=== PATIENT | male | born 1945 | race Caucasian/White ===

== ENCOUNTER 2019-05-23 19:03 | Emergency (ER) | payer MEDICARE ==
[~2019-05-23] VITALS: Ht 165.1 cm; Wt 77.6 kg
[~2019-05-23 19:03] MED LIST: ALLO100T PO; AMLO10TA4 PO; ASPI-482 PO; BYSTOLIC10 MG PO; CARV25TA PO; CHOL10003 PO; CLOP75TA57 PO; DIGO125T PO; FURO20TA3 PO; FURO80TA72 PO; GUAN1TAB PO; HYDR1TAB10 PO; IRBE300T PO; ISRA5CAP PO; LIPITOR80 MG PO; LOSA100T14 PO; OMEG500C PO; PANT40TA77 PO; RANI300C PO
--- NOTE | 2019-05-23 20:09 | RAD ---
EXAM: Head and maxillofacial bone CT without contrast. HISTORY: Trauma. TECHNIQUE: Computed tomographic images of the head and maxillofacial bones were obtained without contrast.. *One or more of the following individualized dose reduction techniques were utilized for this examination: 1. Automated exposure control. 2. Adjustment of the mA and/or kV according to patient size. 3. Use of iterative reconstruction technique. COMPARISON: None. FINDINGS: There is no acute intracranial hemorrhage. There is no mass effect or midline shift. There is no hydrocephalus. There is cerebral volume loss and compensatory enlargement of the extra-axial space. There are chronic infarcts within the right basal ganglia and right frontal lobe. There are also suspected small chronic lacunar infarcts within the left basal ganglia and left thalamus. There is decreased attenuation within the cerebral white matter, likely due to chronic small vessel disease. There is heavily calcified atherosclerotic plaque within the distal vertebral and internal carotid arteries. The mastoid air cells are clear. No suspicious calvarial lesion is seen. There are multiple dental restorations and missing teeth. There is evidence of left lens surgery. The ostiomeatal units are patent. There is mild rightward nasal septal deviation. 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 IMPRESSION: 1. No acute intracranial finding or evidence of acute maxillofacial bone trauma. 2. Chronic infarct within the right basal ganglia and adjacent right frontal lobe. There are also suspected chronic lacunar infarcts within the left basal ganglia and left thalamus. 3. Decreased attenuation within the cerebral white matter, likely due to chronic small vessel disease. 4. Cerebral atrophy, greater than expected for patient age. 5. Decreased attenuation within the cerebral white matter, likely due to chronic small vessel disease. Electronically signed by: Jo Hamm MD (05/23/2019 8:06 PM) [facility]
--- NOTE | 2019-05-23 20:31 | RAD ---
EXAM: LEFT SHOULDER 2 VIEWS. HISTORY: Left shoulder pain after fall. COMPARISON: None. FINDINGS: No fractures are identified. The glenohumeral joint space is not profiled. Alignment is maintained. 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 There are changes of coronary artery bypass grafting. The heart is moderate cardiomegaly. The aorta is calcified and tortuous. IMPRESSION: 1. No fracture or malalignment. Electronically signed by: Mitra Urrutia MD (05/23/2019 8:28 PM) [facility]
[2019-05-23 21:09] VITALS: BP 128/59
--- NOTE | 2019-05-23 21:19 | PHYS DOC ---
Past Medical History Past Medical History: CAD, CHF, Diabetes-Type II, Hypertension, [place], Renal Failure, TIA (NUVIA PERSON APRN) Past Surgical History: Knee Replacement, Other Additional Past Surgical Histo: knee replacement, stent placementx6 (NUVIA PERSON APRN) Alcohol Use: None Drug Use: None (NUVIA PERSON APRN) Attending Signature I have participated in the care of this patient and I have reviewed and agree with all pertinent clinical information above including history, exam, and recommendations. (JOHN HAYWARD MD) Adult General Chief Complaint Chief Complaint: UPPER EXTREMITY INJURY [facility] HPI Patient is a 74 year old, accompanied by his , who presents to the emergency department with complaints of left shoulder pain and bruising lateral to his left eye after tripping and falling today. Patient denies any loss consciousness, nausea, vomiting, vision changes, neck pain, back pain, chest pain, palpitations, or syncope. Patient states that he is currently taking Plavi x. He currently rates his pain a 1 out of 10 on the pain scale, he states that the pain increases if he moves his left arm but as long as he is resting the pain is tolerable. The patient denies any numbness, tingling, or weakness prior to the fall or after. All other ROS is neg unless otherwise noted in HPI. (NUVIA PERSON APRN) Review of Systems Review of Systems See Above (NUVIA PERSON APRN) Allergies Allergies Allergies Coded Allergies Type Severity Reaction Last Updated Verified doxycycline Allergy Intermediate Itching 09/09/15 Yes (JOHN HAYWARD MD) Physical Exam Physical Exam See Above Constitutional: Well developed, well nourished, no acute distress, non-toxic appearance. [] HENT: Normocephalic, atraumatic, bilateral external ears normal, oropharynx moist, no oral exudates, nose normal. [] Eyes: PERRLA, EOMI, conjunctiva normal, no discharge. [] Neck: Normal range of motion, no tenderness, supple, no stridor. [] Cardiovascular:Heart rate regular rhythm Lungs & Thorax: Bilateral breath sounds clear to auscultation [] Skin: Warm, dry, no erythema, no rash; small bruise to left hoahaoism, no laceration. [] Back: No tenderness Extremities: L shoulder tender to palpation with limited ROM due to pain, no deformity, no cyanosis, no clubbing, ROM intact, no edema. [] Neurologic: Alert and oriented X 3, no focal deficits noted. [] Psychologic: Affect normal, judgement normal, mood normal. [] (NUVIA PERSON APRN) Current Patient Data Vital Signs Vital Signs Date Time Temp Pulse Resp B/P (MAP) Pulse Ox O2 Delivery O2 Flow Rate FiO2 05/23/19 21:09 60 18 128/59 (82) 97 Room Air 05/23/19 19:16 97.4 97.4 (JOHN HAYWARD MD) EKG EKG [] (NUVIA PERSON APRN) Radiology/Procedures Radiology/Procedures PROCEDURE: SHOULDER 2+V LEFT EXAM: LEFT SHOULDER 2 VIEWS. HISTORY: Left shoulder pain after fall. COMPARISON: None. FINDINGS: No fractures are identified. The glenohumeral joint space is not profiled. Alignment is maintained. 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 There are changes of coronary artery bypass grafting. The heart is moderate cardiomegaly. The aorta is calcified and tortuous. IMPRESSION: 1. No fracture or malalignment. [] PROCEDURE: CT HEAD AND MAXILLOFACIAL WO EXAM: Head and maxillofacial bone CT without contrast. HISTORY: Trauma. TECHNIQUE: Computed tomographic images of the head and maxillofacial bones were obtained without contrast.. *One or more of the following individualized dose reduction techniques were utilized for this examination: 1. Automated exposure control. 2. Adjustment of the mA and/or kV according to patient size. 3. Use of iterative reconstruction technique. COMPARISON: None. FINDINGS: There is no acute intracranial hemorrhage. There is no mass effect or midline shift. There is no hydrocephalus. There is cerebral volume loss and compensatory enlargement of the extra-axial space. There are chronic infarcts within the right basal ganglia and right frontal lobe. There are also suspected small chronic lacunar infarcts within the left basal ganglia and left thalamus. There is decreased attenuation within the cerebral white matter, likely due to chronic small vessel disease. There is heavily calcified atherosclerotic plaque within the distal vertebral and internal carotid arteries. The mastoid air cells are clear. No suspicious calvarial lesion is seen. There are multiple dental restorations and missing teeth. There is evidence of left lens surgery. The ostiomeatal units are patent. There is mild rightward nasal septal deviation. 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 IMPRESSION: 1. No acute intracranial finding or evidence of acute maxillofacial bone trauma. 2. Chronic infarct within the right basal ganglia and adjacent right frontal lobe. There are also suspected chronic lacunar infarcts within the left basal ganglia and left thalamus. 3. Decreased attenuation within the cerebral white matter, likely due to chronic small vessel disease. 4. Cerebral atrophy, greater than expected for patient age. 5. Decreased attenuation within the cerebral white matter, likely due to chronic small vessel disease. (NUVIA PERSON APRN) Course & Med Decision Making Course & Med Decision Making Pertinent Labs and Imaging studies reviewed. (See chart for details) [] (NUVIA PERSON APRN) Dragon Disclaimer Dragon Disclaimer This electronic medical record was generated, in whole or in part, using a voice recognition dictation system. (NUVIA PERSON APRN) Departure Departure Impression: Primary Impression: Left shoulder pain Additional Impressions: Facial contusion Fall from standing Disposition: 01 HOME, SELF-CARE Condition: STABLE Referrals: OMEGA SAUCEDA (PCP) Patient Instructions: Facial or Scalp Contusion, [id number], Fall Prevention and Home Safety, [id number], Shoulder Pain, [id number] Additional Instructions: You may take Tylenol or ibuprofen as needed for pain. Recommend you apply ice to sore areas for 10-15 minutes every hour while awake today and tomorrow, and then as needed for comfort. Follow-up with your primary care doctor in 1-2 days, return to the ER if symptoms worsen. Problem Qualifiers Primary Impression: Left shoulder pain Chronicity: acute Qualified Codes: M25.512 - Pain in left shoulder Additional Impressions: Facial contusion Encounter type: initial encounter Qualified Codes: S00.83XA - Contusion of other part of head, initial encounter Fall from standing Encounter type: initial encounter Qualified Codes: W19.XXXA - Unspecified fall, initial encounter NUVIA PERSON APRN May 23, 2019 21:19 JOHN HAYWARD MD May 27, 2019 02:08
== END 2019-05-23 21:52 | disposition home or self-care (01) ==
LOC: ER 19:03
DX: S00.83XA Contusion of other part of head, initial encounter (principal); M25.512 Pain in left shoulder; I25.10 Atherosclerotic heart disease of native coronary artery without angina pectoris; I25.2 Old myocardial infarction; Z95.5 Presence of coronary angioplasty implant and graft; E11.22 Type 2 diabetes mellitus with diabetic chronic kidney disease; I13.0 Hypertensive heart and chronic kidney disease with heart failure and stage 1 through stage 4 chronic kidney disease, or unspecified chronic kidney disease; N18.9 Chronic kidney disease, unspecified; I50.9 Heart failure, unspecified; Z88.1 Allergy status to other antibiotic agents; W01.0XXA Fall on same level from slipping, tripping and stumbling without subsequent striking against object, initial encounter; Y93.89 Activity, other specified; Y92.89 Other specified places as the place of occurrence of the external cause; Y99.8 Other external cause status
CPT/HCPCS: 70450; 70486; 73030; 99284-25

== ENCOUNTER 2020-03-05 03:07 | Inpatient (IN) | payer MEDICARE ==
[~2020-03-05] VITALS: Ht 165.1 cm; Wt 77.9 kg
[~2020-03-05 03:07] MED LIST changes: -DIGO125T PO; +DIGO125T3 PO
[2020-03-05] MEDS ORDERED: ONDANSETRON PF 4 MG/2 ML VIAL. ONE (03:24)
[2020-03-05] MEDS ORDERED: ONDANSETRON PF 4 MG/2 ML VIAL. IVP ONE (03:30)
--- NOTE | 2020-03-05 03:30 | PHYS DOC ---
Past Medical History Past Medical History: CAD, CHF, Diabetes-Type II, Hypertension, [place], Renal Failure, TIA Past Surgical History: Knee Replacement, Other Additional Past Surgical Histo: knee replacement, stent placementx6 Smoking Status: Former Smoker Alcohol Use: None Drug Use: None General Adult HPI: HPI: Patient is a 75 year old male with past medical history of CAD, hypertension, CHF, afib, ESRD (peritoneal dialysis) presents for evaluation of shortness of breath, nausea and vomiting. Patient states [employer] was on his way to the bathroom when his left knee gave out and he fell to the ground. Patient denies hitting his head. Patient has no complaints of pain. could not help patient get up off the ground. She called EMS for lift help. Patient states he has been short of breath x 1 weeks. He denies a cough or fever. Patient states he has nausea and has vomited x 2-3 days. States recently diagnosis with infection related to P. Dialysis. Patient states he was told infection is E.coli. Patient started an antibiotics today-- but does not know the name. Review of Systems: Review of Systems: Constitutional: Denies fever or chills. [] Eyes: Denies change in visual acuity. [] HENT: Denies nasal congestion or sore throat. [positive nasal drainage] Respiratory: Denies cough or shortness of breath. [] Cardiovascular: Denies chest pain or edema. [] GI: Denies abdominal pain, bloody stools or diarrhea. [positive nausea and vomiting] : Denies dysuria. [] Musculoskeletal: Denies back pain or joint pain. [] Integument: Denies rash. [] Neurologic: Denies headache, focal weakness or sensory changes. [] Endocrine: Denies polyuria or polydipsia. [] Lymphatic: Denies swollen glands. [] Psychiatric: Denies depression or anxiety. [] Heart Score: Risk Factors: Risk Factors: DM, Current or recent (<one month) smoker, HTN, HLP, family history of CAD, obesity. Risk Scores: Score 0 - 3: 2.5% MACE over next 6 weeks - Discharge Home Score 4 - 6: 20.3% MACE over next 6 weeks - Admit for Clinical Observation Score 7 - 10: 72.7% MACE over next 6 weeks - Early Invasive Strategies Current Medications: Current Medications Medications (Trade) Dose Ordered Sig/Randy Start Time Stop Time Status Last Admin Dose Admin Ondansetron HCl (Zofran) 4 mg STK-MED ONCE 03/05/20 03:24 03/05/20 03:24 DC Allergies: Allergies: Allergies Coded Allergies Type Severity Reaction Last Updated Verified doxycycline Allergy Intermediate Itching 09/09/15 Yes Physical Exam: PE: Constitutional: Well developed, well nourished, no acute distress, non-toxic appearance. [] HENT: Normocephalic, atraumatic, bilateral external ears normal, oropharynx moist, no oral exudates, nose normal. [] Eyes: PERRLA, EOMI, conjunctiva normal, no discharge. [] Neck: Normal range of motion, no tenderness, supple, no stridor. [] Cardiovascular:Heart rate regular rhythm, no murmur [] Lungs & Thorax: Bilateral breath sounds clear to auscultation [] Abdomen: Bowel sounds normal, soft, no tenderness, no masses, no pulsatile masses. [] Skin: Warm, dry, no erythema, no rash. [] Back: No tenderness, no CVA tenderness. [] Extremities: No tenderness, no cyanosis, no clubbing, ROM intact, no edema. [] Neurologic: Alert and oriented X 3, normal motor function, normal sensory f unction, no focal deficits noted. [] Psychologic: Affect normal, judgement normal, mood normal. [] EKG: EKG: time 0325 rate 92bpm sinus with aberant intraventricular conduction occasional pvc[] Radiology/Procedures: Radiology/Procedures: [] Course & Med Decision Making: Course & Med Decision Making Pertinent Labs and Imaging studies reviewed. (See chart for details) []Patient was treated with zofran for n/v. K+ was found to be <3-- treated with Potassium 40MeQ BNP >35,000 and Chest Xray concerning for fluid overload-- Treated with Lasix 40mg COvid swab obtained. Dosed with Rocephin and zithromax for possible underlying infiltrate. Re-evaluation @ 0430hrs. Patient state nausea has resolved. Continues to deny chest pain. State breathing has improved. Dragon Disclaimer: Dragon Disclaimer: This electronic medical record was generated, in whole or in part, using a voice recognition dictation system. Departure Departure Impression: Primary Impression: Nausea & vomiting Additional Impressions: Shortness of breath Person under investigation for COVID-19 Elevated troponin Hypokalemia CHF (congestive heart failure) Disposition: 09 ADMITTED INPATIENT Admitting Physician: KAYLA Condition: STABLE Referrals: OMEGA SAUCEDA (PCP) Justicifation of Admission Dx: Justifications for Admission: Justification of Admission Dx: Yes CHF: Sev. Electrolyte Abnormal Chronic Renal Failure: Electrolyte Abnormality HUMBERTO HOPKINS DO Mar 05, 2020 03:30
[2020-03-05 03:43] LABS: BASO % 0 % (0-3); EOS # 0.1 x10^3/uL (0.0-0.7); EOS % 1 % (0-3); HEMATOCRIT 38.3 % (39.0-53.0); HEMOGLOBIN 12.6 g/dL (13.0-17.5); LYMPH % 10 % (24-48); MEAN CORPUSCULAR HEMOGLOBIN 28 pg (25-35); MEAN CORPUSCULAR HGB CONC 33 g/dL (31-37); MEAN CORPUSCULAR VOLUME 87 fL (79-100); MONO # 0.7 x10^3/uL (0.0-1.1); MONO % 7 % (0-9); NEUT # 8.5 x10^3/uL (1.8-7.7); NEUT % 82 % (31-73); PLATELET COUNT 273 x10^3/uL (140-400); RED BLOOD COUNT 4.42 x10^6/uL (4.30-5.70); RED CELL DISTRIBUTION WIDTH 18.8 % (11.5-14.5); WHITE BLOOD COUNT 10.3 x10^3/uL (4.0-11.0)
[2020-03-05 03:53] LABS: PROTHROMBIN TIME PATIENT 14.1 SEC (11.7-14.0)
--- NOTE | 2020-03-05 03:54 | RAD ---
INDICATION: Reason: shortness of breath / Spl. Instructions: / History: COMPARISON: September 2013 FINDINGS: Single view of chest obtained. Enlarged cardiomediastinal silhouette with poststernotomy changes. Left lung base is not well evaluated secondary to overlying cardiac silhouette obscuring but there is a relative opacification within the area. Mild interstitial and groundglass opacities bilaterally. There are some air-filled prominent loops of bowel at the upper abdomen. There is also an air-fluid level seen projecting over the inferior aspect of the cardiomediastinal silhouette. IMPRESSION: * Relative opacity at the left lung base. A portion of this is likely secondary to overlap of structures but a focus of atelectasis or infiltrate can have this appearance. * There is also some mild interstitial and groundglass opacities bilaterally which can be seen with mild edema or mild interstitial infiltrate. * The cardiomediastinal silhouette is enlarged. There is also an air-fluid level seen projecting over the base of the heart. Possible cause would include hiatal hernia. Electronically signed by: Nj Young MD (03/05/2020 3:52 AM) [id number]
[2020-03-05 03:56] LABS: ALBUMIN 1.9 g/dL (3.4-5.0); ALBUMIN/GLOBULIN RATIO 0.5 (1.0-1.7); CALCIUM 7.7 mg/dL (8.5-10.1); CREATININE 4.7 mg/dL (0.7-1.3); GFR 12.2; TOTAL BILIRUBIN 0.4 mg/dL (0.2-1.0); TOTAL PROTEIN 5.9 g/dL (6.4-8.2)
[2020-03-05 03:57] LABS: POTASSIUM 2.6 mmol/L (3.5-5.1)
[2020-03-05] MEDS ORDERED: ASPIRIN CHEWABLE 81 MG TABLET. PO ONE (04:30)
[2020-03-05] MEDS ORDERED: cefTRIAXone IV Push 1 GM VIAL. IVP ONE (04:30)
[2020-03-05] MEDS ORDERED: POTASSIUM CHLORIDE 20 MEQ TABLET.ER. PO ONE (04:30)
[2020-03-05] MEDS ORDERED: AZITHRMYCN 500MG IVPB FOR OMNI 250 ML IV ONE (04:30)
[2020-03-05] MEDS ORDERED: FUROSEMIDE 40 MG/4 ML VIAL. IVP ONE (04:30)
[2020-03-05] MEDS ORDERED: ONDANSETRON PF 4 MG/2 ML VIAL. IV PRN (04:45)
[2020-03-05] MEDS ORDERED: MORPHINE SULFATE 2 MG/ML VIAL. IV PRN (04:45)
[2020-03-05 05:22] LABS: BILIRUBIN,URINE NEGATIVE (NEG); CLARITY,URINE CLEAR; COLOR,URINE YELLOW; NITRITE,URINE NEGATIVE (NEG); PH,URINE 6.5 (<5.0-8.0); PROTEIN,URINE 100 mg/dL (NEG-TRACE); UROBILINOGEN,URINE 0.2 mg/dL (0.2 mg/dL)
[2020-03-05 05:27] LABS: BACTERIA,URINE 0 /HPF (0-FEW); RBC,URINE OCC /HPF (0-2); SQUAMOUS EPITHELIAL CELL,UR FEW /LPF
[2020-03-05] MEDS: POTASSIUM CHLORIDE 10MEQ 100 ML IV SCH ×2 (08:02→09:36)
[2020-03-05 08:46] VITALS: BP 144/76
--- NOTE | 2020-03-05 09:20 | PDOC1 ---
History and Physical Date of Admission Date of Admission DATE: 03/05/20 TIME: 09:14 Identification/Chief Complaint Chief Complaint Shortness of breath Source Source: Patient History of Present Illness History of Present Illness Mr Encinas is a 75 year old male with past medical history of CAD s/p CABG and stenting x6, hypertension, CHF, afib, DM2, TIA, ESRD (peritoneal dialysis), TIKA on BIPAP 18/12 qhs presents for evaluation of shortness of breath, nausea and vomiting as well as a fall at home. At 02 100 on 03/05/2020 is found him laying on the floor unable to lift himself up and she was unable to lift him and called EMS per lift assistance. He denies any loss of consciousness or head or neck injury. He does complain of chronic left knee pain is aching throbbing and bilateral rated a 4 out of 10. He has had nausea vomiting and decreased appetite as well as a dry cough for 1 week. He does note that he is been progressively more short of breath for months he thinks since October. He also notes this is his ninth fall since May 2019. He was recently started on cefdinir on 02/28/2020 for lower extremity wound inf ection through [facility] wound [facility], and subsequently intraperitoneal meropenem 1 g daily on 03/04/2020 after a peritoneal catheter culture result on 03/03/2020 returned positive for E. coli ESBL. I reviewed this data from Hannah Yoder. He also had a ESBL E. coli PD catheter infection 11/26/2019. There is no particular sensitivity information available to me is simply reads ESBL. He notes he has been on PD for a year and until recently tolerated very well on nocturnal cycler notes he uses to yellow bags at night and 1 during the day at times when he has been treated for peritonitis with intraperitoneal antibiotics. EKG with HR 92. Intraventricular conduction aberrancy, multiple PVCs. CXR with interstitial opacities and possible left basilar infiltrate. Post- sternotomy changes Labs significant for WBC 10.3, Hb 12.6, platelets 273. NA 138, K2.6, mag 1.4, BUN 53, CR 4.3, glucose 135, calcium 7.7, albumin 1.9, BNP greater than 30 5K, troponin 0 0.143, repeat troponin 0.136. Lactic acid 1.7 Due to his complaints of shortness of breath and his dialysis status ED physician ordered COVID-19 swab and he has been seen and evaluated in the COVID- 19 isolation unit. Admitted for further care Past Medical History Cardiovascular: CAD, CHF, HTN, Hyperlipidemia Renal/: Chronic renal failure Endocrine: Diabetes Past Surgical History Past Surgical History: CABG, Total knee replacement Family History Family History: Coronary Artery Disease, High Cholestrol, Hypertension Social History Smoke: Quit ALCOHOL: none Drugs: None Current Problem List Problem List Problems Medical Problems: (1) CHF (congestive heart failure) Status: Acute (2) Elevated troponin Status: Acute (3) Hypokalemia Status: Acute (4) Nausea & vomiting Status: Acute (5) Person under investigation for COVID-19 Status: Acute (6) Shortness of breath Status: Acute Current Medications Current Medications Current Medications Ondansetron HCl (Zofran) 4 mg STK-MED ONCE .ROUTE ; Start 03/05/20 at 03:24; Stop 03/05/20 at 03:24; Status DC Ondansetron HCl (Zofran) 4 mg 1X ONCE IVP Last administered on 03/05/20at 03:34; Start 03/05/20 at 03:30; Stop 03/05/20 at 03:48; Status DC Potassium Chloride (Klor-Con) 40 meq 1X ONCE PO Last administered on 03/05/20at 04:48; Start 03/05/20 at 04:30; Stop 03/05/20 at 04:31; Status DC Furosemide (Lasix) 40 mg 1X ONCE IVP Last administered on 03/05/20at 04:51; Start 03/05/20 at 04:30; Stop 03/05/20 at 04:31; Status DC Ceftriaxone Sodium (Rocephin) 1 gm 1X ONCE IVP Last administered on 03/05/20at 04:50; Start 03/05/20 at 04:30; Stop 03/05/20 at 04:31; Status DC Azithromycin 250 ml @ 250 mls/hr 1X ONCE IV Last administered on 03/05/20at 04:51; Start 03/05/20 at 04:30; Stop 03/05/20 at 05:29; Status DC Aspirin (Aspirin Chewable) 324 mg 1X ONCE PO Last administered on 03/05/20at 04:45; Start 03/05/20 at 04:30; Stop 03/05/20 at 04:31; Status DC Ondansetron HCl (Zofran) 4 mg PRN Q8HRS PRN IV NAUSEA/VOMITING; Start 03/05/20 at 04:45; Stop 03/06/20 at 04:44 Morphine Sulfate (Morphine Sulfate) 2 mg PRN Q2HR PRN IV PAIN; Start 03/05/20 at 04:45; Stop 03/06/20 at 04:44 Potassium Chloride/Water 100 ml @ 100 mls/hr Q1H IV Last administered on 03/05/20at 08:02; Start 03/05/20 at 06:00; Stop 03/05/20 at 07:59; Status DC Active Scripts Active Vicoprofen 200-7.5 Mg Tab (Hydrocodone/Ibuprofen) 1 Each Tablet 1 Tab PO QID Reported Vitamin D3 (Cholecalciferol (Vitamin D3)) 1,000 Unit Tablet 1 Tab PO BID Fish Oil ([place]-3 Fatty Acids) 500 Mg Capsule.dr 1,000 Mg PO BID Ranitidine Hcl 300 Mg Capsule 300 Mg PO HS Allopurinol 100 Mg Tablet 1 Tab PO DAILY Guanfacine Hcl 1 Mg Tablet 1 Tab PO HS Norvasc (Amlodipine Besylate) 10 Mg Tablet 10 Mg PO DAILY Losartan Potassium 100 Mg Tablet 100 Mg PO DAILY Aspir 81 (Aspirin) 81 Mg Tablet.dr 1 Tab PO DAILY Plavix (Clopidogrel Bisulfate) 75 Mg Tablet 1 Tab PO DAILY Coreg (Carvedilol) 25 Mg Tablet 1 Tab PO BID Isradipine 5 Mg Capsule 10 Mg PO DAILY Furosemide 20 Mg Tablet 20 Mg PO BID Avapro (Irbesartan) 300 Mg Tablet 300 Mg PO DAILY Lipitor (Atorvastatin Calcium) 80 Mg Tablet 80 Mg PO DAILY Allergies Allergies: Coded Allergies: doxycycline (Verified Allergy, Intermediate, Itching, 09/09/15) ROS General: YES: Fatigue, Malaise; No: Chills, Night Sweats, Appetite, Other PSYCHOLOGICAL ROS: No: Anxiety, Behavioral Disorder, Concentration difficultie, Decreased libido, Depression, Disorientation, Hallucinations, Hostility, Irritablity, Memory difficulties, Mood Swings, Obsessive thoughts, Physical abuse, Sexual abuse, Sleep disturbances, Suicidal ideation, Other Eyes: No Blurry vision, No Decreased vision, No Double vision, No Dry eyes, No Excessive tearing, No Eye Pain, No Itchy Eyes, No Loss of vision, No Ph otophobia, No Scotomata, No Uses contacts, No Uses glasses, No Other HEENT: No: Heacaches, Visual Changes, Hearing change, Nasal congestion, Nasal discharge, Oral lesions, Sinus pain, Sore Throat, Epistaxis, Sneezing, Snoring, Tinnitus, Vertigo, Vocal changes, Other ALLERGY AND IMMUNOLOGY: No: Hives, Insect Bite Sensitivity, Itchy/Watery Eyes, Nasal Congestion, Post Nasal Drip, Seasonal Allergies, Other Hematological and Lymphatic: No: Bleeding Problems, Blood Clots, Blood Transfusions, Brusing, Night Sweats, Pallor, Swollen Lymph Nodes, Other ENDOCRINE: No: Breast Changes, Galactorrhea, Hair Pattern Changes, Hot Flashes, Malaise/lethargy, Mood Swings, Palpitations, Polydipsia/polyuria, Skin Changes, Temperature Intolerance, Unexpected Weight Changes, Other Breast: No New/Changing Breast Lumps, No Nipple changes, No Nipple discharge, No Other Respiratory: YES: Shortness of breath, SOB with excertion; No: Cough, Hemoptysis, Orthopnea, Pleuritic Pain, Sputum Changes, Stridor, Tachypnea, Wheezing, Other Cardiovascular: No Chest Pain, No Palpitations, No Orthopnea, No Paroxysmal Noc. Dyspnea, No Edema, No Lt Headedness, No Other Gastrointestinal: Yes Nausea, Yes Abdominal Pain; No Vomiting, No Diarrhea, No Constipation, No Melena, No Hematochezia, No Other Genitourinary: No Dysuria, No Frequency, No Incontinence, No Hematuria, No Retention, No Discharge, No Urgency, No Pain, No Flank Pain, No Other, No , No , No , No , No , No , No Musculoskeletal: Yes Joint Pain, Yes Joint Stiffness; No Gait Disturbance, No Joint Swelling, No Muscle Pain, No Muscular Weakness, No Pain In:, No Swelling In:, No Other Neurological: No Behavorial Changes, No Bowel/Bladder ControlChng, No Confusion, No Dizziness, No Gait Disturbance, No Headaches, No Impaired Coord/balance, No Memory Loss, No Numbness/Tingling, No Seizures, No Speech Problems, No Tremors, No Visual Changes, No Weakness, No Other Skin: Yes Dry Skin, Yes Hair Changes, Yes Rash, Yes Skin Lesion Changes; No Eczema, No Lumps, No Mole Changes, No Mottling, No Nail Changes, No Pruritus, No Other, No Acne Physical Exam General: Alert, Oriented X3, Cooperative, mild distress HEENT: Atraumatic, PERRLA, EOMI, Mucous membr. moist/pink Lungs: Clear to auscultation, Normal air movement Heart: S1S2, RRR, no thrills, no rubs, no gallops, no murmurs Abdomen: Normal bowel sounds, Soft, No hepatosplenomegaly, No masses, Other (diffuse tenderness. PD catheter site clean, dry intact) Extremities: No clubbing, No cyanosis, No edema, Normal pulses, No tenderness/swelling Skin: Other (Bilateral venous stasis dermatitis and scattered open venous ulcers, no heat or redness noted) Neuro: Normal gait, Normal speech, Strength at 5/5 X4 ext, Normal tone, Sensation intact, Cranial nerves 3-12 NL, Reflexes 2+ Psych/Mental Status: Mental status NL, Mood NL Vitals Vitals Vital Signs Date Time Temp Pulse Resp B/P (MAP) Pulse Ox O2 Delivery O2 Flow Rate FiO2 03/05/20 08:46 98.0 80 28 144/76 (98) 98 Room Air 98.0 Labs Labs Laboratory Tests Test 03/05/20 03:15 03/05/20 05:08 03/05/20 07:40 White Blood Count 10.3 x10^3/uL (4.0-11.0) Red Blood Count 4.42 x10^6/uL (4.30-5.70) Hemoglobin 12.6 g/dL (13.0-17.5) Hematocrit 38.3 % (39.0-53.0) Mean Corpuscular Volume 87 fL (79-100) Mean Corpuscular Hemoglobin 28 pg (25-35) Mean Corpuscular Hemoglobin Concent 33 g/dL (31-37) Red Cell Distribution Width 18.8 % (11.5-14.5) Platelet Count 273 x10^3/uL (140-400) Neutrophils (%) (Auto) 82 % (31-73) Lymphocytes (%) (Auto) 10 % (24-48) Monocytes (%) (Auto) 7 % (0-9) Eosinophils (%) (Auto) 1 % (0-3) Basophils (%) (Auto) 0 % (0-3) Neutrophils # (Auto) 8.5 x10^3/uL (1.8-7.7) Lymphocytes # (Auto) 1.0 x10^3/uL (1.0-4.8) Monocytes # (Auto) 0.7 x10^3/uL (0.0-1.1) Eosinophils # (Auto) 0.1 x10^3/uL (0.0-0.7) Basophils # (Auto) 0.0 x10^3/uL (0.0-0.2) Prothrombin Time 14.1 SEC (11.7-14.0) Prothromb Time International Ratio 1.1 (0.8-1.1) Activated Partial Thromboplast Time 34 SEC (24-38) Sodium Level 138 mmol/L (136-145) Potassium Level 2.6 mmol/L (3.5-5.1) Chloride Level 101 mmol/L (98-107) Carbon Dioxide Level 34 mmol/L (21-32) Anion Gap 3 (6-14) Blood Urea Nitrogen 53 mg/dL (8-26) Creatinine 4.7 mg/dL (0.7-1.3) Estimated GFR (Cockcroft-Gault) 12.2 BUN/Creatinine Ratio 11 (6-20) Glucose Level 135 mg/dL (70-99) Lactic Acid Level 1.7 mmol/L (0.4-2.0) Calcium Level 7.7 mg/dL (8.5-10.1) Magnesium Level 1.4 mg/dL (1.8-2.4) Total Bilirubin 0.4 mg/dL (0.2-1.0) Aspartate Amino Transf (AST/SGOT) 74 U/L (15-37) Alanine Aminotransferase (ALT/SGPT) 18 U/L (16-63) Alkaline Phosphatase 95 U/L (46-116) Troponin I Quantitative 0.143 ng/mL (0.000-0.055) 0.136 ng/mL (0.000-0.055) XB-Wah-D-Type Natriuretic Peptide > 33890 pg/mL (0-449) Total Protein 5.9 g/dL (6.4-8.2) Albumin 1.9 g/dL (3.4-5.0) Albumin/Globulin Ratio 0.5 (1.0-1.7) Urine Collection Type Unknown Urine Color Yellow Urine Clarity Clear Urine pH 6.5 (<5.0-8.0) Urine Specific Dagmar 1.010 (1.000-1.030) Urine Protein 100 mg/dL (NEG-TRACE) Urine Glucose (UA) Negative mg/dL (NEG) Urine Ketones (Stick) Negative mg/dL (NEG) Urine Blood Moderate (NEG) Urine Nitrite Negative (NEG) Urine Bilirubin Negative (NEG) Urine Urobilinogen Dipstick 0.2 mg/dL (0.2 mg/dL) Urine Leukocyte Esterase Negative (NEG) Urine RBC Occ /HPF (0-2) Urine WBC 1-4 /HPF (0-4) Urine Squamous Epithelial Cells Few /LPF Urine Bacteria 0 /HPF (0-FEW) Urine Mucus Slight /LPF Laboratory Tests Test 03/05/20 03:15 03/05/20 05:08 03/05/20 07:40 White Blood Count 10.3 x10^3/uL (4.0-11.0) Red Blood Count 4.42 x10^6/uL (4.30-5.70) Hemoglobin 12.6 g/dL (13.0-17.5) Hematocrit 38.3 % (39.0-53.0) Mean Corpuscular Volume 87 fL (79-100) Mean Corpuscular Hemoglobin 28 pg (25-35) Mean Corpuscular Hemoglobin Concent 33 g/dL (31-37) Red Cell Distribution Width 18.8 % (11.5-14.5) Platelet Count 273 x10^3/uL (140-400) Neutrophils (%) (Auto) 82 % (31-73) Lymphocytes (%) (Auto) 10 % (24-48) Monocytes (%) (Auto) 7 % (0-9) Eosinophils (%) (Auto) 1 % (0-3) Basophils (%) (Auto) 0 % (0-3) Neutrophils # (Auto) 8.5 x10^3/uL (1.8-7.7) Lymphocytes # (Auto) 1.0 x10^3/uL (1.0-4.8) Monocytes # (Auto) 0.7 x10^3/uL (0.0-1.1) Eosinophils # (Auto) 0.1 x10^3/uL (0.0-0.7) Basophils # (Auto) 0.0 x10^3/uL (0.0-0.2) Prothrombin Time 14.1 SEC (11.7-14.0) Prothromb Time International Ratio 1.1 (0.8-1.1) Activated Partial Thromboplast Time 34 SEC (24-38) Sodium Level 138 mmol/L (136-145) Potassium Level 2.6 mmol/L (3.5-5.1) Chloride Level 101 mmol/L (98-107) Carbon Dioxide Level 34 mmol/L (21-32) Anion Gap 3 (6-14) Blood Urea Nitrogen 53 mg/dL (8-26) Creatinine 4.7 mg/dL (0.7-1.3) Estimated GFR (Cockcroft-Gault) 12.2 BUN/Creatinine Ratio 11 (6-20) Glucose Level 135 mg/dL (70-99) Lactic Acid Level 1.7 mmol/L (0.4-2.0) Calcium Level 7.7 mg/dL (8.5-10.1) Magnesium Level 1.4 mg/dL (1.8-2.4) Total Bilirubin 0.4 mg/dL (0.2-1.0) Aspartate Amino Transf (AST/SGOT) 74 U/L (15-37) Alanine Aminotransferase (ALT/SGPT) 18 U/L (16-63) Alkaline Phosphatase 95 U/L (46-116) Troponin I Quantitative 0.143 ng/mL (0.000-0.055) 0.136 ng/mL (0.000-0.055) NO-Vai-C-Type Natriuretic Peptide > 21959 pg/mL (0-449) Total Protein 5.9 g/dL (6.4-8.2) Albumin 1.9 g/dL (3.4-5.0) Albumin/Globulin Ratio 0.5 (1.0-1.7) Urine Collection Type Unknown Urine Color Yellow Urine Clarity Clear Urine pH 6.5 (<5.0-8.0) Urine Specific Dagmar 1.010 (1.000-1.030) Urine Protein 100 mg/dL (NEG-TRACE) Urine Glucose (UA) Negative mg/dL (NEG) Urine Ketones (Stick) Negative mg/dL (NEG) Urine Blood Moderate (NEG) Urine Nitrite Negative (NEG) Urine Bilirubin Negative (NEG) Urine Urobilinogen Dipstick 0.2 mg/dL (0.2 mg/dL) Urine Leukocyte Esterase Negative (NEG) Urine RBC Occ /HPF (0-2) Urine WBC 1-4 /HPF (0-4) Urine Squamous Epithelial Cells Few /LPF Urine Bacteria 0 /HPF (0-FEW) Urine Mucus Slight /LPF Images Images CXR: Enlarged cardiomediastinal silhouette with poststernotomy changes. Left lung base is not well evaluated secondary to overlying cardiac silhouette obscuring but there is a relative opacification within the area. Mild interstitial and groundglass opacities bilaterally. There are some air-filled prominent loops of bowel at the upper abdomen. There is also an air-fluid level seen projecting over the inferior aspect of the cardiomediastinal silhouette. IMPRESSION: * Relative opacity at the left lung base. A portion of this is likely secondary to overlap of structures but a focus of atelectasis or infiltrate can have this appearance. * There is also some mild interstitial and groundglass opacities bilaterally which can be seen with mild edema or mild interstitial infiltrate. * The cardiomediastinal silhouette is enlarged. There is also an air-fluid level seen projecting over the base of the heart. Possible cause would include hiatal hernia. VTE Prophylaxis Ordered VTE Prophylaxis Devices: No VTE Pharmacological Prophylaxi: Yes Assessment/Plan Assessment/Plan A/P: Nausea and vomiting - likely secondary to peritonitis. No diarrhea, gastroenteritis is also a possibility. Will give IV antiemetics. Pain control. Shortness of breath - multifactorial due to respiratory splinting due to peritonitis, complicated by an acute CHF exacerbation, less likely to be COVID- 19, will follow up on the results of this test. Will diuresis with PD and Lasix. Peritonitis - secondary to PD catheter infection with ESBL E. coli. I have ordered IV meropenem daily. Will consult ID and nephrology for further recommendations. Hypokalemia - will replace IV and p.o. Will defer to nephrology for further recommendations on replacement protocol given his ESRD status. Severe protein calorie malnutrition - will have dietitian to see, continue renal diet Hypomagnesemia - will replace Transaminitis - likely secondary to peritonitis. Will trend LFTs. Secondary hyperparathyroidism - due to ESRD Anemia of chronic renal insufficiency - will defer to nephrology for e rythropoietin replacement, no current indication given his hemoglobin is 10.3. CAD s/p CABG and stenting x6 - stable, will continue cardiac meds Hypertension - continue meds Acute diastolic CHF - due to over load of fluid due to inadequate peritoneal dialysis likely due to peritonitis. Unknown recent EF. 2013 his EF was 55%. Will attempt diuresis. He may need to convert HD for UF, will defer to nephrology for this. DM2 - will place on basal bolus plus insulin while inpatient H/o TIA - no neurologic complaints ESRD - on peritoneal dialysis. Given this appears to be his second bout of peritonitis in his first year of PD I have advised him to ask his secretary office clerk if other options are available such as HD. TIKA on BIPAP 18/12 qhs - his will bring his home device. Left knee pain - chronic, will offer voltaren topical ointment Bilateral Lower extremity wounds - wound care nursing to see FEN - Renal diet PPX - heparin FULL CODE Dispo - inpatient for above Justifications for Admission Other Justification PRISCILLA GROVES MD Mar 05, 2020 09:20
[2020-03-05] MEDS ORDERED: LEVO100T5 PO (09:25)
[2020-03-05] MEDS ORDERED: CARVEDILOL 12.5 MG TABLET. PO SCH (10:00)
[2020-03-05] MEDS ORDERED: ASPIRIN ENTERIC COATED 81 MG TABLET.DR. PO SCH (10:00)
[2020-03-05] MEDS ORDERED: amLODIPine BESYLATE 10 MG TABLET PO SCH (10:00)
[2020-03-05] MEDS ORDERED: AMLO5TAB10 PO (10:16)
[2020-03-05] MEDS ORDERED: IRBE75TA16 PO (10:16)
[2020-03-05] MEDS ORDERED: POTA-163 PO (10:16)
[2020-03-05] MEDS ORDERED: CARV12.53 PO (10:16)
[2020-03-05] MEDS ORDERED: FAMO-63 PO (10:22)
[2020-03-05] MEDS ORDERED: MERO1VIA22 IV (10:29)
[2020-03-05 11:02] VITALS: BP 114/53
[2020-03-05] MEDS ORDERED: MEROPENEM 1 GM VIAL IV SCH (12:15)
[2020-03-05] MEDS ORDERED: MEROPENEM 1 GM in IV NORMAL SALINE 100ML 100 ML IV SCH (13:00)
[2020-03-05] MEDS: CHOLECALCIFEROL (VITAMIN D3) 1,000 UNIT TABLET PO SCH (13:36)
[2020-03-05] MEDS: amLODIPine BESYLATE 5 MG TABLET PO SCH (13:37)
[2020-03-05] MEDS: CLOPIDOGREL BISULFATE 75 MG TABLET PO SCH (13:37)
[2020-03-05] MEDS: LEVOTHYROXINE 100 MCG TABLET PO SCH (13:38)
[2020-03-05] MEDS: LOSARTAN POTASSIUM 25 MG TABLET. PO SCH (13:38)
[2020-03-05] MEDS: HEPARIN for SUB-Q USE 5,000 UNIT/ML VIAL. SQ SCH (13:40)
[2020-03-05 15:02] VITALS: BP 166/70
[2020-03-05] MEDS ORDERED: traMADol 50 MG TABLET PO PRN (16:00)
[2020-03-05] MEDS ORDERED: fentaNYL PF VIAL 100 MCG/2 ML VIAL IVP PRN (16:00)
[2020-03-05] MEDS: POTASSIUM CHLORIDE 20 MEQ TABLET.ER. PO SCH (16:14)
[2020-03-05] MEDS: CARVEDILOL 12.5 MG TABLET. PO SCH (16:14)
[2020-03-05] MEDS: PSYLLIUM HUSK (SUGAR FREE) 1 PKT PACKET PO SCH (18:38)
[2020-03-05 19:00] VITALS: BP 132/75
[2020-03-05] MEDS ORDERED: GUANFACINE HCL PO SCH (21:00)
--- NOTE | 2020-03-05 21:20 | CONS ---
DATE OF CONSULTATION: 03/05/2020 REQUESTING PHYSICIAN: Hospitalist. REASON FOR CONSULTATION: Renal failure, peritoneal dialysis dependent. HISTORY OF PRESENT ILLNESS: A 75-year-old gentleman with history of end-stage renal disease in setting of diabetic nephropathy and hypertensive nephrosclerosis. The patient has end-stage renal disease, for which he undergoes peritoneal dialysis. He was recently diagnosed with E. coli peritonitis. Organism is sensitive to meropenem. He now presents with shortness of breath and is currently PUI for COVID-19. PAST MEDICAL HISTORY: Diabetes mellitus, hypertension, end-stage renal disease, peritoneal dialysis dependent, atrial fibrillation, congestive cardiomyopathy, coronary artery disease, status post coronary stenting x 6, congestive cardiomyopathy, anemia of chronic kidney disease, secondary hyperparathyroidism, renal disease, current E. coli peritonitis, hyperlipidemia, coronary artery bypass grafting, total knee replacement. ALLERGIES: DOXYCYCLINE. MEDICATIONS: Reviewed per medication list. FAMILY HISTORY: Noncontributory. SOCIAL HISTORY: The patient resides with assistance. REVIEW OF SYSTEMS: As per above in HPI. PHYSICAL EXAMINATION: Due to PUI for COVID-19, bedside examination was not pursued. LABORATORY DATA: Hemoglobin 12.6, hematocrit 38, white count 10.3, platelets 273. Sodium 138, potassium 2.6, chloride 101, CO2 of 34, BUN 52, creatinine 4.7, GFR is 12, calcium 7.7. IMPRESSION: 1. End-stage renal disease secondary to diabetes mellitus and hypertension - peritoneal dialysis dependent. 3. Escherichia coli peritonitis, sensitive to meropenem. 4. PUI for COVID-19. RECOMMENDATIONS: 1. Ongoing peritoneal dialysis with dialysis scheduled for tonight. 2. Meropenem 500 mg IV every day. 3. We will follow. OMEGA MORALES MD DR: YELENA/juancho JOB#: [id number] / [id number]
[2020-03-05 23:30] VITALS: BP 144/67
[2020-03-06] VITALS (7 sets, daily range): BP systolic 114–153; BP diastolic 53–82
[2020-03-06] MEDS: ATORVASTATIN CALCIUM 40 MG TABLET. PO SCH ×2 (01:01→20:49)
[2020-03-06] MEDS: CHOLECALCIFEROL (VITAMIN D3) 1,000 UNIT TABLET PO SCH ×3 (01:01→20:49)
[2020-03-06] MEDS: HEPARIN for SUB-Q USE 5,000 UNIT/ML VIAL. SQ SCH ×4 (01:05→20:55)
[2020-03-06 05:01] LABS: BASO % 1 % (0-3); EOS # 0.2 x10^3/uL (0.0-0.7); EOS % 3 % (0-3); HEMATOCRIT 36.4 % (39.0-53.0); HEMOGLOBIN 12.1 g/dL (13.0-17.5); LYMPH # 1.1 x10^3/uL (1.0-4.8); LYMPH % 15 % (24-48); MEAN CORPUSCULAR HEMOGLOBIN 29 pg (25-35); MEAN CORPUSCULAR HGB CONC 33 g/dL (31-37); MEAN CORPUSCULAR VOLUME 87 fL (79-100); MONO # 0.6 x10^3/uL (0.0-1.1); MONO % 8 % (0-9); NEUT # 5.4 x10^3/uL (1.8-7.7); NEUT % 73 % (31-73); PLATELET COUNT 238 x10^3/uL (140-400); RED BLOOD COUNT 4.19 x10^6/uL (4.30-5.70); RED CELL DISTRIBUTION WIDTH 18.7 % (11.5-14.5); WHITE BLOOD COUNT 7.4 x10^3/uL (4.0-11.0)
[2020-03-06 05:19] LABS: CALCIUM 7.8 mg/dL (8.5-10.1); CREATININE 4.5 mg/dL (0.7-1.3); GFR 12.8
[2020-03-06 05:39] LABS: POTASSIUM 2.9 mmol/L (3.5-5.1)
[2020-03-06] MEDS: LEVOTHYROXINE 100 MCG TABLET PO SCH (07:14)
[2020-03-06] MEDS ORDERED: POTASSIUM CHLORIDE 20 MEQ TABLET.ER. PO ONE (08:00)
--- NOTE | 2020-03-06 09:54 | PDOC ---
[employer] PROGRESS NOTE Date of Service DOS: DATE: 03/06/20 TIME: 09:52 Chief Complaint Chief Complaint A/P: Nausea and vomiting - likely secondary to peritonitis. No diarrhea, gastroenteritis is also a possibility. Will give IV antiemetics. Pain control. Shortness of breath - multifactorial due to respiratory splinting due to peritonitis, complicated by an acute CHF exacerbation, less likely to be COVID- 19, will follow up on the results of this test. Will diuresis with PD and Lasix. Peritonitis - secondary to PD catheter infection with ESBL E. coli. I have ordered IV meropenem daily. Will consult ID and nephrology for further recommendations. Hypokalemia - will replace IV and p.o. Will defer to nephrology for further recommendations on replacement protocol given his ESRD status. Severe protein calorie malnutrition - will have dietitian to see, continue renal diet Hypomagnesemia - will replace Transaminitis - likely secondary to peritonitis. Will trend LFTs. 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 CAD s/p CABG and stenting x6 - stable, will continue cardiac meds Atrial fibrillation - needs rate control and consideration of NOAC PAD - s/p peripheral stenting with LE wounds as well Hypertension - continue meds Acute diastolic CHF - due to over load of fluid due to inadequate peritoneal dialysis likely due to peritonitis. Unknown recent EF. 2013 his EF was 55%. Will attempt diuresis. He may need to convert HD for UF, will defer to nephrology for this. DM2 - will place on basal bolus plus insulin while inpatient H/o TIA - no neurologic complaints ESRD - on PD. Given this appears to be his second bout of peritonitis in his first year of PD I have advised him to ask his wet primer powder blender if other options are available such as HD. TIKA on CPAP - his brought his home device. Left knee pain - chronic, will offer voltaren topical ointment Bilateral Lower extremity wounds - wound care nursing to see FEN - Renal diet PPX - heparin FULL CODE Dispo - inpatient for above History of Present Illness History of Present Illness Mr Encinas is a 75 year old male with past medical history of CAD s/p CABG and stenting x6, hypertension, CHF, afib, DM2, TIA, ESRD (peritoneal dialysis), TIKA on BIPAP 18/12 qhs presents for evaluation of shortness of breath, nausea and vomiting as well as a fall at home. At 02 100 on 03/05/2020 is found him laying on the floor unable to lift himself up and she was unable to lift him and called EMS per lift assistance. He denies any loss of consciousness or head or neck injury. He does complain of chronic left knee pain is aching throbbing and bilateral rated a 4 out of 10. He has had nausea vomiting and decreased appetite as well as a dry cough for 1 week. He does note that he is been progressively more short of breath for months he thinks since October. He also notes this is his ninth fall since May 2019. He was recently started on cefdinir on 02/28/2020 for lower extremity wound infection through [facility] wound clinic, and subsequently intraperitoneal meropenem 1 g daily on 03/04/2020 after a peritoneal catheter culture result on 03/03/2020 returned positive for E. coli ESBL. I reviewed this data from Hannah Yoder. He also had a ESBL E. coli PD catheter infection 11/26/2019. There is no particular sensitivity information available to me is simply reads ESBL. He notes he has been on PD for a year and until recently tolerated very well on nocturnal cycler notes he uses to yellow bags at night and 1 during the day at times when he has been treated for peritonitis with intraperitoneal antibiotics. EKG with HR 92. Intraventricular conduction aberrancy, multiple PVCs. CXR with interstitial opacities and possible left basilar infiltrate. Post- sternotomy changes Labs significant for WBC 10.3, Hb 12.6, platelets 273. NA 138, K2.6, mag 1.4, BUN 53, CR 4.3, glucose 135, calcium 7.7, albumin 1.9, BNP greater than 30 5K, troponin 0 0.143, repeat troponin 0.136. Lactic acid 1.7 Due to his complaints of shortness of breath and his dialysis status ED physician ordered COVID-19 swab and he has been seen and evaluated in the COVID- 19 isolation unit. Admitted for further care Slept well on his home CPAP overnight, afebrile. Had a few complications with PD overnight but was able to complete his cycle and feels significantly better this morning. K down to 2.9. Vitals/I&O Vitals/I&O: Vital Signs Date Time Temp Pulse Resp B/P (MAP) Pulse Ox O2 Delivery O2 Flow Rate FiO2 03/06/20 08:00 Room Air 03/06/20 07:00 98.0 84 17 116/76 (89) 97 98.0 I & O 03/05/20 03/05/20 03/06/20 15:00 23:00 07:00 Intake Total 380 ml 150 ml Output Total 300 ml 100 ml 350 ml Balance 80 ml 50 ml -350 ml Physical Exam General: Alert, Oriented X3, Cooperative, mild distress Abdomen: Normal bowel sounds, Soft, No hepatosplenomegaly, No masses, Other (diffuse tenderness. PD catheter site clean, dry intact) Extremities: No clubbing, No cyanosis, No edema, Normal pulses, No tenderness/swelling Skin: Other (Bilateral venous stasis dermatitis and scattered open venous ulcers, no heat or redness noted) Labs Labs: Laboratory Tests Test 03/06/20 04:30 White Blood Count 7.4 x10^3/uL (4.0-11.0) Red Blood Count 4.19 x10^6/uL (4.30-5.70) Hemoglobin 12.1 g/dL (13.0-17.5) Hematocrit 36.4 % (39.0-53.0) Mean Corpuscular Volume 87 fL (79-100) Mean Corpuscular Hemoglobin 29 pg (25-35) Mean Corpuscular Hemoglobin Concent 33 g/dL (31-37) Red Cell Distribution Width 18.7 % (11.5-14.5) Platelet Count 238 x10^3/uL (140-400) Neutrophils (%) (Auto) 73 % (31-73) Lymphocytes (%) (Auto) 15 % (24-48) Monocytes (%) (Auto) 8 % (0-9) Eosinophils (%) (Auto) 3 % (0-3) Basophils (%) (Auto) 1 % (0-3) Neutrophils # (Auto) 5.4 x10^3/uL (1.8-7.7) Lymphocytes # (Auto) 1.1 x10^3/uL (1.0-4.8) Monocytes # (Auto) 0.6 x10^3/uL (0.0-1.1) Eosinophils # (Auto) 0.2 x10^3/uL (0.0-0.7) Basophils # (Auto) 0.0 x10^3/uL (0.0-0.2) Sodium Level 138 mmol/L (136-145) Potassium Level 2.9 mmol/L (3.5-5.1) Chloride Level 101 mmol/L (98-107) Carbon Dioxide Level 28 mmol/L (21-32) Anion Gap 9 (6-14) Blood Urea Nitrogen 47 mg/dL (8-26) Creatinine 4.5 mg/dL (0.7-1.3) Estimated GFR (Cockcroft-Gault) 12.8 Glucose Level 168 mg/dL (70-99) Calcium Level 7.8 mg/dL (8.5-10.1) Assessment and Plan Assessmemt and Plan Problems Medical Problems: (1) CHF (congestive heart failure) Status: Acute (2) Elevated troponin Status: Acute (3) Hypokalemia Status: Acute (4) Nausea & vomiting Status: Acute (5) Person under investigation for COVID-19 Status: Acute (6) Shortness of breath Status: Acute Comment Review of Relevant I have reviewed the following items shahbaz (where applicable) has been applied. Medications: Current Medications Medications (Trade) Dose Ordered Sig/Randy Route PRN Reason Start Time Stop Time Status Last Admin Dose Admin Vitamin D (Vitamin D3) 1,000 unit BID PO 03/05/20 10:00 03/06/20 01:01 Clopidogrel Bisulfate (Plavix) 75 mg DAILY PO 03/05/20 10:00 03/05/20 13:37 Atorvastatin Calcium (Lipitor) 80 mg QHS PO 03/05/20 21:00 03/06/20 01:01 Levothyroxine Sodium (Synthroid) 100 mcg DAILY07 PO 03/05/20 10:00 03/06/20 07:14 Amlodipine Besylate (Norvasc) 5 mg DAILY PO 03/05/20 13:00 03/05/20 13:37 Carvedilol (Coreg) 12.5 mg BIDWMEALS PO 03/05/20 17:00 03/05/20 16:14 Losartan Potassium (Cozaar) 25 mg DAILY PO 03/05/20 13:00 03/05/20 13:38 Potassium Chloride (Klor-Con) 20 meq DAILYWBKFT PO 03/05/20 13:00 03/05/20 16:14 Psyllium Hydrophilic Mucilloid (Metamucil Fiber Packet) 1 pkt QPM PO 03/05/20 18:00 03/05/20 18:38 Meropenem 1 gm/ Sodium Chloride 100 ml @ 200 mls/hr DAILY IV 03/05/20 13:00 03/05/20 17:51 DC 03/05/20 13:59 Heparin Sodium (Porcine) (Heparin Sodium) 5,000 unit Q8HRS SQ 03/05/20 14:00 03/06/20 07:19 Justifications for Admission Other Justification PRISCILLA GROVES MD Mar 06, 2020 09:53
--- NOTE | 2020-03-06 09:57 | PDOC ---
Infectious Disease Note Vital Signs: Vital Signs Vital Signs Date Time Temp Pulse Resp B/P (MAP) Pulse Ox O2 Delivery O2 Flow Rate FiO2 03/06/20 08:00 Room Air 03/06/20 07:00 98.0 84 17 116/76 (89) 97 98.0 Medications: Inpatient Meds: Current Medications Medications (Trade) Dose Ordered Sig/Randy Start Time Stop Time Status Last Admin Dose Admin Amlodipine Besylate (Norvasc) 5 mg DAILY 03/05/20 13:00 03/05/20 13:37 5 MG Aspirin (Aspirin Chewable) 324 mg 1X ONCE 03/05/20 04:30 03/05/20 04:31 DC 03/05/20 04:45 324 MG Aspirin (Ecotrin) 81 mg DAILY 03/05/20 10:00 03/05/20 10:47 DC Atorvastatin Calcium (Lipitor) 80 mg QHS 03/05/20 21:00 03/06/20 01:01 80 MG Azithromycin 250 ml @ 250 mls/hr 1X ONCE 03/05/20 04:30 03/05/20 05:29 DC 03/05/20 04:51 250 MLS/HR Carvedilol (Coreg) 12.5 mg BIDWMEALS 03/05/20 17:00 03/05/20 16:14 12.5 MG Ceftriaxone Sodium (Rocephin) 1 gm 1X ONCE 03/05/20 04:30 03/05/20 04:31 DC 03/05/20 04:50 1 GM Clopidogrel Bisulfate (Plavix) 75 mg DAILY 03/05/20 10:00 03/05/20 13:37 75 MG Dextrose (Dextrose 50%-Water Syringe) 12.5 gm PRN Q15MIN PRN 03/06/20 10:00 UNV Fentanyl Citrate (Fentanyl 2ml Vial) 25 mcg PRN Q4HRS PRN 03/05/20 16:00 Furosemide (Lasix) 40 mg 1X ONCE 03/05/20 04:30 03/05/20 04:31 DC 03/05/20 04:51 40 MG Heparin Sodium (Porcine) (Heparin Sodium) 5,000 unit Q8HRS 03/05/20 14:00 03/06/20 07:19 5,000 UNIT Insulin Human Lispro (HumaLOG) 0-7 UNITS TIDWMEALHC 03/06/20 12:00 UNV Levothyroxine Sodium (Synthroid) 100 mcg DAILY07 03/05/20 10:00 03/06/20 07:14 100 MCG Losartan Potassium (Cozaar) 25 mg DAILY 03/05/20 13:00 03/05/20 13:38 25 MG Magnesium Sulfate 50 ml @ 25 mls/hr 1X ONCE 03/06/20 10:00 03/06/20 11:59 UNV Meropenem (Merrem) 1 gm DAILY 03/05/20 12:15 03/05/20 12:20 DC Meropenem 1 gm/ Sodium Chloride 100 ml @ 200 mls/hr DAILY 03/05/20 13:00 03/05/20 17:51 DC 03/05/20 13:59 200 MLS/HR Meropenem 500 mg/ Sodium Chloride 50 ml @ 100 mls/hr DAILY 03/06/20 09:00 Morphine Sulfate (Morphine Sulfate) 2 mg PRN Q2HR PRN 03/05/20 04:45 03/05/20 09:25 DC Non-Formulary Medication (Guanfacine Hcl ) 1 tab HS 03/05/20 21:00 03/05/20 10:47 DC Ondansetron HCl (Zofran) 4 mg PRN Q8HRS PRN 03/05/20 04:45 03/06/20 04:44 DC Potassium Chloride/Water 100 ml @ 100 mls/hr Q1H 03/05/20 06:00 03/05/20 07:59 DC 03/05/20 09:36 100 MLS/HR Potassium Chloride (Klor-Con) 40 meq 1X ONCE 03/06/20 08:00 03/06/20 08:01 DC Psyllium Hydrophilic Mucilloid (Metamucil Fiber Packet) 1 pkt QPM 03/05/20 18:00 03/05/20 18:38 1 PKT Tramadol HCl (Ultram) 50 mg PRN Q6HRS PRN 03/05/20 16:00 Vitamin D (Vitamin D3) 1,000 unit BID 03/05/20 10:00 03/06/20 01:01 1,000 UNIT Labs: Lab Laboratory Tests Test 03/06/20 04:30 White Blood Count 7.4 x10^3/uL (4.0-11.0) Red Blood Count 4.19 x10^6/uL (4.30-5.70) Hemoglobin 12.1 g/dL (13.0-17.5) Hematocrit 36.4 % (39.0-53.0) Mean Corpuscular Volume 87 fL (79-100) Mean Corpuscular Hemoglobin 29 pg (25-35) Mean Corpuscular Hemoglobin Concent 33 g/dL (31-37) Red Cell Distribution Width 18.7 % (11.5-14.5) Platelet Count 238 x10^3/uL (140-400) Neutrophils (%) (Auto) 73 % (31-73) Lymphocytes (%) (Auto) 15 % (24-48) Monocytes (%) (Auto) 8 % (0-9) Eosinophils (%) (Auto) 3 % (0-3) Basophils (%) (Auto) 1 % (0-3) Neutrophils # (Auto) 5.4 x10^3/uL (1.8-7.7) Lymphocytes # (Auto) 1.1 x10^3/uL (1.0-4.8) Monocytes # (Auto) 0.6 x10^3/uL (0.0-1.1) Eosinophils # (Auto) 0.2 x10^3/uL (0.0-0.7) Basophils # (Auto) 0.0 x10^3/uL (0.0-0.2) Sodium Level 138 mmol/L (136-145) Potassium Level 2.9 mmol/L (3.5-5.1) Chloride Level 101 mmol/L (98-107) Carbon Dioxide Level 28 mmol/L (21-32) Anion Gap 9 (6-14) Blood Urea Nitrogen 47 mg/dL (8-26) Creatinine 4.5 mg/dL (0.7-1.3) Estimated GFR (Cockcroft-Gault) 12.8 Glucose Level 168 mg/dL (70-99) Calcium Level 7.8 mg/dL (8.5-10.1) Objective: Assessment: Patient seen and examined ID consult dictated Plan: Plan of Care Thank you #[phone] NARA PACE MD Mar 06, 2020 09:57
[2020-03-06] MEDS ORDERED: DEXTROSE 50% 25 GM / 50ML DISP.SYRIN. IV PRN (10:00)
[2020-03-06] MEDS ORDERED: MAGNESIUM SULFATE 2GM 50 ML IV ONE (10:00)
[2020-03-06] MEDS: POTASSIUM CHLORIDE 20 MEQ TABLET.ER. PO SCH (10:00)
[2020-03-06] MEDS: CLOPIDOGREL BISULFATE 75 MG TABLET PO SCH (10:01)
[2020-03-06] MEDS: amLODIPine BESYLATE 5 MG TABLET PO SCH (10:01)
[2020-03-06] MEDS: CARVEDILOL 12.5 MG TABLET. PO SCH ×2 (10:01→17:27)
[2020-03-06] MEDS: LOSARTAN POTASSIUM 25 MG TABLET. PO SCH (10:01)
--- NOTE | 2020-03-06 10:30 | CONS ---
DATE OF CONSULTATION: 03/06/2020 REFERRING PHYSICIAN: Jaison Bunch MD REASON FOR CONSULTATION: PD peritonitis infection. HISTORY OF PRESENT ILLNESS: A 75-year-old male with history of end-stage renal disease, on peritoneal dialysis for about 1 year, recent diagnosis of PD catheter infection, on antibiotics, he could not give me details, coronary artery disease, hypertension, CHF, atrial fibrillation, presented to the ER on 03/05/2020 with generalized weakness, shortness of breath, nausea and vomiting. The patient felt that his knee gave out. He denies hitting his head. Denies any loss of consciousness. Denied any diarrhea, fevers or chills. Denies any recent sickness except for diagnosed with PD dialysis catheter related infection at [facility]. Microbiology report shows on 02/29/2020 with E. coli ESBL hand tube winder. The patient was started on meropenem. ID consult has been requested for antibiotic management. The patient denies any fevers or chills. Currently, no nausea, vomiting. Shortness of breath has improved. Currently on room air. White count was normal at 10.3, today is 7.4, hemoglobin of 12, platelets of 238. Potassium of 2.6. BNP of greater than 35,000. Troponin of 0.0143, albumin of 1.9. Blood cultures done, negative so far. Chest x-ray showed relative opacity at the lung base, portion of this is likely secondary to overlap of structures, but a focus of atelectasis or infiltrate can give a similar appearance, interstitial and ground-glass opacities bilaterally. There is also air-fluid level seen projecting over the base of the heart, possible causes hiatal hernia. The patient is currently being ruled out for COVID, result of which is pending at this time. PAST MEDICAL HISTORY: Coronary artery disease, CHF, diabetes 2, hypertension, [place], renal failure, end-stage renal disease, on PD for a year. PAST SURGICAL HISTORY: Knee replacement, stent placement. SOCIAL HISTORY: Former smoker. No alcohol, no drugs. Lives with . Has a dog. REVIEW OF SYSTEMS: Negative except for above in HPI. CURRENT MEDICATIONS: Meropenem, atorvastatin, psyllium, carvedilol, fentanyl, tramadol, potassium chloride, losartan, amlodipine, levothyroxine, clopidogrel, vitamin D. PHYSICAL EXAMINATION: VITAL SIGNS: Temperature 98, pulse 84, respiratory rate 17, blood pressure 116/76, oxygen saturation 97% on room air. GENERAL: Alert, oriented x 3, male, appears tired, sitting in bed, eating breakfast. HEENT: Anicteric. No thrush. NECK: Supple. LUNGS: Decreased breath sound at the bases, otherwise clear. HEART: S1, S2. No murmurs. ABDOMEN: Soft, nontender. PD catheter in place, site looks clean and intact. Bowel sounds present. No rebound, no guarding. EXTREMITIES: Bilateral venous stasis ulcers with dermatitis. No redness or purulent drainage noted. NEUROLOGIC: Alert, awake, grossly nonfocal. PSYCHIATRIC: Cooperative. DERMATOLOGIC: Warm, dry. No generalized rash except for above. LABORATORY DATA: WBC 7.3, hemoglobin 12.1, hematocrit 36.4, platelets 238. Sodium 138, potassium 2.9, chloride 101, bicarbonate 28, BUN 47, creatinine 4.5. Lactate 1.7, calcium 7.8. Procalcitonin 2.23. Troponin 0.0136. BNP greater than 35,000. Troponin 0.0143. COVID-19 pending. IMAGING: Chest x-ray as above. IMPRESSION: 1. ESBL E. coli. PD catheter peritonitis diagnosed at outside facility on 02/29/2020, started on antibiotics yesterday as outpatient. 2. End-stage renal disease, on peritoneal dialysis for 1 year. 3. History of previous PD fluid cultures in records from 10/2019 with E. coli ESBL and leuconostoc species. 4. PUI for COVID-19. 5. Congestive heart failure. 6. Diabetes mellitus. 7. Anemia, chronic. 8. Protein-calorie malnutrition. 9. Congestive heart failure. RECOMMENDATIONS: 1. Continue meropenem renal dosing for PD pharmacy to assist. 2. The patient may need PD catheter removal due to recurrent ESBL E. coli, PD catheter infection. 3. Follow up COVID-19. 4. Continue supportive care. 5. We will continue to follow. NARA PACE MD DR: EARLE/juancho JOB#: [id number] / [id number]
[2020-03-06] MEDS: MEROPENEM 500 MG in IV NORMAL SALINE 50ML 50 ML IV SCH (10:38)
--- NOTE | 2020-03-06 11:58 | PDOC2 ---
CARDIOLOGY CONSULT NOTE DATE OF SERVICE: DATE: 03/06/20 TIME: 11:54 CHIEF COMPLAINT: Elevated troponin HPI: Patient is a 75-year-old man who has been admitted to the hospital in the setting of peritonitis. He is being currently treated for peritonitis. Cardiology was asked to evaluate him due to his prior history of coronary artery disease status post bypass. He had a elevated troponin in the setting of his peritonitis and some dyspnea. He has a known dialysis patient and has a peritoneal dialysis catheter. PMHX: 1. Coronary artery disease status post bypass 2. Hypertension 3. End-stage renal disease on peritoneal dialysis 4. Atrial fibrillation, unknown type 5. Diabetes 6. Dyslipidemia SOCHX: Negative for alcohol, tobacco or illicit drug use. FAMHX: Noncontributory CURRENT MEDS: Current Medications Medications (Trade) Dose Ordered Sig/Randy Route PRN Reason Start Time Stop Time Status Last Admin Dose Admin Atorvastatin Calcium (Lipitor) 80 mg QHS PO 03/05/20 21:00 03/06/20 01:01 Amlodipine Besylate (Norvasc) 5 mg DAILY PO 03/05/20 13:00 03/06/20 10:01 Carvedilol (Coreg) 12.5 mg BIDWMEALS PO 03/05/20 17:00 03/06/20 10:01 Losartan Potassium (Cozaar) 25 mg DAILY PO 03/05/20 13:00 03/06/20 10:01 Potassium Chloride (Klor-Con) 20 meq DAILYWBKFT PO 03/05/20 13:00 03/06/20 10:00 Psyllium Hydrophilic Mucilloid (Metamucil Fiber Packet) 1 pkt QPM PO 03/05/20 18:00 03/05/20 18:38 Meropenem 1 gm/ Sodium Chloride 100 ml @ 200 mls/hr DAILY IV 03/05/20 13:00 03/05/20 17:51 DC 03/05/20 13:59 Heparin Sodium (Porcine) (Heparin Sodium) 5,000 unit Q8HRS SQ 03/05/20 14:00 03/06/20 07:19 Meropenem 500 mg/ Sodium Chloride 50 ml @ 100 mls/hr DAILY IV 03/06/20 09:00 03/06/20 10:38 Potassium Chloride (Klor-Con) 40 meq 1X ONCE PO 03/06/20 08:00 03/06/20 08:01 DC 03/06/20 10:00 Magnesium Sulfate 50 ml @ 25 mls/hr 1X ONCE IV 03/06/20 10:00 03/06/20 11:59 03/06/20 10:37 ALLERGIES: Allergies Coded Allergies Type Severity Reaction Last Updated Verified doxycycline Allergy Intermediate Itching 09/09/15 Yes ROS: Negative unless otherwise mentioned above in HPI PHYSICAL EXAM: Vital Signs/I&O: Vital Signs Date Time Temp Pulse Resp B/P (MAP) Pulse Ox O2 Delivery O2 Flow Rate FiO2 03/06/20 10:01 84 116/76 03/06/20 08:00 Room Air 03/06/20 07:00 98.0 17 97 98.0 I & O 03/05/20 03/05/20 03/06/20 15:00 23:00 07:00 Intake Total 380 ml 150 ml Output Total 300 ml 100 ml 350 ml Balance 80 ml 50 ml -350 ml Physical Exam: Deferred due to COVID-19 precautions, awaiting testing DIAGNOSTIC TESTING: Labs reviewed. EKG reviewed. Discussed with nursing staff Lab Laboratory Tests Test 03/06/20 04:30 03/06/20 11:18 White Blood Count 7.4 x10^3/uL (4.0-11.0) Red Blood Count 4.19 x10^6/uL (4.30-5.70) L Hemoglobin 12.1 g/dL (13.0-17.5) L Hematocrit 36.4 % (39.0-53.0) L Mean Corpuscular Volume 87 fL (79-100) Mean Corpuscular Hemoglobin 29 pg (25-35) Mean Corpuscular Hemoglobin Concent 33 g/dL (31-37) Red Cell Distribution Width 18.7 % (11.5-14.5) H Platelet Count 238 x10^3/uL (140-400) Neutrophils (%) (Auto) 73 % (31-73) Lymphocytes (%) (Auto) 15 % (24-48) L Monocytes (%) (Auto) 8 % (0-9) Eosinophils (%) (Auto) 3 % (0-3) Basophils (%) (Auto) 1 % (0-3) Neutrophils # (Auto) 5.4 x10^3/uL (1.8-7.7) Lymphocytes # (Auto) 1.1 x10^3/uL (1.0-4.8) Monocytes # (Auto) 0.6 x10^3/uL (0.0-1.1) Eosinophils # (Auto) 0.2 x10^3/uL (0.0-0.7) Basophils # (Auto) 0.0 x10^3/uL (0.0-0.2) Sodium Level 138 mmol/L (136-145) Potassium Level 2.9 mmol/L (3.5-5.1) *L Chloride Level 101 mmol/L (98-107) Carbon Dioxide Level 28 mmol/L (21-32) Anion Gap 9 (6-14) Blood Urea Nitrogen 47 mg/dL (8-26) H Creatinine 4.5 mg/dL (0.7-1.3) H Estimated GFR (Cockcroft-Gault) 12.8 Glucose Level 168 mg/dL (70-99) H Calcium Level 7.8 mg/dL (8.5-10.1) L Glucose (Fingerstick) 105 mg/dL (70-99) H Laboratory Tests 03/06/20 04:30 ASSESSMENT: 1. Peritonitis 2. Coronary disease status post bypass with an elevated troponin in the setting of active infection, likely type II non-STEMI PLAN: 1. Await coronavirus testing 2. Continue fluid removal through dialysis as tolerated 3. NSTEMI likely related to respiratory failure and peritonitis. Lower suspicion that this is a primary cardiac process. 4. Routine echocardiogram after coronavirus rule out. Supportive care. No further cardiac testing necessary at this time. Continue Plavix and statin therapy. MYRIAM STINSON MD Mar 06, 2020 11:58
[2020-03-06] MEDS: INSULIN LISPRO 300 UNITS/3 ML VIAL. SQ SCH ×3 (12:00→20:55)
[2020-03-06] MEDS: PSYLLIUM HUSK (SUGAR FREE) 1 PKT PACKET PO SCH (17:26)
[2020-03-06] MEDS: LACTOBACILLUS RHAMNOSUS GG 1 CAPSULE. PO SCH (20:49)
[2020-03-07 03:43] VITALS: BP 122/83
[2020-03-07 05:21] LABS: CALCIUM 8.2 mg/dL (8.5-10.1); CREATININE 4.2 mg/dL (0.7-1.3); GFR 13.9; POTASSIUM 3.2 mmol/L (3.5-5.1)
[2020-03-07] MEDS: LEVOTHYROXINE 100 MCG TABLET PO SCH (06:26)
[2020-03-07] MEDS: HEPARIN for SUB-Q USE 5,000 UNIT/ML VIAL. SQ SCH ×3 (06:31→21:29)
[2020-03-07 07:00] VITALS: BP 139/68
[2020-03-07] MEDS: INSULIN LISPRO 300 UNITS/3 ML VIAL. SQ SCH ×4 (08:00→21:23)
--- NOTE | 2020-03-07 08:33 | PDOC ---
Infectious Disease Note Subjective Subjective No F but occ chill. some nausea and abd discomfort No SOA ROS ROS o/w neg Vital Sign Vital Signs Vital Signs Date Time Temp Pulse Resp B/P (MAP) Pulse Ox O2 Delivery O2 Flow Rate FiO2 03/07/20 07:00 98.2 47 16 139/68 (91) 95 BiPAP/CPAP 98.2 Physical Exam PHYSICAL EXAM GENERAL: Alert, oriented x 3, male, sitting in bed, eating breakfast. HEENT: Anicteric. No thrush. NECK: Supple. LUNGS: Decreased breath sound at the bases, otherwise clear. HEART: S1, S2. No murmurs. ABDOMEN: Soft, min tender. PD catheter in place, site looks clean and intact. Bowel sounds present. No rebound, no guarding. EXTREMITIES: Bilateral venous stasis ulcers with dermatitis. No redness or purulent drainage noted. NEUROLOGIC: Alert, awake, grossly nonfocal. PSYCHIATRIC: Cooperative. DERMATOLOGIC: Warm, dry. No generalized rash except for above. Labs Lab Laboratory Tests Test 03/06/20 11:18 03/06/20 16:35 03/06/20 20:48 03/07/20 04:18 Glucose (Fingerstick) 105 mg/dL (70-99) 95 mg/dL (70-99) 97 mg/dL (70-99) Sodium Level 142 mmol/L (136-145) Potassium Level 3.2 mmol/L (3.5-5.1) Chloride Level 102 mmol/L (98-107) Carbon Dioxide Level 32 mmol/L (21-32) Anion Gap 8 (6-14) Blood Urea Nitrogen 39 mg/dL (8-26) Creatinine 4.2 mg/dL (0.7-1.3) Estimated GFR (Cockcroft-Gault) 13.9 Glucose Level 192 mg/dL (70-99) Calcium Level 8.2 mg/dL (8.5-10.1) Magnesium Level 2.0 mg/dL (1.8-2.4) Test 03/07/20 07:22 Glucose (Fingerstick) 133 mg/dL (70-99) Micro Microbiology 03/05/20 Blood Culture - Preliminary, Resulted NO GROWTH AFTER 2 DAYS Objective Assessment 1. ESBL E. coli. PD catheter peritonitis diagnosed at outside facility on 02/29/2020, started on antibiotics yesterday as outpatient. 2. End-stage renal disease, on peritoneal dialysis for 1 year. 3. History of previous PD fluid cultures in records from 10/2019 with E. coli ESBL and leuconostoc species. 4. COVID-19.- neg 03/05 5. Congestive heart failure. 6. Diabetes mellitus. 7. Anemia, chronic. 8. Protein-calorie malnutrition. 9. Congestive heart failure. Plan Plan of Care 1. Continue meropenem renal dosing for PD pharmacy to assist. 2. Needs PD catheter removal due to recurrent ESBL E. coli, PD catheter infection. 3. Follow up COVID-19. 4. Continue supportive care. 5. We will continue to follow. D/w nursing ROBIN GARDUNO MD Mar 07, 2020 08:33
[2020-03-07] MEDS: MEROPENEM 500 MG in IV NORMAL SALINE 50ML 50 ML IV SCH (09:31)
[2020-03-07] MEDS: POTASSIUM CHLORIDE 20 MEQ TABLET.ER. PO SCH (09:32)
[2020-03-07] MEDS: CHOLECALCIFEROL (VITAMIN D3) 1,000 UNIT TABLET PO SCH ×2 (09:32→21:21)
[2020-03-07] MEDS: LACTOBACILLUS RHAMNOSUS GG 1 CAPSULE. PO SCH ×2 (09:32→21:21)
[2020-03-07] MEDS: CLOPIDOGREL BISULFATE 75 MG TABLET PO SCH (09:32)
[2020-03-07] MEDS: LOSARTAN POTASSIUM 25 MG TABLET. PO SCH (09:33)
[2020-03-07] MEDS: CARVEDILOL 12.5 MG TABLET. PO SCH ×2 (09:33→16:35)
[2020-03-07] MEDS: amLODIPine BESYLATE 5 MG TABLET PO SCH (09:33)
--- NOTE | 2020-03-07 10:41 | PDOC ---
CARDIOLOGY PROGRESS NOTE SUBJECTIVE: Feels better today after more PD. Denies any angina. His is in the room with him today. OBJECTIVE: Vital Signs/I&O: Vital Signs Date Time Temp Pulse Resp B/P (MAP) Pulse Ox O2 Delivery O2 Flow Rate FiO2 03/07/20 09:33 47 139/68 03/07/20 07:00 98.2 16 95 BiPAP/CPAP 98.2 I & O 03/06/20 03/06/20 03/07/20 15:00 23:00 07:00 Intake Total 520 ml Output Total 100 ml 100 ml 75 ml Balance -100 ml -100 ml 445 ml Objective: Mild diffuse abd tenderness Bilateral legs in wound wraps irregular heart tones neck veins flat CURRENT MEDICATIONS: Current Medications Medications (Trade) Dose Ordered Sig/Randy Route PRN Reason Start Time Stop Time Status Last Admin Dose Admin Lactobacillus Rhamnosus (Culturelle) 1 cap BID PO 03/06/20 21:00 03/07/20 09:32 DIAGNOSTIC TESTING: Labs: Laboratory Tests 03/07/20 04:18 Laboratory Tests Test 03/06/20 11:18 03/06/20 16:35 03/06/20 20:48 03/07/20 04:18 Glucose (Fingerstick) 105 mg/dL (70-99) H 95 mg/dL (70-99) 97 mg/dL (70-99) Sodium Level 142 mmol/L (136-145) Potassium Level 3.2 mmol/L (3.5-5.1) L Chloride Level 102 mmol/L (98-107) Carbon Dioxide Level 32 mmol/L (21-32) Anion Gap 8 (6-14) Blood Urea Nitrogen 39 mg/dL (8-26) H Creatinine 4.2 mg/dL (0.7-1.3) H Estimated GFR (Cockcroft-Gault) 13.9 Glucose Level 192 mg/dL (70-99) H Calcium Level 8.2 mg/dL (8.5-10.1) L Test 03/07/20 07:22 Glucose (Fingerstick) 133 mg/dL (70-99) H ASSESSMENT: 1. Coronary artery disease status post bypass 2. Hypertension 3. End-stage renal disease on peritoneal dialysis 4. Atrial fibrillation, unknown type 5. Diabetes 6. Dyslipidemia PLAN: 1. Continue coreg, amlodipine, plavix and statin therapy 2. He is not on anticoagulation per family due to anemia. Supportive care. Thanks Justicifation of Admission Dx: Justifications for Admission: Justification of Admission Dx: Yes CHF: Sev. Electrolyte Abnormal Chronic Renal Failure: Electrolyte Abnormality MYRIAM STINSON MD Mar 07, 2020 10:41
--- NOTE | 2020-03-07 11:08 | PDOC ---
PROGRESS NOTES Date of Service: DATE: 03/07/20 TIME: 11:06 Chief Complaint Chief Complaint A/P: Nausea and vomiting - likely secondary to peritonitis. No diarrhea, gastroenteritis is also a possibility. Will give IV antiemetics. Pain control. Shortness of breath - multifactorial due to respiratory splinting due to peritonitis, complicated by an acute CHF exacerbation, less likely to be COVID- 19, will follow up on the results of this test. Will diuresis with PD and Lasix. Peritonitis - secondary to PD catheter infection with ESBL E. coli. I have ordered IV meropenem daily. Will consult ID and nephrology for further recommendations. Hypokalemia - will replace IV and p.o. Will defer to nephrology for further recommendations on replacement protocol given his ESRD status. Severe protein calorie malnutrition - will have dietitian to see, continue renal diet Hypomagnesemia - will replace Transaminitis - likely secondary to peritonitis. Will trend LFTs. Secondary hyperparathyroidism - due to ESRD Anemia of chronic renal insufficiency - will defer to nephrology for eryt hropoietin replacement, no current indication given his hemoglobin is 10.3. CAD s/p CABG and stenting x6 - stable, will continue cardiac meds Atrial fibrillation - needs rate control and consideration of NOAC PAD - s/p peripheral stenting with LE wounds as well Hypertension - continue meds Acute diastolic CHF - due to over load of fluid due to inadequate peritoneal dialysis likely due to peritonitis. Unknown recent EF. 2013 his EF was 55%. Will attempt diuresis. He may need to convert HD for UF, will defer to nephrology for this. ID requesting discontinuation of infected PD catheter. Patient will need a temp HD catheter placed if this is the case. Will follow recs from Nephrology DM2 - will place on basal bolus plus insulin while inpatient H/o TIA - no neurologic complaints ESRD - on PD. Given this appears to be his second bout of peritonitis in his first year of PD I have advised him to ask his [employer] if other options are available such as HD. TIKA on CPAP - his brought his home device. Left knee pain - chronic, PRN voltaren topical ointment Bilateral Lower extremity wounds - wound care nursing to see FEN - Renal diet PPX - heparin FULL CODE Dispo - inpatient for above History of Present Illness History of Present Illness Mr Encinas is a 75 year old male with past medical history of CAD s/p CABG and stenting x6, hypertension, CHF, afib, DM2, TIA, ESRD (peritoneal dialysis), TIKA on BIPAP 18 qhs presents for evaluation of shortness of breath, nausea and vomiting as well as a fall at home. At 02 100 on 03/05/2020 is found him laying on the floor unable to lift himself up and she was unable to lift him and called EMS per lift assistance. He denies any loss of consciousness or head or neck injury. He does complain of chronic left knee pain is aching throbbing and bilateral rated a 4 out of 10. He has had nausea vomiting and decreased appetite as well as a dry cough for 1 week. He does note that he is been progressively more short of breath for months he thinks since October. He also notes this is his ninth fall since May 2019. He was recently started on cefdinir on 02/28/2020 for lower extremity wound infection through [facility] wound clinic, and subsequently intraperitoneal meropenem 1 g daily on 03/04/2020 after a peritoneal catheter culture result on 03/03/2020 returned positive for E. coli ESBL. I reviewed this data from Hannah Yoder. He also had a ESBL E. coli PD catheter infection 11/26/2019. There is no particular sensitivity information available to me is simply reads ESBL. He notes he has been on PD for a year and until recently tolerated very well on nocturnal cycler notes he uses to yellow bags at night and 1 during the day at times when he has been treated for peritonitis with intraperitoneal antibiotics. EKG with HR 92. Intraventricular conduction aberrancy, multiple PVCs. CXR with interstitial opacities and possible left basilar infiltrate. Post- sternotomy changes Labs significant for WBC 10.3, Hb 12.6, platelets 273. NA 138, K2.6, mag 1.4, BUN 53, CR 4.3, glucose 135, calcium 7.7, albumin 1.9, BNP greater than 30 5K, troponin 0 0.143, repeat troponin 0.136. Lactic acid 1.7 Due to his complaints of shortness of breath and his dialysis status ED physician ordered COVID-19 swab and he has been seen and evaluated in the COVID- 19 isolation unit. Admitted for further care 03/06 Slept well on his home CPAP overnight, afebrile. Had a few complications with PD overnight but was able to complete his cycle and feels significantly better this morning. K down to 2.9. 03/07 No acute events reported overnight, case discussed with nursing staff patient in no acute distress no complaints during my visit plan of care explained in detail, reassurance provided Vitals Vitals Vital Signs Date Time Temp Pulse Resp B/P (MAP) Pulse Ox O2 Delivery O2 Flow Rate FiO2 03/07/20 09:33 47 139/68 03/07/20 07:00 98.2 16 95 BiPAP/CPAP 98.2 Physical Exam Physical Exam GENERAL: Alert, oriented x 3, male, sitting in bed, eating breakfast. HEENT: Anicteric. No thrush. NECK: Supple. LUNGS: Decreased breath sound at the bases, otherwise clear. HEART: S1, S2. No murmurs. ABDOMEN: Soft, min tender. PD catheter in place, site looks clean and intact. Bowel sounds present. No rebound, no guarding. EXTREMITIES: Bilateral venous stasis ulcers with dermatitis. No redness or purulent drainage noted. NEUROLOGIC: Alert, awake, grossly nonfocal. PSYCHIATRIC: Cooperative. DERMATOLOGIC: Warm, dry. No generalized rash except for above. General: Alert, Oriented X3, Cooperative, mild distress Abdomen: Normal bowel sounds, Soft, No hepatosplenomegaly, No masses, Other (d iffuse tenderness. PD catheter site clean, dry intact) Extremities: No clubbing, No cyanosis, No edema, Normal pulses, No tenderness/swelling Skin: Other (Bilateral venous stasis dermatitis and scattered open venous ulcers, no heat or redness noted) Labs LABS Laboratory Tests Test 03/06/20 11:18 03/06/20 16:35 03/06/20 20:48 03/07/20 04:18 Glucose (Fingerstick) 105 mg/dL (70-99) 95 mg/dL (70-99) 97 mg/dL (70-99) Sodium Level 142 mmol/L (136-145) Potassium Level 3.2 mmol/L (3.5-5.1) Chloride Level 102 mmol/L (98-107) Carbon Dioxide Level 32 mmol/L (21-32) Anion Gap 8 (6-14) Blood Urea Nitrogen 39 mg/dL (8-26) Creatinine 4.2 mg/dL (0.7-1.3) Estimated GFR (Cockcroft-Gault) 13.9 Glucose Level 192 mg/dL (70-99) Calcium Level 8.2 mg/dL (8.5-10.1) Magnesium Level 2.0 mg/dL (1.8-2.4) Test 03/07/20 07:22 03/07/20 10:52 Glucose (Fingerstick) 133 mg/dL (70-99) 119 mg/dL (70-99) Assessment and Plan Assessmemt and Plan Problems Medical Problems: (1) CHF (congestive heart failure) Status: Acute (2) Elevated troponin Status: Acute (3) Hypokalemia Status: Acute (4) Nausea & vomiting Status: Acute (5) Person under investigation for COVID-19 Status: Acute (6) Shortness of breath Status: Acute Comment Review of Relevant I have reviewed the following items shahbaz (where applicable) has been applied. Labs Laboratory Tests Test 03/06/20 04:30 03/06/20 11:18 03/06/20 16:35 03/06/20 20:48 White Blood Count 7.4 x10^3/uL (4.0-11.0) Red Blood Count 4.19 x10^6/uL (4.30-5.70) Hemoglobin 12.1 g/dL (13.0-17.5) Hematocrit 36.4 % (39.0-53.0) Mean Corpuscular Volume 87 fL (79-100) Mean Corpuscular Hemoglobin 29 pg (25-35) Mean Corpuscular Hemoglobin Concent 33 g/dL (31-37) Red Cell Distribution Width 18.7 % (11.5-14.5) Platelet Count 238 x10^3/uL (140-400) Neutrophils (%) (Auto) 73 % (31-73) Lymphocytes (%) (Auto) 15 % (24-48) Monocytes (%) (Auto) 8 % (0-9) Eosinophils (%) (Auto) 3 % (0-3) Basophils (%) (Auto) 1 % (0-3) Neutrophils # (Auto) 5.4 x10^3/uL (1.8-7.7) Lymphocytes # (Auto) 1.1 x10^3/uL (1.0-4.8) Monocytes # (Auto) 0.6 x10^3/uL (0.0-1.1) Eosinophils # (Auto) 0.2 x10^3/uL (0.0-0.7) Basophils # (Auto) 0.0 x10^3/uL (0.0-0.2) Sodium Level 138 mmol/L (136-145) Potassium Level 2.9 mmol/L (3.5-5.1) Chloride Level 101 mmol/L (98-107) Carbon Dioxide Level 28 mmol/L (21-32) Anion Gap 9 (6-14) Blood Urea Nitrogen 47 mg/dL (8-26) Creatinine 4.5 mg/dL (0.7-1.3) Estimated GFR (Cockcroft-Gault) 12.8 Glucose Level 168 mg/dL (70-99) Calcium Level 7.8 mg/dL (8.5-10.1) Glucose (Fingerstick) 105 mg/dL (70-99) 95 mg/dL (70-99) 97 mg/dL (70-99) Test 03/07/20 04:18 03/07/20 07:22 03/07/20 10:52 Sodium Level 142 mmol/L (136-145) Potassium Level 3.2 mmol/L (3.5-5.1) Chloride Level 102 mmol/L (98-107) Carbon Dioxide Level 32 mmol/L (21-32) Anion Gap 8 (6-14) Blood Urea Nitrogen 39 mg/dL (8-26) Creatinine 4.2 mg/dL (0.7-1.3) Estimated GFR (Cockcroft-Gault) 13.9 Glucose Level 192 mg/dL (70-99) Calcium Level 8.2 mg/dL (8.5-10.1) Magnesium Level 2.0 mg/dL (1.8-2.4) Glucose (Fingerstick) 133 mg/dL (70-99) 119 mg/dL (70-99) Laboratory Tests Test 03/06/20 11:18 03/06/20 16:35 03/06/20 20:48 03/07/20 04:18 Glucose (Fingerstick) 105 mg/dL (70-99) 95 mg/dL (70-99) 97 mg/dL (70-99) Sodium Level 142 mmol/L (136-145) Potassium Level 3.2 mmol/L (3.5-5.1) Chloride Level 102 mmol/L (98-107) Carbon Dioxide Level 32 mmol/L (21-32) Anion Gap 8 (6-14) Blood Urea Nitrogen 39 mg/dL (8-26) Creatinine 4.2 mg/dL (0.7-1.3) Estimated GFR (Cockcroft-Gault) 13.9 Glucose Level 192 mg/dL (70-99) Calcium Level 8.2 mg/dL (8.5-10.1) Magnesium Level 2.0 mg/dL (1.8-2.4) Test 03/07/20 07:22 03/07/20 10:52 Glucose (Fingerstick) 133 mg/dL (70-99) 119 mg/dL (70-99) Microbiology 03/05/20 Blood Culture - Preliminary, Resulted NO GROWTH AFTER 2 DAYS Medications Current Medications Ondansetron HCl (Zofran) 4 mg STK-MED ONCE .ROUTE ; Start 03/05/20 at 03:24; Stop 03/05/20 at 03:24; Status DC Ondansetron HCl (Zofran) 4 mg 1X ONCE IVP Last administered on 03/05/20at 03:34; Start 03/05/20 at 03:30; Stop 03/05/20 at 03:48; Status DC Potassium Chloride (Klor-Con) 40 meq 1X ONCE PO Last administered on 03/05/20at 04:48; Start 03/05/20 at 04:30; Stop 03/05/20 at 04:31; Status DC Furosemide (Lasix) 40 mg 1X ONCE IVP Last administered on 03/05/20at 04:51; Start 03/05/20 at 04:30; Stop 03/05/20 at 04:31; Status DC Ceftriaxone Sodium (Rocephin) 1 gm 1X ONCE IVP Last administered on 03/05/20at 04:50; Start 03/05/20 at 04:30; Stop 03/05/20 at 04:31; Status DC Azithromycin 250 ml @ 250 mls/hr 1X ONCE IV Last administered on 03/05/20at 04:51; Start 03/05/20 at 04:30; Stop 03/05/20 at 05:29; Status DC Aspirin (Aspirin Chewable) 324 mg 1X ONCE PO Last administered on 03/05/20at 04:45; Start 03/05/20 at 04:30; Stop 03/05/20 at 04:31; Status DC Ondansetron HCl (Zofran) 4 mg PRN Q8HRS PRN IV NAUSEA/VOMITING; Start 03/05/20 at 04:45; Stop 03/06/20 at 04:44; Status DC Morphine Sulfate (Morphine Sulfate) 2 mg PRN Q2HR PRN IV PAIN; Start 03/05/20 at 04:45; Stop 03/05/20 at 09:25; Status DC Potassium Chloride/Water 100 ml @ 100 mls/hr Q1H IV Last administered on 03/05/20at 09:36; Start 03/05/20 at 06:00; Stop 03/05/20 at 07:59; Status DC Amlodipine Besylate (Norvasc) 10 mg DAILY PO ; Start 03/05/20 at 10:00; Stop 03/05/20 at 10:26; Status DC Aspirin (Ecotrin) 81 mg DAILY PO ; Start 03/05/20 at 10:00; Stop 03/05/20 at 10:47; Status DC Vitamin D (Vitamin D3) 1,000 unit BID PO Last administered on 03/07/20at 09:32; Start 03/05/20 at 10:00 Clopidogrel Bisulfate (Plavix) 75 mg DAILY PO Last administered on 03/07/20at 09:32; Start 03/05/20 at 10:00 Atorvastatin Calcium (Lipitor) 80 mg QHS PO Last administered on 03/06/20at 20:49; Start 03/05/20 at 21:00 Carvedilol (Coreg) 25 mg BIDWMEALS PO ; Start 03/05/20 at 10:00; Stop 03/05/20 at 10:26; Status DC Non-Formulary Medication (Guanfacine Hcl ) 1 tab HS PO ; Start 03/05/20 at 21:00; Stop 03/05/20 at 10:47; Status DC Levothyroxine Sodium (Synthroid) 100 mcg DAILY07 PO Last administered on 03/07/20at 06:26; Start 03/05/20 at 10:00 Amlodipine Besylate (Norvasc) 5 mg DAILY PO Last administered on 03/07/20at 09:33; Start 03/05/20 at 13:00 Carvedilol (Coreg) 12.5 mg BIDWMEALS PO Last administered on 03/07/20at 09:33; Start 03/05/20 at 17:00 Meropenem (Merrem) 1 gm DAILY IV ; Start 03/05/20 at 12:15; Stop 03/05/20 at 12:20; Status DC Losartan Potassium (Cozaar) 25 mg DAILY PO Last administered on 03/07/20at 09:33; Start 03/05/20 at 13:00 Potassium Chloride (Klor-Con) 20 meq DAILYWBKFT PO Last administered on 03/07/20at 09:32; Start 03/05/20 at 13:00 Psyllium Hydrophilic Mucilloid (Metamucil Fiber Packet) 1 pkt QPM PO Last administered on 03/06/20at 17:26; Start 03/05/20 at 18:00 Meropenem 1 gm/ Sodium Chloride 100 ml @ 200 mls/hr DAILY IV Last administered on 03/05/20at 13:59; Start 03/05/20 at 13:00; Stop 03/05/20 at 17:51; Status DC Heparin Sodium (Porcine) (Heparin Sodium) 5,000 unit Q8HRS SQ Last administered on 03/07/20at 06:31; Start 03/05/20 at 14:00 Tramadol HCl (Ultram) 50 mg PRN Q6HRS PRN PO PAIN; Start 03/05/20 at 16:00 Fentanyl Citrate (Fentanyl 2ml Vial) 25 mcg PRN Q4HRS PRN IVP PAIN; Start 03/05/20 at 16:00 Meropenem 500 mg/ Sodium Chloride 50 ml @ 100 mls/hr DAILY IV Last administered on 03/07/20at 09:31; Start 03/06/20 at 09:00 Potassium Chloride (Klor-Con) 40 meq 1X ONCE PO Last administered on 03/06/20at 10:00; Start 03/06/20 at 08:00; Stop 03/06/20 at 08:01; Status DC Insulin Human Lispro (HumaLOG) 0-7 UNITS TIDWMEALHC SQ ; Start 03/06/20 at 12:00 Dextrose (Dextrose 50%-Water Syringe) 12.5 gm PRN Q15MIN PRN IV SEE COMMENTS; Start 03/06/20 at 10:00 Magnesium Sulfate 50 ml @ 25 mls/hr 1X ONCE IV Last administered on 03/06/20at 10:37; Start 03/06/20 at 10:00; Stop 03/06/20 at 11:59; Status DC Lactobacillus Rhamnosus (Culturelle) 1 cap BID PO Last administered on 03/07/20at 09:32; Start 03/06/20 at 21:00 Active Scripts Active Reported Merrem (Meropenem) 1 Gm Vial 1 Gm IV DAILY 13 Days Pepcid (Famotidine) 20 Mg Tablet 20 Mg PO HS Irbesartan 75 Mg Tablet 1 Tab PO DAILY Amlodipine Besylate 5 Mg Tablet 1 Tab PO DAILY Carvedilol 12.5 Mg Tablet 1 Tab PO BID Potassium Chloride 20 Meq Tablet.er 1 Tab PO DAILY Levothyroxine Sodium 100 Mcg Tablet 1 Tab PO DAILY07 90 Days Vitamin D3 (Cholecalciferol (Vitamin D3)) 1,000 Unit Tablet 1 Tab PO BID Plavix (Clopidogrel Bisulfate) 75 Mg Tablet 1 Tab PO DAILY Lipitor (Atorvastatin Calcium) 80 Mg Tablet 80 Mg PO DAILY Vitals/I & O Vital Sign - Last 24 Hours 03/06/20 03/06/20 03/06/20 03/06/20 15:14 17:27 19:30 20:00 Temp 97.9 98.3 97.9 98.3 Pulse 88 88 105 Resp 15 18 B/P (MAP) 134/53 (80) 134/53 114/69 (84) Pulse Ox 97 98 O2 Delivery Room Air BiPAP/CPAP Room Air 03/06/20 03/06/20 03/07/20 03/07/20 21:48 23:08 03:43 07:00 Temp 98.4 97.7 97.4 98.2 98.4 97.7 97.4 98.2 Pulse 84 86 57 47 Resp 18 16 16 B/P (MAP) 123/76 (92) 149/81 (103) 122/83 (96) 139/68 (91) Pulse Ox 95 94 95 O2 Delivery Room Air BiPAP/CPAP BiPAP/CPAP 03/07/20 03/07/20 03/07/20 09:33 09:33 09:33 Pulse 47 47 47 B/P (MAP) 139/68 139/68 139/68 Intake and Output 03/06/20 03/06/20 03/07/20 15:00 23:00 07:00 Intake Total 520 ml Output Total 100 ml 100 ml 75 ml Balance -100 ml -100 ml 445 ml Justicifation of Admission Dx: Justifications for Admission: Justification of Admission Dx: Yes CHF: Sev. Electrolyte Abnormal Chronic Renal Failure: Electrolyte Abnormality NATHAN SIMON MD Mar 07, 2020 11:08
[2020-03-07 11:34] VITALS: BP 131/67
--- NOTE | 2020-03-07 13:59 | PDOC ---
PROGRESS NOTES Date of Service DATE: 03/07/20 TIME: 13:56 Subjective Subjective SEEN IN FOLLOW UP OF ESRD Objective Objective Vital Signs Date Time Temp Pulse Resp B/P (MAP) Pulse Ox O2 Delivery O2 Flow Rate FiO2 03/07/20 11:34 98.0 79 16 131/67 (88) 97 Room Air 98.0 Intake and Output 03/07/20 07:00 Intake Total 520 ml Output Total 275 ml Balance 245 ml Intake Oral 520 ml Output Urine Total 275 ml Physical Exam Abdomen: Normal bowel sounds, Soft, No tenderness, No hepatosplenomegaly, No masses Heart: Regular rate, Normal S1, Normal S2, No murmurs, Gallops Extremities: No clubbing, No cyanosis, No edema, Normal pulses, No te nderness/swelling General: Alert, Oriented X3, Cooperative, No acute distress Lungs: Clear to auscultation, Normal air movement Psych/Mental Status: Mental status NL, Mood NL Diagnosis RENAL FAILURE: ESRD (PERITONITIS IN CAPD PATIENT) Assessment Assessment Problems Medical Problems: (1) CHF (congestive heart failure) Status: Acute (2) Elevated troponin Status: Acute (3) Hypokalemia Status: Acute (4) Nausea & vomiting Status: Acute (5) Person under investigation for COVID-19 Status: Acute (6) Shortness of breath Status: Acute Plan Plan of Care CONT CCPD. CONT ANTIBIOTICS. APPRECIATE ID ASSISTANCE. MAY NEED PD CATH REMOVAL. Comment Review of Relevant I have reviewed the following items shahbaz (where applicable) has been applied. Labs Laboratory Tests Test 03/06/20 04:30 03/06/20 11:18 03/06/20 16:35 03/06/20 20:48 White Blood Count 7.4 x10^3/uL (4.0-11.0) Red Blood Count 4.19 x10^6/uL (4.30-5.70) Hemoglobin 12.1 g/dL (13.0-17.5) Hematocrit 36.4 % (39.0-53.0) Mean Corpuscular Volume 87 fL (79-100) Mean Corpuscular Hemoglobin 29 pg (25-35) Mean Corpuscular Hemoglobin Concent 33 g/dL (31-37) Red Cell Distribution Width 18.7 % (11.5-14.5) Platelet Count 238 x10^3/uL (140-400) Neutrophils (%) (Auto) 73 % (31-73) Lymphocytes (%) (Auto) 15 % (24-48) Monocytes (%) (Auto) 8 % (0-9) Eosinophils (%) (Auto) 3 % (0-3) Basophils (%) (Auto) 1 % (0-3) Neutrophils # (Auto) 5.4 x10^3/uL (1.8-7.7) Lymphocytes # (Auto) 1.1 x10^3/uL (1.0-4.8) Monocytes # (Auto) 0.6 x10^3/uL (0.0-1.1) Eosinophils # (Auto) 0.2 x10^3/uL (0.0-0.7) Basophils # (Auto) 0.0 x10^3/uL (0.0-0.2) Sodium Level 138 mmol/L (136-145) Potassium Level 2.9 mmol/L (3.5-5.1) Chloride Level 101 mmol/L (98-107) Carbon Dioxide Level 28 mmol/L (21-32) Anion Gap 9 (6-14) Blood Urea Nitrogen 47 mg/dL (8-26) Creatinine 4.5 mg/dL (0.7-1.3) Estimated GFR (Cockcroft-Gault) 12.8 Glucose Level 168 mg/dL (70-99) Calcium Level 7.8 mg/dL (8.5-10.1) Glucose (Fingerstick) 105 mg/dL (70-99) 95 mg/dL (70-99) 97 mg/dL (70-99) Test 03/07/20 04:18 03/07/20 07:22 03/07/20 10:52 Sodium Level 142 mmol/L (136-145) Potassium Level 3.2 mmol/L (3.5-5.1) Chloride Level 102 mmol/L (98-107) Carbon Dioxide Level 32 mmol/L (21-32) Anion Gap 8 (6-14) Blood Urea Nitrogen 39 mg/dL (8-26) Creatinine 4.2 mg/dL (0.7-1.3) Estimated GFR (Cockcroft-Gault) 13.9 Glucose Level 192 mg/dL (70-99) Calcium Level 8.2 mg/dL (8.5-10.1) Magnesium Level 2.0 mg/dL (1.8-2.4) Glucose (Fingerstick) 133 mg/dL (70-99) 119 mg/dL (70-99) Laboratory Tests Test 03/06/20 16:35 03/06/20 20:48 03/07/20 04:18 03/07/20 07:22 Glucose (Fingerstick) 95 mg/dL (70-99) 97 mg/dL (70-99) 133 mg/dL (70-99) Sodium Level 142 mmol/L (136-145) Potassium Level 3.2 mmol/L (3.5-5.1) Chloride Level 102 mmol/L (98-107) Carbon Dioxide Level 32 mmol/L (21-32) Anion Gap 8 (6-14) Blood Urea Nitrogen 39 mg/dL (8-26) Creatinine 4.2 mg/dL (0.7-1.3) Estimated GFR (Cockcroft-Gault) 13.9 Glucose Level 192 mg/dL (70-99) Calcium Level 8.2 mg/dL (8.5-10.1) Magnesium Level 2.0 mg/dL (1.8-2.4) Test 03/07/20 10:52 Glucose (Fingerstick) 119 mg/dL (70-99) Microbiology 03/05/20 Blood Culture - Preliminary, Resulted NO GROWTH AFTER 2 DAYS Medications Current Medications Ondansetron HCl (Zofran) 4 mg STK-MED ONCE .ROUTE ; Start 03/05/20 at 03:24; Stop 03/05/20 at 03:24; Status DC Ondansetron HCl (Zofran) 4 mg 1X ONCE IVP Last administered on 03/05/20at 03:34; Start 03/05/20 at 03:30; Stop 03/05/20 at 03:48; Status DC Potassium Chloride (Klor-Con) 40 meq 1X ONCE PO Last administered on 03/05/20at 04:48; Start 03/05/20 at 04:30; Stop 03/05/20 at 04:31; Status DC Furosemide (Lasix) 40 mg 1X ONCE IVP Last administered on 03/05/20at 04:51; Start 03/05/20 at 04:30; Stop 03/05/20 at 04:31; Status DC Ceftriaxone Sodium (Rocephin) 1 gm 1X ONCE IVP Last administered on 03/05/20at 04:50; Start 03/05/20 at 04:30; Stop 03/05/20 at 04:31; Status DC Azithromycin 250 ml @ 250 mls/hr 1X ONCE IV Last administered on 03/05/20at 04:51; Start 03/05/20 at 04:30; Stop 03/05/20 at 05:29; Status DC Aspirin (Aspirin Chewable) 324 mg 1X ONCE PO Last administered on 03/05/20at 04:45; Start 03/05/20 at 04:30; Stop 03/05/20 at 04:31; Status DC Ondansetron HCl (Zofran) 4 mg PRN Q8HRS PRN IV NAUSEA/VOMITING; Start 03/05/20 at 04:45; Stop 03/06/20 at 04:44; Status DC Morphine Sulfate (Morphine Sulfate) 2 mg PRN Q2HR PRN IV PAIN; Start 03/05/20 at 04:45; Stop 03/05/20 at 09:25; Status DC Potassium Chloride/Water 100 ml @ 100 mls/hr Q1H IV Last administered on 03/05/20at 09:36; Start 03/05/20 at 06:00; Stop 03/05/20 at 07:59; Status DC Amlodipine Besylate (Norvasc) 10 mg DAILY PO ; Start 03/05/20 at 10:00; Stop 03/05/20 at 10:26; Status DC Aspirin (Ecotrin) 81 mg DAILY PO ; Start 03/05/20 at 10:00; Stop 03/05/20 at 10:47; Status DC Vitamin D (Vitamin D3) 1,000 unit BID PO Last administered on 03/07/20at 09:32; Start 03/05/20 at 10:00 Clopidogrel Bisulfate (Plavix) 75 mg DAILY PO Last administered on 03/07/20at 09:32; Start 03/05/20 at 10:00 Atorvastatin Calcium (Lipitor) 80 mg QHS PO Last administered on 03/06/20at 20 :49; Start 03/05/20 at 21:00 Carvedilol (Coreg) 25 mg BIDWMEALS PO ; Start 03/05/20 at 10:00; Stop 03/05/20 at 10:26; Status DC Non-Formulary Medication (Guanfacine Hcl ) 1 tab HS PO ; Start 03/05/20 at 21:00; Stop 03/05/20 at 10:47; Status DC Levothyroxine Sodium (Synthroid) 100 mcg DAILY07 PO Last administered on 03/07/20 06:26; Start 03/05/20 at 10:00 Amlodipine Besylate (Norvasc) 5 mg DAILY PO Last administered on 03/07/20 09:33; Start 03/05/20 at 13:00 Carvedilol (Coreg) 12.5 mg BIDWMEALS PO Last administered on 03/07/20 09:33; Start 03/05/20 at 17:00 Meropenem (Merrem) 1 gm DAILY IV ; Start 03/05/20 at 12:15; Stop 03/05/20 at 12:20 ; Status DC Losartan Potassium (Cozaar) 25 mg DAILY PO Last administered on 03/07/20 09:33; Start 03/05/20 at 13:00 Potassium Chloride (Klor-Con) 20 meq DAILYWBKFT PO Last administered on 03/07/20at 09:32; Start 03/05/20 at 13:00 Psyllium Hydrophilic Mucilloid (Metamucil Fiber Packet) 1 pkt QPM PO Last administered on 03/06/20at 17:26; Start 03/05/20 at 18:00 Meropenem 1 gm/ Sodium Chloride 100 ml @ 200 mls/hr DAILY IV Last administered on 03/05/20at 13:59; Start 03/05/20 at 13:00; Stop 03/05/20 at 17:51; Status DC Heparin Sodium (Porcine) (Heparin Sodium) 5,000 unit Q8HRS SQ Last administered on 03/07/20 06:31; Start 03/05/20 at 14:00 Tramadol HCl (Ultram) 50 mg PRN Q6HRS PRN PO PAIN; Start 03/05/20 at 16:00 Fentanyl Citrate (Fentanyl 2ml Vial) 25 mcg PRN Q4HRS PRN IVP PAIN; Start 03/05/20 at 16:00 Meropenem 500 mg/ Sodium Chloride 50 ml @ 100 mls/hr DAILY IV Last administered on 03/07/20at 09:31; Start 03/06/20 at 09:00 Potassium Chloride (Klor-Con) 40 meq 1X ONCE PO Last administered on 03/06/20at 10:00; Start 03/06/20 at 08:00; Stop 03/06/20 at 08:01; Status DC Insulin Human Lispro (HumaLOG) 0-7 UNITS TIDWMEALHC SQ ; Start 03/06/20 at 12:00 Dextrose (Dextrose 50%-Water Syringe) 12.5 gm PRN Q15MIN PRN IV SEE COMMENTS; Start 03/06/20 at 10:00 Magnesium Sulfate 50 ml @ 25 mls/hr 1X ONCE IV Last administered on 03/06/20at 10:37; Start 03/06/20 at 10:00; Stop 03/06/20 at 11:59; Status DC Lactobacillus Rhamnosus (Culturelle) 1 cap BID PO Last administered on 03/07/20at 09:32; Start 03/06/20 at 21:00 Active Scripts Active Reported Merrem (Meropenem) 1 Gm Vial 1 Gm IV DAILY 13 Days Pepcid (Famotidine) 20 Mg Tablet 20 Mg PO HS Irbesartan 75 Mg Tablet 1 Tab PO DAILY Amlodipine Besylate 5 Mg Tablet 1 Tab PO DAILY Carvedilol 12.5 Mg Tablet 1 Tab PO BID Potassium Chloride 20 Meq Tablet.er 1 Tab PO DAILY Levothyroxine Sodium 100 Mcg Tablet 1 Tab PO DAILY07 90 Days Vitamin D3 (Cholecalciferol (Vitamin D3)) 1,000 Unit Tablet 1 Tab PO BID Plavix (Clopidogrel Bisulfate) 75 Mg Tablet 1 Tab PO DAILY Lipitor (Atorvastatin Calcium) 80 Mg Tablet 80 Mg PO DAILY Vitals/I & O Vital Sign - Last 24 Hours 03/06/20 03/06/20 03/06/20 03/06/20 15:14 17:27 19:30 20:00 Temp 97.9 98.3 97.9 98.3 Pulse 88 88 105 Resp 15 18 B/P (MAP) 134/53 (80) 134/53 114/69 (84) Pulse Ox 97 98 O2 Delivery Room Air BiPAP/CPAP Room Air 03/06/20 03/06/20 03/07/20 03/07/20 21:48 23:08 03:43 07:00 Temp 98.4 97.7 97.4 98.2 98.4 97.7 97.4 98.2 Pulse 84 86 57 47 Resp 18 16 16 B/P (MAP) 123/76 (92) 149/81 (103) 122/83 (96) 139/68 (91) Pulse Ox 95 94 95 O2 Delivery Room Air BiPAP/CPAP BiPAP/CPAP 03/07/20 03/07/20 03/07/20 03/07/20 07:35 09:33 09:33 09:33 Pulse 47 47 47 B/P (MAP) 139/68 139/68 139/68 O2 Delivery Room Air 03/07/20 11:34 Temp 98.0 98.0 Pulse 79 Resp 16 B/P (MAP) 131/67 (88) Pulse Ox 97 O2 Delivery Room Air Intake and Output 03/06/20 03/06/20 03/07/20 15:00 23:00 07:00 Intake Total 520 ml Output Total 100 ml 100 ml 75 ml Balance -100 ml -100 ml 445 ml Justifications for Admission Other Justification OMEGA MORALES MD Mar 07, 2020 13:59
[2020-03-07 15:30] VITALS: BP 120/76
[2020-03-07] MEDS: PSYLLIUM HUSK (SUGAR FREE) 1 PKT PACKET PO SCH (16:43)
[2020-03-07 19:27] VITALS: BP 105/61
--- NOTE | 2020-03-07 21:00 | NUR ---
associate art director in room with Patient to do peritoneal dialysis.
[2020-03-07] MEDS: ATORVASTATIN CALCIUM 40 MG TABLET. PO SCH (21:21)
[2020-03-07 22:04] VITALS: BP 120/72
[2020-03-08] VITALS (13 sets, daily range): BP systolic 128–165; BP diastolic 62–90
[2020-03-08] MEDS: HEPARIN for SUB-Q USE 5,000 UNIT/ML VIAL. SQ SCH ×3 (05:49→21:42)
[2020-03-08] MEDS: LEVOTHYROXINE 100 MCG TABLET PO SCH (06:46)
[2020-03-08] MEDS: INSULIN LISPRO 300 UNITS/3 ML VIAL. SQ SCH ×4 (08:00→21:00)
--- NOTE | 2020-03-08 08:28 | PDOC ---
PROGRESS NOTES Date of Service: DATE: 03/08/20 TIME: 08:26 Chief Complaint Chief Complaint A/P: Nausea and vomiting - likely secondary to peritonitis. Will give IV antiemetics. Pain control. Will need PD catheter removed as per ID makeup sales consultant Shortness of breath - multifactorial due to respiratory splinting due to peritonitis, complicated by an acute CHF exacerbation, less likely to be COVID- 19, will follow up on the results of this test. Will diuresis with PD and Lasix. Peritonitis - secondary to PD catheter infection with ESBL E. coli. I have ordered IV meropenem daily. Appreciate ID makeup sales consultant recommendations, will consult surgical lead to removal of peritoneal dialysis catheter in interventional radiology for tunneled HD catheter placement Hypokalemia - will replace IV and p.o. Will defer to nephrology for further recommendations on replacement protocol given his ESRD status. Severe protein calorie malnutrition - will have dietitian to see, continue renal diet Hypomagnesemia - will replace Transaminitis - likely secondary to peritonitis. Will trend LFTs. 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 CAD s/p CABG and stenting x6 - stable, will continue cardiac meds Atrial fibrillation - needs rate control and consideration of NOAC PAD - s/p peripheral stenting with LE wounds as well Hypertension - continue meds Acute diastolic CHF - due to over load of fluid due to inadequate peritoneal dialysis likely due to peritonitis. Unknown recent EF. 2013 his EF was 55%. Will attempt diuresis. He may need to convert HD for UF, will defer to nep hrology for this. ID requesting discontinuation of infected PD catheter. Patient will need a temp HD catheter placed if this is the case. Will follow recs from Nephrology DM2 - will place on basal bolus plus insulin while inpatient H/o TIA - no neurologic complaints ESRD - on PD. 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 TIKA on CPAP - his brought his home device. Left knee pain - chronic, PRN voltaren topical ointment Bilateral Lower extremity wounds - wound care nursing to see FEN - Renal diet PPX - heparin FULL CODE Dispo - inpatient for above History of Present Illness History of Present Illness Mr Encinas is a 75 year old male with past medical history of CAD s/p CABG and stenting x6, hypertension, CHF, afib, DM2, TIA, ESRD (peritoneal dialysis), TIKA on BIPAP 17/06 qhs presents for evaluation of shortness of breath, nausea and vomiting as well as a fall at home. At 02 100 on 03/05/2020 is found him laying on the floor unable to lift himself up and she was unable to lift him and called EMS per lift assistance. He denies any loss of consciousness or head or neck injury. He does complain of chronic left knee pain is aching throbbing and bilateral rated a 4 out of 10. He has had nausea vomiting and decreased appetite as well as a dry cough for 1 week. He does note that he is been progressively more short of breath for months he thinks since October. He also notes this is his ninth fall since May 2019. He was recently started on cefdinir on 02/28/2020 for lower extremity wound infection through [facility] wound clinic, and subsequently intraperitoneal meropenem 1 g daily on 03/04/2020 after a peritoneal catheter culture result on 03/03/2020 returned positive for E. coli ESBL. I reviewed this data from Hannah Yoder. He also had a ESBL E. coli PD catheter infection 11/26/2019. There is no particular sensitivity information available to me is simply reads ESBL. He notes he has been on PD for a year and until recently tolerated very well on nocturnal cycler notes he uses to yellow bags at night and 1 during the day at times when he has been treated for peritonitis with intraperitoneal antibiotics. EKG with HR 92. Intraventricular conduction aberrancy, multiple PVCs. CXR with interstitial opacities and possible left basilar infiltrate. Post- sternotomy changes Labs significant for WBC 10.3, Hb 12.6, platelets 273. NA 138, K2.6, mag 1.4, BUN 53, CR 4.3, glucose 135, calcium 7.7, albumin 1.9, BNP greater than 30 5K, troponin 0 0.143, repeat troponin 0.136. Lactic acid 1.7 Due to his complaints of shortness of breath and his dialysis status ED physician ordered COVID-19 swab and he has been seen and evaluated in the COVID- 19 isolation unit. Admitted for further care 03/06 Slept well on his home CPAP overnight, afebrile. Had a few complications with PD overnight but was able to complete his cycle and feels significantly better this morning. K down to 2.9. 03/07 No acute events reported overnight, case discussed with nursing staff patient in no acute distress no complaints during my visit plan of care explained in detail, reassurance provided 03/08 No acute events reported overnight, case discussed with nursing staff patient in no acute distress no complaints during my visit, at bedside, all concerns addressed to the best of my abilities Vitals Vitals Vital Signs Date Time Temp Pulse Resp B/P (MAP) Pulse Ox O2 Delivery O2 Flow Rate FiO2 03/08/20 07:13 97.7 74 16 161/79 (106) 97 BiPAP/CPAP 97.7 Physical Exam Physical Exam GENERAL: Alert, oriented x 3, male, sitting in bed, eating breakfast. HEENT: Anicteric. No thrush. NECK: Supple. LUNGS: Decreased breath sound at the bases, otherwise clear. HEART: S1, S2. No murmurs. ABDOMEN: Soft, min tender. PD catheter in place, site looks clean and intact. Bowel sounds present. No rebound, no guarding. EXTREMITIES: Bilateral venous stasis ulcers with dermatitis. No redness or purulent drainage noted. NEUROLOGIC: Alert, awake, grossly nonfocal. PSYCHIATRIC: Cooperative. DERMATOLOGIC: Warm, dry. No generalized rash except for above. General: Alert, Oriented X3, Cooperative, No acute distress Heart: Regular rate, Normal S1, Normal S2, No murmurs, Gallops Abdomen: Normal bowel sounds, Soft, No tenderness, No hepatosplenomegaly, No masses Extremities: No clubbing, No cyanosis, No edema, Normal pulses, No tenderness/swelling Skin: Other (Bilateral venous stasis dermatitis and scattered open venous ulcers, no heat or redness noted) Labs LABS Laboratory Tests Test 03/07/20 10:52 03/07/20 15:57 03/07/20 21:22 03/08/20 06:49 Glucose (Fingerstick) 119 mg/dL (70-99) 102 mg/dL (70-99) 118 mg/dL (70-99) 148 mg/dL (70-99) Assessment and Plan Assessmemt and Plan Problems Medical Problems: (1) CHF (congestive heart failure) Status: Acute (2) Elevated troponin Status: Acute (3) Hypokalemia Status: Acute (4) Nausea & vomiting Status: Acute (5) Person under investigation for COVID-19 Status: Acute (6) Shortness of breath Status: Acute Comment Review of Relevant I have reviewed the following items shahbaz (where applicable) has been applied. Labs Laboratory Tests Test 03/06/20 11:18 03/06/20 16:35 03/06/20 20:48 03/07/20 04:18 Glucose (Fingerstick) 105 mg/dL (70-99) 95 mg/dL (70-99) 97 mg/dL (70-99) Sodium Level 142 mmol/L (136-145) Potassium Level 3.2 mmol/L (3.5-5.1) Chloride Level 102 mmol/L (98-107) Carbon Dioxide Level 32 mmol/L (21-32) Anion Gap 8 (6-14) Blood Urea Nitrogen 39 mg/dL (8-26) Creatinine 4.2 mg/dL (0.7-1.3) Estimated GFR (Cockcroft-Gault) 13.9 Glucose Level 192 mg/dL (70-99) Calcium Level 8.2 mg/dL (8.5-10.1) Magnesium Level 2.0 mg/dL (1.8-2.4) Test 03/07/20 07:22 03/07/20 10:52 03/07/20 15:57 03/07/20 21:22 Glucose (Fingerstick) 133 mg/dL (70-99) 119 mg/dL (70-99) 102 mg/dL (70-99) 118 mg/dL (70-99) Test 03/08/20 06:49 Glucose (Fingerstick) 148 mg/dL (70-99) Laboratory Tests Test 03/07/20 10:52 03/07/20 15:57 03/07/20 21:22 03/08/20 06:49 Glucose (Fingerstick) 119 mg/dL (70-99) 102 mg/dL (70-99) 118 mg/dL (70-99) 148 mg/dL (70-99) Microbiology 03/05/20 Blood Culture - Preliminary, Resulted NO GROWTH AFTER 3 DAYS Medications Current Medications Ondansetron HCl (Zofran) 4 mg STK-MED ONCE .ROUTE ; Start 03/05/20 at 03:24; S top 03/05/20 at 03:24; Status DC Ondansetron HCl (Zofran) 4 mg 1X ONCE IVP Last administered on 03/05/20at 03:34; Start 03/05/20 at 03:30; Stop 03/05/20 at 03:48; Status DC Potassium Chloride (Klor-Con) 40 meq 1X ONCE PO Last administered on 03/05/20at 04:48; Start 03/05/20 at 04:30; Stop 03/05/20 at 04:31; Status DC Furosemide (Lasix) 40 mg 1X ONCE IVP Last administered on 03/05/20at 04:51; Start 03/05/20 at 04:30; Stop 03/05/20 at 04:31; Status DC Ceftriaxone Sodium (Rocephin) 1 gm 1X ONCE IVP Last administered on 03/05/20at 04:50; Start 03/05/20 at 04:30; Stop 03/05/20 at 04:31; Status DC Azithromycin 250 ml @ 250 mls/hr 1X ONCE IV Last administered on 03/05/20at 04:51; Start 03/05/20 at 04:30; Stop 03/05/20 at 05:29; Status DC Aspirin (Aspirin Chewable) 324 mg 1X ONCE PO Last administered on 03/05/20at 04:45; Start 03/05/20 at 04:30; Stop 03/05/20 at 04:31; Status DC Ondansetron HCl (Zofran) 4 mg PRN Q8HRS PRN IV NAUSEA/VOMITING; Start 03/05/20 at 04:45; Stop 03/06/20 at 04:44; Status DC Morphine Sulfate (Morphine Sulfate) 2 mg PRN Q2HR PRN IV PAIN; Start 03/05/20 at 04:45; Stop 03/05/20 at 09:25; Status DC Potassium Chloride/Water 100 ml @ 100 mls/hr Q1H IV Last administered on 03/05/20at 09:36; Start 03/05/20 at 06:00; Stop 03/05/20 at 07:59; Status DC Amlodipine Besylate (Norvasc) 10 mg DAILY PO ; Start 03/05/20 at 10:00; Stop 03/05/20 at 10:26; Status DC Aspirin (Ecotrin) 81 mg DAILY PO ; Start 03/05/20 at 10:00; Stop 03/05/20 at 10:47; Status DC Vitamin D (Vitamin D3) 1,000 unit BID PO Last administered on 03/07/20 21:21; Start 03/05/20 at 10:00 Clopidogrel Bisulfate (Plavix) 75 mg DAILY PO Last administered on 03/07/20 09:32; Start 03/05/20 at 10:00 Atorvastatin Calcium (Lipitor) 80 mg QHS PO Last administered on 03/07/20 21:21; Start 03/05/20 at 21:00 Carvedilol (Coreg) 25 mg BIDWMEALS PO ; Start 03/05/20 at 10:00; Stop 03/05/20 at 10:26; Status DC Non-Formulary Medication (Guanfacine Hcl ) 1 tab HS PO ; Start 03/05/20 at 21:00; Stop 03/05/20 at 10:47; Status DC Levothyroxine Sodium (Synthroid) 100 mcg DAILY07 PO Last administered on 03/08/20 06:46; Start 03/05/20 at 10:00 Amlodipine Besylate (Norvasc) 5 mg DAILY PO Last administered on 03/07/20 09:33; Start 03/05/20 at 13:00 Carvedilol (Coreg) 12.5 mg BIDWMEALS PO Last administered on 03/07/20at 16:35; Start 03/05/20 at 17:00 Meropenem (Merrem) 1 gm DAILY IV ; Start 03/05/20 at 12:15; Stop 03/05/20 at 12:20; Status DC Losartan Potassium (Cozaar) 25 mg DAILY PO Last administered on 03/07/20 09:33; Start 03/05/20 at 13:00 Potassium Chloride (Klor-Con) 20 meq DAILYWBKFT PO Last administered on 03/07/20 09:32; Start 03/05/20 at 13:00 Psyllium Hydrophilic Mucilloid (Metamucil Fiber Packet) 1 pkt QPM PO Last administered on 03/06/20 17:26; Start 03/05/20 at 18:00 Meropenem 1 gm/ Sodium Chloride 100 ml @ 200 mls/hr DAILY IV Last administered on 9/5/20at 13:59; Start 03/05/20 at 13:00; Stop 03/05/20 at 17:51; Status DC Heparin Sodium (Porcine) (Heparin Sodium) 5,000 unit Q8HRS SQ Last administered on 03/08/20at 05:49; Start 03/05/20 at 14:00 Tramadol HCl (Ultram) 50 mg PRN Q6HRS PRN PO PAIN; Start 03/05/20 at 16:00 Fentanyl Citrate (Fentanyl 2ml Vial) 25 mcg PRN Q4HRS PRN IVP PAIN; Start 03/05/20 at 16:00 Meropenem 500 mg/ Sodium Chloride 50 ml @ 100 mls/hr DAILY IV Last administered on 03/07/20at 09:31; Start 03/06/20 at 09:00 Potassium Chloride (Klor-Con) 40 meq 1X ONCE PO Last administered on 03/06/20at 10:00; Start 03/06/20 at 08:00; Stop 03/06/20 at 08:01; Status DC Insulin Human Lispro (HumaLOG) 0-7 UNITS TIDWMEALHC SQ ; Start 03/06/20 at 12:00 Dextrose (Dextrose 50%-Water Syringe) 12.5 gm PRN Q15MIN PRN IV SEE COMMENTS; Start 03/06/20 at 10:00 Magnesium Sulfate 50 ml @ 25 mls/hr 1X ONCE IV Last administered on 03/06/20at 10:37; Start 03/06/20 at 10:00; Stop 03/06/20 at 11:59; Status DC Lactobacillus Rhamnosus (Culturelle) 1 cap BID PO Last administered on 03/07/20at 21:21; Start 03/06/20 at 21:00 Active Scripts Active Reported Merrem (Meropenem) 1 Gm Vial 1 Gm IV DAILY 13 Days Pepcid (Famotidine) 20 Mg Tablet 20 Mg PO HS Irbesartan 75 Mg Tablet 1 Tab PO DAILY Amlodipine Besylate 5 Mg Tablet 1 Tab PO DAILY Carvedilol 12.5 Mg Tablet 1 Tab PO BID Potassium Chloride 20 Meq Tablet.er 1 Tab PO DAILY Levothyroxine Sodium 100 Mcg Tablet 1 Tab PO DAILY07 90 Days Vitamin D3 (Cholecalciferol (Vitamin D3)) 1,000 Unit Tablet 1 Tab PO BID Plavix (Clopidogrel Bisulfate) 75 Mg Tablet 1 Tab PO DAILY Lipitor (Atorvastatin Calcium) 80 Mg Tablet 80 Mg PO DAILY Vitals/I & O Vital Sign - Last 24 Hours 03/07/20 03/07/20 03/07/20 03/07/20 09:33 09:33 09:33 11:34 Temp 98.0 98.0 Pulse 47 47 47 79 Resp 16 B/P (MAP) 139/68 139/68 139/68 131/67 (88) Pulse Ox 97 O2 Delivery Room Air 03/07/20 03/07/20 03/07/20 03/07/20 15:30 16:35 19:27 19:52 Temp 97.9 98.6 97.9 98.6 Pulse 85 85 90 Resp 16 16 B/P (MAP) 120/76 (91) 120/76 105/61 (76) Pulse Ox 97 98 O2 Delivery Room Air Room Air Room Air 03/07/20 03/08/20 03/08/20 22:04 02:25 07:13 Temp 98.4 98.3 97.7 98.4 98.3 97.7 Pulse 87 82 74 Resp 16 16 16 B/P (MAP) 120/72 (88) 139/73 (95) 161/79 (106) Pulse Ox 97 98 97 O2 Delivery Room Air BiPAP/CPAP BiPAP/CPAP Intake and Output 03/07/20 03/07/20 03/08/20 15:00 23:00 07:00 Intake Total 250 ml 120 ml 240 ml Output Total 200 ml 100 ml Balance 50 ml 20 ml 240 ml Justicifation of Admission Dx: Justifications for Admission: Justification of Admission Dx: Yes CHF: Sev. Electrolyte Abnormal Chronic Renal Failure: Electrolyte Abnormality NATHAN SIMON MD Mar 08, 2020 08:27
--- NOTE | 2020-03-08 09:03 | PDOC ---
Infectious Disease Note Subjective Subjective No F but occ chill. No abd discomfort today No SOA ROS ROS o/w neg Vital Sign Vital Signs Vital Signs Date Time Temp Pulse Resp B/P (MAP) Pulse Ox O2 Delivery O2 Flow Rate FiO2 03/08/20 07:13 97.7 74 16 161/79 (106) 97 BiPAP/CPAP 97.7 Physical Exam PHYSICAL EXAM GENERAL: Alert, oriented x 3, male, sitting in bed, looking well HEENT: Anicteric. No thrush. NECK: Supple. LUNGS: Decreased breath sound at the bases, otherwise clear. HEART: S1, S2. No murmurs. ABDOMEN: Soft, Nontender. PD catheter in place, site looks clean and intact. Bowel sounds present. No rebound, no guarding. EXTREMITIES: Bilateral venous stasis ulcers with dermatitis. No redness or purulent drainage noted. NEUROLOGIC: Alert, awake, grossly nonfocal. PSYCHIATRIC: Cooperative. DERMATOLOGIC: Warm, dry. No generalized rash except for above. Labs Lab Laboratory Tests Test 03/07/20 10:52 03/07/20 15:57 03/07/20 21:22 03/08/20 06:49 Glucose (Fingerstick) 119 mg/dL (70-99) 102 mg/dL (70-99) 118 mg/dL (70-99) 148 mg/dL (70-99) Micro Microbiology 03/05/20 Blood Culture - Preliminary, Resulted NO GROWTH AFTER 2 DAYS Objective Assessment 1. ESBL E. coli. PD catheter peritonitis diagnosed at outside facility on Sesn to Imipenem/zosyn I Tobra res gent 02/29/2020, started on antibiotics yesterday as outpatient. 2. End-stage renal disease, on peritoneal dialysis for 1 year. 3. History of previous PD fluid cultures in records from 10/2019 with E. coli ESBL and leuconostoc species. 4. COVID-19.- neg 03/05 5. Congestive heart failure. 6. Diabetes mellitus. 7. Anemia, chronic. 8. Protein-calorie malnutrition. 9. Congestive heart failure. Plan Plan of Care 1. Continue meropenem renal dosing for PD pharmacy to assist. 2. Needs PD catheter removal due to recurrent infection and now with ESBL E. coli, PD concern for increasing res if not removed - d/w and Dr. Corado catheter infection. 3. COVID-19 - neg 95 4. Continue supportive care. 5. We will continue to follow. D/w nursing ROBIN GARDUNO MD Mar 08, 2020 09:03
--- NOTE | 2020-03-08 09:38 | NUR ---
SS following for discharge planning. SS reviewed pt chart and discussed with pt RN. Pt is from home with spouse and is currently on room air. Pt has CPAP at [facility]. Pt has CPAP from home. COVID19 negative. Pt on IV Meropenem. Pt was on Peritoneal Dialysis and switching to outpatient hemodialysis. Serology labs ordered. Pt having tunneled catheter placed today and will have first dialysis. SS will send completed referral to [facility] once serology labs and first flow sheet have been completed. Pt's RN notified.
[2020-03-08] MEDS: MEROPENEM 500 MG in IV NORMAL SALINE 50ML 50 ML IV SCH (09:51)
[2020-03-08] MEDS: POTASSIUM CHLORIDE 20 MEQ TABLET.ER. PO SCH (09:52)
[2020-03-08] MEDS: CARVEDILOL 12.5 MG TABLET. PO SCH ×2 (09:52→17:23)
[2020-03-08] MEDS: CHOLECALCIFEROL (VITAMIN D3) 1,000 UNIT TABLET PO SCH ×2 (09:52→21:38)
[2020-03-08] MEDS: CLOPIDOGREL BISULFATE 75 MG TABLET PO SCH (09:52)
[2020-03-08] MEDS: amLODIPine BESYLATE 5 MG TABLET PO SCH (09:53)
[2020-03-08] MEDS: LACTOBACILLUS RHAMNOSUS GG 1 CAPSULE. PO SCH ×2 (09:53→21:37)
[2020-03-08] MEDS: LOSARTAN POTASSIUM 25 MG TABLET. PO SCH (09:54)
--- NOTE | 2020-03-08 10:10 | PDOC2 ---
DUSTIN HUBER SSN/SSBN [employer]PER[employer] 03/08/20 1010: CONSULT Date of Consult Date of Consult DATE: 03/08/20 TIME: 10:04 Reason for Consult Reason for Consult: pd cath removal Referring Physician Referring Physician: dr bentley Identification/Chief Complaint Chief Complaint fall, soa Source Source: Chart review, Patient History of Present Illness Reason for Visit: admitted after found on floor, unable to get up. Significant cardiac hx, ESRD on PD for ayear, cath placed at [place] with Dr Amador hx ESBL E. coli PD catheter infection 11/26/2019--ID consulted for pda cath removal with recurrent peritonitis with + cultures again 02/27 Patient is unsure he wants a HD cath placed and PD removed, wanting to discuss with Past Medical History Cardiovascular: CAD, CHF, HTN, Hyperlipidemia Renal/: Chronic renal failure Endocrine: Diabetes Past Surgical History Past Surgical History: CABG, Total knee replacement, Other (PD cath) Family History Family History: Coronary Artery Disease, High Cholestrol, Hypertension Social History Quit ALCOHOL: none Drugs: None Current Problem List Problem List Problems Medical Problems: (1) CHF (congestive heart failure) Status: Acute (2) Elevated troponin Status: Acute (3) Hypokalemia Status: Acute (4) Nausea & vomiting Status: Acute (5) Person under investigation for COVID-19 Status: Acute (6) Shortness of breath Status: Acute Current Medications Current Medications Current Medications Ondansetron HCl (Zofran) 4 mg STK-MED ONCE .ROUTE ; Start 03/05/20 at 03:24; Stop 03/05/20 at 03:24; Status DC Ondansetron HCl (Zofran) 4 mg 1X ONCE IVP Last administered on 03/05/20at 03:34; Start 03/05/20 at 03:30; Stop 03/05/20 at 03:48; Status DC Potassium Chloride (Klor-Con) 40 meq 1X ONCE PO Last administered on 03/05/20at 04:48; Start 03/05/20 at 04:30; Stop 03/05/20 at 04:31; Status DC Furosemide (Lasix) 40 mg 1X ONCE IVP Last administered on 03/05/20at 04:51; Start 03/05/20 at 04:30; Stop 03/05/20 at 04:31; Status DC Ceftriaxone Sodium (Rocephin) 1 gm 1X ONCE IVP Last administered on 03/05/20at 04:50; Start 03/05/20 at 04:30; Stop 03/05/20 at 04:31; Status DC Azithromycin 250 ml @ 250 mls/hr 1X ONCE IV Last administered on 03/05/20at 04:51; Start 03/05/20 at 04:30; Stop 03/05/20 at 05:29; Status DC Aspirin (Aspirin Chewable) 324 mg 1X ONCE PO Last administered on 03/05/20at 04:45; Start 03/05/20 at 04:30; Stop 03/05/20 at 04:31; Status DC Ondansetron HCl (Zofran) 4 mg PRN Q8HRS PRN IV NAUSEA/VOMITING; Start 03/05/20 at 04:45; Stop 03/06/20 at 04:44; Status DC Morphine Sulfate (Morphine Sulfate) 2 mg PRN Q2HR PRN IV PAIN; Start 03/05/20 at 04:45; Stop 03/05/20 at 09:25; Status DC Potassium Chloride/Water 100 ml @ 100 mls/hr Q1H IV Last administered on 03/05/20at 09:36; Start 03/05/20 at 06:00; Stop 03/05/20 at 07:59; Status DC Amlodipine Besylate (Norvasc) 10 mg DAILY PO ; Start 03/05/20 at 10:00; Stop 03/05/20 at 10:26; Status DC Aspirin (Ecotrin) 81 mg DAILY PO ; Start 03/05/20 at 10:00; Stop 03/05/20 at 10:47; Status DC Vitamin D (Vitamin D3) 1,000 unit BID PO Last administered on 03/08/20at 09:52; Start 03/05/20 at 10:00 Clopidogrel Bisulfate (Plavix) 75 mg DAILY PO Last administered on 03/08/20at 09: 52; Start 03/05/20 at 10:00 Atorvastatin Calcium (Lipitor) 80 mg QHS PO Last administered on 03/07/20at 21:21; Start 03/05/20 at 21:00 Carvedilol (Coreg) 25 mg BIDWMEALS PO ; Start 03/05/20 at 10:00; Stop 03/05/20 at 10:26; Status DC Non-Formulary Medication (Guanfacine Hcl ) 1 tab HS PO ; Start 03/05/20 at 21:00; Stop 03/05/20 at 10:47; Status DC Levothyroxine Sodium (Synthroid) 100 mcg DAILY07 PO Last administered on 03/08/20at 06:46; Start 03/05/20 at 10:00 Amlodipine Besylate (Norvasc) 5 mg DAILY PO Last administered on 03/08/20 09:53; Start 03/05/20 at 13:00 Carvedilol (Coreg) 12.5 mg BIDWMEALS PO Last administered on 03/08/20 09:52; Start 03/05/20 at 17:00 Meropenem (Merrem) 1 gm DAILY IV ; Start 03/05/20 at 12:15; Stop 03/05/20 at 12:20; Status DC Losartan Potassium (Cozaar) 25 mg DAILY PO Last administered on 03/08/20at 09:54; Start 03/05/20 at 13:00 Potassium Chloride (Klor-Con) 20 meq DAILYWBKFT PO Last administered on 03/08/20at 09:52; Start 03/05/20 at 13:00 Psyllium Hydrophilic Mucilloid (Metamucil Fiber Packet) 1 pkt QPM PO Last administered on 03/06/20at 17:26; Start 03/05/20 at 18:00 Meropenem 1 gm/ Sodium Chloride 100 ml @ 200 mls/hr DAILY IV Last administered on 03/05/20at 13:59; Start 03/05/20 at 13:00; Stop 03/05/20 at 17:51; Status DC Heparin Sodium (Porcine) (Heparin Sodium) 5,000 unit Q8HRS SQ Last administered on 03/08/20at 05:49; Start 03/05/20 at 14:00 Tramadol HCl (Ultram) 50 mg PRN Q6HRS PRN PO PAIN; Start 03/05/20 at 16:00 Fentanyl Citrate (Fentanyl 2ml Vial) 25 mcg PRN Q4HRS PRN IVP PAIN; Start at 16:00 Meropenem 500 mg/ Sodium Chloride 50 ml @ 100 mls/hr DAILY IV Last administered on 03/08/20at 09:51; Start 9/6/20 at 09:00 Potassium Chloride (Klor-Con) 40 meq 1X ONCE PO Last administered on 03/06/20at 10:00; Start 03/06/20 at 08:00; Stop 03/06/20 at 08:01; Status DC Insulin Human Lispro (HumaLOG) 0-7 UNITS TIDWMEALHC SQ ; Start 03/06/20 at 12:00 Dextrose (Dextrose 50%-Water Syringe) 12.5 gm PRN Q15MIN PRN IV SEE COMMENTS; Start 03/06/20 at 10:00 Magnesium Sulfate 50 ml @ 25 mls/hr 1X ONCE IV Last administered on 03/06/20at 10:37; Start 03/06/20 at 10:00; Stop 03/06/20 at 11:59; Status DC Lactobacillus Rhamnosus (Culturelle) 1 cap BID PO Last administered on 03/08/20at 09:53; Start 03/06/20 at 21:00 Active Scripts Active Reported Merrem (Meropenem) 1 Gm Vial 1 Gm IV DAILY 13 Days Pepcid (Famotidine) 20 Mg Tablet 20 Mg PO HS Irbesartan 75 Mg Tablet 1 Tab PO DAILY Amlodipine Besylate 5 Mg Tablet 1 Tab PO DAILY Carvedilol 12.5 Mg Tablet 1 Tab PO BID Potassium Chloride 20 Meq Tablet.er 1 Tab PO DAILY Levothyroxine Sodium 100 Mcg Tablet 1 Tab PO DAILY07 90 Days Vitamin D3 (Cholecalciferol (Vitamin D3)) 1,000 Unit Tablet 1 Tab PO BID Plavix (Clopidogrel Bisulfate) 75 Mg Tablet 1 Tab PO DAILY Lipitor (Atorvastatin Calcium) 80 Mg Tablet 80 Mg PO DAILY Allergies Allergies: Coded Allergies: doxycycline (Verified Allergy, Intermediate, Itching, 09/09/15) ROS General: No: Chills, Other (fevers ) PSYCHOLOGICAL ROS: No: Anxiety, Depression Eyes: No Blurry vision, No Double vision HEENT: No: Heacaches, Sore Throat Hematological and Lymphatic: YES: Bleeding Problems; No: Blood Clots Respiratory: YES: Shortness of breath; No: Cough Cardiovascular: No Chest Pain, No Palpitations Gastrointestinal: No Nausea, No Vomiting, No Abdominal Pain Genitourinary: No Dysuria, No Hematuria Musculoskeletal: Yes Muscular Weakness Neurological: Yes Impaired Coord/balance Skin: No Pruritus, No Rash Physical Exam General: Alert, Oriented X3, Cooperative HEENT: Atraumatic, PERRLA Lungs: Clear to auscultation, Normal air movement Heart: Regular rate, Normal S1, Normal S2 Abdomen: Soft, No tenderness, Other (pd cath in place) Extremities: No clubbing, No cyanosis Skin: No rashes, No breakdown Neuro: Normal gait, Normal speech Psych/Mental Status: Mental status NL, Mood NL MUSCULOSKELETAL: No deformity, No swelling Vitals VITALS Vital Signs Date Time Temp Pulse Resp B/P (MAP) Pulse Ox O2 Delivery O2 Flow Rate FiO2 03/08/20 09:54 74 161/79 03/08/20 07:13 97.7 16 97 BiPAP/CPAP 97.7 Labs Labs Laboratory Tests Test 03/06/20 11:18 03/06/20 16:35 03/06/20 20:48 03/07/20 04:18 Glucose (Fingerstick) 105 mg/dL (70-99) 95 mg/dL (70-99) 97 mg/dL (70-99) Sodium Level 142 mmol/L (136-145) Potassium Level 3.2 mmol/L (3.5-5.1) Chloride Level 102 mmol/L (98-107) Carbon Dioxide Level 32 mmol/L (21-32) Anion Gap 8 (6-14) Blood Urea Nitrogen 39 mg/dL (8-26) Creatinine 4.2 mg/dL (0.7-1.3) Estimated GFR (Cockcroft-Gault) 13.9 Glucose Level 192 mg/dL (70-99) Calcium Level 8.2 mg/dL (8.5-10.1) Magnesium Level 2.0 mg/dL (1.8-2.4) Test 03/07/20 07:22 03/07/20 10:52 03/07/20 15:57 03/07/20 21:22 Glucose (Fingerstick) 133 mg/dL (70-99) 119 mg/dL (70-99) 102 mg/dL (70-99) 118 mg/dL (70-99) Test 03/08/20 06:49 Glucose (Fingerstick) 148 mg/dL (70-99) Laboratory Tests Test 03/07/20 10:52 03/07/20 15:57 03/07/20 21:22 03/08/20 06:49 Glucose (Fingerstick) 119 mg/dL (70-99) 102 mg/dL (70-99) 118 mg/dL (70-99) 148 mg/dL (70-99) Assessment/Plan Assessment/Plan ESBL E. coli PD catheter infection please call us if patient wishes to proceed with PD cath removal d/w Dr Bentley after visit and pt is now agreeable-will get scheduled TONY SANCHEZ MD 03/10/20 0816: CONSULT Assessment/Plan Assessment/Plan Agree with Faisal assessment plan. Patient agrees to having PD catheter removed will schedule DUSTIN HUBER APRN Mar 08, 2020 10:10 TONY SANCHEZ MD Mar 10, 2020 08:16
--- NOTE | 2020-03-08 11:10 | CARD ---
MR#: [id number] Date of Study: 03/08/2020 Ordering Physician: MYRIAM MELO, Referring Physician: MYRIAM MELO, Tech: Cristiane Jennings APPROVED REPORT EXAM: Two-dimensional and M-mode echocardiogram with Doppler and color Doppler. Other Information Quality : AverageHR: 90bpm INDICATION Congestive Heart Failure Surgery/Intervention CABG: Date: 2014 RISK FACTORS Hypertension Diabetes 2D DIMENSIONS RVDd2.5 (2.9-3.5cm)Left Atrium(2D)4.3 (1.6-4.0cm) IVSd1.4 (0.7-1.1cm)Aortic Root(2D)3.9 (2.0-3.7cm) LVDd5.9 (3.9-5.9cm)LVOT Diameter2.3 (1.8-2.4cm) PWd1.2 (0.7-1.1cm)LVDs4.3 (2.5-4.0cm) FS (%) 27.9 %SV93.6 ml LVEF(%)53.2 (>50%) Aortic Valve AoV Peak Efrain.150.8cm/sAoV VTI22.4cm AO Peak GR.9.1mmHgLVOT Peak Efrain.98.5cm/s LVOT VTI 13.80cmAO Mean GR.5mmHg ALFREDO (VMAX)2.28vr2HPL (VTI)2.51cm2 Mitral Valve MV E Cxbmzegn106.9cm/sMV E Peak Gr.97mmHg MV DECEL [id number] A Cxuuvhes51.3cm/s MV E Mean Gr.2mmHgMV [id number] E/A Ratio3.9MVA (PHT)4.33cm2 TDI E/Lateral E'11.8E/Medial E'20.7 Pulmonary Valve PV Peak Eajwyyad86.8cm/sPV Peak Grad.4mmHg Tricuspid Valve TR P. Pxlfyevr853ga/sRAP [id number] TR Peak Gr.95bxLhCGWY91qpUx LEFT VENTRICLE The Left Ventricle is borderline dilated. There is mild to moderate concentric left ventricular hyper trophy. The left ventricular systolic function is mildly reduced. The Ejection Fraction is 40-45%. Wa ll motion consistent with conduction abnormality and the basal to distal inferior wall is severely hy pokinetic. Tissue Doppler imaging reveals moderate left ventricular diastolic dysfunction. RIGHT VENTRICLE The right ventricle is normal size. There is normal right ventricular wall thickness. The right ventr icular systolic function is normal. ATRIA The left atrium is moderately dilated. The right atrium is mildly dilated. The interatrial septum is intact with no evidence for an atrial septal defect or patent foramen ovale as noted on 2-D or Dopple r imaging. AORTIC VALVE The aortic valve is calcified with restricted leaflet motion. Doppler and Color Flow revealed no sign ificant aortic regurgitation. There is no significant aortic valvular stenosis. Calculated aortic jared ve area is 1.97 cm2 with maximum pressure gradient of 12 mmHg and mean pressure gradient of 6 mmHg. MITRAL VALVE Mitral annular calcification is mild. Posterior leaflet is restricted. There is no evidence of mitral valve prolapse. There is no mitral valve stenosis. Doppler and Color-flow revealed moderate mitral r egurgitation. TRICUSPID VALVE The tricuspid valve is normal in structure and function. Doppler and Color Flow revealed trace tricus pid regurgitation with an estimated PAP of 36 mmHg. There is no tricuspid valve stenosis. PULMONIC VALVE Doppler and Color Flow revealed trace pulmonic valvular regurgitation. There is no pulmonic valvular stenosis. GREAT VESSELS The aortic root is mildly enlarged. The IVC is normal in size and collapses >50% with inspiration. PERICARDIAL EFFUSION There is no evidence of significant pericardial effusion. Critical Notification Critical Value: No <Conclusion> The left ventricular systolic function is mildly reduced. The Ejection Fraction is 40-45%. Wall motion consistent with conduction abnormality and the basal to distal inferior wall is severely hypokinetic. Doppler and Color-flow revealed moderate mitral regurgitation. Signed by : Myriam Melo, Electronically Approved : 03/08/2020 11:09:53
--- NOTE | 2020-03-08 12:19 | PDOC ---
CARDIOLOGY PROGRESS NOTE SUBJECTIVE: No new events overnight. Denies any chest pain. Resting comfortably in bed. OBJECTIVE: Vital Signs/I&O: Vital Signs Date Time Temp Pulse Resp B/P (MAP) Pulse Ox O2 Delivery O2 Flow Rate FiO2 03/08/20 10:31 98.0 51 16 140/76 (97) 96 BiPAP/CPAP 98.0 l I & O 03/07/20 03/07/20 03/08/20 15:00 23:00 07:00 Intake Total 250 ml 120 ml 240 ml Output Total 200 ml 100 ml Balance 50 ml 20 ml 240 ml Objective: a/o x 3. NAD bilateral wound dressings on legs. Soft abd irregular heart tones 2+ pulses radially, diminished pedal pulses. lungs clr anteriorly CURRENT MEDICATIONS: Coreg Amlodipine Losartan Plavix DIAGNOSTIC TESTING: labs reviewed. ASSESSMENT: 1. CAD s/p CABG (2015, 4V), grafts unknown 2. Ischemic CMP, EF 40-45% 3. PAD 4. HTN 5. ESRD 6. Acute SBP being tx with abx. 7. Permanent atrial fibrillation PLAN: 1. Will continue current medical therapy. 2. Hold his anticoagulation. 3. Given his new CMP on echo, obtain old records from [facility] and [facility] offices to compare recent Lexiscan EF and results. Supportive care. Plans for HD catheter today and PD catheter removal subsequently. Justicifation of Admission Dx: Justifications for Admission: Justification of Admission Dx: Yes CHF: Sev. Electrolyte Abnormal Chronic Renal Failure: Electrolyte Abnormality MYRIAM STINSON MD Mar 08, 2020 12:19
[2020-03-08] MEDS ORDERED: LIDOCAINE 1%/EPI 1:100,000 20 ML VIAL. ONE (13:19)
[2020-03-08] MEDS ORDERED: MIDAZOLAM HCL/PF 2 MG/2 ML VIAL. ONE (13:28)
[2020-03-08] MEDS ORDERED: fentaNYL PF VIAL 100 MCG/2 ML VIAL ONE (13:28)
[2020-03-08] MEDS ORDERED: MIDAZOLAM HCL/PF 2 MG/2 ML VIAL. IV ONE (13:30)
[2020-03-08] MEDS ORDERED: LIDOCAINE 1%/EPI 1:100,000 20 ML VIAL. SQ ONE (13:30)
[2020-03-08] MEDS ORDERED: fentaNYL PF VIAL 100 MCG/2 ML VIAL IV ONE (13:30)
--- NOTE | 2020-03-08 14:01 | PDOC ---
BRIEF OPERATIVE NOTE Pre-Op Diagnosis CRF Post-Op Diagnosis same Procedure Performed Tunnelled HD Catheter Surgeon Darius Anesthesia Type: Conscious Sedation Findings 19cm Palindrome with excellent manual flows Complications No immediate AURY HERNANDEZ MD Mar 08, 2020 14:01
--- NOTE | 2020-03-08 14:01 | PDOC ---
MODERATE SEDATION ASSESSMENT RISKS/ALTERNATIVES Risks/Alternatives Risks and alternatives of this type of sedation and procedure discussed with: RISK/ALTERNATIVES: Patient H & P ON CHART H & P H & P on chart and reviewed for co-morbid conditions and appropriate labs. H&P ON CHART: Yes STATUS PREG STATUS ASSESSED: Yes MEDS/ALLERGIES REVIEWED Meds/Allergies Reviewed Medications and Allergies including time and route of recently administered narcotics and sedatives. MEDS/ALLERGIES REVIEWED: Yes ASA RATING ASA RATING: II AIRWAY ASSESSMENT Airway Assessment Airway patency, oral function limitations, presence of caps, crowns, dentures, partials, and ability to extend neck assessed. AIRWAY ASSESSMENT: Yes MALLAMPATI SCORE MALLAMPATI SCORE: II PRE-SEDATION ASSESSMENT PRE-SEDATION ASSESSMENT: Yes AURY HERNANDEZ MD Mar 08, 2020 14:01
--- NOTE | 2020-03-08 15:13 | PDOC ---
Renal-Progress Notes Subjective Notes Notes NO NEW COMPLAINTS History of Present Illness Hx of present illness STABLE Vitals Vitals Vital Signs Date Time Temp Pulse Resp B/P (MAP) Pulse Ox O2 Delivery O2 Flow Rate FiO2 03/08/20 14:33 98.1 65 16 133/78 (96) 96 Room Air 98.1 03/08/20 14:06 3.0 Weight Weight [ ] I.O. Intake and Output Intake and Output 03/08/20 06:59 Intake Total 610 ml Output Total 300 ml Balance 310 ml Intake Oral 610 ml Output Urine Total 300 ml # Bowel Movements 1 Labs Labs Laboratory Tests Test 03/07/20 15:57 03/07/20 21:22 03/08/20 06:49 03/08/20 09:50 Glucose (Fingerstick) 102 mg/dL (70-99) 118 mg/dL (70-99) 148 mg/dL (70-99) Hepatitis B Surface Antigen Nonreactive (Nonreactive) Hepatitis B Surface Antibody Nonreactive Hepatitis B Core Total Antibody Nonreactive (Nonreactive) Test 03/08/20 11:19 Glucose (Fingerstick) 100 mg/dL (70-99) Micro Micro Microbiology 03/05/20 Blood Culture - Preliminary, Resulted NO GROWTH AFTER 3 DAYS Review of Systems Constitutional: yes: alert, oriented Ears/Nose/Throat: Yes: no symptom reported Eyes: Yes: no symptom reported Pulmonary: Yes no symptom reported Cardiovascular: Yes no symptom reported Gastrointestional: Yes: no symptom reported Genitourinary: Yes: no symptom reported Musculoskeletal: Yes: no symptom reported Psychiatric/Neurological: Yes: no symptom reported Endocrine: Yes: no symptom reported Physical Exam General Appearance: no apparent distress, afebrile Skin: warm Respiratory: bilateral CTA, tachypnea Heart: S1S2 Abdomen: soft Genitourinary: bladder flat Extremities: pulses present Neurology: alert, oriented Assessment Assessment IMP ESRD ANEMIA PERITONITIS-RECURRENT DM II CM WITH EF OF 40-45% PLAN HD TOMORROW TUNNELED HD CATHETER REMOVE PD CATHETER ANTIBIOTICS PT WILL HAVE OP HD SET UP AT [facility] D/W SW WILL FOLLOW UPDATED JOANNE MARRERO MD Mar 08, 2020 15:13
--- NOTE | 2020-03-08 15:56 | NUR ---
SS following up with discharge planning. Pt had tunneled catheter placed today. Dr. Rosa requesting [facility] placement for pt. SS phoned and faxed referral to [facility], ; fax [phone]. SS will await chair time and will proceed accordingly.
--- NOTE | 2020-03-08 15:58 | NUR ---
Wound/Ostomy Care Wound Type/Assessment: Patient seen per wound care consult. See wound assessment. Patient has skin tear to left lower arm. wound cleansed, assessed, and measured. The bilateral lower legs are not open at this time, just skin is very thin and friable. Lotion applied to BLE's and patient refused medi-scroll assembler at this time. Treatment Recommendations/Plan: Recommendations for xeroform gauze and foam dressing to left arm. Change on Saturday and Saturday. wound care will follow up on 03/16/20. Education provided: Patient educated on dressing changes and BLE's elevation. Offloading surface/device: N/A Recommended Referrals/Tests: N/A Discharge Recommendations for dressings: Continue current treatment. Patient attends [facility]. Dressing change instructions left in room. No other wounds noted. Wound care will follow up on 03/16/20. Bed lowered and call light in reach. at bedside.
--- NOTE | 2020-03-08 16:09 | RAD ---
Procedure: Tunneled hemodialysis catheter placement Clinical Indication: Adult male requiring hemodialysis Sedation: Conscious sedation was administered for 25 minutes. The patient was monitored by a qualified independent observer throughout the time of sedation. Please refer to the medical record for exact doses of medications utilized to achieve moderate sedation. Antibiotics: Antibiotic was administered intravenously within 1 hour of the procedure start time. Fluoro Time: 0.5 minutes, images: 1 Contrast: None Sterility: All elements of maximal sterile barrier technique including the use of a cap, mask, sterile gown, sterile gloves, large sterile sheet, appropriate hand hygiene, and 2% chlorhexidine for cutaneous antisepsis (or acceptable alternative antiseptic per current guidelines) were followed for this procedure. Consent: The procedure was explained in its entirety to the patient or the patients designated medical field representative by a member of the treatment team, including a discussion of the risks, benefits and commonly accepted alternatives to the procedure, as well as the expected consequences of no therapy whatsoever. Discussion of the risks included, but was not limited to, those that are most frequent and those that are rare but possibly severe or life-threatening, as well as the possibility of unforeseen complications. Technique and Findings: Following informed consent, the patient was prepped and draped in the usual sterile fashion. Ultrasound interrogation of the right neck revealed patency and compressibility of the right internal jugular vein. A 21-gauge micropuncture was then used to gain access to this vein under ultrasound guidance. A hard copy ultrasound image was recorded. The needle was exchanged over a wire for a 4 Kinyarwanda sheath which was used to guide an Amplatz wire into the IVC. The skin over the right anterior chest wall was copiously anesthetized with 1% Lidocaine plus Epinephrine and a small dermatotomy was made. A 23 cm palindrome tunneled hemodialysis catheter was then tunneled subcutaneously towards the neck dermatotomy and deployed through a large caliber peel-away sheath. Fluoroscopy revealed the tip of catheter be too deep within the right atrium. Consequently, this catheter was exchanged over wire for a 19 cm palindrome hemodialysis catheter which was positioned under fluoroscopy with the distal tip in the mid right atrium. Manual flow rates were assessed and found to be excellent. The catheter was then flushed, packed with Heparin, capped, and sutured to the skin. The neck dermatotomy was closed with Dermabond. Complications: No immediate Impression: 1. Tunneled hemodialysis catheter placement as described. This catheter demonstrates excellent manual flow rates and is suitable for use immediately.
[2020-03-08] MEDS: PSYLLIUM HUSK (SUGAR FREE) 1 PKT PACKET PO SCH (17:24)
--- NOTE | 2020-03-08 19:25 | NUR ---
Pt in bed assessment completed vss poc explained pt denied pain at this time will resume care and continue to monitor pt. Call light in each will place call to re: pt is in agreement with removal of PD cath.
[2020-03-08] MEDS: ATORVASTATIN CALCIUM 40 MG TABLET. PO SCH (21:38)
[2020-03-09 02:11] VITALS: BP 156/77
[2020-03-09] MEDS: LEVOTHYROXINE 100 MCG TABLET PO SCH (06:26)
[2020-03-09] MEDS: HEPARIN for SUB-Q USE 5,000 UNIT/ML VIAL. SQ SCH (06:30)
[2020-03-09 07:00] VITALS: BP 143/105
[2020-03-09 07:45] LABS: CALCIUM 8.1 mg/dL (8.5-10.1); CREATININE 4.5 mg/dL (0.7-1.3); GFR 12.8; POTASSIUM 3.8 mmol/L (3.5-5.1)
[2020-03-09] MEDS ORDERED: IV NORMAL SALINE 1000ML BAG 1,000 ML IV PRN (07:53)
[2020-03-09] MEDS ORDERED: DIALYSIS PATIENT. MC PRN ×2 (08:00)
[2020-03-09] MEDS ORDERED: ALBUMIN HUMAN 25% 200 ML IV PRN (08:00)
[2020-03-09] MEDS: INSULIN LISPRO 300 UNITS/3 ML VIAL. SQ SCH ×4 (08:00→21:00)
--- NOTE | 2020-03-09 08:38 | PDOC ---
Infectious Disease Note Subjective Subjective No Fchill. No abd discomfort today No SOA Tolerating HD ROS ROS o/w neg Vital Sign Vital Signs Vital Signs Date Time Temp Pulse Resp B/P (MAP) Pulse Ox O2 Delivery O2 Flow Rate FiO2 03/09/20 07:00 97.8 68 22 143/105 (118) 93 BiPAP/CPAP 97.8 03/08/20 14:06 3.0 Physical Exam PHYSICAL EXAM GENERAL: Alert, oriented x 3, male, sitting in bed, looking well. In HD HEENT: Anicteric. No thrush. NECK: Supple. LUNGS: Decreased breath sound at the bases, otherwise clear. HEART: S1, S2. No murmurs. ABDOMEN: Soft, Nontender. PD catheter in place, site looks clean and intact. Bowel sounds present. No rebound, no guarding. EXTREMITIES: Bilateral venous stasis ulcers with dermatitis. No redness or purulent drainage noted. NEUROLOGIC: Alert, awake, grossly nonfocal. PSYCHIATRIC: Cooperative. DERMATOLOGIC: Warm, dry. No generalized rash except for above. RIGHT Chest HD cath clean Labs Lab Laboratory Tests Test 03/08/20 09:50 03/08/20 11:19 03/08/20 16:09 03/08/20 20:52 Hepatitis B Surface Antigen Nonreactive (Nonreactive) Hepatitis B Surface Antibody Nonreactive Hepatitis B Core Total Antibody Nonreactive (Nonreactive) Glucose (Fingerstick) 100 mg/dL (70-99) 92 mg/dL (70-99) 89 mg/dL (70-99) Test 03/09/20 06:51 03/09/20 07:37 Sodium Level 142 mmol/L (136-145) Potassium Level 3.8 mmol/L (3.5-5.1) Chloride Level 104 mmol/L (98-107) Carbon Dioxide Level 33 mmol/L (21-32) Anion Gap 5 (6-14) Blood Urea Nitrogen 38 mg/dL (8-26) Creatinine 4.5 mg/dL (0.7-1.3) Estimated GFR (Cockcroft-Gault) 12.8 Glucose Level 95 mg/dL (70-99) Calcium Level 8.1 mg/dL (8.5-10.1) Glucose (Fingerstick) 99 mg/dL (70-99) Micro Microbiology 03/05/20 Blood Culture - Preliminary, Resulted NO GROWTH AFTER 2 DAYS Objective Assessment 1. ESBL E. coli. PD catheter peritonitis diagnosed at outside facility on Sesn to Imipenem/zosyn I Tobra res gent 02/29/2020, started on antibiotics yesterday as outpatient. 2. End-stage renal disease, on peritoneal dialysis for 1 year.s/p HD cath placed 03/08 3. History of previous PD fluid cultures in records from 10/2019 with E. coli ESBL and leuconostoc species. 4. COVID-19.- neg 03/05 5. Congestive heart failure. 6. Diabetes mellitus. 7. Anemia, chronic. 8. Protein-calorie malnutrition. 9. Congestive heart failure. Plan Plan of Care 1. Continue meropenem renal dosing for PD pharmacy to assist. 2. Await PD catheter removal due to recurrent infection and now with ESBL E. col i, PD concern for increasing res if not removed - d/w and Dr. Corado 03/08 catheter infection. 3. COVID-19 - neg 03/05 4. Continue supportive care. 5. We will continue to follow. D/w nursing ROBIN GARDUNO MD Mar 09, 2020 08:38
--- NOTE | 2020-03-09 09:34 | PDOC ---
VENKATA GUTHRIE TOOL AND GAUGE INSPECTOR 03/09/20 0934: CARDIO Progress Notes Date and Time Date of Service 03/09/2020 Time of Evaluation 1130 Subjective Subjective: No Chest Pain, No shortness of breath, No Palpitations Vitals Vitals Vital Signs Date Time Temp Pulse Resp B/P (MAP) Pulse Ox O2 Delivery O2 Flow Rate FiO2 03/09/20 08:00 Room Air 3.0 03/09/20 07:00 97.8 68 22 143/105 (118) 93 97.8 Weight Weight [ ] Input and Output Intake and Output Intake and Output 03/09/20 07:00 Intake Total 940 ml Output Total 400 ml Balance 540 ml Intake Oral 940 ml Output Urine Total 400 ml Laboratory Labs Laboratory Tests Test 03/08/20 09:50 03/08/20 11:19 03/08/20 16:09 03/08/20 20:52 Hepatitis B Surface Antigen Nonreactive (Nonreactive) Hepatitis B Surface Antibody Nonreactive Hepatitis B Core Total Antibody Nonreactive (Nonreactive) Glucose (Fingerstick) 100 mg/dL (70-99) 92 mg/dL (70-99) 89 mg/dL (70-99) Test 03/09/20 06:51 03/09/20 07:37 Sodium Level 142 mmol/L (136-145) Potassium Level 3.8 mmol/L (3.5-5.1) Chloride Level 104 mmol/L (98-107) Carbon Dioxide Level 33 mmol/L (21-32) Anion Gap 5 (6-14) Blood Urea Nitrogen 38 mg/dL (8-26) Creatinine 4.5 mg/dL (0.7-1.3) Estimated GFR (Cockcroft-Gault) 12.8 Glucose Level 95 mg/dL (70-99) Calcium Level 8.1 mg/dL (8.5-10.1) Glucose (Fingerstick) 99 mg/dL (70-99) Microbiology Micro Microbiology 03/05/20 Blood Culture - Preliminary, Resulted NO GROWTH AFTER 4 DAYS Review of Systems Constitutional: yes: alert, oriented Ears/Nose/Throat: Yes: no symptom reported Eyes: Yes: no symptom reported Pulmonary: Yes no symptom reported Cardiovascular: Yes no symptom reported Gastrointestional: Yes: no symptom reported Genitourinary: Yes: no symptom reported Musculoskeletal: Yes: no symptom reported Psychiatric/Neurological: Yes: no symptom reported Endocrine: Yes: no symptom reported Physical Exam HEENT: Neck Supple W Full Motion Chest: Symmetric LUNGS: Other (diminished) Heart: irregularly irregular (AFIB rate controlled) Abdomen: Soft N/T, Other (obese) Extremities: No Calf Tenderness Neurology: alert, oriented, follow commands Assessment Assessment 1. CAD s/p CABG (2015, 4V), grafts unknown 2. Ischemic CMP, EF 40-45%, appears compensated 3. PAD 4. HTN: controlled 5. ESRD: seen during HD doing well 6. Acute SBP being tx with abx. recurrent 7. Permanent atrial fibrillation: rate controlled 8. Moderate MR Recommendations Obtain cardiac records from [facility], will review when available Resume anticoagulation after HD catheter placed yesterday and PD catheter removal tomorrow Bipap PRN Justicifation of Admission Dx: Justifications for Admission: Justification of Admission Dx: Yes CHF: Sev. Electrolyte Abnormal Chronic Renal Failure: Electrolyte Abnormality MYRIAM STINSON MD 03/09/20 1909: CARDIO Progress Notes Plan Plan The patient was seen and interviewed as well as examined at the bedside. The chart was reviewed. The case was discussed. Agree with the plan of care. VENKATA GUTHRIE APRN Mar 09, 2020 09:34 MYRIAM STINSON MD Mar 09, 2020 19:09
--- NOTE | 2020-03-09 10:28 | NUR ---
SS following up with discharge planning. SS reviewed pt chart and discussed with pt RN. Pt is currently on room air. SS phoned and faxed tunneled cath report to [facility]missions, ; fax [phone]. SS was notified that pt has a confirmed chair time at [address] [address], ; fax [phone], Saturday, Saturday, and Saturday at 1115. Pt start date is 03/11/2020 and pt must arrive at facility at 1045. Per RN, pt needing to have PD catheter removed. Pt currently in dialysis. Pt on IV Meropenem. SS will continue to follow for discharge planning.
--- NOTE | 2020-03-09 10:46 | PDOC ---
SURGICAL PROGRESS NOTE DATE: 03/09/20 TIME: 10:45 Subjective seen during dialysis agreeable to pd removal Vital Signs Vital Signs Date Time Temp Pulse Resp B/P (MAP) Pulse Ox O2 Delivery O2 Flow Rate FiO2 03/09/20 08:00 Room Air 3.0 03/09/20 07:00 97.8 68 22 143/105 (118) 93 97.8 I&O Intake and Output 03/09/20 07:00 Intake Total 940 ml Output Total 400 ml Balance 540 ml Intake Oral 940 ml Output Urine Total 400 ml General: Alert, Oriented X3, Cooperative Abdomen: Soft, Other (pd cath in place) Labs Laboratory Tests Test 03/07/20 10:52 03/07/20 15:57 03/07/20 21:22 03/08/20 06:49 Glucose (Fingerstick) 119 mg/dL (70-99) 102 mg/dL (70-99) 118 mg/dL (70-99) 148 mg/dL (70-99) Test 03/08/20 09:50 03/08/20 11:19 03/08/20 16:09 03/08/20 20:52 Hepatitis B Surface Antigen Nonreactive (Nonreactive) Hepatitis B Surface Antibody Nonreactive Hepatitis B Core Total Antibody Nonreactive (Nonreactive) Glucose (Fingerstick) 100 mg/dL (70-99) 92 mg/dL (70-99) 89 mg/dL (70-99) Test 03/09/20 06:51 03/09/20 07:37 Sodium Level 142 mmol/L (136-145) Potassium Level 3.8 mmol/L (3.5-5.1) Chloride Level 104 mmol/L (98-107) Carbon Dioxide Level 33 mmol/L (21-32) Anion Gap 5 (6-14) Blood Urea Nitrogen 38 mg/dL (8-26) Creatinine 4.5 mg/dL (0.7-1.3) Estimated GFR (Cockcroft-Gault) 12.8 Glucose Level 95 mg/dL (70-99) Calcium Level 8.1 mg/dL (8.5-10.1) Glucose (Fingerstick) 99 mg/dL (70-99) Laboratory Tests Test 03/08/20 11:19 03/08/20 16:09 03/08/20 20:52 03/09/20 06:51 Glucose (Fingerstick) 100 mg/dL (70-99) 92 mg/dL (70-99) 89 mg/dL (70-99) Sodium Level 142 mmol/L (136-145) Potassium Level 3.8 mmol/L (3.5-5.1) Chloride Level 104 mmol/L (98-107) Carbon Dioxide Level 33 mmol/L (21-32) Anion Gap 5 (6-14) Blood Urea Nitrogen 38 mg/dL (8-26) Creatinine 4.5 mg/dL (0.7-1.3) Estimated GFR (Cockcroft-Gault) 12.8 Glucose Level 95 mg/dL (70-99) Calcium Level 8.1 mg/dL (8.5-10.1) Test 03/09/20 07:37 Glucose (Fingerstick) 99 mg/dL (70-99) Problem List Problems Medical Problems: (1) CHF (congestive heart failure) Status: Acute (2) Elevated troponin Status: Acute (3) Hypokalemia Status: Acute (4) Nausea & vomiting Status: Acute (5) Person under investigation for COVID-19 Status: Acute (6) Shortness of breath Status: Acute Assessment/Plan plan cath removal tomorrow hole plavix and heparin today npo after mn Justicifation of Admission Dx: Justifications for Admission: Justification of Admission Dx: Yes CHF: Sev. Electrolyte Abnormal Chronic Renal Failure: Electrolyte Abnormality DUSTIN HUBER APRN Mar 09, 2020 10:46
[2020-03-09] MEDS: CHOLECALCIFEROL (VITAMIN D3) 1,000 UNIT TABLET PO SCH ×2 (12:21→21:00)
[2020-03-09] MEDS: LACTOBACILLUS RHAMNOSUS GG 1 CAPSULE. PO SCH ×2 (12:22→21:00)
[2020-03-09] MEDS: CARVEDILOL 12.5 MG TABLET. PO SCH ×2 (12:23→18:17)
[2020-03-09] MEDS: POTASSIUM CHLORIDE 20 MEQ TABLET.ER. PO SCH (12:23)
[2020-03-09] MEDS: amLODIPine BESYLATE 5 MG TABLET PO SCH (12:23)
[2020-03-09] MEDS: MEROPENEM 500 MG in IV NORMAL SALINE 50ML 50 ML IV SCH (12:24)
[2020-03-09] MEDS: LOSARTAN POTASSIUM 25 MG TABLET. PO SCH (12:24)
--- NOTE | 2020-03-09 13:39 | PDOC ---
PROGRESS NOTES Date of Service: DATE: 03/09/20 TIME: 13:37 Chief Complaint Chief Complaint A/P: Nausea and vomiting - likely secondary to peritonitis. Will give IV antiemetics. Pain control. Will need PD catheter removed as per ID workers compensation consultant Shortness of breath - multifactorial due to respiratory splinting due to peritonitis, complicated by an acute CHF exacerbation, less likely to be COVID- 19, will follow up on the results of this test. Will diuresis with PD and Lasix. Peritonitis - secondary to PD catheter infection with ESBL E. coli. I have ordered IV meropenem daily. Appreciate ID workers compensation consultant recommendations, will consult surgical services asst to removal of peritoneal dialysis catheter in interventional radiology for tunneled HD catheter placement Hypokalemia - will replace IV and p.o. Will defer to nephrology for further recommendations on replacement protocol given his ESRD status. Severe protein calorie malnutrition - will have dietitian to see, continue renal diet Hypomagnesemia - will replace Transaminitis - likely secondary to peritonitis. Will trend LFTs. 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 CAD s/p CABG and stenting x6 - stable, will continue cardiac meds Atrial fibrillation - needs rate control and consideration of NOAC PAD - s/p peripheral stenting with LE wounds as well Hypertension - continue meds Acute diastolic CHF - due to over load of fluid due to inadequate peritoneal dialysis likely due to peritonitis. Unknown recent EF. 2013 his EF was 55%. Will attempt diuresis. Transitioned to HD, will have peritoneal dialysis ca theter removed in the am DM2 - will place on basal bolus plus insulin while inpatient H/o TIA - no neurologic complaints ESRD - on PD. Given this appears to be his second bout of peritonitis in his first year of PD I have advised him to ask his analyst competitive intelligence if other options are available such as HD. TIKA on CPAP - his brought his home device. Left knee pain - chronic, PRN voltaren topical ointment Bilateral Lower extremity wounds - wound care nursing to see FEN - Renal diet PPX - hold for procedure in the am FULL CODE Dispo - inpatient for above History of Present Illness History of Present Illness Mr Encinas is a 75 year old male with past medical history of CAD s/p CABG and stenting x6, hypertension, CHF, afib, DM2, TIA, ESRD (peritoneal dialysis), TIKA on BIPAP 17/06 qhs presents for evaluation of shortness of breath, nausea and vomiting as well as a fall at home. At 02 100 on 03/05/2020 is found him laying on the floor unable to lift himself up and she was unable to lift him and called EMS per lift assistance. He denies any loss of consciousness or head or neck injury. He does complain of chronic left knee pain is aching throbbing and bilateral rated a 4 out of 10. He has had nausea vomiting and decreased appetite as well as a dry cough for 1 week. He does note that he is been progressively more short of breath for months he thinks since October. He also notes this is his ninth fall since May 2019. He was recently started on cefdinir on 02/28/2020 for lower extremity [facility], and subsequently intraperitoneal meropenem 1 g daily on 03/04/2020 after a peritoneal catheter culture result on 03/03/2020 returned positive for E. coli ESBL. I reviewed this data from Hannah Yoder. He also had a ESBL E. coli PD catheter infection 11/26/2019. There is no particular sensitivity information available to me is simply reads ESBL. He notes he has been on PD for a year and until recently tolerated very well on nocturnal cycler notes he uses to yellow bags at night and 1 during the day at times when he has been treated for peritonitis with intraperitoneal antibiotics. EKG with HR 92. Intraventricular conduction aberrancy, multiple PVCs. CXR with interstitial opacities and possible left basilar infiltrate. Post- sternotomy changes Labs significant for WBC 10.3, Hb 12.6, platelets 273. NA 138, K2.6, mag 1.4, BUN 53, CR 4.3, glucose 135, calcium 7.7, albumin 1.9, BNP greater than 30 5K, troponin 0 0.143, repeat troponin 0.136. Lactic acid 1.7 Due to his complaints of shortness of breath and his dialysis status ED physician ordered COVID-19 swab and he has been seen and evaluated in the COVID- 19 isolation unit. Admitted for further care 03/06 Slept well on his home CPAP overnight, afebrile. Had a few complications with PD overnight but was able to complete his cycle and feels significantly better this morning. K down to 2.9. 9/7 No acute events reported overnight, case discussed with nursing staff patient in no acute distress no complaints during my visit plan of care explained in detail, reassurance provided 03/08 No acute events reported overnight, case discussed with nursing staff patient in no acute distress no complaints during my visit, at bedside, all concerns addressed to the best of my abilities 03/09 Patient on dialysis today, he will be taken to the OR in the am. No new concerns. Vitals Vitals Vital Signs Date Time Temp Pulse Resp B/P (MAP) Pulse Ox O2 Delivery O2 Flow Rate FiO2 03/09/20 12:24 68 143/105 03/09/20 08:00 Room Air 3.0 03/09/20 07:00 97.8 22 93 97.8 Physical Exam Physical Exam GENERAL: Alert, oriented x 3, male, sitting in bed, looking well. In HD HEENT: Anicteric. No thrush. NECK: Supple. LUNGS: Decreased breath sound at the bases, otherwise clear. HEART: S1, S2. No murmurs. ABDOMEN: Soft, Nontender. PD catheter in place, site looks clean and intact. Bowel sounds present. No rebound, no guarding. EXTREMITIES: Bilateral venous stasis ulcers with dermatitis. No redness or purulent drainage noted. NEUROLOGIC: Alert, awake, grossly nonfocal. PSYCHIATRIC: Cooperative. DERMATOLOGIC: Warm, dry. No generalized rash except for above. RIGHT Chest HD cath clean General: Alert, Oriented X3, Cooperative Heart: Regular rate, Normal S1, Normal S2 Abdomen: Soft, Other (pd cath in place) Extremities: No clubbing, No cyanosis Skin: No rashes, No breakdown Labs LABS Laboratory Tests Test 03/08/20 16:09 03/08/20 20:52 03/09/20 06:51 03/09/20 07:37 Glucose (Fingerstick) 92 mg/dL (70-99) 89 mg/dL (70-99) 99 mg/dL (70-99) Sodium Level 142 mmol/L (136-145) Potassium Level 3.8 mmol/L (3.5-5.1) Chloride Level 104 mmol/L (98-107) Carbon Dioxide Level 33 mmol/L (21-32) Anion Gap 5 (6-14) Blood Urea Nitrogen 38 mg/dL (8-26) Creatinine 4.5 mg/dL (0.7-1.3) Estimated GFR (Cockcroft-Gault) 12.8 Glucose Level 95 mg/dL (70-99) Calcium Level 8.1 mg/dL (8.5-10.1) Assessment and Plan Assessmemt and Plan Problems Medical Problems: (1) CHF (congestive heart failure) Status: Acute (2) Elevated troponin Status: Acute (3) Hypokalemia Status: Acute (4) Nausea & vomiting Status: Acute (5) Person under investigation for COVID-19 Status: Acute (6) Shortness of breath Status: Acute Comment Review of Relevant I have reviewed the following items shahbaz (where applicable) has been applied. Labs Laboratory Tests Test 03/07/20 15:57 03/07/20 21:22 03/08/20 06:49 03/08/20 09:50 Glucose (Fingerstick) 102 mg/dL (70-99) 118 mg/dL (70-99) 148 mg/dL (70-99) Hepatitis B Surface Antigen Nonreactive (Nonreactive) Hepatitis B Surface Antibody Nonreactive Hepatitis B Core Total Antibody Nonreactive (Nonreactive) Test 03/08/20 11:19 03/08/20 16:09 03/08/20 20:52 03/09/20 06:51 Glucose (Fingerstick) 100 mg/dL (70-99) 92 mg/dL (70-99) 89 mg/dL (70-99) Sodium Level 142 mmol/L (136-145) Potassium Level 3.8 mmol/L (3.5-5.1) Chloride Level 104 mmol/L (98-107) Carbon Dioxide Level 33 mmol/L (21-32) Anion Gap 5 (6-14) Blood Urea Nitrogen 38 mg/dL (8-26) Creatinine 4.5 mg/dL (0.7-1.3) Estimated GFR (Cockcroft-Gault) 12.8 Glucose Level 95 mg/dL (70-99) Calcium Level 8.1 mg/dL (8.5-10.1) Test 03/09/20 07:37 Glucose (Fingerstick) 99 mg/dL (70-99) Laboratory Tests Test 03/08/20 16:09 03/08/20 20:52 03/09/20 06:51 03/09/20 07:37 Glucose (Fingerstick) 92 mg/dL (70-99) 89 mg/dL (70-99) 99 mg/dL (70-99) Sodium Level 142 mmol/L (136-145) Potassium Level 3.8 mmol/L (3.5-5.1) Chloride Level 104 mmol/L (98-107) Carbon Dioxide Level 33 mmol/L (21-32) Anion Gap 5 (6-14) Blood Urea Nitrogen 38 mg/dL (8-26) Creatinine 4.5 mg/dL (0.7-1.3) Estimated GFR (Cockcroft-Gault) 12.8 Glucose Level 95 mg/dL (70-99) Calcium Level 8.1 mg/dL (8.5-10.1) Microbiology 03/05/20 Blood Culture - Preliminary, Resulted NO GROWTH AFTER 4 DAYS Medications Current Medications Ondansetron HCl (Zofran) 4 mg STK-MED ONCE .ROUTE ; Start 03/05/20 at 03:24; Stop 03/05/20 at 03:24; Status DC Ondansetron HCl (Zofran) 4 mg 1X ONCE IVP Last administered on 03/05/20at 03:34; Start 03/05/20 at 03:30; Stop 03/05/20 at 03:48; Status DC Potassium Chloride (Klor-Con) 40 meq 1X ONCE PO Last administered on 03/05/20at 04:48; Start 03/05/20 at 04:30; Stop 03/05/20 at 04:31; Status DC Furosemide (Lasix) 40 mg 1X ONCE IVP Last administered on 03/05/20at 04:51; Start 03/05/20 at 04:30; Stop 03/05/20 at 04:31; Status DC Ceftriaxone Sodium (Rocephin) 1 gm 1X ONCE IVP Last administered on 03/05/20at 04:50; Start 03/05/20 at 04:30; Stop 03/05/20 at 04:31; Status DC Azithromycin 250 ml @ 250 mls/hr 1X ONCE IV Last administered on 03/05/20at 04:51; Start 03/05/20 at 04:30; Stop 03/05/20 at 05:29; Status DC Aspirin (Aspirin Chewable) 324 mg 1X ONCE PO Last administered on 03/05/20at 04:45; Start 03/05/20 at 04:30; Stop 03/05/20 at 04:31; Status DC Ondansetron HCl (Zofran) 4 mg PRN Q8HRS PRN IV NAUSEA/VOMITING; Start 03/05/20 at 04:45; Stop 03/06/20 at 04:44; Status DC Morphine Sulfate (Morphine Sulfate) 2 mg PRN Q2HR PRN IV PAIN; Start 03/05/20 at 04:45; Stop 03/05/20 at 09:25; Status DC Potassium Chloride/Water 100 ml @ 100 mls/hr Q1H IV Last administered on 03/05/20at 09:36; Start 03/05/20 at 06:00; Stop 03/05/20 at 07:59; Status DC Amlodipine Besylate (Norvasc) 10 mg DAILY PO ; Start 03/05/20 at 10:00; Stop 03/05/20 at 10:26; Status DC Aspirin (Ecotrin) 81 mg DAILY PO ; Start 03/05/20 at 10:00; Stop 03/05/20 at 10:47; Status DC Vitamin D (Vitamin D3) 1,000 unit BID PO Last administered on 03/09/20at 12:21; Start 03/05/20 at 10:00 Clopidogrel Bisulfate (Plavix) 75 mg DAILY PO Last administered on 03/08/20at 09:52; Start 03/05/20 at 10:00; Stop 03/09/20 at 12:23; Status DC Atorvastatin Calcium (Lipitor) 80 mg QHS PO Last administered on 03/08/20at 21:38; Start 03/05/20 at 21:00 Carvedilol (Coreg) 25 mg BIDWMEALS PO ; Start 03/05/20 at 10:00; Stop 03/05/20 at 10:26; Status DC Non-Formulary Medication (Guanfacine Hcl ) 1 tab HS PO ; Start 03/05/20 at 21:00; Stop 03/05/20 at 10:47; Status DC Levothyroxine Sodium (Synthroid) 100 mcg DAILY07 PO Last administered on 03/09/20at 06:26; Start 03/05/20 at 10:00 Amlodipine Besylate (Norvasc) 5 mg DAILY PO Last administered on 03/09/20at 12:23; Start 03/05/20 at 13:00 Carvedilol (Coreg) 12.5 mg BIDWMEALS PO Last administered on 03/09/20at 12:23; Start 03/05/20 at 17:00 Meropenem (Merrem) 1 gm DAILY IV ; Start 03/05/20 at 12:15; Stop 03/05/20 at 12:20; Status DC Losartan Potassium (Cozaar) 25 mg DAILY PO Last administered on 03/09/20at 12:24; Start 03/05/20 at 13:00 Potassium Chloride (Klor-Con) 20 meq DAILYWBKFT PO Last administered on 03/09/20at 12:23; Start 03/05/20 at 13:00 Psyllium Hydrophilic Mucilloid (Metamucil Fiber Packet) 1 pkt QPM PO Last administered on 03/06/20at 17:26; Start 03/05/20 at 18:00 Meropenem 1 gm/ Sodium Chloride 100 ml @ 200 mls/hr DAILY IV Last administered on 03/05/20at 13:59; Start 03/05/20 at 13:00; Stop 03/05/20 at 17:51; Status DC Heparin Sodium (Porcine) (Heparin Sodium) 5,000 unit Q8HRS SQ Last administered on 03/09/20at 06:30; Start 03/05/20 at 14:00; Stop 03/09/20 at 12:23; Status DC Tramadol HCl (Ultram) 50 mg PRN Q6HRS PRN PO PAIN; Start 03/05/20 at 16:00 Fentanyl Citrate (Fentanyl 2ml Vial) 25 mcg PRN Q4HRS PRN IVP PAIN; Start 03/05/20 at 16:00 Meropenem 500 mg/ Sodium Chloride 50 ml @ 100 mls/hr DAILY IV Last administered on 03/09/20at 12:24; Start 03/06/20 at 09:00 Potassium Chloride (Klor-Con) 40 meq 1X ONCE PO Last administered on 03/06/20at 10:00; Start 03/06/20 at 08:00; Stop 03/06/20 at 08:01; Status DC Insulin Human Lispro (HumaLOG) 0-7 UNITS TIDWMEALHC SQ ; Start 03/06/20 at 12:00 Dextrose (Dextrose 50%-Water Syringe) 12.5 gm PRN Q15MIN PRN IV SEE COMMENTS; Start 03/06/20 at 10:00 Magnesium Sulfate 50 ml @ 25 mls/hr 1X ONCE IV Last administered on 03/06/20at 10:37; Start 03/06/20 at 10:00; Stop 03/06/20 at 11:59; Status DC Lactobacillus Rhamnosus (Culturelle) 1 cap BID PO Last administered on 03/09/20at 12:22; Start 03/06/20 at 21:00 Lidocaine/ Epinephrine (LIDOCAINE 1%-EPI 1:100,000 Multi-Dose) 20 ml STK-MED ONCE .ROUTE ; Start 03/08/20 at 13:19; Stop 03/08/20 at 13:19; Status DC Midazolam HCl (Versed) 2 mg 1X ONCE IV Last administered on 03/08/20at 13:45; Start 03/08/20 at 13:30; Stop 03/08/20 at 13:31; Status DC Fentanyl Citrate (Fentanyl 2ml Vial) 100 mcg 1X ONCE IV Last administered on 03/08/20at 13:45; Start 03/08/20 at 13:30; Stop 03/08/20 at 13:31; Status DC Lidocaine/ Epinephrine (LIDOCAINE 1%-EPI 1:100,000 Multi-Dose) 20 ml 1X ONCE SQ Last administered on 03/08/20at 13:45; Start 03/08/20 at 13:30; Stop 03/08/20 at 13:31; Status DC Cefazolin Sodium/ Dextrose 50 ml @ 100 mls/hr 1X ONCE IV Last administered on 03/08/20at 13:30; Start 03/08/20 at 13:30; Stop 03/08/20 at 13:59; Status DC Midazolam HCl (Versed) 2 mg STK-MED ONCE .ROUTE ; Start 03/08/20 at 13:28; Stop 03/08/20 at 13:29; Status DC Fentanyl Citrate (Fentanyl 2ml Vial) 100 mcg STK-MED ONCE .ROUTE ; Start 03/08/20 at 13:28; Stop 03/08/20 at 13:29; Status DC Sodium Chloride 1,000 ml @ 1,000 mls/hr Q1H PRN IV hypotension; Start 03/09/20 at 07:53; Stop 03/09/20 at 13:52 Albumin Human 200 ml @ 200 mls/hr 1X PRN PRN IV Hypotension; Start 03/09/20 at 08:00; Stop 03/09/20 at 13:59 Info (PHARMACY MONITORING -- do not chart) 1 each PRN DAILY PRN MC SEE CO MMENTS; Start 03/09/20 at 08:00; Status UNV Info (PHARMACY MONITORING -- do not chart) 1 each PRN DAILY PRN MC SEE COMMENTS; Start 03/09/20 at 08:00 Clopidogrel Bisulfate (Plavix) 75 mg DAILY PO ; Start 03/10/20 at 09:00 Heparin Sodium (Porcine) (Heparin Sodium) 5,000 unit Q8HRS SQ ; Start 03/10/20 at 06:00 Active Scripts Active Reported Merrem (Meropenem) 1 Gm Vial 1 Gm IV DAILY 13 Days Pepcid (Famotidine) 20 Mg Tablet 20 Mg PO HS Irbesartan 75 Mg Tablet 1 Tab PO DAILY Amlodipine Besylate 5 Mg Tablet 1 Tab PO DAILY Carvedilol 12.5 Mg Tablet 1 Tab PO BID Potassium Chloride 20 Meq Tablet.er 1 Tab PO DAILY Levothyroxine Sodium 100 Mcg Tablet 1 Tab PO DAILY07 90 Days Vitamin D3 (Cholecalciferol (Vitamin D3)) 1,000 Unit Tablet 1 Tab PO BID Plavix (Clopidogrel Bisulfate) 75 Mg Tablet 1 Tab PO DAILY Lipitor (Atorvastatin Calcium) 80 Mg Tablet 80 Mg PO DAILY Vitals/I & O Vital Sign - Last 24 Hours 03/08/20 03/08/20 03/08/20 03/08/20 13:45 14:06 14:29 14:33 Temp 98.1 98.1 Pulse 85 77 65 Resp 19 19 16 B/P (MAP) 132/75 (94) 133/78 (96) Pulse Ox 97 96 O2 Delivery Nasal Cannula Room Air O2 Flow Rate 3.0 03/08/20 03/08/20 03/08/20 03/08/20 14:44 14:54 15:14 15:44 Pulse 68 68 78 70 B/P (MAP) 142/75 (97) 148/83 (104) 154/76 (102) 165/79 (107) 03/08/20 03/08/20 03/08/20 03/08/20 16:14 17:23 19:00 19:25 Temp 99.1 99.1 Pulse 76 79 74 Resp 18 B/P (MAP) 157/75 (102) 149/89 128/62 (84) Pulse Ox 96 O2 Delivery Room Air Room Air 03/08/20 03/09/20 03/09/20 03/09/20 23:00 02:11 07:00 08:00 Temp 98.4 98.2 97.8 98.4 98.2 97.8 Pulse 89 79 68 Resp 18 18 22 B/P (MAP) 136/90 (105) 156/77 (103) 143/105 (118) Pulse Ox 97 96 93 O2 Delivery BiPAP/CPAP BiPAP/CPAP BiPAP/CPAP Room Air O2 Flow Rate 3.0 03/09/20 03/09/20 03/09/20 12:23 12:23 12:24 Pulse 68 68 68 B/P (MAP) 143/105 143/105 143/105 Intake and Output 03/08/20 03/08/20 03/09/20 15:00 23:00 07:00 Intake Total 600 ml 340 ml Output Total 200 ml 100 ml 100 ml Balance -200 ml 500 ml 240 ml Justicifation of Admission Dx: Justifications for Admission: Justification of Admission Dx: Yes CHF: Sev. Electrolyte Abnormal Chronic Renal Failure: Electrolyte Abnormality NATHAN SIMON MD Mar 09, 2020 13:39
--- NOTE | 2020-03-09 14:17 | PDOC ---
Renal-Progress Notes Subjective Notes Notes NO NEW COMPLAINTS History of Present Illness Hx of present illness STABLE Vitals Vitals Vital Signs Date Time Temp Pulse Resp B/P (MAP) Pulse Ox O2 Delivery O2 Flow Rate FiO2 03/09/20 12:24 68 143/105 03/09/20 08:00 Room Air 3.0 03/09/20 07:00 97.8 22 93 97.8 Weight Weight [ ] I.O. Intake and Output Intake and Output 03/09/20 07:00 Intake Total 940 ml Output Total 400 ml Balance 540 ml Intake Oral 940 ml Output Urine Total 400 ml Labs Labs Laboratory Tests Test 03/08/20 16:09 03/08/20 20:52 03/09/20 06:51 03/09/20 07:37 Glucose (Fingerstick) 92 mg/dL (70-99) 89 mg/dL (70-99) 99 mg/dL (70-99) Sodium Level 142 mmol/L (136-145) Potassium Level 3.8 mmol/L (3.5-5.1) Chloride Level 104 mmol/L (98-107) Carbon Dioxide Level 33 mmol/L (21-32) Anion Gap 5 (6-14) Blood Urea Nitrogen 38 mg/dL (8-26) Creatinine 4.5 mg/dL (0.7-1.3) Estimated GFR (Cockcroft-Gault) 12.8 Glucose Level 95 mg/dL (70-99) Calcium Level 8.1 mg/dL (8.5-10.1) Micro Micro Microbiology 03/05/20 Blood Culture - Preliminary, Resulted NO GROWTH AFTER 4 DAYS Review of Systems Constitutional: yes: alert, oriented Ears/Nose/Throat: Yes: no symptom reported Eyes: Yes: no symptom reported Pulmonary: Yes no symptom reported Cardiovascular: Yes no symptom reported Gastrointestional: Yes: no symptom reported Genitourinary: Yes: no symptom reported Musculoskeletal: Yes: no symptom reported Psychiatric/Neurological: Yes: no symptom reported Endocrine: Yes: no symptom reported Physical Exam General Appearance: no apparent distress, afebrile Skin: warm Respiratory: bilateral CTA, tachypnea Heart: S1S2 Abdomen: soft Genitourinary: bladder flat Extremities: pulses present Neurology: alert, oriented, follow commands Assessment Assessment IMP ESRD ANEMIA PERITONITIS-RECURRENT DM II CM WITH EF OF 40-45% PLAN HD TODAY UF MINIMAL TUNNELED HD CATHETER DONE REMOVE PD CATHETER PENDING ANTIBIOTICS PT WILL HAVE OP HD SET UP AT [facility] D/W SW WILL FOLLOW UPDATED JOANNE MARRERO MD Mar 09, 2020 14:17
[2020-03-09 15:00] VITALS: BP 127/64
[2020-03-09] MEDS: PSYLLIUM HUSK (SUGAR FREE) 1 PKT PACKET PO SCH (18:00)
[2020-03-09 19:25] VITALS: BP 150/72
--- NOTE | 2020-03-09 19:52 | NUR ---
Pt in bed on the phone, assessment completed vss poc explained pt denied pain will resume care and continue to monitor pt. call light in reach.
[2020-03-09] MEDS: ATORVASTATIN CALCIUM 40 MG TABLET. PO SCH (21:00)
[2020-03-09 23:00] VITALS: BP 144/72
[2020-03-10 02:50] VITALS: BP 159/79
[2020-03-10] MEDS: HEPARIN for SUB-Q USE 5,000 UNIT/ML VIAL. SQ SCH ×3 (05:49→21:44)
--- NOTE | 2020-03-10 05:50 | NUR ---
Pt 6 a.m. dose of heparin held pt scheduled for Surgery at 11:45 A.M> to day.
[2020-03-10 07:00] VITALS: BP 145/67
[2020-03-10] MEDS ORDERED: HYDROmorphone 2 MG/ML VIAL IV PRN (07:00)
[2020-03-10] MEDS: LEVOTHYROXINE 100 MCG TABLET PO SCH (07:00)
[2020-03-10] MEDS ORDERED: PROCHLORPERAZINE 10 MG/2 ML VIAL. IV PRN (07:00)
[2020-03-10] MEDS ORDERED: ONDANSETRON PF 4 MG/2 ML VIAL. IV PRN (07:00)
[2020-03-10] MEDS ORDERED: MORPHINE SULFATE 2 MG/ML VIAL. IV PRN (07:00)
[2020-03-10] MEDS ORDERED: fentaNYL PF VIAL 100 MCG/2 ML VIAL IV PRN ×2 (07:00)
[2020-03-10] MEDS: INSULIN LISPRO 300 UNITS/3 ML VIAL. SQ SCH ×4 (08:00→21:00)
[2020-03-10] MEDS: CHOLECALCIFEROL (VITAMIN D3) 1,000 UNIT TABLET PO SCH ×2 (08:02→21:43)
[2020-03-10] MEDS: LACTOBACILLUS RHAMNOSUS GG 1 CAPSULE. PO SCH ×2 (08:02→21:43)
--- NOTE | 2020-03-10 09:37 | PDOC ---
Infectious Disease Note Subjective Subjective No F chill. No abd discomfort today No SOA Tolerating HD Waiting for surgery Vital Sign Vital Signs Vital Signs Date Time Temp Pulse Resp B/P (MAP) Pulse Ox O2 Delivery O2 Flow Rate FiO2 03/10/20 08:00 Room Air 03/10/20 07:00 98.4 78 18 145/67 (93) 91 98.4 03/09/20 08:00 3.0 Physical Exam PHYSICAL EXAM GENERAL: Alert, oriented x 3, male, sitting in a chair. looking well. HEENT: Anicteric. No thrush. NECK: Supple. LUNGS: Decreased breath sound at the bases, otherwise clear. HEART: S1, S2. No murmurs. ABDOMEN: Soft, Nontender. PD catheter in place, site looks clean and intact. Bowel sounds present. No rebound, no guarding. EXTREMITIES: Bilateral venous stasis ulcers with dermatitis. No redness or purulent drainage noted. NEUROLOGIC: Alert, awake, grossly nonfocal. PSYCHIATRIC: Cooperative. DERMATOLOGIC: Warm, dry. No generalized rash except for above. RIGHT Chest HD cath clean Labs Lab Laboratory Tests Test 03/09/20 16:45 03/09/20 21:00 03/10/20 07:22 Glucose (Fingerstick) 94 mg/dL (70-99) 101 mg/dL (70-99) 99 mg/dL (70-99) Micro Microbiology 03/05/20 Blood Culture - Preliminary, Resulted NO GROWTH AFTER 2 DAYS Objective Assessment 1. ESBL E. coli. PD catheter peritonitis diagnosed at outside facility on Sesn to Imipenem/zosyn I Tobra res gent 02/29/2020, started on antibiotics yesterday as outpatient. 2. End-stage renal disease, on peritoneal dialysis for 1 year.s/p HD cath placed 03/08 3. History of previous PD fluid cultures in records from 10/2019 with E. coli ESBL and leuconostoc species. 4. COVID-19.- neg 03/05 5. Congestive heart failure. 6. Diabetes mellitus. 7. Anemia, chronic. 8. Protein-calorie malnutrition. 9. Congestive heart failure. Plan Plan of Care 1. Continue meropenem renal dosing for PD pharmacy to assist. 2. Await PD catheter removal today due to recurrent infection and now with ESBL E. coli, PD concern for increasing res if not removed - d/w and Dr. Corado 03/08 catheter infection.. Cult PD cath 3. COVID-19 - neg 03/05 4. Continue supportive care. 5. We will continue to follow. D/w nursing ROBIN GARDUNO MD Mar 10, 2020 09:37
[2020-03-10] MEDS ORDERED: PROPOFOL 10 MG/ML (20ML) VIAL. IV ONE (10:53)
[2020-03-10] MEDS ORDERED: LIDOCAINE 2% PF 5 ML VIAL. ONE (10:53)
[2020-03-10] MEDS ORDERED: fentaNYL PF VIAL 100 MCG/2 ML VIAL ONE (10:53)
[2020-03-10] MEDS ORDERED: IV NORMAL SALINE 1000ML BAG 1,000 ML IV SCH (11:00)
[2020-03-10] MEDS ORDERED: BUPIVACAINE-EPI 0.5%-1:200000 MPF 30 ML VIAL. ONE ×2 (11:16→11:36)
[2020-03-10] MEDS: MEROPENEM 500 MG in IV NORMAL SALINE 50ML 50 ML IV SCH (11:18)
--- NOTE | 2020-03-10 11:28 | PDOC ---
Renal-Progress Notes Subjective Notes Notes NONE History of Present Illness Hx of present illness NO CHANGE Vitals Vitals Vital Signs Date Time Temp Pulse Resp B/P (MAP) Pulse Ox O2 Delivery O2 Flow Rate FiO2 03/10/20 11:04 97.4 87 15 159/77 96 Room Air 97.4 03/09/20 08:00 3.0 Weight Weight [ ] I.O. Intake and Output Intake and Output 03/10/20 07:00 Intake Total 740 ml Output Total 300 ml Balance 440 ml Intake Oral 740 ml Output Urine Total 300 ml Labs Labs Laboratory Tests Test 03/09/20 16:45 03/09/20 21:00 03/10/20 07:22 03/10/20 11:01 Glucose (Fingerstick) 94 mg/dL (70-99) 101 mg/dL (70-99) 99 mg/dL (70-99) 95 mg/dL (70-99) Micro Micro Microbiology 03/05/20 Blood Culture - Final, Complete NO GROWTH AFTER 5 DAYS Review of Systems Constitutional: yes: alert, oriented Ears/Nose/Throat: Yes: no symptom reported Eyes: Yes: no symptom reported Pulmonary: Yes no symptom reported Cardiovascular: Yes no symptom reported Gastrointestional: Yes: no symptom reported Genitourinary: Yes: no symptom reported Musculoskeletal: Yes: no symptom reported Psychiatric/Neurological: Yes: no symptom reported Endocrine: Yes: no symptom reported Physical Exam General Appearance: no apparent distress, afebrile Skin: warm Respiratory: bilateral CTA, tachypnea Heart: S1S2 Abdomen: soft Genitourinary: bladder flat Extremities: pulses present Neurology: alert, oriented, follow commands Assessment Assessment IMP ESRD ANEMIA PERITONITIS-RECURRENT DM II CM WITH EF OF 40-45% PLAN HD TOMORROW TUNNELED HD CATHETER DONE REMOVE PD CATHETER TODAY ANTIBIOTICS OP HD SET UP AT [facility] D/W SW WILL FOLLOW D/W ATTENDING JOANNE MARRERO MD Mar 10, 2020 11:28
[2020-03-10] MEDS ORDERED: SEVOFLURANE 16 TO 30 MINUTES. IH ONE (11:58)
[2020-03-10] MEDS ORDERED: ONDANSETRON PF 4 MG/2 ML VIAL. ONE (11:58)
[2020-03-10] MEDS ORDERED: DEXAMETHASONE SOD PHOS 20 MG/5 ML VIAL. ONE (11:58)
--- NOTE | 2020-03-10 11:58 | PDOC ---
VENKATA GUTHRIE UX LEAD 03/10/20 1158: CARDIO Progress Notes Date and Time Date of Service 03/10/2020 Time of Evaluation 1200 Subjective Subjective: No Chest Pain, No shortness of breath, No Palpitations Vitals Vitals Vital Signs Date Time Temp Pulse Resp B/P (MAP) Pulse Ox O2 Delivery O2 Flow Rate FiO2 03/10/20 11:04 97.4 87 15 159/77 96 Room Air 97.4 03/09/20 08:00 3.0 Weight Weight [ ] Input and Output Intake and Output Intake and Output 03/10/20 07:00 Intake Total 740 ml Output Total 300 ml Balance 440 ml Intake Oral 740 ml Output Urine Total 300 ml Laboratory Labs Laboratory Tests Test 03/09/20 16:45 03/09/20 21:00 03/10/20 07:22 03/10/20 11:01 Glucose (Fingerstick) 94 mg/dL (70-99) 101 mg/dL (70-99) 99 mg/dL (70-99) 95 mg/dL (70-99) Microbiology Micro Microbiology 03/05/20 Blood Culture - Final, Complete NO GROWTH AFTER 5 DAYS Review of Systems Constitutional: yes: alert, oriented Ears/Nose/Throat: Yes: no symptom reported Eyes: Yes: no symptom reported Pulmonary: Yes no symptom reported Cardiovascular: Yes no symptom reported Gastrointestional: Yes: no symptom reported Genitourinary: Yes: no symptom reported Musculoskeletal: Yes: no symptom reported Psychiatric/Neurological: Yes: no symptom reported Endocrine: Yes: no symptom reported Physical Exam HEENT: Neck Supple W Full Motion Chest: Symmetric LUNGS: Other (diminished) Heart: irregularly irregular (AFIB rate controlled) Abdomen: Soft N/T, Other (obese) Extremities: No Calf Tenderness Neurology: alert, oriented, follow commands Assessment Assessment 1. CAD s/p CABG (2015, 4V), grafts unknown 2. Ischemic CMP, EF 40-45%, appears compensated 3. PAD 4. HTN: controlled 5. ESRD: seen during HD doing well 6. Acute SBP being tx with abx. recurrent 7. Permanent atrial fibrillation: rate controlled 8. Moderate MR Recommendations 1. Cardiac records from [facility] still not received. will review when available 2. Resume plavix after PD cath removal. Noted with no OAC at home due to prior anemia..I tried to contact family for clarification but no answer. Unclear if any GI bleed in the past but [id number] is 7. He would benefit from eliquis in addition to plavix. ASA and plavix for now post PD cath removal and will defer to his primary herbicide sprayer in regards to DOAC. 3. If BP remains labile then could increase norvasc. 4. Secondary prevention measures 5. Fluid off loading per HD 6. Follow up with his primary herbicide sprayer, Dr Kim at [facility] Justicifation of Admission Dx: Justifications for Admission: Justification of Admission Dx: Yes CHF: Sev. Electrolyte Abnormal Chronic Renal Failure: Electrolyte Abnormality MYRIAM STINSON MD 03/10/20 1708: CARDIO Progress Notes Plan Plan The patient was seen and interviewed as well as examined at the bedside. The chart was reviewed. The case was discussed. Agree with the plan of care. VENKATA GUTHRIE APRN Mar 10, 2020 11:58 MYRIAM STINSON MD Mar 10, 2020 17:08
--- NOTE | 2020-03-10 12:33 | PDOC4 ---
Operative Note Operative Note Date: 03/10/2020 at 1231 Preoperative diagnosis: Infected peritoneal dialysis catheter Postoperative diagnosis: Same Procedure: Removal peritoneal dialysis catheter with cultures Surgeon: Paul Specimen: Cultures and peritoneal dialysis catheter Dictation: Patient is a 75-year-old gentleman has had a peritoneal dialysis catheter been having difficulties with that and infection concerning for peritonitis. Procedure of removal peritoneal dialysis catheter was explained to the patient detail risk-benefit were also discussed including bleeding infection alternatives to this procedure also discussed with patient who seemed to understand and gave both verbal and written consent to have procedure performed. Patient was taken to the operating room placed in supine position general anesthesia was initiated once patient was sleeping intubated his abdomen was prepped and draped you sterile fashion using ChloraPrep. An area where the catheter exited the abdominal wall was injected quarter percent Marcaine with epinephrine the felt collar was freed up from its adherent tissues. Incision was made at the umbilicus after injecting with quarter percent Marcaine with epinephrine the catheter was grasped retracted the felt collar was freed up from its adherent tissues allow for free removal of the peritoneal dialysis catheter cultures were taken of the fluid around the catheter. The fascia at the umbilicus closed with [id number] Vicryl suture and skin was r eapproximated at the incisions with a 4-0 subcuticular Monocryl Mastisol Steri- Strips and island dressings were applied. Patient was awakened extubated in the operating room taken to recovery in stable condition all sponge instrument needle counts listed as correct estimated blood loss 5 mL TONY SANCHEZ MD Mar 10, 2020 12:33
--- NOTE | 2020-03-10 13:21 | NUR ---
SS following up with discharge planning. SS reviewed pt chart and discussed with pt RN. Pt is currently on room air. Pt having PD cath removed today and will have dialysis today. Pt has outpatient dialysis chair time scheduled at [facility], ; fax [phone], on 03/11/2020 at 1045. Pt has Saturday, Saturday, and Saturday chair time at 1115. Possible discharge to home today after dialysis. SS will continue to follow for discharge planning.
[2020-03-10 15:00] VITALS: BP 170/78
[2020-03-10] MEDS: POTASSIUM CHLORIDE 20 MEQ TABLET.ER. PO SCH (15:16)
[2020-03-10] MEDS: CLOPIDOGREL BISULFATE 75 MG TABLET PO SCH (15:16)
[2020-03-10] MEDS: CARVEDILOL 12.5 MG TABLET. PO SCH ×2 (15:16→17:00)
[2020-03-10] MEDS: amLODIPine BESYLATE 5 MG TABLET PO SCH (15:17)
[2020-03-10] MEDS: LOSARTAN POTASSIUM 25 MG TABLET. PO SCH (15:17)
--- NOTE | 2020-03-10 15:39 | NUR ---
SS following up with discharge planning. SS was informed that pt is not discharging today. SS contacted [facility] and notified. Pt new start date at [facility] is on 03/14/2020, at 1045. Pt's RN notified.
--- NOTE | 2020-03-10 17:25 | PDOC ---
PROGRESS NOTES Date of Service: DATE: 03/10/20 TIME: 17:21 Chief Complaint Chief Complaint A/P: Nausea and vomiting - likely secondary to peritonitis. Will give IV antiemetics. Pain control. Will need PD catheter removed as per ID information technology consultant, will request final recommendations regarding antibiotic therapy in the am Shortness of breath - multifactorial due to respiratory splinting due to peritonitis, complicated by an acute CHF exacerbation, less likely to be COVID- 19, will follow up on the results of this test. Will diuresis with PD and Lasix. Peritonitis - secondary to PD catheter infection with ESBL E. coli. I have ordered IV meropenem daily. Appreciate ID information technology consultant recommendations, will consult surgical nurse to removal of peritoneal dialysis catheter in interventional radiology for tunneled HD catheter placement Hypokalemia - will replace IV and p.o. Will defer to nephrology for further recommendations on replacement protocol given his ESRD status. Severe protein calorie malnutrition - will have dietitian to see, continue renal diet Hypomagnesemia - will replace Transaminitis - likely secondary to peritonitis. Will trend LFTs. 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 CAD s/p CABG and stenting x6 - stable, will continue cardiac meds Atrial fibrillation - needs rate control and consideration of NOAC PAD - s/p peripheral stenting with LE wounds as well Hypertension - continue meds Acute diastolic CHF - due to over load of fluid due to inadequate peritoneal dialysis likely due to peritonitis. Unknown recent EF. 2013 his EF was 55%. Will attempt diuresis. Transitioned to HD, will have peritoneal dialysis catheter removed in the am DM2 - will place on basal bolus plus insulin while inpatient H/o TIA - no neurologic complaints ESRD - on PD. Given this appears to be his second bout of peritonitis in his first year of PD I have advised him to ask his credit risk management director if other options are available such as HD. TIKA on CPAP - his brought his home device. Left knee pain - chronic, PRN voltaren topical ointment Bilateral Lower extremity wounds - wound care nursing to see FEN - Renal diet PPX - hold for procedure in the am FULL CODE Dispo - inpatient for above History of Present Illness History of Present Illness Mr Encinas is a 75 year old male with past medical history of CAD s/p CABG and stenting x6, hypertension, CHF, afib, DM2, TIA, ESRD (peritoneal dialysis), TIKA on BIPAP 17/06 qhs presents for evaluation of shortness of breath, nausea and vomiting as well as a fall at home. At 02 100 on 03/05/2020 is found him laying on the floor unable to lift himself up and she was unable to lift him and called EMS per lift assistance. Damon pedraza denies any loss of consciousness or head or neck injury. He does complain of chronic left knee pain is aching throbbing and bilateral rated a 4 out of 10. He has had nausea vomiting and decreased appetite as well as a dry cough for 1 week. He does note that he is been progressively more short of breath for months he thinks since October. He also notes this is his ninth fall since May 2019. He was recently started on cefdinir on 02/28/2020 for lower extremity wound infection through [facility] wound clinic, and subsequently intraperitoneal meropenem 1 g daily on 03/04/2020 after a peritoneal catheter culture result on 03/03/2020 returned positive for E. coli ESBL. I reviewed this data from Hannah Yoder. He also had a ESBL E. coli PD catheter infection 11/26/2019. There is no particular sensitivity information available to me is simply reads ESBL. He notes he has been on PD for a year and until recently tolerated very well on nocturnal cycler notes he uses to yellow bags at night and 1 during the day at times when he has been treated for peritonitis with intraperitoneal antibiotics. EKG with HR 92. Intraventricular conduction aberrancy, multiple PVCs. CXR with interstitial opacities and possible left basilar infiltrate. Post- sternotomy changes Labs significant for WBC 10.3, Hb 12.6, platelets 273. NA 138, K2.6, mag 1.4, BUN 53, CR 4.3, glucose 135, calcium 7.7, albumin 1.9, BNP greater than 30 5K, troponin 0 0.143, repeat troponin 0.136. Lactic acid 1.7 Due to his complaints of shortness of breath and his dialysis status ED physician ordered COVID-19 swab and he has been seen and evaluated in the COVID- 19 isolation unit. Admitted for further care 03/06 Slept well on his home CPAP overnight, afebrile. Had a few complications with PD overnight but was able to complete his cycle and feels significantly better this morning. K down to 2.9. 03/07 No acute events reported overnight, case discussed with nursing staff patient in no acute distress no complaints during my visit plan of care explained in detail, reassurance provided 03/08 No acute events reported overnight, case discussed with nursing staff patient in no acute distress no complaints during my visit, at bedside, all concerns addressed to the best of my abilities 03/09 Patient on dialysis today, he will be taken to the OR in the am. No new concerns. 03/10 Patient seen in the pre op area, reassurance provided, discussed with nephrology information technology consultant, will plan for discharge in the am after dialysis. has arranged for outpatient dialysis chair time. We will need ID recommendations in the am Vitals Vitals Vital Signs Date Time Temp Pulse Resp B/P (MAP) Pulse Ox O2 Delivery O2 Flow Rate FiO2 03/10/20 15:17 84 137/83 03/10/20 15:00 98.3 20 95 Room Air 98.3 03/10/20 12:40 10 Physical Exam Physical Exam GENERAL: Alert, oriented x 3, male, sitting in a chair. looking well. HEENT: Anicteric. No thrush. NECK: Supple. LUNGS: Decreased breath sound at the bases, otherwise clear. HEART: S1, S2. No murmurs. ABDOMEN: Soft, Nontender. PD catheter in place, site looks clean and intact. Bowel sounds present. No rebound, no guarding. EXTREMITIES: Bilateral venous stasis ulcers with dermatitis. No redness or purulent drainage noted. NEUROLOGIC: Alert, awake, grossly nonfocal. PSYCHIATRIC: Cooperative. DERMATOLOGIC: Warm, dry. No generalized rash except for above. RIGHT Chest HD cath clean General: Alert, Oriented X3, Cooperative Heart: Regular rate, Normal S1, Normal S2 Abdomen: Soft, Other (pd cath in place) Extremities: No clubbing, No cyanosis Skin: No rashes, No breakdown Labs LABS Laboratory Tests Test 03/09/20 21:00 03/10/20 07:22 03/10/20 11:01 03/10/20 12:45 Glucose (Fingerstick) 101 mg/dL (70-99) 99 mg/dL (70-99) 95 mg/dL (70-99) 94 mg/dL (70-99) Test 03/10/20 14:07 03/10/20 16:48 Glucose (Fingerstick) 105 mg/dL (70-99) 163 mg/dL (70-99) Assessment and Plan Assessmemt and Plan Problems Medical Problems: (1) CHF (congestive heart failure) Status: Acute (2) Elevated troponin Status: Acute (3) Hypokalemia Status: Acute (4) Nausea & vomiting Status: Acute (5) Person under investigation for COVID-19 Status: Acute (6) Shortness of breath Status: Acute Comment Review of Relevant I have reviewed the following items shahbaz (where applicable) has been applied. Labs Laboratory Tests Test 03/08/20 20:52 03/09/20 06:51 03/09/20 07:37 03/09/20 16:45 Glucose (Fingerstick) 89 mg/dL (70-99) 99 mg/dL (70-99) 94 mg/dL (70-99) Sodium Level 142 mmol/L (136-145) Potassium Level 3.8 mmol/L (3.5-5.1) Chloride Level 104 mmol/L (98-107) Carbon Dioxide Level 33 mmol/L (21-32) Anion Gap 5 (6-14) Blood Urea Nitrogen 38 mg/dL (8-26) Creatinine 4.5 mg/dL (0.7-1.3) Estimated GFR (Cockcroft-Gault) 12.8 Glucose Level 95 mg/dL (70-99) Calcium Level 8.1 mg/dL (8.5-10.1) Test 03/09/20 21:00 03/10/20 07:22 03/10/20 11:01 03/10/20 12:45 Glucose (Fingerstick) 101 mg/dL (70-99) 99 mg/dL (70-99) 95 mg/dL (70-99) 94 mg/dL (70-99) Test 03/10/20 14:07 03/10/20 16:48 Glucose (Fingerstick) 105 mg/dL (70-99) 163 mg/dL (70-99) Laboratory Tests Test 03/09/20 21:00 03/10/20 07:22 03/10/20 11:01 03/10/20 12:45 Glucose (Fingerstick) 101 mg/dL (70-99) 99 mg/dL (70-99) 95 mg/dL (70-99) 94 mg/dL (70-99) Test 03/10/20 14:07 03/10/20 16:48 Glucose (Fingerstick) 105 mg/dL (70-99) 163 mg/dL (70-99) Microbiology 03/05/20 Blood Culture - Final, Complete NO GROWTH AFTER 5 DAYS Medications Current Medications Ondansetron HCl (Zofran) 4 mg STK-MED ONCE .ROUTE ; Start 03/05/20 at 03:24; Stop 03/05/20 at 03:24; Status DC Ondansetron HCl (Zofran) 4 mg 1X ONCE IVP Last administered on 03/05/20at 03:34; Start 03/05/20 at 03:30; Stop 03/05/20 at 03:48; Status DC Potassium Chloride (Klor-Con) 40 meq 1X ONCE PO Last administered on 03/05/20at 04:48; Start 03/05/20 at 04:30; Stop 03/05/20 at 04:31; Status DC Furosemide (Lasix) 40 mg 1X ONCE IVP Last administered on 03/05/20at 04:51; Start 03/05/20 at 04:30; Stop 03/05/20 at 04:31; Status DC Ceftriaxone Sodium (Rocephin) 1 gm 1X ONCE IVP Last administered on 03/05/20at 04:50; Start 03/05/20 at 04:30; Stop 03/05/20 at 04:31; Status DC Azithromycin 250 ml @ 250 mls/hr 1X ONCE IV Last administered on 03/05/20at 04:51; Start 03/05/20 at 04:30; Stop 03/05/20 at 05:29; Status DC Aspirin (Aspirin Chewable) 324 mg 1X ONCE PO Last administered on 03/05/20at 04:45; Start 03/05/20 at 04:30; Stop 03/05/20 at 04:31; Status DC Ondansetron HCl (Zofran) 4 mg PRN Q8HRS PRN IV NAUSEA/VOMITING; Start 03/05/20 at 04:45; Stop 03/06/20 at 04:44; Status DC Morphine Sulfate (Morphine Sulfate) 2 mg PRN Q2HR PRN IV PAIN; Start 03/05/20 at 04:45; Stop 03/05/20 at 09:25; Status DC Potassium Chloride/Water 100 ml @ 100 mls/hr Q1H IV Last administered on 03/05/20at 09:36; Start 03/05/20 at 06:00; Stop 03/05/20 at 07:59; Status DC Amlodipine Besylate (Norvasc) 10 mg DAILY PO ; Start 03/05/20 at 10:00; Stop 03/05/20 at 10:26; Status DC Aspirin (Ecotrin) 81 mg DAILY PO ; Start 03/05/20 at 10:00; Stop 03/05/20 at 10:47; Status DC Vitamin D (Vitamin D3) 1,000 unit BID PO Last administered on 03/09/20at 21:00; Start 03/05/20 at 10:00 Clopidogrel Bisulfate (Plavix) 75 mg DAILY PO Last administered on 03/08/20at 09:52; Start 03/05/20 at 10:00; Stop 03/09/20 at 12:23; Status DC Atorvastatin Calcium (Lipitor) 80 mg QHS PO Last administered on 03/09/20at 21:00; Start 03/05/20 at 21:00 Carvedilol (Coreg) 25 mg BIDWMEALS PO ; Start 03/05/20 at 10:00; Stop 03/05/20 at 10:26; Status DC Non-Formulary Medication (Guanfacine Hcl ) 1 tab HS PO ; Start 03/05/20 at 21:00; Stop 03/05/20 at 10:47; Status DC Levothyroxine Sodium (Synthroid) 100 mcg DAILY07 PO Last administered on 03/09/20at 06:26; Start 03/05/20 at 10:00 Amlodipine Besylate (Norvasc) 5 mg DAILY PO Last administered on 03/10/20at 15:17; Start 03/05/20 at 13:00 Carvedilol (Coreg) 12.5 mg BIDWMEALS PO Last administered on 03/10/20at 15:16; Start 03/05/20 at 17:00 Meropenem (Merrem) 1 gm DAILY IV ; Start 03/05/20 at 12:15; Stop 03/05/20 at 12:20; Status DC Losartan Potassium (Cozaar) 25 mg DAILY PO Last administered on 03/10/20at 15:17; Start 03/05/20 at 13:00 Potassium Chloride (Klor-Con) 20 meq DAILYWBKFT PO Last administered on 03/10/20at 15:16; Start 03/05/20 at 13:00 Psyllium Hydrophilic Mucilloid (Metamucil Fiber Packet) 1 pkt QPM PO Last administered on 03/06/20at 17:26; Start 03/05/20 at 18:00 Meropenem 1 gm/ Sodium Chloride 100 ml @ 200 mls/hr DAILY IV Last administered on 03/05/20at 13:59; Start 03/05/20 at 13:00; Stop 03/05/20 at 17:51; Status DC Heparin Sodium (Porcine) (Heparin Sodium) 5,000 unit Q8HRS SQ Last administered on 03/09/20at 06:30; Start 03/05/20 at 14:00; Stop 03/09/20 at 12:23; Status DC Tramadol HCl (Ultram) 50 mg PRN Q6HRS PRN PO PAIN; Start 03/05/20 at 16:00 Fentanyl Citrate (Fentanyl 2ml Vial) 25 mcg PRN Q4HRS PRN IVP PAIN; Start 03/05/20 at 16:00 Meropenem 500 mg/ Sodium Chloride 50 ml @ 100 mls/hr DAILY IV Last administered on 03/10/20at 11:18; Start 03/06/20 at 09:00 Potassium Chloride (Klor-Con) 40 meq 1X ONCE PO Last administered on 03/06/20at 10:00; Start 03/06/20 at 08:00; Stop 03/06/20 at 08:01; Status DC Insulin Human Lispro (HumaLOG) 0-7 UNITS TIDWMEALHC SQ ; Start 03/06/20 at 12:00 Dextrose (Dextrose 50%-Water Syringe) 12.5 gm PRN Q15MIN PRN IV SEE COMMENTS; Start 03/06/20 at 10:00 Magnesium Sulfate 50 ml @ 25 mls/hr 1X ONCE IV Last administered on 03/06/20at 10:37; Start 03/06/20 at 10:00; Stop 03/06/20 at 11:59; Status DC Lactobacillus Rhamnosus (Culturelle) 1 cap BID PO Last administered on 03/09/20at 21:00; Start 03/06/20 at 21:00 Lidocaine/ Epinephrine (LIDOCAINE 1%-EPI 1:100,000 Multi-Dose) 20 ml STK-MED ONCE .ROUTE ; Start 03/08/20 at 13:19; Stop 03/08/20 at 13:19; Status DC Midazolam HCl (Versed) 2 mg 1X ONCE IV Last administered on 03/08/20at 13:45; Start 03/08/20 at 13:30; Stop 03/08/20 at 13:31; Status DC Fentanyl Citrate (Fentanyl 2ml Vial) 100 mcg 1X ONCE IV Last administered on 03/08/20at 13:45; Start 03/08/20 at 13:30; Stop 03/08/20 at 13:31; Status DC Lidocaine/ Epinephrine (LIDOCAINE 1%-EPI 1:100,000 Multi-Dose) 20 ml 1X ONCE SQ Last administered on 03/08/20at 13:45; Start 03/08/20 at 13:30; Stop 03/08/20 at 13:31; Status DC Cefazolin Sodium/ Dextrose 50 ml @ 100 mls/hr 1X ONCE IV Last administered on 03/08/20at 13:30; Start 03/08/20 at 13:30; Stop 03/08/20 at 13:59; Status DC Midazolam HCl (Versed) 2 mg STK-MED ONCE .ROUTE ; Start 03/08/20 at 13:28; Stop 03/08/20 at 13:29; Status DC Fentanyl Citrate (Fentanyl 2ml Vial) 100 mcg STK-MED ONCE .ROUTE ; Start 03/08/20 at 13:28; Stop 03/08/20 at 13:29; Status DC Sodium Chloride 1,000 ml @ 1,000 mls/hr Q1H PRN IV hypotension; Start 03/09/20 at 07:53; Stop 03/09/20 at 13:52; Status DC Albumin Human 200 ml @ 200 mls/hr 1X PRN PRN IV Hypotension; Start 03/09/20 at 08:00; Stop 03/09/20 at 13:59; Status DC Info (PHARMACY MONITORING -- do not chart) 1 each PRN DAILY PRN MC SEE COM MENTS; Start 03/09/20 at 08:00; Status UNV Info (PHARMACY MONITORING -- do not chart) 1 each PRN DAILY PRN MC SEE COMMENTS; Start 03/09/20 at 08:00 Clopidogrel Bisulfate (Plavix) 75 mg DAILY PO Last administered on 03/10/20at 15:16; Start 03/10/20 at 09:00 Heparin Sodium (Porcine) (Heparin Sodium) 5,000 unit Q8HRS SQ ; Start 03/10/20 at 06:00 Ondansetron HCl (Zofran) 4 mg PRN Q6HRS PRN IV NAUSEA/VOMITING; Start 03/10/20 at 07:00; Stop 03/10/20 at 20:00 Fentanyl Citrate (Fentanyl 2ml Vial) 25 mcg PRN Q5MIN PRN IV MILD PAIN 1-3; Start 03/10/20 at 07:00; Stop 03/10/20 at 20:00 Fentanyl Citrate (Fentanyl 2ml Vial) 50 mcg PRN Q5MIN PRN IV MODERATE TO SEVERE PAIN; Start 03/10/20 at 07:00; Stop 03/10/20 at 20:00 Morphine Sulfate (Morphine Sulfate) 1 mg PRN Q10MIN PRN IV SEVERE PAIN 7-10; Start 03/10/20 at 07:00; Stop 03/10/20 at 20:00 Hydromorphone HCl (Dilaudid) 0.5 mg PRN Q10MIN PRN IV SEV PAIN, Second choice; Start 03/10/20 at 07:00; Stop 03/10/20 at 20:00 Prochlorperazine Edisylate (Compazine) 5 mg PACU PRN PRN IV NAUSEA, MRX1; Start 03/10/20 at 07:00; Stop 03/10/20 at 20:00 Sodium Chloride 1,000 ml @ 0 mls/hr Q0M IV Last administered on 03/10/20at 11:16; Start 03/10/20 at 11:00 Lidocaine HCl (Lidocaine Pf 2% Vial) 5 ml STK-MED ONCE .ROUTE ; Start 03/10/20 at 10:53; Stop 03/10/20 at 10:53; Status DC Propofol (Diprivan) 200 mg STK-MED ONCE IV ; Start 03/10/20 at 10:53; Stop 03/10/20 at 10:53; Status DC Fentanyl Citrate (Fentanyl 2ml Vial) 100 mcg STK-MED ONCE .ROUTE ; Start 03/10/20 at 10:53; Stop 03/10/20 at 10:53; Status DC Bupivacaine HCl/ Epinephrine Bitart (Sensorcain-Epi 0.5%-1:085426 Mpf) 30 ml STK-MED ONCE .ROUTE Last administered on 03/10/20at 12:05; Start 03/10/20 at 11:16; Stop 03/10/20 at 11:16; Status DC Bupivacaine HCl/ Epinephrine Bitart (Sensorcain-Epi 0.5%-1:768479 Mpf) 30 ml STK-MED ONCE .ROUTE ; Start 03/10/20 at 11:36; Stop 03/10/20 at 11:36; Status DC Dexamethasone Sodium Phosphate (Decadron) 20 mg STK-MED ONCE .ROUTE ; Start 03/10/20 at 11:58; Stop 03/10/20 at 11:58; Status DC Ondansetron HCl (Zofran) 4 mg STK-MED ONCE .ROUTE ; Start 03/10/20 at 11:58; Stop 03/10/20 at 11:58; Status DC Sevoflurane (Ultane) 15 ml STK-MED ONCE IH ; Start 03/10/20 at 11:58; Stop 03/10/20 at 11:58; Status DC Active Scripts Active Reported Merrem (Meropenem) 1 Gm Vial 1 Gm IV DAILY 13 Days Pepcid (Famotidine) 20 Mg Tablet 20 Mg PO HS Irbesartan 75 Mg Tablet 1 Tab PO DAILY Amlodipine Besylate 5 Mg Tablet 1 Tab PO DAILY Carvedilol 12.5 Mg Tablet 1 Tab PO BID Potassium Chloride 20 Meq Tablet.er 1 Tab PO DAILY Levothyroxine Sodium 100 Mcg Tablet 1 Tab PO DAILY07 90 Days Vitamin D3 (Cholecalciferol (Vitamin D3)) 1,000 Unit Tablet 1 Tab PO BID Plavix (Clopidogrel Bisulfate) 75 Mg Tablet 1 Tab PO DAILY Lipitor (Atorvastatin Calcium) 80 Mg Tablet 80 Mg PO DAILY Vitals/I & O Vital Sign - Last 24 Hours 03/09/20 03/09/20 03/09/20 03/09/20 18:17 19:25 19:50 23:00 Temp 98.2 98.2 98.2 98.2 Pulse 72 67 61 Resp 18 18 B/P (MAP) 127/64 150/72 (98) 144/72 (96) Pulse Ox 98 93 O2 Delivery BiPAP/CPAP Room Air Room Air 9/10/20 9/10/20 9/10/20 9/10/20 02:50 07:00 08:00 11:04 Temp 98.1 98.4 97.4 98.1 98.4 97.4 Pulse 84 78 87 Resp 18 18 15 B/P (MAP) 159/79 (105) 145/67 (93) 159/77 Pulse Ox 97 91 96 O2 Delivery BiPAP/CPAP Room Air Room Air Room Air 03/10/20 03/10/20 03/10/20 03/10/20 12:40 12:40 12:55 13:10 Temp 97.2 97.2 97.2 97.2 Pulse 84 84 84 Resp 20 20 20 B/P (MAP) 143/81 123/75 137/83 Pulse Ox 100 100 100 O2 Delivery Mask Room Air Room Air O2 Flow Rate 10 03/10/20 03/10/20 03/10/20 03/10/20 15:00 15:16 15:17 15:17 Temp 98.3 98.3 Pulse 79 84 84 84 Resp 20 B/P (MAP) 170/78 (108) 137/83 137/83 137/83 Pulse Ox 95 O2 Delivery Room Air Intake and Output 03/09/20 03/09/20 03/10/20 15:00 23:00 07:00 Intake Total 200 ml 200 ml 340 ml Output Total 100 ml 200 ml Balance 200 ml 100 ml 140 ml Justicifation of Admission Dx: Justifications for Admission: Justification of Admission Dx: Yes CHF: Sev. Electrolyte Abnormal Chronic Renal Failure: Electrolyte Abnormality NATHAN SIMON MD Mar 10, 2020 17:25
[2020-03-10] MEDS: PSYLLIUM HUSK (SUGAR FREE) 1 PKT PACKET PO SCH (17:33)
[2020-03-10 19:30] VITALS: BP 105/54
[2020-03-10] MEDS: ATORVASTATIN CALCIUM 40 MG TABLET. PO SCH (21:43)
[2020-03-10 22:09] VITALS: BP 131/66
[2020-03-11 02:21] VITALS: BP 135/79
[2020-03-11 05:42] LABS: HEMATOCRIT 33.4 % (39.0-53.0); RED BLOOD COUNT 3.83 x10^6/uL (4.30-5.70); RED CELL DISTRIBUTION WIDTH 18.7 % (11.5-14.5); WHITE BLOOD COUNT 15.4 x10^3/uL (4.0-11.0)
[2020-03-11 05:46] LABS: CALCIUM 8.2 mg/dL (8.5-10.1); CREATININE 5.5 mg/dL (0.7-1.3); GFR 10.2; POTASSIUM 5.4 mmol/L (3.5-5.1)
[2020-03-11] MEDS: HEPARIN for SUB-Q USE 5,000 UNIT/ML VIAL. SQ SCH ×3 (06:12→22:31)
[2020-03-11] MEDS: LEVOTHYROXINE 100 MCG TABLET PO SCH (06:13)
[2020-03-11] MEDS: POTASSIUM CHLORIDE 20 MEQ TABLET.ER. PO SCH (07:15)
[2020-03-11 07:18] VITALS: BP 135/80
[2020-03-11] MEDS: CARVEDILOL 12.5 MG TABLET. PO SCH ×2 (08:00→17:05)
[2020-03-11] MEDS: INSULIN LISPRO 300 UNITS/3 ML VIAL. SQ SCH ×4 (08:00→21:00)
--- NOTE | 2020-03-11 08:31 | PDOC ---
Infectious Disease Note Subjective Subjective No F chill. No abd discomfort today Ate well. + Flatus No SOA Tolerating HD Vital Sign Vital Signs Vital Signs Date Time Temp Pulse Resp B/P (MAP) Pulse Ox O2 Delivery O2 Flow Rate FiO2 03/11/20 07:45 Room Air 03/11/20 07:18 98.4 94 18 135/80 (98) 96 98.4 03/10/20 12:40 10 Physical Exam PHYSICAL EXAM GENERAL: Alert, oriented x 3, male, in bed. looking well. HEENT: Anicteric. No thrush. NECK: Supple. LUNGS: Decreased breath sound at the bases, otherwise clear. HEART: S1, S2. No murmurs. ABDOMEN: Soft, Nontender. PD catheter in place, site looks clean and intact. Bowel sounds present. No rebound, no guarding. EXTREMITIES: Bilateral venous stasis ulcers with dermatitis. No redness or purulent drainage noted. NEUROLOGIC: Alert, awake, grossly nonfocal. PSYCHIATRIC: Cooperative. DERMATOLOGIC: Warm, dry. No generalized rash except for above. RIGHT Chest HD cath clean Labs Lab Laboratory Tests Test 03/10/20 11:01 03/10/20 12:45 03/10/20 14:07 03/10/20 16:48 Glucose (Fingerstick) 95 mg/dL (70-99) 94 mg/dL (70-99) 105 mg/dL (70-99) 163 mg/dL (70-99) Test 03/10/20 21:13 03/11/20 05:00 03/11/20 06:47 Glucose (Fingerstick) 175 mg/dL (70-99) 145 mg/dL (70-99) White Blood Count 15.4 x10^3/uL (4.0-11.0) Red Blood Count 3.83 x10^6/uL (4.30-5.70) Hemoglobin 11.0 g/dL (13.0-17.5) Hematocrit 33.4 % (39.0-53.0) Mean Corpuscular Volume 87 fL (79-100) Mean Corpuscular Hemoglobin 29 pg (25-35) Mean Corpuscular Hemoglobin Concent 33 g/dL (31-37) Red Cell Distribution Width 18.7 % (11.5-14.5) Platelet Count 244 x10^3/uL (140-400) Sodium Level 141 mmol/L (136-145) Potassium Level 5.4 mmol/L (3.5-5.1) Chloride Level 105 mmol/L (98-107) Carbon Dioxide Level 29 mmol/L (21-32) Anion Gap 7 (6-14) Blood Urea Nitrogen 58 mg/dL (8-26) Creatinine 5.5 mg/dL (0.7-1.3) Estimated GFR (Cockcroft-Gault) 10.2 Glucose Level 151 mg/dL (70-99) Calcium Level 8.2 mg/dL (8.5-10.1) Micro Microbiology 03/05/20 Blood Culture - Preliminary, Resulted NO GROWTH AFTER 2 DAYS Objective Assessment 1. ESBL E. coli. PD catheter peritonitis diagnosed at outside facility on Sesn to Imipenem/zosyn I Tobra res gent 02/29/2020, started on antibiotics yesterday as outpatient. PD cath removed 03/10 gram stain neg so far 2. End-stage renal disease, on peritoneal dialysis for 1 year.s/p HD cath placed 03/08 3. History of previous PD fluid cultures in records from 10/2019 with E. coli ESBL and leuconostoc species. 4. COVID-19.- neg 03/05 5. Congestive heart failure. 6. Diabetes mellitus. 7. Anemia, chronic. 8. Protein-calorie malnutrition. 9. Congestive heart failure Leukocytosis - s/p Dexamethasone 03/10 and post op Plan Plan of Care 1. Continue meropenem anticipate last dose 03/16 2. F/u PD. Cult 3. add LFTs today 4. Continue supportive care. 5. Place midline D/w nursing and ROBIN Hein MD Mar 11, 2020 08:31
[2020-03-11] MEDS: CHOLECALCIFEROL (VITAMIN D3) 1,000 UNIT TABLET PO SCH ×2 (09:00→22:26)
[2020-03-11] MEDS: LACTOBACILLUS RHAMNOSUS GG 1 CAPSULE. PO SCH ×2 (09:00→22:26)
--- NOTE | 2020-03-11 09:44 | PDOC ---
SURGICAL PROGRESS NOTE DATE: 03/11/20 TIME: 09:42 Subjective doing ok no significant abdominal pain Vital Signs Vital Signs Date Time Temp Pulse Resp B/P (MAP) Pulse Ox O2 Delivery O2 Flow Rate FiO2 03/11/20 07:45 Room Air 03/11/20 07:18 98.4 94 18 135/80 (98) 96 98.4 03/10/20 12:40 10 I&O Intake and Output 03/11/20 07:00 Intake Total 1435 ml Output Total 185 ml Balance 1250 ml Intake Oral 1085 ml IV Total 350 ml Output Urine Total 180 ml Estimated Blood Loss 5 ml # Voids 2 General: Alert, Oriented X3, Cooperative Abdomen: Soft, Other (ND, incision dressings scant shadowing ) Labs Laboratory Tests Test 03/09/20 16:45 03/09/20 21:00 03/10/20 07:22 03/10/20 11:01 Glucose (Fingerstick) 94 mg/dL (70-99) 101 mg/dL (70-99) 99 mg/dL (70-99) 95 mg/dL (70-99) Test 03/10/20 12:45 03/10/20 14:07 03/10/20 16:48 03/10/20 21:13 Glucose (Fingerstick) 94 mg/dL (70-99) 105 mg/dL (70-99) 163 mg/dL (70-99) 175 mg/dL (70-99) Test 03/11/20 05:00 03/11/20 06:47 White Blood Count 15.4 x10^3/uL (4.0-11.0) Red Blood Count 3.83 x10^6/uL (4.30-5.70) Hemoglobin 11.0 g/dL (13.0-17.5) Hematocrit 33.4 % (39.0-53.0) Mean Corpuscular Volume 87 fL (79-100) Mean Corpuscular Hemoglobin 29 pg (25-35) Mean Corpuscular Hemoglobin Concent 33 g/dL (31-37) Red Cell Distribution Width 18.7 % (11.5-14.5) Platelet Count 244 x10^3/uL (140-400) Sodium Level 141 mmol/L (136-145) Potassium Level 5.4 mmol/L (3.5-5.1) Chloride Level 105 mmol/L (98-107) Carbon Dioxide Level 29 mmol/L (21-32) Anion Gap 7 (6-14) Blood Urea Nitrogen 58 mg/dL (8-26) Creatinine 5.5 mg/dL (0.7-1.3) Estimated GFR (Cockcroft-Gault) 10.2 Glucose Level 151 mg/dL (70-99) Calcium Level 8.2 mg/dL (8.5-10.1) Glucose (Fingerstick) 145 mg/dL (70-99) Laboratory Tests Test 03/10/20 11:01 03/10/20 12:45 03/10/20 14:07 03/10/20 16:48 Glucose (Fingerstick) 95 mg/dL (70-99) 94 mg/dL (70-99) 105 mg/dL (70-99) 163 mg/dL (70-99) Test 03/10/20 21:13 03/11/20 05:00 03/11/20 06:47 Glucose (Fingerstick) 175 mg/dL (70-99) 145 mg/dL (70-99) White Blood Count 15.4 x10^3/uL (4.0-11.0) Red Blood Count 3.83 x10^6/uL (4.30-5.70) Hemoglobin 11.0 g/dL (13.0-17.5) Hematocrit 33.4 % (39.0-53.0) Mean Corpuscular Volume 87 fL (79-100) Mean Corpuscular Hemoglobin 29 pg (25-35) Mean Corpuscular Hemoglobin Concent 33 g/dL (31-37) Red Cell Distribution Width 18.7 % (11.5-14.5) Platelet Count 244 x10^3/uL (140-400) Sodium Level 141 mmol/L (136-145) Potassium Level 5.4 mmol/L (3.5-5.1) Chloride Level 105 mmol/L (98-107) Carbon Dioxide Level 29 mmol/L (21-32) Anion Gap 7 (6-14) Blood Urea Nitrogen 58 mg/dL (8-26) Creatinine 5.5 mg/dL (0.7-1.3) Estimated GFR (Cockcroft-Gault) 10.2 Glucose Level 151 mg/dL (70-99) Calcium Level 8.2 mg/dL (8.5-10.1) Problem List Problems Medical Problems: (1) CHF (congestive heart failure) Status: Acute (2) Elevated troponin Status: Acute (3) Hypokalemia Status: Acute (4) Nausea & vomiting Status: Acute (5) Person under investigation for COVID-19 Status: Acute (6) Shortness of breath Status: Acute Assessment/Plan s/p pd cath removal stable surgically, available as needed Justicifation of Admission Dx: Justifications for Admission: Justification of Admission Dx: Yes CHF: Sev. Electrolyte Abnormal Chronic Renal Failure: Electrolyte Abnormality DUSTIN HUBER APRN Mar 11, 2020 09:44
[2020-03-11 09:57] LABS: ALBUMIN 1.7 g/dL (3.4-5.0); DIRECT BILIRUBIN 0.1 mg/dL (0.0-0.2); TOTAL BILIRUBIN 0.3 mg/dL (0.2-1.0); TOTAL PROTEIN 5.2 g/dL (6.4-8.2)
[2020-03-11 10:29] VITALS: BP 150/72
--- NOTE | 2020-03-11 11:56 | NUR ---
SS following up with discharge planning. SS reviewed pt chart and discussed with pt RN. Pt is currently on room air. Pt has outpatient dialysis chair time scheduled for Saturday, Saturday, and Saturday, at 1115 at [facility]. Pt needing IV antibiotics at discharge. Midline ordered. Script received for IV antibiotics. SS met with pt and pt's spouse and discussed. Pt and pt's spouse requesting outpatient at [facility], [phone]; fax [phone]. SS phoned and faxed script to [facility] outpatient. Pt has start date of 03/13/2020, and is to register in the ER at 1100 and then go to outpatient for first infusion. Pt to come to outpatient on Saturday between 0800 and 0900 for continued infusions. SS will continue to follow for discharge planning.
--- NOTE | 2020-03-11 12:10 | PDOC ---
PROGRESS NOTES Date of Service: DATE: 03/11/20 TIME: 12:09 Chief Complaint Chief Complaint A/P: Nausea and vomiting - likely secondary to peritonitis. Will give IV antiemetics. Pain control. Will need PD catheter removed as per ID review consultant, recommendations for antibiotics have been noted and will continue with Merrem 500 mg daily Shortness of breath - multifactorial due to respiratory splinting due to peritonitis, complicated by an acute CHF exacerbation, less likely to be COVID- 19, will follow up on the results of this test. Will diuresis with PD and Lasix. Peritonitis - secondary to PD catheter infection with ESBL E. coli. I have ordered IV meropenem daily. Appreciate ID review consultant recommendations, will consult surgical services asst to removal of peritoneal dialysis catheter in interventional radiology for tunneled HD catheter placement Hypokalemia - will replace IV and p.o. Will defer to nephrology for further recommendations on replacement protocol given his ESRD status. Severe protein calorie malnutrition - will have dietitian to see, continue renal diet Hypomagnesemia - will replace Transaminitis - likely secondary to peritonitis. Will trend LFTs. 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 CAD s/p CABG and stenting x6 - stable, will continue cardiac meds Atrial fibrillation - needs rate control and consideration of NOAC PAD - s/p peripheral stenting with LE wounds as well Hypertension - continue meds Acute diastolic CHF - due to over load of fluid due to inadequate peritoneal dialysis likely due to peritonitis. Unknown recent EF. 2013 his EF was 55%. Will attempt diuresis. Transitioned to HD, will have peritoneal dialysis catheter removed in the am DM2 - will place on basal bolus plus insulin while inpatient H/o TIA - no neurologic complaints ESRD - on PD. 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 TIKA on CPAP - his brought his home device. Left knee pain - chronic, PRN voltaren topical ointment Bilateral Lower extremity wounds - wound care nursing to see FEN - Renal diet PPX - hold for procedure in the am FULL CODE Dispo - inpatient for above History of Present Illness History of Present Illness Mr Encinas is a 75 year old male with past medical history of CAD s/p CABG and stenting x6, hypertension, CHF, afib, DM2, TIA, ESRD (peritoneal dialysis), TIKA on BIPAP 18/ qhs presents for evaluation of shortness of breath, nausea and vomiting as well as a fall at home. At 02 100 on 03/05/2020 is found him laying on the floor unable to lift himself up and she was unable to lift him and called EMS per lift assistance. He denies any loss of consciousness or head or neck injury. He does complain of chronic left knee pain is aching throbbing and bilateral rated a 4 out of 10. He has had nausea vomiting and decreased appetite as well as a dry cough for 1 w [place]. He does note that he is been progressively more short of breath for months he thinks since October. He also notes this is his ninth fall since May 2019. He was recently started on cefdinir on 02/28/2020 for lower extremity wound infection through [facility] wound clinic, and subsequently intraperitoneal meropenem 1 g daily on 03/04/2020 after a peritoneal catheter culture result on 03/03/2020 returned positive for E. coli ESBL. I reviewed this data from Hannah Yoder. He also had a ESBL E. coli PD catheter infection 11/26/2019. There is no particular sensitivity information available to me is simply reads ESBL. He notes he has been on PD for a year and until recently tolerated very well on nocturnal cycler notes he uses to yellow bags at night and 1 during the day at times when he has been treated for peritonitis with intraperitoneal antibiotics. EKG with HR 92. Intraventricular conduction aberrancy, multiple PVCs. CXR with interstitial opacities and possible left basilar infiltrate. Post-sternotomy changes Labs significant for WBC 10.3, Hb 12.6, platelets 273. NA 138, K2.6, mag 1.4, BUN 53, CR 4.3, glucose 135, calcium 7.7, albumin 1.9, BNP greater than 30 5K, troponin 0 0.143, repeat troponin 0.136. Lactic acid 1.7 Due to his complaints of shortness of breath and his dialysis status ED physician ordered COVID-19 swab and he has been seen and evaluated in the COVID- 19 isolation unit. Admitted for further care 03/06 Slept well on his home CPAP overnight, afebrile. Had a few complications with PD overnight but was able to complete his cycle and feels significantly better this morning. K down to 2.9. 03/07 No acute events reported overnight, case discussed with nursing staff patient in no acute distress no complaints during my visit plan of care explained in detail, reassurance provided 03/08 No acute events reported overnight, case discussed with nursing staff patient in no acute distress no complaints during my visit, at bedside, all concerns addressed to the best of my abilities 03/09 Patient on dialysis today, he will be taken to the OR in the am. No new concerns. 03/10 Patient seen in the pre op area, reassurance provided, discussed with nephrology review consultant, will plan for discharge in the am after dialysis. has arranged for outpatient dialysis chair time. We will need ID recommendations in the am 03/11 No acute events reported overnight, case discussed with nursing staff patient in no acute distress no complaints during my visit Hopefully discharge in the a.m. Vitals Vitals Vital Signs Date Time Temp Pulse Resp B/P (MAP) Pulse Ox O2 Delivery O2 Flow Rate FiO2 03/11/20 10:29 98.1 96 18 150/72 (98) 93 Room Air 98.1 03/10/20 12:40 10 Physical Exam Physical Exam GENERAL: Alert, oriented x 3, male, in bed. looking well. HEENT: Anicteric. No thrush. NECK: Supple. LUNGS: Decreased breath sound at the bases, otherwise clear. HEART: S1, S2. No murmurs. ABDOMEN: Soft, Nontender. PD catheter in place, site looks clean and intact. Bowel sounds present. No rebound, no guarding. EXTREMITIES: Bilateral venous stasis ulcers with dermatitis. No redness or purulent drainage noted. NEUROLOGIC: Alert, awake, grossly nonfocal. PSYCHIATRIC: Cooperative. DERMATOLOGIC: Warm, dry. No generalized rash except for above. RIGHT Chest HD cath clean General: Alert, Oriented X3, Cooperative Heart: Regular rate, Normal S1, Normal S2 Abdomen: Soft, Other (ND, incision dressings scant shadowing ) Extremities: No clubbing, No cyanosis Skin: No rashes, No breakdown Labs LABS Laboratory Tests Test 03/10/20 12:45 03/10/20 14:07 03/10/20 16:48 03/10/20 21:13 Glucose (Fingerstick) 94 mg/dL (70-99) 105 mg/dL (70-99) 163 mg/dL (70-99) 175 mg/dL (70-99) Test 03/11/20 05:00 03/11/20 06:47 03/11/20 11:28 White Blood Count 15.4 x10^3/uL (4.0-11.0) Red Blood Count 3.83 x10^6/uL (4.30-5.70) Hemoglobin 11.0 g/dL (13.0-17.5) Hematocrit 33.4 % (39.0-53.0) Mean Corpuscular Volume 87 fL (79-100) Mean Corpuscular Hemoglobin 29 pg (25-35) Mean Corpuscular Hemoglobin Concent 33 g/dL (31-37) Red Cell Distribution Width 18.7 % (11.5-14.5) Platelet Count 244 x10^3/uL (140-400) Sodium Level 141 mmol/L (136-145) Potassium Level 5.4 mmol/L (3.5-5.1) Chloride Level 105 mmol/L (98-107) Carbon Dioxide Level 29 mmol/L (21-32) Anion Gap 7 (6-14) Blood Urea Nitrogen 58 mg/dL (8-26) Creatinine 5.5 mg/dL (0.7-1.3) Estimated GFR (Cockcroft-Gault) 10.2 Glucose Level 151 mg/dL (70-99) Calcium Level 8.2 mg/dL (8.5-10.1) Total Bilirubin 0.3 mg/dL (0.2-1.0) Direct Bilirubin 0.1 mg/dL (0.0-0.2) Aspartate Amino Transf (AST/SGOT) 80 U/L (15-37) Alanine Aminotransferase (ALT/SGPT) 67 U/L (16-63) Alkaline Phosphatase 113 U/L (46-116) Total Protein 5.2 g/dL (6.4-8.2) Albumin 1.7 g/dL (3.4-5.0) Glucose (Fingerstick) 145 mg/dL (70-99) 148 mg/dL (70-99) Assessment and Plan Assessmemt and Plan Problems Medical Problems: (1) CHF (congestive heart failure) Status: Acute (2) Elevated troponin Status: Acute (3) Hypokalemia Status: Acute (4) Nausea & vomiting Status: Acute (5) Person under investigation for COVID-19 Status: Acute (6) Shortness of breath Status: Acute Comment Review of Relevant I have reviewed the following items shahbaz (where applicable) has been applied. Labs Laboratory Tests Test 03/09/20 16:45 03/09/20 21:00 03/10/20 07:22 03/10/20 11:01 Glucose (Fingerstick) 94 mg/dL (70-99) 101 mg/dL (70-99) 99 mg/dL (70-99) 95 mg/dL (70-99) Test 03/10/20 12:45 03/10/20 14:07 03/10/20 16:48 03/10/20 21:13 Glucose (Fingerstick) 94 mg/dL (70-99) 105 mg/dL (70-99) 163 mg/dL (70-99) 175 mg/dL (70-99) Test 03/11/20 05:00 03/11/20 06:47 03/11/20 11:28 White Blood Count 15.4 x10^3/uL (4.0-11.0) Red Blood Count 3.83 x10^6/uL (4.30-5.70) Hemoglobin 11.0 g/dL (13.0-17.5) Hematocrit 33.4 % (39.0-53.0) Mean Corpuscular Volume 87 fL (79-100) Mean Corpuscular Hemoglobin 29 pg (25-35) Mean Corpuscular Hemoglobin Concent 33 g/dL (31-37) Red Cell Distribution Width 18.7 % (11.5-14.5) Platelet Count 244 x10^3/uL (140-400) Sodium Level 141 mmol/L (136-145) Potassium Level 5.4 mmol/L (3.5-5.1) Chloride Level 105 mmol/L (98-107) Carbon Dioxide Level 29 mmol/L (21-32) Anion Gap 7 (6-14) Blood Urea Nitrogen 58 mg/dL (8-26) Creatinine 5.5 mg/dL (0.7-1.3) Estimated GFR (Cockcroft-Gault) 10.2 Glucose Level 151 mg/dL (70-99) Calcium Level 8.2 mg/dL (8.5-10.1) Total Bilirubin 0.3 mg/dL (0.2-1.0) Direct Bilirubin 0.1 mg/dL (0.0-0.2) Aspartate Amino Transf (AST/SGOT) 80 U/L (15-37) Alanine Aminotransferase (ALT/SGPT) 67 U/L (16-63) Alkaline Phosphatase 113 U/L (46-116) Total Protein 5.2 g/dL (6.4-8.2) Albumin 1.7 g/dL (3.4-5.0) Glucose (Fingerstick) 145 mg/dL (70-99) 148 mg/dL (70-99) Laboratory Tests Test 03/10/20 12:45 03/10/20 14:07 03/10/20 16:48 03/10/20 21:13 Glucose (Fingerstick) 94 mg/dL (70-99) 105 mg/dL (70-99) 163 mg/dL (70-99) 175 mg/dL (70-99) Test 03/11/20 05:00 03/11/20 06:47 03/11/20 11:28 White Blood Count 15.4 x10^3/uL (4.0-11.0) Red Blood Count 3.83 x10^6/uL (4.30-5.70) Hemoglobin 11.0 g/dL (13.0-17.5) Hematocrit 33.4 % (39.0-53.0) Mean Corpuscular Volume 87 fL (79-100) Mean Corpuscular Hemoglobin 29 pg (25-35) Mean Corpuscular Hemoglobin Concent 33 g/dL (31-37) Red Cell Distribution Width 18.7 % (11.5-14.5) Platelet Count 244 x10^3/uL (140-400) Sodium Level 141 mmol/L (136-145) Potassium Level 5.4 mmol/L (3.5-5.1) Chloride Level 105 mmol/L (98-107) Carbon Dioxide Level 29 mmol/L (21-32) Anion Gap 7 (6-14) Blood Urea Nitrogen 58 mg/dL (8-26) Creatinine 5.5 mg/dL (0.7-1.3) Estimated GFR (Cockcroft-Gault) 10.2 Glucose Level 151 mg/dL (70-99) Calcium Level 8.2 mg/dL (8.5-10.1) Total Bilirubin 0.3 mg/dL (0.2-1.0) Direct Bilirubin 0.1 mg/dL (0.0-0.2) Aspartate Amino Transf (AST/SGOT) 80 U/L (15-37) Alanine Aminotransferase (ALT/SGPT) 67 U/L (16-63) Alkaline Phosphatase 113 U/L (46-116) Total Protein 5.2 g/dL (6.4-8.2) Albumin 1.7 g/dL (3.4-5.0) Glucose (Fingerstick) 145 mg/dL (70-99) 148 mg/dL (70-99) Microbiology 03/10/20 Gram Stain - Final, Resulted 03/10/20 Aerobic and Anaerobic Culture - Preliminary, Resulted 03/10/20 Gram Stain - Final, Resulted 03/10/20 Aerobic and Anaerobic Culture - Preliminary, Resulted 03/05/20 Blood Culture - Final, Complete NO GROWTH AFTER 5 DAYS Medications Current Medications Ondansetron HCl (Zofran) 4 mg STK-MED ONCE .ROUTE ; Start 03/05/20 at 03:24; Stop 03/05/20 at 03:24; Status DC Ondansetron HCl (Zofran) 4 mg 1X ONCE IVP Last administered on 03/05/20at 03:34; Start 03/05/20 at 03:30; Stop 03/05/20 at 03:48; Status DC Potassium Chloride (Klor-Con) 40 meq 1X ONCE PO Last administered on 03/05/20at 04:48; Start 03/05/20 at 04:30; Stop 03/05/20 at 04:31; Status DC Furosemide (Lasix) 40 mg 1X ONCE IVP Last administered on 03/05/20at 04:51; Start 03/05/20 at 04:30; Stop 03/05/20 at 04:31; Status DC Ceftriaxone Sodium (Rocephin) 1 gm 1X ONCE IVP Last administered on 03/05/20at 04:50; Start 03/05/20 at 04:30; Stop 03/05/20 at 04:31; Status DC Azithromycin 250 ml @ 250 mls/hr 1X ONCE IV Last administered on 03/05/20at 04:51; Start 03/05/20 at 04:30; Stop 03/05/20 at 05:29; Status DC Aspirin (Aspirin Chewable) 324 mg 1X ONCE PO Last administered on 03/05/20at 04:45; Start 03/05/20 at 04:30; Stop 03/05/20 at 04:31; Status DC Ondansetron HCl (Zofran) 4 mg PRN Q8HRS PRN IV NAUSEA/VOMITING; Start 03/05/20 at 04:45; Stop 03/06/20 at 04:44; Status DC Morphine Sulfate (Morphine Sulfate) 2 mg PRN Q2HR PRN IV PAIN; Start 03/05/20 at 04:45; Stop 03/05/20 at 09:25; Status DC Potassium Chloride/Water 100 ml @ 100 mls/hr Q1H IV Last administered on 03/05/20at 09:36; Start 03/05/20 at 06:00; Stop 03/05/20 at 07:59; Status DC Amlodipine Besylate (Norvasc) 10 mg DAILY PO ; Start 03/05/20 at 10:00; Stop 03/05/20 at 10:26; Status DC Aspirin (Ecotrin) 81 mg DAILY PO ; Start 03/05/20 at 10:00; Stop 03/05/20 at 10:47; Status DC Vitamin D (Vitamin D3) 1,000 unit BID PO Last administered on 03/10/20at 21:43; Start 03/05/20 at 10:00 Clopidogrel Bisulfate (Plavix) 75 mg DAILY PO Last administered on 03/08/20at 09:52; Start 03/05/20 at 10:00; Stop 03/09/20 at 12:23; Status DC Atorvastatin Calcium (Lipitor) 80 mg QHS PO Last administered on 03/10/20at 21:43; Start 03/05/20 at 21:00 Carvedilol (Coreg) 25 mg BIDWMEALS PO ; Start 03/05/20 at 10:00; Stop 03/05/20 at 10:26; Status DC Non-Formulary Medication (Guanfacine Hcl ) 1 tab HS PO ; Start 03/05/20 at 21:00; Stop 03/05/20 at 10:47; Status DC Levothyroxine Sodium (Synthroid) 100 mcg DAILY07 PO Last administered on 03/11/20 06:13; Start 03/05/20 at 10:00 Amlodipine Besylate (Norvasc) 5 mg DAILY PO Last administered on 03/10/20 15:17; Start 03/05/20 at 13:00 Carvedilol (Coreg) 12.5 mg BIDWMEALS PO Last administered on 03/10/20at 15:16; Start 03/05/20 at 17:00 Meropenem (Merrem) 1 gm DAILY IV ; Start 03/05/20 at 12:15; Stop 03/05/20 at 12:20; Status DC Losartan Potassium (Cozaar) 25 mg DAILY PO Last administered on 03/10/20at 15:17; Start 03/05/20 at 13:00 Potassium Chloride (Klor-Con) 20 meq DAILYWBKFT PO Last administered on 03/10/20at 15:16; Start 03/05/20 at 13:00 Psyllium Hydrophilic Mucilloid (Metamucil Fiber Packet) 1 pkt QPM PO Last administered on 03/10/20at 17:33; Start 03/05/20 at 18:00 Meropenem 1 gm/ Sodium Chloride 100 ml @ 200 mls/hr DAILY IV Last administered on 03/05/20at 13:59; Start 03/05/20 at 13:00; Stop 03/05/20 at 17:51; Status DC Heparin Sodium (Porcine) (Heparin Sodium) 5,000 unit Q8HRS SQ Last administered on 03/09/20at 06:30; Start 03/05/20 at 14:00; Stop 03/09/20 at 12:23; Status DC Tramadol HCl (Ultram) 50 mg PRN Q6HRS PRN PO PAIN; Start 03/05/20 at 16:00 Fentanyl Citrate (Fentanyl 2ml Vial) 25 mcg PRN Q4HRS PRN IVP PAIN; Start 03/05/20 at 16:00 Meropenem 500 mg/ Sodium Chloride 50 ml @ 100 mls/hr DAILY IV Last administered on 03/10/20at 11:18; Start 03/06/20 at 09:00 Potassium Chloride (Klor-Con) 40 meq 1X ONCE PO Last administered on 03/06/20at 10:00; Start 03/06/20 at 08:00; Stop 03/06/20 at 08:01; Status DC Insulin Human Lispro (HumaLOG) 0-7 UNITS TIDWMEALHC SQ ; Start 03/06/20 at 12:00 Dextrose (Dextrose 50%-Water Syringe) 12.5 gm PRN Q15MIN PRN IV SEE COMMENTS; Start 03/06/20 at 10:00 Magnesium Sulfate 50 ml @ 25 mls/hr 1X ONCE IV Last administered on 03/06/20at 10:37; Start 03/06/20 at 10:00; Stop 03/06/20 at 11:59; Status DC Lactobacillus Rhamnosus (Culturelle) 1 cap BID PO Last administered on 03/10at 21:43; Start 03/06/20 at 21:00 Lidocaine/ Epinephrine (LIDOCAINE 1%-EPI 1:100,000 Multi-Dose) 20 ml STK-MED ONCE .ROUTE ; Start 03/08/20 at 13:19; Stop 03/08/20 at 13:19; Status DC Midazolam HCl (Versed) 2 mg 1X ONCE IV Last administered on 03/08/20at 13:45; Start 03/08/20 at 13:30; Stop 03/08/20 at 13:31; Status DC Fentanyl Citrate (Fentanyl 2ml Vial) 100 mcg 1X ONCE IV Last administered on 03/08/20at 13:45; Start 03/08/20 at 13:30; Stop 03/08/20 at 13:31; Status DC Lidocaine/ Epinephrine (LIDOCAINE 1%-EPI 1:100,000 Multi-Dose) 20 ml 1X ONCE SQ Last administered on 03/08/20at 13:45; Start 03/08/20 at 13:30; Stop 03/08/20 at 13:31; Status DC Cefazolin Sodium/ Dextrose 50 ml @ 100 mls/hr 1X ONCE IV Last administered on 03/08/20at 13:30; Start 03/08/20 at 13:30; Stop 03/08/20 at 13:59; Status DC Midazolam HCl (Versed) 2 mg STK-MED ONCE .ROUTE ; Start 03/08/20 at 13:28; Stop 03/08/20 at 13:29; Status DC Fentanyl Citrate (Fentanyl 2ml Vial) 100 mcg STK-MED ONCE .ROUTE ; Start 03/08/20 at 13:28; Stop 03/08/20 at 13:29; Status DC Sodium Chloride 1,000 ml @ 1,000 mls/hr Q1H PRN IV hypotension; Start 03/09/20 at 07:53; Stop 03/09/20 at 13:52; Status DC Albumin Human 200 ml @ 200 mls/hr 1X PRN PRN IV Hypotension; Start 03/09/20 at 08:00; Stop 03/09/20 at 13:59; Status DC Info (PHARMACY MONITORING -- do not chart) 1 each PRN DAILY PRN MC SEE COMMENTS; Start 03/09/20 at 08:00; Status UNV Info (PHARMACY MONITORING -- do not chart) 1 each PRN DAILY PRN MC SEE COMMENTS; Start 03/09/20 at 08:00 Clopidogrel Bisulfate (Plavix) 75 mg DAILY PO Last administered on 03/10/20at 15:16; Start 03/10/20 at 09:00 Heparin Sodium (Porcine) (Heparin Sodium) 5,000 unit Q8HRS SQ Last administered on 03/11/20at 06:12; Start 03/10/20 at 06:00 Ondansetron HCl (Zofran) 4 mg PRN Q6HRS PRN IV NAUSEA/VOMITING; Start 03/10/20 at 07:00; Stop 03/10/20 at 20:00; Status DC Fentanyl Citrate (Fentanyl 2ml Vial) 25 mcg PRN Q5MIN PRN IV MILD PAIN 1-3; Start 03/10/20 at 07:00; Stop 03/10/20 at 20:00; Status DC Fentanyl Citrate (Fentanyl 2ml Vial) 50 mcg PRN Q5MIN PRN IV MODERATE TO SEVERE PAIN; Start 03/10/20 at 07:00; Stop 03/10/20 at 20:00; Status DC Morphine Sulfate (Morphine Sulfate) 1 mg PRN Q10MIN PRN IV SEVERE PAIN 7-10; Start 03/10/20 at 07:00; Stop 03/10/20 at 20:00; Status DC Hydromorphone HCl (Dilaudid) 0.5 mg PRN Q10MIN PRN IV SEV PAIN, Second choice; Start 03/10/20 at 07:00; Stop 03/10/20 at 20:00; Status DC Prochlorperazine Edisylate (Compazine) 5 mg PACU PRN PRN IV NAUSEA, MRX1; Start 03/10/20 at 07:00; Stop 03/10/20 at 20:00; Status DC Sodium Chloride 1,000 ml @ 0 mls/hr Q0M IV Last administered on 03/10/20at 11:16; Start 03/10/20 at 11:00 Lidocaine HCl (Lidocaine Pf 2% Vial) 5 ml STK-MED ONCE .ROUTE ; Start 03/10/20 at 10:53; Stop 03/10/20 at 10:53; Status DC Propofol (Diprivan) 200 mg STK-MED ONCE IV ; Start 03/10/20 at 10:53; Stop 03/10/20 at 10:53; Status DC Fentanyl Citrate (Fentanyl 2ml Vial) 100 mcg STK-MED ONCE .ROUTE ; Start 03/10/20 at 10:53; Stop 03/10/20 at 10:53; Status DC Bupivacaine HCl/ Epinephrine Bitart (Sensorcain-Epi 0.5%-1:[id number] Mpf) 30 ml STK-MED ONCE .ROUTE Last administered on 03/10/20at 12:05; Start 03/10/20 at 11:16; Stop 03/10/20 at 11:16; Status DC Bupivacaine HCl/ Epinephrine Bitart (Sensorcain-Epi 0.5%-1:[id number] Mpf) 30 ml STK-MED ONCE .ROUTE ; Start 03/10/20 at 11:36; Stop 03/10/20 at 11:36; Status DC Dexamethasone Sodium Phosphate (Decadron) 20 mg STK-MED ONCE .ROUTE ; Start 03/10/20 at 11:58; Stop 03/10/20 at 11:58; Status DC Ondansetron HCl (Zofran) 4 mg STK-MED ONCE .ROUTE ; Start 03/10/20 at 11:58; Stop 03/10/20 at 11:58; Status DC Sevoflurane (Ultane) 15 ml STK-MED ONCE IH ; Start 03/10/20 at 11:58; Stop 03/10/20 at 11:58; Status DC Active Scripts Active Reported Merrem (Meropenem) 1 Gm Vial 1 Gm IV DAILY 13 Days Pepcid (Famotidine) 20 Mg Tablet 20 Mg PO HS Irbesartan 75 Mg Tablet 1 Tab PO DAILY Amlodipine Besylate 5 Mg Tablet 1 Tab PO DAILY Carvedilol 12.5 Mg Tablet 1 Tab PO BID Potassium Chloride 20 Meq Tablet.er 1 Tab PO DAILY Levothyroxine Sodium 100 Mcg Tablet 1 Tab PO DAILY07 90 Days Vitamin D3 (Cholecalciferol (Vitamin D3)) 1,000 Unit Tablet 1 Tab PO BID Plavix (Clopidogrel Bisulfate) 75 Mg Tablet 1 Tab PO DAILY Lipitor (Atorvastatin Calcium) 80 Mg Tablet 80 Mg PO DAILY Vitals/I & O Vital Sign - Last 24 Hours 03/10/20 03/10/20 03/10/20 03/10/20 12:40 12:40 12:55 13:10 Temp 97.2 97.2 97.2 97.2 Pulse 84 84 84 Resp 20 B/P (MAP) 143/81 123/75 137/83 Pulse Ox 100 100 100 O2 Delivery Mask Room Air Room Air O2 Flow Rate 10 03/10/20 03/10/20 03/10/20 03/10/20 15:00 15:16 15:17 15:17 Temp 98.3 98.3 Pulse 79 84 84 84 Resp 20 B/P (MAP) 170/78 (108) 137/83 137/83 137/83 Pulse Ox 95 O2 Delivery Room Air 03/10/20 03/10/20 03/10/20 03/11/20 19:30 20:00 22:09 02:21 Temp 98.2 98.2 98.0 98.2 98.2 98.0 Pulse 67 61 90 Resp 20 18 18 B/P (MAP) 105/54 (71) 131/66 (87) 135/79 (97) Pulse Ox 96 97 98 O2 Delivery Room Air Room Air Room Air BiPAP/CPAP 03/11/20 03/11/20 03/11/20 07:18 07:45 10:29 Temp 98.4 98.1 98.4 98.1 Pulse 94 96 Resp 18 18 B/P (MAP) 135/80 (98) 150/72 (98) Pulse Ox 96 93 O2 Delivery BiPAP/CPAP Room Air Room Air Intake and Output 03/10/20 03/10/20 03/11/20 15:00 23:00 07:00 Intake Total 575 ml 320 ml 540 ml Output Total 5 ml 180 ml Balance 570 ml 320 ml 360 ml Justicifation of Admission Dx: Justifications for Admission: Justification of Admission Dx: Yes CHF: Sev. Electrolyte Abnormal Chronic Renal Failure: Electrolyte Abnormality NATHAN SIMON MD Mar 11, 2020 12:09
--- NOTE | 2020-03-11 12:29 | PDOC ---
Renal-Progress Notes Subjective Notes Notes FEELS WELL History of Present Illness Hx of present illness STABLE Vitals Vitals Vital Signs Date Time Temp Pulse Resp B/P (MAP) Pulse Ox O2 Delivery O2 Flow Rate FiO2 03/11/20 10:29 98.1 96 18 150/72 (98) 93 Room Air 98.1 03/10/20 12:40 10 Weight Weight [ ] I.O. Intake and Output Intake and Output 03/11/20 07:00 Intake Total 1435 ml Output Total 185 ml Balance 1250 ml Intake Oral 1085 ml IV Total 350 ml Output Urine Total 180 ml Estimated Blood Loss 5 ml # Voids 2 Labs Labs Laboratory Tests Test 03/10/20 12:45 03/10/20 14:07 03/10/20 16:48 03/10/20 21:13 Glucose (Fingerstick) 94 mg/dL (70-99) 105 mg/dL (70-99) 163 mg/dL (70-99) 175 mg/dL (70-99) Test 03/11/20 05:00 03/11/20 06:47 03/11/20 11:28 White Blood Count 15.4 x10^3/uL (4.0-11.0) Red Blood Count 3.83 x10^6/uL (4.30-5.70) Hemoglobin 11.0 g/dL (13.0-17.5) Hematocrit 33.4 % (39.0-53.0) Mean Corpuscular Volume 87 fL (79-100) Mean Corpuscular Hemoglobin 29 pg (25-35) Mean Corpuscular Hemoglobin Concent 33 g/dL (31-37) Red Cell Distribution Width 18.7 % (11.5-14.5) Platelet Count 244 x10^3/uL (140-400) Sodium Level 141 mmol/L (136-145) Potassium Level 5.4 mmol/L (3.5-5.1) Chloride Level 105 mmol/L (98-107) Carbon Dioxide Level 29 mmol/L (21-32) Anion Gap 7 (6-14) Blood Urea Nitrogen 58 mg/dL (8-26) Creatinine 5.5 mg/dL (0.7-1.3) Estimated GFR (Cockcroft-Gault) 10.2 Glucose Level 151 mg/dL (70-99) Calcium Level 8.2 mg/dL (8.5-10.1) Total Bilirubin 0.3 mg/dL (0.2-1.0) Direct Bilirubin 0.1 mg/dL (0.0-0.2) Aspartate Amino Transf (AST/SGOT) 80 U/L (15-37) Alanine Aminotransferase (ALT/SGPT) 67 U/L (16-63) Alkaline Phosphatase 113 U/L (46-116) Total Protein 5.2 g/dL (6.4-8.2) Albumin 1.7 g/dL (3.4-5.0) Glucose (Fingerstick) 145 mg/dL (70-99) 148 mg/dL (70-99) Micro Micro Microbiology 03/10/20 Gram Stain - Final, Resulted 03/10/20 Aerobic and Anaerobic Culture - Preliminary, Resulted 03/10/20 Gram Stain - Final, Resulted 03/10/20 Aerobic and Anaerobic Culture - Preliminary, Resulted 03/05/20 Blood Culture - Final, Complete NO GROWTH AFTER 5 DAYS Review of Systems Constitutional: yes: alert, oriented Ears/Nose/Throat: Yes: no symptom reported Eyes: Yes: no symptom reported Pulmonary: Yes no symptom reported Cardiovascular: Yes no symptom reported Gastrointestional: Yes: no symptom reported Genitourinary: Yes: no symptom reported Musculoskeletal: Yes: no symptom reported Psychiatric/Neurological: Yes: no symptom reported Endocrine: Yes: no symptom reported Physical Exam General Appearance: no apparent distress, afebrile Skin: warm Respiratory: bilateral CTA, tachypnea Heart: S1S2 Abdomen: soft Genitourinary: bladder flat Extremities: pulses present Neurology: alert, oriented, follow commands Assessment Assessment IMP ESRD ANEMIA PERITONITIS-RECURRENT S/P PD CATHETER REMOVAL DM II CM WITH EF OF 40-45% PLAN HD TODAY UF TO DW ANTIBIOTICS OP HD SET UP AT [facility] D/W SW WILL FOLLOW D/C WHEN OP ANTIBIOTICS SET UP JOANNE MARRERO MD Mar 11, 2020 12:28
[2020-03-11] MEDS ORDERED: IV NORMAL SALINE 1000ML BAG 1,000 ML IV PRN ×2 (14:06)
[2020-03-11] MEDS ORDERED: DIALYSIS PATIENT. MC PRN (14:15)
[2020-03-11] MEDS ORDERED: ALBUMIN HUMAN 25% 200 ML IV PRN (14:15)
[2020-03-11] MEDS ORDERED: diphenhydrAMINE 50 MG/ML VIAL IV PRN ×2 (14:15)
[2020-03-11] MEDS: amLODIPine BESYLATE 5 MG TABLET PO SCH (17:05)
[2020-03-11] MEDS: CLOPIDOGREL BISULFATE 75 MG TABLET PO SCH (17:05)
[2020-03-11] MEDS: PSYLLIUM HUSK (SUGAR FREE) 1 PKT PACKET PO SCH (17:06)
[2020-03-11] MEDS: LOSARTAN POTASSIUM 25 MG TABLET. PO SCH (17:26)
[2020-03-11 19:45] VITALS: BP 122/80
[2020-03-11] MEDS: ATORVASTATIN CALCIUM 40 MG TABLET. PO SCH (22:26)
[2020-03-11 23:21] VITALS: BP 141/64
[2020-03-12 02:35] VITALS: BP 156/80
[2020-03-12] MEDS: HEPARIN for SUB-Q USE 5,000 UNIT/ML VIAL. SQ SCH (06:37)
[2020-03-12 07:05] VITALS: BP 128/68
[2020-03-12] MEDS: LEVOTHYROXINE 100 MCG TABLET PO SCH (07:51)
[2020-03-12] MEDS: POTASSIUM CHLORIDE 20 MEQ TABLET.ER. PO SCH (08:00)
[2020-03-12] MEDS: INSULIN LISPRO 300 UNITS/3 ML VIAL. SQ SCH (08:00)
[2020-03-12] MEDS ORDERED: MULTIVITAMIN with MINERAL TABLET. PO SCH (09:00)
[2020-03-12] MEDS ORDERED: FAMOTIDINE 20 MG TABLET. PO ONE (09:00)
[2020-03-12] MEDS ORDERED: ASCORBIC ACID 500 MG TABLET PO SCH (09:00)
[2020-03-12] MEDS: CHOLECALCIFEROL (VITAMIN D3) 1,000 UNIT TABLET PO SCH (09:01)
[2020-03-12] MEDS: LACTOBACILLUS RHAMNOSUS GG 1 CAPSULE. PO SCH (09:01)
[2020-03-12] MEDS: LOSARTAN POTASSIUM 25 MG TABLET. PO SCH (09:01)
[2020-03-12] MEDS: CARVEDILOL 12.5 MG TABLET. PO SCH (09:02)
[2020-03-12] MEDS: CLOPIDOGREL BISULFATE 75 MG TABLET PO SCH (09:02)
[2020-03-12 09:03] VITALS: BP 128/68
[2020-03-12] MEDS: MEROPENEM 500 MG in IV NORMAL SALINE 50ML 50 ML IV SCH (09:03)
[2020-03-12] MEDS: amLODIPine BESYLATE 5 MG TABLET PO SCH (09:03)
[2020-03-12] MEDS ORDERED: LACT1CAP19 PO (09:07)
[2020-03-12] MEDS ORDERED: FAMO-63 PO (09:07)
--- NOTE | 2020-03-12 09:14 | PDOC3 ---
Discharge Summary Visit Information Date of Admission: Mar 05, 2020 Date of Discharge: Mar 12, 2020 Admitting Diagnosis Comment: Nausea and vomiting - likely secondary to peritonitis. No diarrhea, gastroenteritis is also a possibility. Will give IV antiemetics. Pain control. Shortness of breath - multifactorial due to respiratory splinting due to peritonitis, complicated by an acute CHF exacerbation, less likely to be COVID- 19, will follow up on the results of this test. Will diuresis with PD and Lasix. Peritonitis - secondary to PD catheter infection with ESBL E. coli. I have ordered IV meropenem daily. Will consult ID and nephrology for further recommendations. Hypokalemia - will replace IV and p.o. Will defer to nephrology for further recommendations on replacement protocol given his ESRD status. Severe protein calorie malnutrition - will have dietitian to see, continue renal diet Hypomagnesemia - will replace Transaminitis - likely secondary to peritonitis. Will trend LFTs. 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 CAD s/p CABG and stenting x6 - stable, will continue cardiac meds Hypertension - continue meds Acute diastolic CHF - due to over load of fluid due to inadequate peritoneal dialysis likely due to peritonitis. Unknown recent EF. 2013 his EF was 55%. Will attempt diuresis. He may need to convert HD for UF, will defer to nephrology for this. DM2 - will place on basal bolus plus insulin while inpatient H/o TIA - no neurologic complaints ESRD - on peritoneal dialysis. Given this appears to be his second bout of peritonitis in his first year of PD I have advised him to ask his recovery coach if other options are available such as HD. TIKA on BIPAP 17/06 qhs - his will bring his home device. Left knee pain - chronic, will offer voltaren topical ointment Bilateral Lower extremity wounds - wound care nursing to see Final Diagnosis Problems Medical Problems: (1) CHF (congestive heart failure) Status: Acute (2) Elevated troponin Status: Acute (3) Hypokalemia Status: Acute (4) Nausea & vomiting Status: Acute (5) Person under investigation for COVID-19 Status: Acute (6) Shortness of breath Status: Acute Brief Hospital Course Allergies Allergies Coded Allergies Type Severity Reaction Last Updated Verified doxycycline Allergy Intermediate Itching 09/09/15 Yes Vital Signs Vital Signs Date Time Temp Pulse Resp B/P (MAP) Pulse Ox O2 Delivery O2 Flow Rate FiO2 03/12/20 09:03 80 128/68 03/12/20 07:05 98.7 20 93 Room Air 98.7 Lab Results Laboratory Tests Test 03/10/20 11:01 03/10/20 12:45 03/10/20 14:07 03/10/20 16:48 Glucose (Fingerstick) 95 mg/dL (70-99) 94 mg/dL (70-99) 105 mg/dL (70-99) 163 mg/dL (70-99) Test 03/10/20 21:13 03/11/20 05:00 03/11/20 06:47 03/11/20 11:28 Glucose (Fingerstick) 175 mg/dL (70-99) 145 mg/dL (70-99) 148 mg/dL (70-99) White Blood Count 15.4 x10^3/uL (4.0-11.0) Red Blood Count 3.83 x10^6/uL (4.30-5.70) Hemoglobin 11.0 g/dL (13.0-17.5) Hematocrit 33.4 % (39.0-53.0) Mean Corpuscular Volume 87 fL (79-100) Mean Corpuscular Hemoglobin 29 pg (25-35) Mean Corpuscular Hemoglobin Concent 33 g/dL (31-37) Red Cell Distribution Width 18.7 % (11.5-14.5) Platelet Count 244 x10^3/uL (140-400) Sodium Level 141 mmol/L (136-145) Potassium Level 5.4 mmol/L (3.5-5.1) Chloride Level 105 mmol/L (98-107) Carbon Dioxide Level 29 mmol/L (21-32) Anion Gap 7 (6-14) Blood Urea Nitrogen 58 mg/dL (8-26) Creatinine 5.5 mg/dL (0.7-1.3) Estimated GFR (Cockcroft-Gault) 10.2 Glucose Level 151 mg/dL (70-99) Calcium Level 8.2 mg/dL (8.5-10.1) Total Bilirubin 0.3 mg/dL (0.2-1.0) Direct Bilirubin 0.1 mg/dL (0.0-0.2) Aspartate Amino Transf (AST/SGOT) 80 U/L (15-37) Alanine Aminotransferase (ALT/SGPT) 67 U/L (16-63) Alkaline Phosphatase 113 U/L (46-116) Total Protein 5.2 g/dL (6.4-8.2) Albumin 1.7 g/dL (3.4-5.0) Test 03/11/20 22:25 03/12/20 06:49 Glucose (Fingerstick) 122 mg/dL (70-99) 103 mg/dL (70-99) Laboratory Tests Test 03/11/20 11:28 03/11/20 22:25 03/12/20 06:49 Glucose (Fingerstick) 148 mg/dL (70-99) 122 mg/dL (70-99) 103 mg/dL (70-99) Brief Hospital Course History of Present Illness Mr Encinas is a 75 year old male with past medical history of CAD s/p CABG and stenting x6, hypertension, CHF, afib, DM2, TIA, ESRD (peritoneal dialysis), TIKA on BIPAP 17/06 qhs presents for evaluation of shortness of breath, nausea and vomiting as well as a fall at home. At 02 100 on 03/05/2020 is found him laying on the floor unable to lift himself up and she was unable to lift him and called EMS per lift assistance. He denies any loss of consciousness or head or neck injury. He does complain of chronic left knee pain is aching throbbing and bilateral rated a 4 out of 10. He has had nausea vomiting and decreased appetite as well as a dry cough for 1 week. He does note that he is been progressively more short of breath for months he thinks since October. He also notes this is his ninth fall since May 2019. He was recently started on cefdinir on 02/28/2020 for lower extremity wound infection through [facility] wound [facility], and subsequently intraperitoneal meropenem 1 g daily on 03/04/2020 after a peritoneal catheter culture result on 03/03/2020 returned positive for E. coli ESBL. I reviewed this data from Hannah Yoder. He also had a ESBL E. coli PD catheter infection 11/26/2019. There is no particular sensitivity information available to me is simply reads ESBL. He notes he has been on PD for a year and until recently tolerated very well on nocturnal cycler notes he uses to yellow bags at night and 1 during the day at times when he has been treated for peritonitis with intraperitoneal antibiotics. EKG with HR 92. Intraventricular conduction aberrancy, multiple PVCs. CXR with interstitial opacities and possible left basilar infiltrate. Post- sternotomy changes Labs significant for WBC 10.3, Hb 12.6, platelets 273. NA 138, K2.6, mag 1.4, BUN 53, CR 4.3, glucose 135, calcium 7.7, albumin 1.9, BNP greater than 30 5K, troponin 0 0.143, repeat troponin 0.136. Lactic acid 1.7 Due to his complaints of shortness of breath and his dialysis status ED physic pina ordered COVID-19 swab and he has been seen and evaluated in the COVID-19 isolation unit. Admitted for further care 03/06 Slept well on his home CPAP overnight, afebrile. Had a few complications with PD overnight but was able to complete his cycle and feels significantly better this morning. K down to 2.9. 03/07 No acute events reported overnight, case discussed with nursing staff patient in no acute distress no complaints during my visit plan of care explained in detail, reassurance provided 03/08 No acute events reported overnight, case discussed with nursing staff patient in no acute distress no complaints during my visit, at bedside, all concerns addressed to the best of my abilities 03/09 Patient on dialysis today, he will be taken to the OR for peritoneal dialysis catheter removal in the am. No new concerns. 03/10 Patient seen in the pre op area, reassurance provided, discussed with nephrology lean consultant, will plan for discharge in the am after dialysis. has arranged for outpatient dialysis chair time. We will need ID recommendations in the am 03/11 No acute events reported overnight, case discussed with nursing staff patient in no acute distress no complaints during my visit Hopefully discharge in the a.m. 03/12 Arrangements were made for a midline to be placed and the patient will come to our institution to have his infusion of antibiotics. The patient will continue with hemodialysis on Saturday and he will get his antibiotic administered while being on dialysis on those days. The patient is in good spirits to be going home no acute events were reported on the last 24 hours of hospital stay. Greater than 35 minutes were spent in the discharge process the patient counseling coordination of care and arrangements for safe discharge. We will try to arrange for a rolling walker for the patient moving forward since he seems to feel much more secure ambulating with it. He is peritoneal catheter Gram stain was negative Blood cultures remain negative and there was no growth after 5 days Recommendations from ID were greatly appreciated and he will continue with Merrem 500 until 03/16/2020 according to our consultants notes Physical Exam GENERAL: Alert, oriented x 3, male, in bed. looking well. HEENT: Anicteric. No thrush. NECK: Supple. LUNGS: Decreased breath sound at the bases, otherwise clear. HEART: S1, S2. No murmurs. ABDOMEN: Soft, Nontender. PD catheter in place, site looks clean and intact. Bowel sounds present. No rebound, no guarding. EXTREMITIES: Bilateral venous stasis ulcers with dermatitis. No redness or purulent drainage noted. NEUROLOGIC: Alert, awake, grossly nonfocal. PSYCHIATRIC: Cooperative. DERMATOLOGIC: Warm, dry. No generalized rash except for above. RIGHT Chest HD cath clean General: Alert, Oriented X3, Cooperative Heart: Regular rate, Normal S1, Normal S2 Abdomen: Soft, Other (ND, incision dressings scant shadowing ) Extremities: No clubbing, No cyanosis Skin: No rashes, No breakdown Assessment Assessment Operative Note Operative Note Date: 03/10/2020 at 1231 Preoperative diagnosis: Infected peritoneal dialysis catheter Postoperative diagnosis: Same Procedure: Removal peritoneal dialysis catheter with cultures Surgeon: Paul Specimen: Cultures and peritoneal dialysis catheter Dictation: Patient is a 75-year-old gentleman has had a peritoneal dialysis cath eter been having difficulties with that and infection concerning for peritonitis. Procedure of removal peritoneal dialysis catheter was explained to the patient detail risk-benefit were also discussed including bleeding infection alternatives to this procedure also discussed with patient who seemed to understand and gave both verbal and written consent to have procedure performed. Patient was taken to the operating room placed in supine position general anesthesia was initiated once patient was sleeping intubated his abdomen was prepped and draped you sterile fashion using ChloraPrep. An area where the catheter exited the abdominal wall was injected quarter percent Marcaine with epinephrine the felt collar was freed up from its adherent tissues. Incision was made at the umbilicus after injecting with quarter percent Marcaine with epinephrine the catheter was grasped retracted the felt collar was freed up from its adherent tissues allow for free removal of the peritoneal dialysis catheter cultures were taken of the fluid around the catheter. The fascia at the umbilicus closed with [id number] Vicryl suture and skin was reapp roximated at the incisions with a 4-0 subcuticular Monocryl Mastisol Steri- Strips and island dressings were applied. Patient was awakened extubated in the operating room taken to recovery in stable condition all sponge instrument needle counts listed as correct estimated blood loss 5 mL Discharge Information Condition at Discharge: Improved Follow Up: Weeks Disposition/Orders: D/C to Home Scheduled Amlodipine Besylate (Amlodipine Besylate) 5 Mg Tablet, 1 TAB PO DAILY for hypertension, (Reported) Entered as Reported by: TRENA AARON on 03/05/20 1016 Last Action: Continued on 03/05/201214 by PRISCILLA GROVES MD Atorvastatin Calcium (Lipitor) 80 Mg Tablet, 80 MG PO DAILY, (Reported) Entered as Reported by: RINA OROZCO on 10/18/13 1513 Last Action: Converted on 03/05/20924 by PRISCILLA GROVES MD Carvedilol (Carvedilol) 12.5 Mg Tablet, 1 TAB PO BID for heart, (Reported) Entered as Reported by: TRENA AARON on 03/05/20 1016 Last Action: Continued on 03/05/201214 by PRISCILLA GROVES MD Cholecalciferol (Vitamin D3) (Vitamin D3) 1,000 Unit Tablet, 1 TAB PO BID, #30 Ref 5 (Reported) Entered as Reported by: EMMA FRIAS on 09/09/15 1110 Last Action: Continued on 03/05/20924 by PRISCILLA GROVES MD Clopidogrel Bisulfate (Plavix) 75 Mg Tablet, 1 TAB PO DAILY, #90 Ref 1 (Reported) Entered as Reported by: EMMA FRIAS on 09/09/15 1104 Last Action: Continued on 03/05/20924 by PRISCILLA GROVES MD Famotidine (Pepcid) 20 Mg Tablet, 20 MG PO HS for GERD for 30 Days, #30 Prescribed by: NATHAN SIMON MD on 03/12/20 0907 Irbesartan (Irbesartan) 75 Mg Tablet, 1 TAB PO DAILY for ., (Reported) Entered as Reported by: TRENA AARON on 03/05/20 1016 Last Action: Converted on 03/05/201214 by PRISCILLA GROVES MD Lactobacillus Rhamnosus Gg (Culturelle) 1 Each Cap.sprink, 1 CAP PO BID for probiotic for 30 Days, #60 Prescribed by: NATHAN SIMON MD on 03/12/2007 Levothyroxine Sodium (Levothyroxine Sodium) 100 Mcg Tablet, 1 TAB PO DAILY07 for Hypothyroidism for 90 Days, #90 (Reported) Entered as Reported by: PRISCILLA GROVES MD on 03/05/20924 Last Action: Continued on 03/05/20926 by PRISCILLA GROVES MD Potassium Chloride (Potassium Chloride) 20 Meq Tablet.er, 1 TAB PO DAILY for supplement, (Reported) Entered as Reported by: TRENA AARON on 03/05/20 1016 Last Action: Converted on 03/05/201214 by RPISCILLA GROVES MD Discontinued Medications Meropenem (Merrem) 1 Gm Vial, 1 GM IV DAILY for peritonitis for 13 Days, #13 (Reported) Entered as Reported by: TRENA AARON on 03/05/20 1029 Last Action: Continued on 03/05/201214 by PRISCILLA GROVES MD Justicifation of Admission Dx: Justifications for Admission: Justification of Admission Dx: Yes CHF: Sev. Electrolyte Abnormal Chronic Renal Failure: Electrolyte Abnormality NATHAN SIMON MD Mar 12, 2020 09:14
--- NOTE | 2020-03-12 10:20 | PDOC ---
DATE OF SERVICE DATE: 03/12/20 TIME: 10:20 SUBJECTIVE ROS No complaints, states is ready to go home OBJECTIVE Vital Signs Vital Signs Date Time Temp Pulse Resp B/P (MAP) Pulse Ox O2 Delivery O2 Flow Rate FiO2 03/12/20 09:03 80 128/68 03/12/20 08:45 Room Air 03/12/20 07:05 98.7 20 93 98.7 I & 0 Intake and Output 03/12/20 07:00 Intake Total 750 ml Output Total 200 ml Balance 550 ml Intake Oral 750 ml Output Urine Total 200 ml PHYSICAL EXAM Physical Exam General Appearance: no apparent distress, afebrile Skin: warm Respiratory: bilateral CTA, Heart: S1S2 Abdomen: soft Extremities: pulses present Neurology: alert, oriented, follow commands DIAGNOSIS/ASSESSMENT Assessment & Plan ESRD- Switched to HD from PD OP chair time scheduled for MWF No indication for dialysis today Anemia Recurrent peritonitis with PD, s/p catheter removal , Now on HD DM II CM with EF of 40-45% COMMENT/RELEVANT DATA Meds Current Medications Medications (Trade) Dose Ordered Sig/Randy Start Time Stop Time Status Last Admin Dose Admin Albumin Human 200 ml @ 200 mls/hr 1X PRN PRN 03/11/20 14:15 03/11/20 20:14 DC Amlodipine Besylate (Norvasc) 5 mg DAILY 03/05/20 13:00 03/12/20 09:03 5 MG Ascorbic Acid (Vitamin C) 500 mg DAILY 03/12/20 09:00 03/12/20 09:03 500 MG Aspirin (Aspirin Chewable) 324 mg 1X ONCE 03/05/20 04:30 03/05/20 04:31 DC 03/05/20 04:45 324 MG Aspirin (Ecotrin) 81 mg DAILY 03/05/20 10:00 03/05/20 10:47 DC Atorvastatin Calcium (Lipitor) 80 mg QHS 03/05/20 21:00 03/11/20 22:26 80 MG Azithromycin 250 ml @ 250 mls/hr 1X ONCE 03/05/20 04:30 03/05/20 05:29 DC 03/05/20 04:51 250 MLS/HR Bupivacaine HCl/ Epinephrine Bitart (Sensorcain-Epi 0.5%-1:[id number] Mpf) 30 ml STK-MED ONCE 03/10/20 11:36 03/10/20 11:36 DC Carvedilol (Coreg) 12.5 mg BIDWMEALS 03/05/20 17:00 03/12/20 09:02 12.5 MG Cefazolin Sodium/ Dextrose 50 ml @ 100 mls/hr 1X ONCE 03/08/20 13:30 03/08/20 13:59 DC 03/08/20 13:30 100 MLS/HR Ceftriaxone Sodium (Rocephin) 1 gm 1X ONCE 03/05/20 04:30 03/05/20 04:31 DC 03/05/20 04:50 1 GM Clopidogrel Bisulfate (Plavix) 75 mg DAILY 03/10/20 09:00 03/12/20 09:02 75 MG Dexamethasone Sodium Phosphate (Decadron) 20 mg STK-MED ONCE 03/10/20 11:58 03/10/20 11:58 DC Dextrose (Dextrose 50%-Water Syringe) 12.5 gm PRN Q15MIN PRN 03/06/20 10:00 Diphenhydramine HCl (Benadryl) 25 mg 1X PRN PRN 03/11/20 14:15 03/12/20 14:14 Famotidine (Pepcid) 20 mg 1X ONCE 03/12/20 09:00 03/12/20 09:01 DC 03/12/20 09:01 20 MG Fentanyl Citrate (Fentanyl 2ml Vial) 100 mcg STK-MED ONCE 03/10/20 10:53 03/10/20 10:53 DC Furosemide (Lasix) 40 mg 1X ONCE 03/05/20 04:30 03/05/20 04:31 DC 03/05/20 04:51 40 MG Heparin Sodium (Porcine) (Heparin Sodium) 5,000 unit Q8HRS 03/10/20 06:00 03/12/20 06:37 5,000 UNIT Hydromorphone HCl (Dilaudid) 0.5 mg PRN Q10MIN PRN 03/10/20 07:00 03/10/20 20:00 DC Info (PHARMACY MONITORING -- do not chart) 1 each PRN DAILY PRN 03/11/20 14:15 Insulin Human Lispro (HumaLOG) 0-7 UNITS TIDWMEALHC 03/06/20 12:00 Lactobacillus Rhamnosus (Culturelle) 1 cap BID 03/06/20 21:00 03/12/20 09:01 1 CAP Levothyroxine Sodium (Synthroid) 100 mcg DAILY07 03/05/20 10:00 03/12/20 07:51 100 MCG Lidocaine HCl (Lidocaine Pf 2% Vial) 5 ml STK-MED ONCE 03/10/20 10:53 03/10/20 10:53 DC Lidocaine/ Epinephrine (LIDOCAINE 1%-EPI 1:100,000 Multi-Dose) 20 ml 1X ONCE 03/08/20 13:30 03/08/20 13:31 DC 03/08/20 13:45 10 ML Losartan Potassium (Cozaar) 25 mg DAILY 03/05/20 13:00 03/12/20 09:01 25 MG Magnesium Sulfate 50 ml @ 25 mls/hr 1X ONCE 03/06/20 10:00 03/06/20 11:59 DC 03/06/20 10:37 25 MLS/HR Meropenem (Merrem) 1 gm DAILY 03/05/20 12:15 03/05/20 12:20 DC Meropenem 1 gm/ Sodium Chloride 100 ml @ 200 mls/hr DAILY 03/05/20 13:00 03/05/20 17:51 DC 03/05/20 13:59 200 MLS/HR Meropenem 500 mg/ Sodium Chloride 50 ml @ 100 mls/hr DAILY 03/06/20 09:00 03/12/20 09:03 100 MLS/HR Midazolam HCl (Versed) 2 mg STK-MED ONCE 03/08/20 13:28 03/08/20 13:29 DC Morphine Sulfate (Morphine Sulfate) 1 mg PRN Q10MIN PRN 03/10/20 07:00 03/10/20 20:00 DC Multivitamins (Thera M Plus) 1 tab DAILY 03/12/20 09:00 03/12/20 09:02 1 TAB Non-Formulary Medication (Guanfacine Hcl ) 1 tab HS 03/05/20 21:00 03/05/20 10:47 DC Ondansetron HCl (Zofran) 4 mg STK-MED ONCE 03/10/20 11:58 03/10/20 11:58 DC Potassium Chloride/Water 100 ml @ 100 mls/hr Q1H 03/05/20 06:00 03/05/20 07:59 DC 03/05/20 09:36 100 MLS/HR Potassium Chloride (Klor-Con) 40 meq 1X ONCE 03/06/20 08:00 03/06/20 08:01 DC 03/06/20 10:00 40 MEQ Prochlorperazine Edisylate (Compazine) 5 mg PACU PRN PRN 03/10/20 07:00 03/10/20 20:00 DC Propofol (Diprivan) 200 mg STK-MED ONCE 03/10/20 10:53 03/10/20 10:53 DC Psyllium Hydrophilic Mucilloid (Metamucil Fiber Packet) 1 pkt QPM 03/05/20 18:00 03/11/20 17:06 1 PKT Sevoflurane (Ultane) 15 ml STK-MED ONCE 03/10/20 11:58 03/10/20 11:58 DC Sodium Chloride 1,000 ml @ 400 mls/hr Q2H30M PRN 03/11/20 14:06 03/12/20 02:05 DC Tramadol HCl (Ultram) 50 mg PRN Q6HRS PRN 03/05/20 16:00 Vitamin D (Vitamin D3) 1,000 unit BID 03/05/20 10:00 03/12/20 09:01 1,000 UNIT Lab Laboratory Tests Test 03/11/20 11:28 03/11/20 22:25 03/12/20 06:49 Glucose (Fingerstick) 148 mg/dL (70-99) 122 mg/dL (70-99) 103 mg/dL (70-99) Results All relevant outside records, renal labs, imaging studies, telemetry/EKG's were reviewed. Justicifation of Admission Dx: Justifications for Admission: Justification of Admission Dx: Yes CHF: Sev. Electrolyte Abnormal Chronic Renal Failure: Electrolyte Abnormality TISHA CHRISTINA MD Mar 12, 2020 10:20
[2020-03-12 10:22] VITALS: BP 103/63
--- NOTE | 2020-03-12 12:14 | NUR ---
DISCHARGE INSTRUCTIONS DISCUSSED WITH PATIENT AND PATIENTS . PERIPHERAL IV OUT AND TELE OFF. PATIENTS MIDLINE IN ADAM TO STAY IN PLACE FOR OUTPATIENT ABX. PATIENT INFORMED TO CHECK INTO ER FOR OUTPATIENT ABX TOMORROW 03/13 AT 1100. DIALYSIS TO START ON OUTPATIENT BASIS AT [facility] ON WEDNESDAY 03/14 AT 1045. PATIENT STABLE AT TIME OF DISCHARGE WITH NOT QUESTIONS AT THIS TIME. PATIENT ESCORTED TO WIVES PERSONAL VEHICLE PER WHEELCHAIR BY NEWS PRODUCTION SUPERVISOR.
--- NOTE | 2020-03-15 11:07 | PATHOLOGY ---
[facility] Accession Number: [id number] . 01 Material submitted: . body - PERITONEAL DIALYSIS CATHETER . 01 Clinical history: . INFECTED PERITONEAL DIALYSIS CATHETER PORT . 02 Diagnosis: Segments (2) of catheter consistent with peritoneal dialysis catheter (Gross only) (JPM:[facility] 03/15/2020) [facility] 03/15/2020 1016 Local . 02 Electronically signed: . Gordon Singleton MD, Pathologist NPI- [id number] . 01 Gross description: . The specimen is received fresh, labeled "Antonino Encinas, peritoneal dialysis catheter". Received are two segments of clear tubing with a blue strip, measuring 30.0 cm each in length by 0.6 cm in diameter. There is a slight amount of attached pink-jones soft tissue. Gross photographs are taken. Sections are not submitted. (CAA; 03/14/2020) [facility] 03/14/2020 1057 Local . 02 Pathologist provided ICD-10: R06.00, I50.9 . 02 CPT . 356074 Specimen Comment: A courtesy copy of this report has been sent to [phone], [phone] Specimen Comment: [id number], Specimen Comment: Report sent to ,DR GROVES / DR PANTOJA Performed at: 01 [facility] [address], [place] [id number] MD Santosh Pittman MD Phone: [phone] Performed at: 02 [facility] [address] [place], [place] [id number] MD Gordon Singleton MD Phone: [phone]
== END 2020-03-12 12:17 | disposition home health service (06) | DRG 907 ==
LOC: ER 03:07 → 6 SOUTH 05:34 → OBSVTOIN 09:21 → 6 SOUTH 21:00 → 2 NORTH 03-06 21:44
PROVIDERS: ADMIT Internal Medicine; ATTEND Internal Medicine
PROC: 5A09357 Assistance with Respiratory Ventilation, Less than 24 Consecutive Hours, Continuous Positive Airway Pressure (ICD-10-PCS; 2020-03-08)
PROC: 0JH63XZ Insertion of Tunneled Vascular Access Device into Chest Subcutaneous Tissue and Fascia, Percutaneous Approach (ICD-10-PCS; 2020-03-08)
PROC: 02H633Z Insertion of Infusion Device into Right Atrium, Percutaneous Approach (ICD-10-PCS; 2020-03-08)
PROC: B5181ZA Fluoroscopy of Superior Vena Cava using Low Osmolar Contrast, Guidance (ICD-10-PCS; 2020-03-08)
PROC: 5A09357 Assistance with Respiratory Ventilation, Less than 24 Consecutive Hours, Continuous Positive Airway Pressure (ICD-10-PCS; 2020-03-09)
PROC: 5A09357 Assistance with Respiratory Ventilation, Less than 24 Consecutive Hours, Continuous Positive Airway Pressure (ICD-10-PCS; 2020-03-10)
PROC: 5A09357 Assistance with Respiratory Ventilation, Less than 24 Consecutive Hours, Continuous Positive Airway Pressure (ICD-10-PCS; 2020-03-10)
PROC: 0WPG03Z Removal of Infusion Device from Peritoneal Cavity, Open Approach (ICD-10-PCS; principal; 2020-03-10 11:45)
PROC: 5A09357 Assistance with Respiratory Ventilation, Less than 24 Consecutive Hours, Continuous Positive Airway Pressure (ICD-10-PCS; 2020-03-11)
PROC: 5A09357 Assistance with Respiratory Ventilation, Less than 24 Consecutive Hours, Continuous Positive Airway Pressure (ICD-10-PCS; 2020-03-12)
PROC: 5A09357 Assistance with Respiratory Ventilation, Less than 24 Consecutive Hours, Continuous Positive Airway Pressure (ICD-10-PCS; 2020-03-12)
DX: T85.71XA Infection and inflammatory reaction due to peritoneal dialysis catheter, initial encounter (principal); K65.9 Peritonitis, unspecified; I50.31 Acute diastolic (congestive) heart failure; N18.6 End stage renal disease; E43 Unspecified severe protein-calorie malnutrition; I13.2 Hypertensive heart and chronic kidney disease with heart failure and with stage 5 chronic kidney disease, or end stage renal disease; I42.0 Dilated cardiomyopathy; I48.21 Permanent atrial fibrillation; N25.81 Secondary hyperparathyroidism of renal origin; Z16.12 Extended spectrum beta lactamase (ESBL) resistance; B96.20 Unspecified Escherichia coli [E. coli] as the cause of diseases classified elsewhere; D63.1 Anemia in chronic kidney disease; E11.22 Type 2 diabetes mellitus with diabetic chronic kidney disease; E78.5 Hyperlipidemia, unspecified; E83.42 Hypomagnesemia; E87.6 Hypokalemia; G47.33 Obstructive sleep apnea (adult) (pediatric); G89.29 Other chronic pain; I15.8 Other secondary hypertension; I25.10 Atherosclerotic heart disease of native coronary artery without angina pectoris; I25.5 Ischemic cardiomyopathy; I25.2 Old myocardial infarction; I49.3 Ventricular premature depolarization; Z96.659 Presence of unspecified artificial knee joint; L30.9 Dermatitis, unspecified; Z20.828 Contact with and (suspected) exposure to other viral communicable diseases; Z82.49 Family history of ischemic heart disease and other diseases of the circulatory system; Z86.73 Personal history of transient ischemic attack (TIA), and cerebral infarction without residual deficits; Z87.891 Personal history of nicotine dependence; Z95.1 Presence of aortocoronary bypass graft; Z95.5 Presence of coronary angioplasty implant and graft; Z99.2 Dependence on renal dialysis
CPT/HCPCS: 36415; 36558; 36569; 71045; 76937; 77001; 80048; 80053; 80076; 81001; 82962; 83605; 83735; 83880; 84145; 84484; 85025; 85027; 85610; 85730; 86704; 86706; 87040; 87071; 87075; 87176; 87340; 88300; 93306; 96365; 96375; 99152; 99153; 99285; A7015; C1750; C1769; C1892; G0378; G0379; J0456; J0690; J0696; J1100; J1644; J1815; J1940; J2185; J2250; J2405; J2704; J3010; J3475; J3480; J3490; J7030; U0003-CS

== ENCOUNTER 2020-07-18 08:15 | Inpatient (IN) | payer MEDICARE ==
[~2020-07-18] VITALS: Ht 165.1 cm; Wt 72.2 kg
[~2020-07-18 08:15] MED LIST changes: +AMLO-186 PO; +CARV12.53 PO; +FAMO-63 PO; +IRBE75TA16 PO; +LACT1CAP19 PO; +LEVO100T5 PO; +MERO1VIA22 IV; +POTA-163 PO
--- NOTE | 2020-07-18 08:42 | PHYS DOC ---
Past Medical History Past Medical History: A-Fib, CAD, CHF, Diabetes-Type II, Hypertension, [place], Renal Failure, TIA Past Surgical History: Coronary Bypass Surgery, Knee Replacement, Other Additional Past Surgical Histo: knee replacement, stent placementx6 Smoking Status: Former Smoker Alcohol Use: None Drug Use: None General Adult EDM: Chief Complaint: SHORTNESS OF BREATH HPI: HPI: Patient is a 75 year old male with history of CHF, end-stage renal failure, atrial fibrillation, was brought here by EMS from home due to trouble breathing. Patient has had trouble breathing for the last 2 days, today symptoms become more severe, did not improve with using his CPAP at home. Patient denies any fever, no chest pain. He is scheduled for hemodialysis today at 11:00. His last hemodialysis was on Saturday. Patient is scheduled to have his AV fistula revised tomorrow at . His blood thinner has been held off for it. Review of Systems: Review of Systems: Constitutional: Denies fever or chills. [] Eyes: Denies change in visual acuity. [] HENT: Denies nasal congestion or sore throat. [] Respiratory: Positive for dried cough and shortness of air Cardiovascular: Denies chest pain or edema. [] GI: Denies abdominal pain, nausea, vomiting, bloody stools or diarrhea. [] : Denies dysuria. [] Musculoskeletal: Denies back pain or joint pain. [] Integument: Denies rash. [] Neurologic: Denies headache, focal weakness or sensory changes. [] Endocrine: Denies polyuria or polydipsia. [] Lymphatic: Denies swollen glands. [] Psychiatric: Denies depression or anxiety. [] Heart Score: Risk Factors: Risk Factors: DM, Current or recent (<one month) smoker, HTN, HLP, family history of CAD, obesity. Risk Scores: Score 0 - 3: 2.5% MACE over next 6 weeks - Discharge Home Score 4 - 6: 20.3% MACE over next 6 weeks - Admit for Clinical Observation Score 7 - 10: 72.7% MACE over next 6 weeks - Early Invasive Strategies Allergies: Allergies: Allergies Coded Allergies Type Severity Reaction Last Updated Verified doxycycline Allergy Intermediate Itching 03/16/20 Yes Physical Exam: PE: Constitutional: Well developed, well nourished, no acute distress, non-toxic appearance. [] HENT: Normocephalic, atraumatic, bilateral external ears normal, oropharynx moist, no oral exudates, nose normal. [] Eyes: PERRLA, EOMI, conjunctiva normal, no discharge. [] Neck: Normal range of motion, no tenderness, supple, no stridor. [] Cardiovascular:Heart rate regular rhythm, no murmur [] Lungs & Thorax: Bilateral breath sounds decreased and very tight to auscultation, tachypnic. Abdomen: Bowel sounds normal, soft, no tenderness, no masses, no pulsatile masses. [] Skin: Warm, dry, no erythema, no rash. [] Back: No tenderness, no CVA tenderness. [] Extremities: No tenderness, no cyanosis, no clubbing, ROM intact, no edema. [] Neurologic: Alert and oriented X 3, normal motor function, normal sensory f unction, no focal deficits noted. [] Psychologic: Affect normal, judgement normal, mood normal. [] Current Patient Data: Vital Signs: Vital Signs Date Time Temp Pulse Resp B/P (MAP) Pulse Ox O2 Delivery O2 Flow Rate FiO2 07/18/20 08:15 98.0 97 42 145/77 (99) 97 Room Air 98.0 EKG: EKG: EKG was done at 823, heart rate 100 beats per minute, A. fib, no STEMI Radiology/Procedures: Radiology/Procedures: [][facility] [address] [place] [address] IMAGING REPORT Signed PATIENT: NEREIDA MONAHAN ACCOUNT: [id number] : 1945 LOCATION: ER AGE: 75 SEX: M EXAM STATUS: REG ER ORD. PHYSICIAN: MIR DOHERTY DO REASON: SOA PROCEDURE: CHEST AP ONLY EXAM: Chest, single view. HISTORY: Short of air. COMPARISON: 03/05/2020 FINDINGS: A frontal view of the chest is obtained. There is stable diffuse interstitial infiltrate. There is stable enlargement of the cardiac silhouette and evidence of prior CABG. There is a right internal jugular catheter with the tip in the right atrium. No pleural effusion or pneumothorax is seen. IMPRESSION: Diffuse interstitial infiltrate and cardiomegaly. Electronically signed by: Jo Hill MD (07/18/2020 8:46 AM) [id number] DICTATED and SIGNED BY: JO HILL MD DATE: 07/18/20 [id number] Course & Med Decision Making: Course & Med Decision Making Pertinent Labs and Imaging studies reviewed. (See chart for details) Patient is a 75-year-old male with a history of CHF and end-stage renal failure presented to ER due to trouble breathing, patient is found to be overloaded, need urgent dialysis. Patient WILL be admitted to hospital, nephrology will be consulted for dialysis Dragon Disclaimer: Dragon Disclaimer: This electronic medical record was generated, in whole or in part, using a voice recognition dictation system. Departure Departure Impression: Primary Impression: CHF exacerbation Additional Impression: ESRD (end stage renal disease) on dialysis Disposition: ADMITTED INPT THIS HOSP Admitting Physician: KAYLA (Dr. Cabello) Condition: STABLE Referrals: TRACEY PANTOJA MD (PCP) MIR DOHERTY DO Jul 18, 2020 08:42
[2020-07-18 08:48] LABS: BASO # 0.1 x10^3/uL (0.0-0.2); BASO % 1 % (0-3); EOS # 0.2 x10^3/uL (0.0-0.7); EOS % 2 % (0-3); HEMATOCRIT 28.4 % (39.0-53.0); HEMOGLOBIN 9.4 g/dL (13.0-17.5); LYMPH # 1.5 x10^3/uL (1.0-4.8); LYMPH % 13 % (24-48); MEAN CORPUSCULAR HEMOGLOBIN 30 pg (25-35); MEAN CORPUSCULAR HGB CONC 33 g/dL (31-37); MEAN CORPUSCULAR VOLUME 90 fL (79-100); MONO # 1.1 x10^3/uL (0.0-1.1); MONO % 9 % (0-9); NEUT # 8.7 x10^3/uL (1.8-7.7); NEUT % 75 % (31-73); PLATELET COUNT 280 x10^3/uL (140-400); RED BLOOD COUNT 3.16 x10^6/uL (4.30-5.70); RED CELL DISTRIBUTION WIDTH 16.3 % (11.5-14.5); WHITE BLOOD COUNT 11.6 x10^3/uL (4.0-11.0)
--- NOTE | 2020-07-18 08:49 | RAD ---
EXAM: Chest, single view. HISTORY: Short of air. COMPARISON: 03/05/2020 FINDINGS: A frontal view of the chest is obtained. There is stable diffuse interstitial infiltrate. T here is stable enlargement of the cardiac silhouette and evidence of prior CABG. There is a right int ernal jugular catheter with the tip in the right atrium. No pleural effusion or pneumothorax is seen. IMPRESSION: Diffuse interstitial infiltrate and cardiomegaly. Electronically signed by: Jo Hamm MD (07/18/2020 8:46 AM) [id number]
[2020-07-18 08:59] LABS: CALCIUM 8.9 mg/dL (8.5-10.1); CREATININE 7.3 mg/dL (0.7-1.3); GFR 7.3; POTASSIUM 3.7 mmol/L (3.5-5.1)
[2020-07-18 09:05] LABS: ALBUMIN/GLOBULIN RATIO 0.7 (1.0-1.7); MAGNESIUM 2.1 mg/dL (1.8-2.4); TOTAL BILIRUBIN 0.8 mg/dL (0.2-1.0); TOTAL PROTEIN 7.1 g/dL (6.4-8.2)
--- NOTE | 2020-07-18 10:29 | PDOC1 ---
History and Physical Date of Admission Date of Admission DATE: 07/18/20 TIME: 10:21 Identification/Chief Complaint Chief Complaint Shortness of breath Source Source: Chart review, Patient History of Present Illness History of Present Illness Patient 75-year-old male with past medical history of end-stage renal disease on hemodialysis Saturday/Saturday/Saturday, CHF, who presents to the ER with complaints of shortness of breath over the past 2-3 days. He has a home CPAP machine that he has been using without any improvement in his symptoms. Patient states he has not missed any of his dialysis appointment, his last hemodialysis was Saturday and his next round of dialysis is scheduled for today. Patient also notes that he is scheduled to have AV fistula revised tomorrow at , and his home blood thinners have been held for this procedure. Will admit patient for further work-up with nephrology consult Past Medical History Cardiovascular: CAD, CHF, HTN, Hyperlipidemia Renal/: Chronic renal failure Endocrine: Diabetes Past Surgical History Past Surgical History: CABG, Total knee replacement, Other Family History Family History: Coronary Artery Disease, High Cholestrol, Hypertension Social History Smoke: Quit ALCOHOL: none Drugs: None Current Problem List Problem List Problems Medical Problems: (1) CHF exacerbation Status: Acute (2) ESRD (end stage renal disease) on dialysis Status: Acute Current Medications Current Medications Active Scripts Active Culturelle (Lactobacillus Rhamnosus Gg) 1 Each Cap.sprink 1 Cap PO BID 30 Days Pepcid (Famotidine) 20 Mg Tablet 20 Mg PO HS 30 Days Reported Irbesartan 75 Mg Tablet 1 Tab PO DAILY Amlodipine Besylate 5 Mg Tablet 1 Tab PO DAILY Carvedilol 12.5 Mg Tablet 1 Tab PO BID Levothyroxine Sodium 100 Mcg Tablet 1 Tab PO DAILY07 90 Days Vitamin D3 (Cholecalciferol (Vitamin D3)) 1,000 Unit Tablet 1 Tab PO BID Plavix (Clopidogrel Bisulfate) 75 Mg Tablet 1 Tab PO DAILY Lipitor (Atorvastatin Calcium) 80 Mg Tablet 80 Mg PO DAILY Allergies Allergies: Coded Allergies: doxycycline (Verified Allergy, Intermediate, Itching, 03/16/20) ROS Review of System GENERAL: No history of weight change, weakness or fevers. SKIN: No bruising, hair changes or rashes. EYES: No blurred, double or loss of vision. NOSE AND THROAT: No history of nosebleeds, hoarseness or sore throat. HEART: Denies chest pain, denies palpitations. LUNGS: Shortness of breath. Denies cough, hemoptysis, wheezing. GASTROINTESTINAL: Denies nausea, vomiting, abdominal pain. GENITOURINARY: Denies dysuria, frequency, urgency, hematuria. NEUROLOGIC: Denies history of numbness, tingling, tremor or weakness. PSYCHIATRIC: Denies anxiety, denies depression. ENDOCRINE: No history of heat or cold intolerance, polyuria or polydipsia. EXTREMITIES: Denies muscle weakness, joint pain, pain on walking or stiffness. Physical Exam Physical Exam General: Alert, Oriented X3, Cooperative, mild distress HEENT: Atraumatic, EOMI Lungs: Bibasilar rales, no appreciable wheezing. Heart: RRR, no rubs Cardiovascular: S1, S2 Abdomen: Normal bowel sounds, Soft, No tenderness Extremities: +2 Bilateral leg edema Skin: No breakdown, No significant lesion Neuro: Normal speech, Sensation intact Psych/Mental Status: Mental status NL, Mood NL Vitals Vitals Vital Signs Date Time Temp Pulse Resp B/P (MAP) Pulse Ox O2 Delivery O2 Flow Rate FiO2 07/18/20 08:15 98.0 97 42 145/77 (99) 97 Room Air 98.0 Labs Labs Laboratory Tests Test 07/18/20 08:28 White Blood Count 11.6 x10^3/uL (4.0-11.0) Red Blood Count 3.16 x10^6/uL (4.30-5.70) Hemoglobin 9.4 g/dL (13.0-17.5) Hematocrit 28.4 % (39.0-53.0) Mean Corpuscular Volume 90 fL (79-100) Mean Corpuscular Hemoglobin 30 pg (25-35) Mean Corpuscular Hemoglobin Concent 33 g/dL (31-37) Red Cell Distribution Width 16.3 % (11.5-14.5) Platelet Count 280 x10^3/uL (140-400) Neutrophils (%) (Auto) 75 % (31-73) Lymphocytes (%) (Auto) 13 % (24-48) Monocytes (%) (Auto) 9 % (0-9) Eosinophils (%) (Auto) 2 % (0-3) Basophils (%) (Auto) 1 % (0-3) Neutrophils # (Auto) 8.7 x10^3/uL (1.8-7.7) Lymphocytes # (Auto) 1.5 x10^3/uL (1.0-4.8) Monocytes # (Auto) 1.1 x10^3/uL (0.0-1.1) Eosinophils # (Auto) 0.2 x10^3/uL (0.0-0.7) Basophils # (Auto) 0.1 x10^3/uL (0.0-0.2) Sodium Level 145 mmol/L (136-145) Potassium Level 3.7 mmol/L (3.5-5.1) Chloride Level 104 mmol/L (98-107) Carbon Dioxide Level 23 mmol/L (21-32) Anion Gap 18 (6-14) Blood Urea Nitrogen 103 mg/dL (8-26) Creatinine 7.3 mg/dL (0.7-1.3) Estimated GFR (Cockcroft-Gault) 7.3 BUN/Creatinine Ratio 14 (6-20) Glucose Level 119 mg/dL (70-99) Calcium Level 8.9 mg/dL (8.5-10.1) Magnesium Level 2.1 mg/dL (1.8-2.4) Total Bilirubin 0.8 mg/dL (0.2-1.0) Aspartate Amino Transf (AST/SGOT) 47 U/L (15-37) Alanine Aminotransferase (ALT/SGPT) 64 U/L (16-63) Alkaline Phosphatase 96 U/L (46-116) Troponin I Quantitative 0.102 ng/mL (0.000-0.055) CT-Cnj-Z-Type Natriuretic Peptide > 79185 pg/mL (0-449) Total Protein 7.1 g/dL (6.4-8.2) Albumin 3.0 g/dL (3.4-5.0) Albumin/Globulin Ratio 0.7 (1.0-1.7) Laboratory Tests Test 07/18/20 08:28 White Blood Count 11.6 x10^3/uL (4.0-11.0) Red Blood Count 3.16 x10^6/uL (4.30-5.70) Hemoglobin 9.4 g/dL (13.0-17.5) Hematocrit 28.4 % (39.0-53.0) Mean Corpuscular Volume 90 fL (79-100) Mean Corpuscular Hemoglobin 30 pg (25-35) Mean Corpuscular Hemoglobin Concent 33 g/dL (31-37) Red Cell Distribution Width 16.3 % (11.5-14.5) Platelet Count 280 x10^3/uL (140-400) Neutrophils (%) (Auto) 75 % (31-73) Lymphocytes (%) (Auto) 13 % (24-48) Monocytes (%) (Auto) 9 % (0-9) Eosinophils (%) (Auto) 2 % (0-3) Basophils (%) (Auto) 1 % (0-3) Neutrophils # (Auto) 8.7 x10^3/uL (1.8-7.7) Lymphocytes # (Auto) 1.5 x10^3/uL (1.0-4.8) Monocytes # (Auto) 1.1 x10^3/uL (0.0-1.1) Eosinophils # (Auto) 0.2 x10^3/uL (0.0-0.7) Basophils # (Auto) 0.1 x10^3/uL (0.0-0.2) Sodium Level 145 mmol/L (136-145) Potassium Level 3.7 mmol/L (3.5-5.1) Chloride Level 104 mmol/L (98-107) Carbon Dioxide Level 23 mmol/L (21-32) Anion Gap 18 (6-14) Blood Urea Nitrogen 103 mg/dL (8-26) Creatinine 7.3 mg/dL (0.7-1.3) Estimated GFR (Cockcroft-Gault) 7.3 BUN/Creatinine Ratio 14 (6-20) Glucose Level 119 mg/dL (70-99) Calcium Level 8.9 mg/dL (8.5-10.1) Magnesium Level 2.1 mg/dL (1.8-2.4) Total Bilirubin 0.8 mg/dL (0.2-1.0) Aspartate Amino Transf (AST/SGOT) 47 U/L (15-37) Alanine Aminotransferase (ALT/SGPT) 64 U/L (16-63) Alkaline Phosphatase 96 U/L (46-116) Troponin I Quantitative 0.102 ng/mL (0.000-0.055) NF-Lcu-P-Type Natriuretic Peptide > 58647 pg/mL (0-449) Total Protein 7.1 g/dL (6.4-8.2) Albumin 3.0 g/dL (3.4-5.0) Albumin/Globulin Ratio 0.7 (1.0-1.7) Images Images CHEST AP ONLY EXAM: Chest, single view. HISTORY: Short of air. COMPARISON: 03/05/2020 FINDINGS: A frontal view of the chest is obtained. There is stable diffuse interstitial infiltrate. There is stable enlargement of the cardiac silhouette and evidence of prior CABG. There is a right internal jugular catheter with the tip in the right atrium. No pleural effusion or pneumothorax is seen. IMPRESSION: Diffuse interstitial infiltrate and cardiomegaly. VTE Prophylaxis Ordered VTE Prophylaxis Devices: Yes VTE Pharmacological Prophylaxi: No Assessment/Plan Assessment/Plan CHF Fluid overload End-stage renal disease on hemodialysis Elevated BNP Elevated troponin Malnutrition COVID-19 PUI Plan: Patient appears fluid overloaded on exam Will admit with nephrology consult to have hemodialysis today Patient has an appointment at tomorrow to have his fistula revised; will continue to hold his home Eliquis for this procedure I imagine his symptoms may improve after hemodialysis and he can still meet his appointment tomorrow Resume home medications FEN - renal diet PPX - SCDs FULL CODE Dispo - inpatient for above Justifications for Admission Other Justification DANNIE ENGLISH MD Jul 18, 2020 10:29
[2020-07-18] MEDS ORDERED: ACETAMINOPHEN 325 MG TABLET. PO PRN (10:30)
[2020-07-18] MEDS ORDERED: BISACODYL 10 MG SUPP.RECT. PR PRN (10:30)
[2020-07-18] MEDS ORDERED: CALCIUM CARBONATE 500 MG TAB.CHEW PO PRN (10:30)
[2020-07-18] MEDS ORDERED: MAG HYDROX/ALUMINUM HYD/SIMETH 30 ML ORAL.SUSP PO PRN (10:30)
[2020-07-18] MEDS ORDERED: ONDANSETRON PF 4 MG/2 ML VIAL. IVP PRN (10:30)
[2020-07-18] MEDS ORDERED: MAGNESIUM HYDROXIDE 2,400 MG/30 ML ORAL.SUSP. PO PRN (10:30)
[2020-07-18 11:30] VITALS: BP 109/67
--- NOTE | 2020-07-18 11:30 | NUR ---
The patient, NEREIDA MONAHAN, 75 y/o, M admitted by DANNIE ENGLISH MD, was given written information regarding hospital policies, unit procedures and contact persons. Valuables were checked and left in room with patient. Patient stated he has been short of breath and coughing since Saturday after dialysis. Pgd and spoke to primary who advised he would like to swab patient. Spoke to/educated patient and re: PUI status and need to transfer to different unit. Patient and verbalized understanding.
--- NOTE | 2020-07-18 12:21 | PDOC2 ---
ABIGAIL MOYA [employer] ASSISTANT PRINCIPAL 07/18/20 1221: CARDIAC CONSULT DATE OF CONSULT Date of Consult DATE: 07/18/20 TIME: 12:19 REASON FOR CONSULT Reason for Consult: CHF REFERRING PHYSICIAN Referring Physician: Dr. Cabello SOURCE Source: Chart review, Patient HISTORY OF PRESENT ILLNESS HISTORY OF PRESENT ILLNESS This is a 75 male who presented secondary to shortness of breath. Has been short of air x 4 days. No significant LE edema. Denies any chest pain, palpitations, dizziness, diaphoresis, or nausea/vomiting. Is ESRD on HD. Reports compliance with HD. Last run Saturday. No recent fevers or illness. Has a history of CAD and CHF. Follows with Dr. Kim, [facility]. PAST MEDICAL HISTORY Past Medical History 1. Coronary artery disease status post bypass 2. Hypertension 3. End-stage renal disease on peritoneal dialysis 4. Atrial fibrillation, unknown type 5. Diabetes 6. Dyslipidemia 7. CVA 8. GERD 9. Cardiomyopathy, chronic systolic CHF PAST SURGICAL HISTORY Past Surgical History: CABG FAMILY HISTORY Family History: Diabetes, Heart Disease SOCIAL HISTORY Smoke: No ALCOHOL: none Drugs: None Lives: with Family ALLERGIES ALLERGIES: Coded Allergies: doxycycline (Verified Allergy, Intermediate, Itching, 03/16/20) ROS Review of System 14 point ROS conducted with pertinent positives noted above in HPI PHYSICAL EXAM General: Alert, Oriented X3, Cooperative, mild distress HEENT: Atraumatic Lungs: Other (diminished bases ) Heart: Other (AFIB ) Abdomen: Soft, No tenderness Extremities: No edema, Normal pulses Skin: No significant lesion Neuro: Normal speech, Sensation intact Psych/Mental Status: Mental status NL, Mood NL MUSCULOSKELETAL: Osteoarthritic changes both hands VITALS/I&O VITALS/I&O: Vital Signs Date Time Temp Pulse Resp B/P (MAP) Pulse Ox O2 Delivery O2 Flow Rate FiO2 07/18/20 11:30 97.8 64 16 109/67 (81) 98 Nasal Cannula 2.0 97.8 LABS Lab: Laboratory Tests Test 07/18/20 08:28 White Blood Count 11.6 x10^3/uL (4.0-11.0) H Red Blood Count 3.16 x10^6/uL (4.30-5.70) L Hemoglobin 9.4 g/dL (13.0-17.5) L Hematocrit 28.4 % (39.0-53.0) L Mean Corpuscular Volume 90 fL (79-100) Mean Corpuscular Hemoglobin 30 pg (25-35) Mean Corpuscular Hemoglobin Concent 33 g/dL (31-37) Red Cell Distribution Width 16.3 % (11.5-14.5) H Platelet Count 280 x10^3/uL (140-400) Neutrophils (%) (Auto) 75 % (31-73) H Lymphocytes (%) (Auto) 13 % (24-48) L Monocytes (%) (Auto) 9 % (0-9) Eosinophils (%) (Auto) 2 % (0-3) Basophils (%) (Auto) 1 % (0-3) Neutrophils # (Auto) 8.7 x10^3/uL (1.8-7.7) H Lymphocytes # (Auto) 1.5 x10^3/uL (1.0-4.8) Monocytes # (Auto) 1.1 x10^3/uL (0.0-1.1) Eosinophils # (Auto) 0.2 x10^3/uL (0.0-0.7) Basophils # (Auto) 0.1 x10^3/uL (0.0-0.2) Sodium Level 145 mmol/L (136-145) Potassium Level 3.7 mmol/L (3.5-5.1) Chloride Level 104 mmol/L (98-107) Carbon Dioxide Level 23 mmol/L (21-32) Anion Gap 18 (6-14) H Blood Urea Nitrogen 103 mg/dL (8-26) H Creatinine 7.3 mg/dL (0.7-1.3) H Estimated GFR (Cockcroft-Gault) 7.3 BUN/Creatinine Ratio 14 (6-20) Glucose Level 119 mg/dL (70-99) H Calcium Level 8.9 mg/dL (8.5-10.1) Magnesium Level 2.1 mg/dL (1.8-2.4) Total Bilirubin 0.8 mg/dL (0.2-1.0) Aspartate Amino Transferase (AST) 47 U/L (15-37) H Alanine Aminotransferase (ALT) 64 U/L (16-63) H Alkaline Phosphatase 96 U/L (46-116) Troponin I Quantitative 0.102 ng/mL (0.000-0.055) MQ-Naz-I-Type Natriuretic Peptide > 59348 pg/mL (0-449) H Total Protein 7.1 g/dL (6.4-8.2) Albumin 3.0 g/dL (3.4-5.0) L Albumin/Globulin Ratio 0.7 (1.0-1.7) L Laboratory Tests 07/18/20 08:28 Laboratory Tests 07/18/20 08:28 ECHOCARDIOGRAM ECHOCARDIOGRAM <Conclusion> The left ventricular systolic function is mildly reduced. The Ejection Fraction is 40-45%. Wall motion consistent with conduction abnormality and the basal to distal inferior wall is severely hypokinetic. Doppler and Color-flow revealed moderate mitral regurgitation. DATE: 03/08/20 0940 ASSESSMENT/PLAN ASSESSMENT/PLAN 1. Acute respiratory failure with acute on chronic systolic CHF. ? PNA 2. Ischemic cardiomyopathy; Echo 03/20 with LVEF 40-45% 3. CAD s/p CABG .Follows with Dr. Kim, [facility]. Plavix has been on hold due to RUE fistula intervention that was scheduled for today. 4. Mild troponin elevation; initial 0.1. Most probably type II, demand i schemia. CP free. 5. Hypertension; controlled 6. ESRD on HD 7. PAFIB; presently AFIB. Not on OAC 8. Diabetes, II 9. Hyperlipidemia; statin 10. H/o CVA 11. PUI; COVID pending Recommendations Fluid offloading via HD Resume BB for control; convert to Toprol for better rate control. [id number] correlating with 10.8% risk of stroke. Consider adding OAC for stroke prophylaxis Secondary prevention Obtain records from primary well point pumping supervisor, YMRIAM Xavier MD 07/18/20 5896: CARDIAC CONSULT ASSESSMENT/PLAN ASSESSMENT/PLAN Pt. seen and examined. 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 75 y.o with severe resp distress, he is breathing 30 x /min on HD CXR is equivocal, seems similar to prior but his overall presentation is c onsistent with HF Plan for fluid removal with HD, reassess in a.m. and if no improvement, may consider CT chest or cath as warranted. Thanks ABIGAIL MOYA APRN Jul 18, 2020 12:21 MYRIAM STINSON MD Jul 18, 2020 22:16
[2020-07-18] MEDS ORDERED: CEPH750C9 PO (12:44)
[2020-07-18 13:14] VITALS: BP 138/60
--- NOTE | 2020-07-18 13:53 | PDOC2 ---
CONSULT Date of Consult Date of Consult DATE: 07/18/20 TIME: 13:38 Reason for Consult Reason for Consult: ESRD Identification/Chief Complaint Chief Complaint shortness of breath History of Present Illness Reason for Visit: Patient is a 75-year-old male with past medical history of end-stage renal disease on hemodialysis Saturday/Saturday/Saturday, CHF, who presents to the ER with complaints of shortness of breath over the past 2-3 days. He has a home CPAP machine that he has been using without any improvement in his symptoms. Patient states he has not missed any of his dialysis appointment, his last hemodialysis was Saturday and his next round of dialysis is scheduled for today.He states he was extremely short of breath and felt that he could not wait until his OP dialysis time and decided to call EMS Currently he is c/o Shortness of breath. Denies exposure to CoVid. Denies Cough, No CP. Denies F/C . No N/V Patient also notes that he is scheduled to have AV fistula revised tomorrow at , and his home blood thinners have been held for this procedure. Past Medical History Cardiovascular: CAD, CHF, HTN, Hyperlipidemia Renal/: Chronic renal failure Endocrine: Diabetes Past Surgical History Past Surgical History: CABG Family History Family History: Coronary Artery Disease, High Cholestrol, Hypertension Social History Quit ALCOHOL: none Drugs: None Current Problem List Problem List Problems Medical Problems: (1) CHF exacerbation Status: Acute (2) ESRD (end stage renal disease) on dialysis Status: Acute Current Medications Current Medications Current Medications Ondansetron HCl (Zofran) 4 mg PRN Q6HRS PRN IVP NAUSEA/VOMITING; Start 07/18/20 at 10:30 Al Hydroxide/Mg Hydroxide (Mylanta Plus Xs) 30 ml PRN Q3HRS PRN PO HEARTBURN / GAS; Start 07/18/20 at 10:30 Calcium Carbonate/ Glycine (Tums) 500 mg PRN Q3HRS PRN PO UPSET STOMACH; Start 07/18/20 at 10:30 Acetaminophen (Tylenol) 650 mg PRN Q6HRS PRN PO Headaches, Temp > 101.5F; Start 07/18/20 at 10:30 Magnesium Hydroxide (Milk Of Magnesia) 2,400 mg PRN Q12HR PRN PO CONSTIPATION; Start 07/18/20 at 10:30 Bisacodyl (Dulcolax Supp) 10 mg PRN DAILY PRN NC CONSTIPATION; Start 07/18/20 at 10:30 Active Scripts Active Pepcid (Famotidine) 20 Mg Tablet 20 Mg PO HS 30 Days Reported Keflex (Cephalexin) 750 Mg Capsule 500 Mg PO TID Irbesartan 75 Mg Tablet 1 Tab PO DAILY Amlodipine Besylate 5 Mg Tablet 1 Tab PO DAILY Carvedilol 12.5 Mg Tablet 1 Tab PO BID Levothyroxine Sodium 100 Mcg Tablet 1 Tab PO DAILY07 90 Days Vitamin D3 (Cholecalciferol (Vitamin D3)) 1,000 Unit Tablet 1 Tab PO BID Plavix (Clopidogrel Bisulfate) 75 Mg Tablet 1 Tab PO DAILY Lipitor (Atorvastatin Calcium) 80 Mg Tablet 80 Mg PO DAILY Allergies Allergies: Coded Allergies: doxycycline (Verified Allergy, Intermediate, Itching, 03/16/20) ROS Review of System As per HPI, rest of the ROS is negative Physical Exam Physical Exam General: mild distress HEENT: Atraumatic, EOMI, OM moist Neck supple Lungs: Bibasilar rales, Heart: RRR Cardiovascular: S1, S2 Abdomen: Normal bowel sounds, Soft, No tenderness Extremities: +2 Bilateral leg edema Skin: No rash Neuro: Normal speech, Sensation intact Psych/Mental Status: Mental status NL, Mood NL Vital Signs Vital Signs Date Time Temp Pulse Resp B/P (MAP) Pulse Ox O2 Delivery O2 Flow Rate FiO2 07/18/20 13:14 101 18 138/60 (86) Nasal Cannula 07/18/20 11:30 97.8 98 2.0 97.8 Assessment & Plan ESRD- Switched to HD from PD in mar 2020 , currently on MWF schedule under Dr. Rosa's care Did not miss any treatment recently , called EMS today due to increased SOB Dialysis today, discussed treatment plan with Eunice Lazo Resp failure - Cxr : Diffuse interstitial infiltrate and cardiomegaly, on O2 2 lts by OUSMANE GODINEZ (CoVid negative in mar 2020 ) , acute on chronic systolic CHF Cardiomyopathy; Echo 03/20 with LVEF 40-45% CAD s/p CABG Hypertension AFIB H/o CVA Anemia - drop compared to 03/2020 , RONNY per protocol Hx of Recurrent peritonitis when he was on PD s/p catheter removal in Mar 2020 DM II Labs Labs Laboratory Tests Test 07/18/20 08:28 White Blood Count 11.6 x10^3/uL (4.0-11.0) Red Blood Count 3.16 x10^6/uL (4.30-5.70) Hemoglobin 9.4 g/dL (13.0-17.5) Hematocrit 28.4 % (39.0-53.0) Mean Corpuscular Volume 90 fL (79-100) Mean Corpuscular Hemoglobin 30 pg (25-35) Mean Corpuscular Hemoglobin Concent 33 g/dL (31-37) Red Cell Distribution Width 16.3 % (11.5-14.5) Platelet Count 280 x10^3/uL (140-400) Neutrophils (%) (Auto) 75 % (31-73) Lymphocytes (%) (Auto) 13 % (24-48) Monocytes (%) (Auto) 9 % (0-9) Eosinophils (%) (Auto) 2 % (0-3) Basophils (%) (Auto) 1 % (0-3) Neutrophils # (Auto) 8.7 x10^3/uL (1.8-7.7) Lymphocytes # (Auto) 1.5 x10^3/uL (1.0-4.8) Monocytes # (Auto) 1.1 x10^3/uL (0.0-1.1) Eosinophils # (Auto) 0.2 x10^3/uL (0.0-0.7) Basophils # (Auto) 0.1 x10^3/uL (0.0-0.2) Sodium Level 145 mmol/L (136-145) Potassium Level 3.7 mmol/L (3.5-5.1) Chloride Level 104 mmol/L (98-107) Carbon Dioxide Level 23 mmol/L (21-32) Anion Gap 18 (6-14) Blood Urea Nitrogen 103 mg/dL (8-26) Creatinine 7.3 mg/dL (0.7-1.3) Estimated GFR (Cockcroft-Gault) 7.3 BUN/Creatinine Ratio 14 (6-20) Glucose Level 119 mg/dL (70-99) Calcium Level 8.9 mg/dL (8.5-10.1) Magnesium Level 2.1 mg/dL (1.8-2.4) Total Bilirubin 0.8 mg/dL (0.2-1.0) Aspartate Amino Transf (AST/SGOT) 47 U/L (15-37) Alanine Aminotransferase (ALT/SGPT) 64 U/L (16-63) Alkaline Phosphatase 96 U/L (46-116) Troponin I Quantitative 0.102 ng/mL (0.000-0.055) TD-Cwd-C-Type Natriuretic Peptide > 52479 pg/mL (0-449) Total Protein 7.1 g/dL (6.4-8.2) Albumin 3.0 g/dL (3.4-5.0) Albumin/Globulin Ratio 0.7 (1.0-1.7) Laboratory Tests Test 07/18/20 08:28 White Blood Count 11.6 x10^3/uL (4.0-11.0) Red Blood Count 3.16 x10^6/uL (4.30-5.70) Hemoglobin 9.4 g/dL (13.0-17.5) Hematocrit 28.4 % (39.0-53.0) Mean Corpuscular Volume 90 fL (79-100) Mean Corpuscular Hemoglobin 30 pg (25-35) Mean Corpuscular Hemoglobin Concent 33 g/dL (31-37) Red Cell Distribution Width 16.3 % (11.5-14.5) Platelet Count 280 x10^3/uL (140-400) Neutrophils (%) (Auto) 75 % (31-73) Lymphocytes (%) (Auto) 13 % (24-48) Monocytes (%) (Auto) 9 % (0-9) Eosinophils (%) (Auto) 2 % (0-3) Basophils (%) (Auto) 1 % (0-3) Neutrophils # (Auto) 8.7 x10^3/uL (1.8-7.7) Lymphocytes # (Auto) 1.5 x10^3/uL (1.0-4.8) Monocytes # (Auto) 1.1 x10^3/uL (0.0-1.1) Eosinophils # (Auto) 0.2 x10^3/uL (0.0-0.7) Basophils # (Auto) 0.1 x10^3/uL (0.0-0.2) Sodium Level 145 mmol/L (136-145) Potassium Level 3.7 mmol/L (3.5-5.1) Chloride Level 104 mmol/L (98-107) Carbon Dioxide Level 23 mmol/L (21-32) Anion Gap 18 (6-14) Blood Urea Nitrogen 103 mg/dL (8-26) Creatinine 7.3 mg/dL (0.7-1.3) Estimated GFR (Cockcroft-Gault) 7.3 BUN/Creatinine Ratio 14 (6-20) Glucose Level 119 mg/dL (70-99) Calcium Level 8.9 mg/dL (8.5-10.1) Magnesium Level 2.1 mg/dL (1.8-2.4) Total Bilirubin 0.8 mg/dL (0.2-1.0) Aspartate Amino Transf (AST/SGOT) 47 U/L (15-37) Alanine Aminotransferase (ALT/SGPT) 64 U/L (16-63) Alkaline Phosphatase 96 U/L (46-116) Troponin I Quantitative 0.102 ng/mL (0.000-0.055) IZ-Zoy-J-Type Natriuretic Peptide > 37638 pg/mL (0-449) Total Protein 7.1 g/dL (6.4-8.2) Albumin 3.0 g/dL (3.4-5.0) Albumin/Globulin Ratio 0.7 (1.0-1.7) Review All relevant outside records, renal labs, imaging studies, telemetry/EKG's were reviewed. Images Images EXAM: Chest, single view. HISTORY: Short of air. COMPARISON: 03/05/2020 FINDINGS: A frontal view of the chest is obtained. There is stable diffuse interstitial infiltrate. There is stable enlargement of the cardiac silhouette and evidence of prior CABG. There is a right internal jugular catheter with the tip in the right atrium. No pleural effusion or pneumothorax is seen. IMPRESSION: Diffuse interstitial infiltrate and cardiomegaly. TISHA CHRISTINA MD Jul 18, 2020 13:53
[2020-07-18 14:44] VITALS: BP 146/84
[2020-07-18] MEDS ORDERED: DIALYSIS PATIENT. MC PRN ×2 (14:45)
[2020-07-18] MEDS ORDERED: IV NORMAL SALINE 1000ML BAG 1,000 ML IV PRN ×2 (14:45)
[2020-07-18] MEDS ORDERED: ALBUMIN HUMAN 25% 200 ML IV PRN (14:45)
[2020-07-18] MEDS ORDERED: ALTEPLASE 1MG SYRINGE. INT CAT ONE ×2 (16:30)
--- NOTE | 2020-07-18 17:54 | NUR ---
Wound CCare WOund screen, pt in HD, will return for eval 07/19/20
[2020-07-18 18:41] VITALS: BP 137/79
[2020-07-18] MEDS ORDERED: METOPROLOL IV PUSH 5 MG/5 ML VIAL. IVP ONE (19:15)
--- NOTE | 2020-07-18 19:20 | NUR ---
Assessment completed pt in afib with hr 120's poc explained will medicate pt and monitor pt hr. Poc explained will resume care and continue to monitor pt.
[2020-07-18] MEDS: CEPHALEXIN 250 MG CAPSULE. PO SCH (20:22)
[2020-07-18] MEDS: ATORVASTATIN CALCIUM 40 MG TABLET. PO SCH (20:23)
[2020-07-18] MEDS: CARVEDILOL 12.5 MG TABLET. PO SCH (20:23)
[2020-07-18] MEDS: CHOLECALCIFEROL (VITAMIN D3) 1,000 UNIT TABLET PO SCH (20:23)
[2020-07-18 22:46] VITALS: BP 128/62
[2020-07-19 03:09] VITALS: BP 129/65
--- NOTE | 2020-07-19 05:22 | EKG ---
[facility] [address] [place] [address] Test Date: 2020-07-18 Test Time: 08:21:05 Pat Name: NEREIDA MONAHAN Department: Room: Gender: M Territory Sales Representative: : 1945 Requested By: MIR DOHERTY Order Number: [id number] Reading MD: Measurements Intervals [place] Rate: 100 P: AL: QRS: 102 QRSD: 150 T: -2 QT: 360 QTc: 468 Interpretive Statements IRREGULAR RHYTHM, NO P-WAVE FOUND VENTRICULAR PREMATURE COMPLEX(ES) RIGHTWARD AXIS NON SPECIFIC INTRAVENTRICULAR BLOCK RVH WITH REPOLARIZATION ABNORMALITY QRS(T) CONTOUR ABNORMALITY CONSISTENT WITH INFERIOR INFARCT AGE UNDETERMINED ABNORMAL ECG RI6.02 No previous ECG available for comparison
[2020-07-19] MEDS: LEVOTHYROXINE 100 MCG TABLET PO SCH (06:07)
[2020-07-19 07:00] VITALS: BP 118/67
[2020-07-19 07:51] LABS: CHOLESTEROL/HDL RATIO 3.6
[2020-07-19] MEDS: CEPHALEXIN 250 MG CAPSULE. PO SCH ×2 (08:54→20:54)
[2020-07-19] MEDS: ASPIRIN ENTERIC COATED 81 MG TABLET.DR. PO SCH (08:54)
[2020-07-19] MEDS: CHOLECALCIFEROL (VITAMIN D3) 1,000 UNIT TABLET PO SCH ×2 (08:54→20:55)
[2020-07-19] MEDS: CARVEDILOL 12.5 MG TABLET. PO SCH (08:54)
[2020-07-19] MEDS: CLOPIDOGREL BISULFATE 75 MG TABLET PO SCH (08:55)
[2020-07-19] MEDS ORDERED: ALLO300T PO (08:58)
--- NOTE | 2020-07-19 09:47 | NUR ---
Wound Care Discussed photos with Huan TIDWELL who stated no open areas are present on BLE. Pt is under care of [facility] for PVD and wounds have healed at this time. Please reconsult wound care if new wounds develop.
--- NOTE | 2020-07-19 10:29 | PDOC ---
DATE OF SERVICE DATE: 07/19/20 TIME: 10:28 SUBJECTIVE ROS Stable , sitting up in chair , denies SOB OBJECTIVE Vital Signs Vital Signs Date Time Temp Pulse Resp B/P (MAP) Pulse Ox O2 Delivery O2 Flow Rate FiO2 07/19/20 08:54 92 118/67 07/19/20 07:00 96.9 18 99 Nasal Cannula 2.0 96.9 I & 0 Intake and Output 07/19/20 07:00 Intake Total 360 ml Output Total 300 ml Balance 60 ml Intake Oral 360 ml Output Urine Total 300 ml # Bowel Movements 1 PHYSICAL EXAM Physical Exam General: mild distress HEENT: Atraumatic, EOMI, OM moist Neck supple Lungs: CTA, non labored Heart: RRR Cardiovascular: S1, S2 Abdomen: Normal bowel sounds, Soft, No tenderness Extremities: +2 Bilateral leg edema Skin: No rash Neuro: Normal speech, Sensation intact Psych/Mental Status: Mental status NL, Mood NL DIAGNOSIS/ASSESSMENT Assessment & Plan ESRD- Switched to HD from PD in mar 2020 , currently on MWF schedule under Dr. Rosa's care Currently no indication for Dialysis today , Below his dry weight to 67 yesterday post dialysis (at OP unit dry weight 74.5) Ac Resp failure - Cxr : Diffuse interstitial infiltrate and cardiomegaly, on O2 2 lts by FLORI GODINEZI (CoVid negative in mar 2020 ) , acute on chronic systolic CHF. No complaints today Cardiomyopathy; Echo 03/20 with LVEF 40-45% CAD s/p CABG Hypertension AFIB H/o CVA Anemia - drop compared to 03/2020 , RONNY per protocol Hx of Recurrent peritonitis when he was on PD s/p catheter removal in Mar 2020 DM II COMMENT/RELEVANT DATA Meds Current Medications Medications (Trade) Dose Ordered Sig/Randy Start Time Stop Time Status Last Admin Dose Admin Acetaminophen (Tylenol) 650 mg PRN Q6HRS PRN 07/18/20 10:30 Al Hydroxide/Mg Hydroxide (Mylanta Plus Xs) 30 ml PRN Q3HRS PRN 07/18/20 10:30 Albumin Human 200 ml @ 200 mls/hr 1X PRN PRN 07/18/20 14:45 07/18/20 20:44 DC Alteplase, Recombinant (Cathflo For Central Catheter Clearance) 1 mg 1X ONCE 07/18/20 16:30 07/18/20 16:31 DC Amlodipine Besylate (Norvasc) 5 mg DAILY 07/19/20 09:00 07/19/20 08:54 5 MG Aspirin (Ecotrin) 81 mg DAILYWBKFT 07/19/20 08:00 07/19/20 08:54 81 MG Atorvastatin Calcium (Lipitor) 80 mg QHS 07/18/20 21:00 07/18/20 20:23 80 MG Bisacodyl (Dulcolax Supp) 10 mg PRN DAILY PRN 07/18/20 10:30 Calcium Carbonate/ Glycine (Tums) 500 mg PRN Q3HRS PRN 07/18/20 10:30 Carvedilol (Coreg) 12.5 mg BIDWMEALS 07/18/20 20:00 07/19/20 08:54 12.5 MG Cephalexin HCl (Keflex) 500 mg Q12H 07/18/20 21:00 07/19/20 08:54 500 MG Clopidogrel Bisulfate (Plavix) 75 mg DAILY 07/19/20 09:00 07/19/20 08:55 75 MG Info (PHARMACY MONITORING -- do not chart) 1 each PRN DAILY PRN 07/18/20 14:45 Levothyroxine Sodium (Synthroid) 100 mcg DAILY07 07/19/20 07:00 07/19/20 06:07 100 MCG Lorazepam (Ativan) 1 mg PRN Q6HRS PRN 07/18/20 16:45 07/19/20 00:21 1 MG Magnesium Hydroxide (Milk Of Magnesia) 2,400 mg PRN Q12HR PRN 07/18/20 10:30 Metoprolol Succinate (Toprol Xl) 50 mg DAILY 07/19/20 09:00 Metoprolol Tartrate (Lopressor Vial) 2.5 mg 1X ONCE 07/18/20 19:15 07/18/20 19:21 DC 07/18/20 19:40 2.5 MG Ondansetron HCl (Zofran) 4 mg PRN Q6HRS PRN 07/18/20 10:30 Sodium Chloride 1,000 ml @ 400 mls/hr Q2H30M PRN 07/18/20 14:45 07/19/20 02:44 DC Vitamin D (Vitamin D3) 1,000 unit BID 07/18/20 21:00 07/19/20 08:54 1,000 UNIT Lab Laboratory Tests Test 07/18/20 13:00 07/18/20 16:10 07/19/20 06:41 SARS-CoV-2 Antigen (Rapid) Negative (NEGATIVE) Troponin I Quantitative 0.082 ng/mL (0.000-0.055) Triglycerides Level 85 mg/dL (0-150) Cholesterol Level 121 mg/dL (0-200) LDL Cholesterol, Calculated 70 mg/dL (0-100) VLDL Cholesterol, Calculated 17 mg/dL (0-40) Non-HDL Cholesterol Calculated 87 mg/dL (0-129) HDL Cholesterol 34 mg/dL (40-60) Cholesterol/HDL Ratio 3.6 Thyroid Stimulating Hormone (TSH) 0.108 uIU/mL (0.358-3.74) Results All relevant outside records, renal labs, imaging studies, telemetry/EKG's were reviewed. Justicifation of Admission Dx: Justifications for Admission: Justification of Admission Dx: Yes CHF: Sev. Electrolyte Abnormal Chronic Renal Failure: Electrolyte Abnormality TISHA CHRISTINA MD Jul 19, 2020 10:29
--- NOTE | 2020-07-19 10:41 | PDOC ---
ABIGAIL MOYA FIRESTOP/CONTAINMENT WORKER 07/19/20 1041: CARDIO Progress Notes Date and Time Date of Service 07/19/20 Time of Evaluation 1040 Subjective Subjective: No Chest Pain, Other (SOA improved ) Vitals Vitals Vital Signs Date Time Temp Pulse Resp B/P (MAP) Pulse Ox O2 Delivery O2 Flow Rate FiO2 07/19/20 08:54 92 118/67 07/19/20 07:00 96.9 18 99 Nasal Cannula 2.0 96.9 Weight Weight [ ] Input and Output Intake and Output Intake and Output 07/19/20 07:00 Intake Total 360 ml Output Total 300 ml Balance 60 ml Intake Oral 360 ml Output Urine Total 300 ml # Bowel Movements 1 Laboratory Labs Laboratory Tests Test 07/18/20 13:00 07/18/20 16:10 07/19/20 06:41 SARS-CoV-2 Antigen (Rapid) Negative (NEGATIVE) Troponin I Quantitative 0.082 ng/mL (0.000-0.055) Triglycerides Level 85 mg/dL (0-150) Cholesterol Level 121 mg/dL (0-200) LDL Cholesterol, Calculated 70 mg/dL (0-100) VLDL Cholesterol, Calculated 17 mg/dL (0-40) Non-HDL Cholesterol Calculated 87 mg/dL (0-129) HDL Cholesterol 34 mg/dL (40-60) Cholesterol/HDL Ratio 3.6 Thyroid Stimulating Hormone (TSH) 0.108 uIU/mL (0.358-3.74) Physical Exam HEENT: Neck Supple W Full Motion Chest: Symmetric LUNGS: Other (diminished bases) Heart: irregularly irregular (AFIB ) Abdomen: Soft N/T Extremities: Other (trace bilateral LE edema) Neurology: alert, oriented, follow commands Assessment Assessment 1. Acute respiratory failure with acute on chronic systolic CHF. ? PNA 2. Ischemic cardiomyopathy; Echo 03/20 with LVEF 40-45% 3. CAD s/p CABG .Follows with Dr. Kim, [facility]. Plavix has been on hold due to RUE fistula intervention that was scheduled for today. 4. Mild troponin elevation; initial 0.1. Most probably type II, demand ischemia. CP free. 5. Hypertension; controlled 6. ESRD on HD 7. PAFIB; presently AFIB. Previously on Eliquis, but discontinued as he could not afford. Reports wafarin was discussed, but he did not want to have the routine monitoring conducted. Has seen EP in past. CV discussed, but has not been conducted per report. 8. Diabetes, II 9. Hyperlipidemia; statin 10. H/o CVA 11. PUI; COVID pending Recommendations Fluid offloading via HD Discontinue coreg. Toprol for rate control [id number] correlating with 10.8% risk of stroke, which was thoroughly discussed with patient. Would recommend OAC with wafarrin given increased risk for stroke. Patient would like to think about it. Secondary prevention Awaiting records from primary nuisance wildlife trapper, Dr. Kim Consider further ischemic evaluation if none recently Justicifation of Admission Dx: Justifications for Admission: Justification of Admission Dx: Yes CHF: Sev. Electrolyte Abnormal Chronic Renal Failure: Electrolyte Abnormality MYRIAM STINSON MD 07/19/20 5549: CARDIO Progress Notes Plan Plan Pt. seen and examined. Agree with above SURFACE PLATE INSPECTOR note. Supportive care. ABIGAIL MOYA APRN Jul 19, 2020 10:41 MYRIAM STINSON MD Jul 19, 2020 16:49
[2020-07-19 11:00] VITALS: BP 106/56
--- NOTE | 2020-07-19 12:56 | NUR ---
SS following for discharge planning. SS reviewed pt chart and discussed with pt RN. Pt is currently requiring oxygen via nasal canula. COVID19 test pending. COVID19 negative on rapid test. Pt has home CPAP. Pt has outpatient dialysis at [facility], ; fax [phone], Saturday, Saturday, and Saturday at 1115. SS will continue to follow for discharge planning.
[2020-07-19 15:00] VITALS: BP 105/57
[2020-07-19] MEDS: METOPROLOL SUCC 24HR ER 50 MG TAB.ER.24H. PO SCH (17:18)
[2020-07-19 18:54] VITALS: BP 97/52
--- NOTE | 2020-07-19 20:37 | PDOC ---
PROGRESS NOTES Date of Service: DATE: 07/19/20 TIME: 20:35 Chief Complaint Chief Complaint LATE ENTry, pt seen 1pm CHF, acute on chronic systolic falure, last EF 40% Fluid overload End-stage renal disease on hemodialysis Elevated BNP Elevated troponin Malnutrition, protein calorie, COVID-19 PUI, still pending on 07/19 History of Present Illness History of Present Illness dyspnea improved and hypoxia, but still tachycardia and irreg cont other, meds change HD in AM try to DC in am Vitals Vitals Vital Signs Date Time Temp Pulse Resp B/P (MAP) Pulse Ox O2 Delivery O2 Flow Rate FiO2 07/19/20 18:54 98.5 78 18 97/52 (67) 97 Room Air 98.5 07/19/20 08:00 2.0 Physical Exam General: Alert, Oriented X3, Cooperative, mild distress Heart: Other (AFIB ) Abdomen: Soft, No tenderness Extremities: No edema, Normal pulses Skin: No significant lesion Labs LABS Laboratory Tests Test 07/19/20 06:41 Triglycerides Level 85 mg/dL (0-150) Cholesterol Level 121 mg/dL (0-200) LDL Cholesterol, Calculated 70 mg/dL (0-100) VLDL Cholesterol, Calculated 17 mg/dL (0-40) Non-HDL Cholesterol Calculated 87 mg/dL (0-129) HDL Cholesterol 34 mg/dL (40-60) Cholesterol/HDL Ratio 3.6 Thyroid Stimulating Hormone (TSH) 0.108 uIU/mL (0.358-3.74) Assessment and Plan Assessmemt and Plan Problems Medical Problems: (1) CHF exacerbation Status: Acute (2) ESRD (end stage renal disease) on dialysis Status: Acute Comment Review of Relevant I have reviewed the following items shahbaz (where applicable) has been applied. Labs Laboratory Tests Test 07/18/20 08:28 07/18/20 12:00 07/18/20 13:00 07/18/20 16:10 White Blood Count 11.6 x10^3/uL (4.0-11.0) Red Blood Count 3.16 x10^6/uL (4.30-5.70) Hemoglobin 9.4 g/dL (13.0-17.5) Hematocrit 28.4 % (39.0-53.0) Mean Corpuscular Volume 90 fL (79-100) Mean Corpuscular Hemoglobin 30 pg (25-35) Mean Corpuscular Hemoglobin Concent 33 g/dL (31-37) Red Cell Distribution Width 16.3 % (11.5-14.5) Platelet Count 280 x10^3/uL (140-400) Neutrophils (%) (Auto) 75 % (31-73) Lymphocytes (%) (Auto) 13 % (24-48) Monocytes (%) (Auto) 9 % (0-9) Eosinophils (%) (Auto) 2 % (0-3) Basophils (%) (Auto) 1 % (0-3) Neutrophils # (Auto) 8.7 x10^3/uL (1.8-7.7) Lymphocytes # (Auto) 1.5 x10^3/uL (1.0-4.8) Monocytes # (Auto) 1.1 x10^3/uL (0.0-1.1) Eosinophils # (Auto) 0.2 x10^3/uL (0.0-0.7) Basophils # (Auto) 0.1 x10^3/uL (0.0-0.2) Sodium Level 145 mmol/L (136-145) Potassium Level 3.7 mmol/L (3.5-5.1) Chloride Level 104 mmol/L (98-107) Carbon Dioxide Level 23 mmol/L (21-32) Anion Gap 18 (6-14) Blood Urea Nitrogen 103 mg/dL (8-26) Creatinine 7.3 mg/dL (0.7-1.3) Estimated GFR (Cockcroft-Gault) 7.3 BUN/Creatinine Ratio 14 (6-20) Glucose Level 119 mg/dL (70-99) Calcium Level 8.9 mg/dL (8.5-10.1) Magnesium Level 2.1 mg/dL (1.8-2.4) Total Bilirubin 0.8 mg/dL (0.2-1.0) Aspartate Amino Transf (AST/SGOT) 47 U/L (15-37) Alanine Aminotransferase (ALT/SGPT) 64 U/L (16-63) Alkaline Phosphatase 96 U/L (46-116) Troponin I Quantitative 0.102 ng/mL (0.000-0.055) 0.082 ng/mL (0.000-0.055) XB-Caw-U-Type Natriuretic Peptide > 72905 pg/mL (0-449) Total Protein 7.1 g/dL (6.4-8.2) Albumin 3.0 g/dL (3.4-5.0) Albumin/Globulin Ratio 0.7 (1.0-1.7) Hepatitis B Surface Antigen Nonreactive (Nonreactive) Hepatitis B Surface Antibody Nonreactive Coronavirus (PCR) Not detected (Not Detected) SARS-CoV-2 Antigen (Rapid) Negative (NEGATIVE) Test 07/19/20 06:41 Triglycerides Level 85 mg/dL (0-150) Cholesterol Level 121 mg/dL (0-200) LDL Cholesterol, Calculated 70 mg/dL (0-100) VLDL Cholesterol, Calculated 17 mg/dL (0-40) Non-HDL Cholesterol Calculated 87 mg/dL (0-129) HDL Cholesterol 34 mg/dL (40-60) Cholesterol/HDL Ratio 3.6 Thyroid Stimulating Hormone (TSH) 0.108 uIU/mL (0.358-3.74) Laboratory Tests Test 07/19/20 06:41 Triglycerides Level 85 mg/dL (0-150) Cholesterol Level 121 mg/dL (0-200) LDL Cholesterol, Calculated 70 mg/dL (0-100) VLDL Cholesterol, Calculated 17 mg/dL (0-40) Non-HDL Cholesterol Calculated 87 mg/dL (0-129) HDL Cholesterol 34 mg/dL (40-60) Cholesterol/HDL Ratio 3.6 Thyroid Stimulating Hormone (TSH) 0.108 uIU/mL (0.358-3.74) Medications Current Medications Ondansetron HCl (Zofran) 4 mg PRN Q6HRS PRN IVP NAUSEA/VOMITING; Start 07/18/20 at 10:30 Al Hydroxide/Mg Hydroxide (Mylanta Plus Xs) 30 ml PRN Q3HRS PRN PO HEARTBURN / GAS; Start 07/18/20 at 10:30 Calcium Carbonate/ Glycine (Tums) 500 mg PRN Q3HRS PRN PO UPSET STOMACH; Start 07/18/20 at 10:30 Acetaminophen (Tylenol) 650 mg PRN Q6HRS PRN PO Headaches, Temp > 101.5F; Start 07/18/20 at 10:30 Magnesium Hydroxide (Milk Of Magnesia) 2,400 mg PRN Q12HR PRN PO CONSTIPATION; Start 07/18/20 at 10:30 Bisacodyl (Dulcolax Supp) 10 mg PRN DAILY PRN [place] CONSTIPATION; Start 07/18/20 at 10:30 Sodium Chloride 1,000 ml @ 1,000 mls/hr Q1H PRN IV hypotension; Start 07/18/20 at 14:45; Stop 07/18/20 at 20:44; Status DC Albumin Human 200 ml @ 200 mls/hr 1X PRN PRN IV Hypotension; Start 07/18/20 at 14:45; Stop 07/18/20 at 20:44; Status DC Sodium Chloride 1,000 ml @ 400 mls/hr Q2H30M PRN IV PATENCY; Start 07/18/20 at 14:45; Stop 07/19/20 at 02:44; Status DC Info (PHARMACY MONITORING -- do not chart) 1 each PRN DAILY PRN MC SEE COMMENTS; Start 07/18/20 at 14:45; Status UNV Info (PHARMACY MONITORING -- do not chart) 1 each PRN DAILY PRN MC SEE COMMENTS; Start 07/18/20 at 14:45 Alteplase, Recombinant (Cathflo For Central Catheter Clearance) 1 mg 1X ONCE INT CAT ; Start 07/18/20 at 16:30; Stop 07/18/20 at 16:31; Status DC Alteplase, Recombinant (Cathflo For Central Catheter Clearance) 1 mg 1X ONCE INT CAT ; Start 07/18/20 at 16:30; Stop 07/18/20 at 16:31; Status DC Metoprolol Succinate (Toprol Xl) 50 mg DAILY PO Last administered on 07/19/20at 17:18; Start 07/19/20 at 09:00 Aspirin (Ecotrin) 81 mg DAILYWBKFT PO Last administered on 07/19/20at 08:54; Start 07/19/20 at 08:00 Lorazepam (Ativan) 1 mg PRN Q6HRS PRN PO ANXIETY / AGITATION Last administered on 07/19/20at 00:21; Start 07/18/20 at 16:45 Metoprolol Tartrate (Lopressor Vial) 2.5 mg 1X ONCE IVP Last administered on 07/18/20at 19:40; Start 07/18/20 at 19:15; Stop 07/18/20 at 19:21; Status DC Amlodipine Besylate (Norvasc) 5 mg DAILY PO Last administered on 07/19/20at 08:54; Start 07/19/20 at 09:00 Carvedilol (Coreg) 12.5 mg BIDWMEALS PO Last administered on 07/19/20at 08:54; Start 07/18/20 at 20:00; Stop 07/19/20 at 10:37; Status DC Vitamin D (Vitamin D3) 1,000 unit BID PO Last administered on 07/19/20at 08:54; Start 07/18/20 at 21:00 Clopidogrel Bisulfate (Plavix) 75 mg DAILY PO Last administered on 07/19/20at 08:55; Start 07/19/20 at 09:00 Levothyroxine Sodium (Synthroid) 100 mcg DAILY07 PO Last administered on 07/19/20at 06:07; Start 07/19/20 at 07:00 Atorvastatin Calcium (Lipitor) 80 mg QHS PO Last administered on 07/18/20at 20:23; Start 07/18/20 at 21:00 Cephalexin HCl (Keflex) 500 mg Q12H PO Last administered on 07/19/20at 08:54; Start 07/18/20 at 21:00 Active Scripts Active Pepcid (Famotidine) 20 Mg Tablet 20 Mg PO HS 30 Days Reported Allopurinol 300 Mg Tablet 150 Mg PO HS Keflex (Cephalexin) 750 Mg Capsule 500 Mg PO TID Irbesartan 75 Mg Tablet 1 Tab PO DAILY Amlodipine Besylate 5 Mg Tablet 1 Tab PO DAILY Carvedilol 12.5 Mg Tablet 1 Tab PO BID Levothyroxine Sodium 100 Mcg Tablet 1 Tab PO DAILY07 90 Days Vitamin D3 (Cholecalciferol (Vitamin D3)) 1,000 Unit Tablet 1 Tab PO BID Plavix (Clopidogrel Bisulfate) 75 Mg Tablet 1 Tab PO DAILY Lipitor (Atorvastatin Calcium) 80 Mg Tablet 80 Mg PO DAILY Vitals/I & O Vital Sign - Last 24 Hours 07/18/20 07/19/20 07/19/20 07/19/20 22:46 03:09 07:00 08:00 Temp 98.9 98.8 96.9 98.9 98.8 96.9 Pulse 85 86 82 Resp 18 22 18 B/P (MAP) 128/62 (84) 129/65 (86) 118/67 (84) Pulse Ox 98 100 99 O2 Delivery Nasal Cannula Nasal Cannula Nasal Cannula Nasal Cannula O2 Flow Rate 4.0 4.0 2.0 2.0 07/19/20 07/19/20 07/19/20 07/19/20 08:54 08:54 11:00 15:00 Temp 97.1 97.1 97.1 97.1 Pulse 86 92 84 80 Resp 18 16 B/P (MAP) 118/67 118/67 106/56 (73) 105/57 (73) Pulse Ox 100 98 O2 Delivery Room Air Room Air 07/19/20 07/19/20 17:18 18:54 Temp 98.5 98.5 Pulse 80 78 Resp 18 B/P (MAP) 105/57 97/52 (67) Pulse Ox 97 O2 Delivery Room Air Intake and Output 07/18/20 07/18/20 07/19/20 15:00 23:00 07:00 Intake Total 240 ml 120 ml 0 ml Output Total 100 ml 200 ml Balance 240 ml 20 ml -200 ml Justicifation of Admission Dx: Justifications for Admission: Justification of Admission Dx: Yes CHF: Sev. Electrolyte Abnormal Chronic Renal Failure: Electrolyte Abnormality YESSY JOY MD Jul 19, 2020 20:37
[2020-07-19] MEDS: ATORVASTATIN CALCIUM 40 MG TABLET. PO SCH (20:55)
[2020-07-19 22:18] VITALS: BP 112/59
[2020-07-20 02:08] VITALS: BP 131/60
[2020-07-20] MEDS: LEVOTHYROXINE 100 MCG TABLET PO SCH (06:28)
[2020-07-20 07:00] VITALS: BP 103/66
[2020-07-20 07:15] LABS: CALCIUM 8.7 mg/dL (8.5-10.1); CREATININE 7.8 mg/dL (0.7-1.3); GFR 6.8; POTASSIUM 4.1 mmol/L (3.5-5.1)
[2020-07-20] MEDS ORDERED: ALBUMIN HUMAN 25% 200 ML IV PRN (08:00)
[2020-07-20] MEDS ORDERED: IV NORMAL SALINE 1000ML BAG 1,000 ML IV PRN ×2 (08:00)
[2020-07-20] MEDS ORDERED: DIALYSIS PATIENT. MC PRN ×2 (08:30)
--- NOTE | 2020-07-20 10:16 | PDOC ---
CARDIO Progress Notes Date and Time Date of Service 07/20/20 Time of Evaluation 1015 Subjective Subjective: No Chest Pain, Other (SOA improved ) Vitals Vitals Vital Signs Date Time Temp Pulse Resp B/P (MAP) Pulse Ox O2 Delivery O2 Flow Rate FiO2 07/20/20 08:00 Nasal Cannula 2.0 07/20/20 07:00 97.6 90 19 103/66 (78) 99 97.6 Weight Weight [ ] Input and Output Intake and Output Intake and Output 07/20/20 07:00 Intake Total 830 ml Output Total 180 ml Balance 650 ml Intake Oral 830 ml Output Urine Total 180 ml Laboratory Labs Laboratory Tests Test 07/20/20 06:25 Sodium Level 141 mmol/L (136-145) Potassium Level 4.1 mmol/L (3.5-5.1) Chloride Level 101 mmol/L (98-107) Carbon Dioxide Level 28 mmol/L (21-32) Anion Gap 12 (6-14) Blood Urea Nitrogen 90 mg/dL (8-26) Creatinine 7.8 mg/dL (0.7-1.3) Estimated GFR (Cockcroft-Gault) 6.8 Glucose Level 178 mg/dL (70-99) Calcium Level 8.7 mg/dL (8.5-10.1) Physical Exam HEENT: Neck Supple W Full Motion Chest: Symmetric LUNGS: Other (diminished bases) Heart: irregularly irregular (AFIB ) Abdomen: Soft N/T Extremities: Other (trace bilateral LE edema) Neurology: alert, oriented, follow commands Assessment Assessment 1. Acute respiratory failure with acute on chronic systolic CHF. ? PNA 2. Ischemic cardiomyopathy; Echo 03/20 with LVEF 40-45% 3. CAD s/p CABG [address] Kim, [facility]. Plavix has been on hold due to RUE fistula intervention that was scheduled for today. 4. Mild troponin elevation; initial 0.1. Most probably type II, demand ischemia. CP free. 5. Hypertension; controlled 6. ESRD on HD 7. PAFIB; presently AFIB. Previously on Eliquis, but discontinued as he could not afford. report CORINE ligation during CABG 8. Diabetes, II 9. Hyperlipidemia; statin 10. H/o CVA 11. PUI; COVID pending Recommendations Fluid offloading via HD Toprol for rate control Secondary prevention No records obtained from primary supervisor core shop Outpatient ischemic evaluation, which was d/w patient and Follow up with Dr. Kim upon discharge Justicifation of Admission Dx: Justifications for Admission: Justification of Admission Dx: Yes CHF: Sev. Electrolyte Abnormal Chronic Renal Failure: Electrolyte Abnormality ABIGAIL MOYA APRN Jul 20, 2020 10:16
--- NOTE | 2020-07-20 10:29 | PDOC ---
DATE OF SERVICE DATE: 07/20/20 TIME: 10:25 SUBJECTIVE ROS Stable , denies shortness of breath, seen on dialysis , no complaints OBJECTIVE Vital Signs Vital Signs Date Time Temp Pulse Resp B/P (MAP) Pulse Ox O2 Delivery O2 Flow Rate FiO2 07/20/20 08:00 Nasal Cannula 2.0 07/20/20 07:00 97.6 90 19 103/66 (78) 99 97.6 I & 0 Intake and Output 07/20/20 07:00 Intake Total 830 ml Output Total 180 ml Balance 650 ml Intake Oral 830 ml Output Urine Total 180 ml PHYSICAL EXAM Physical Exam General: mild distress HEENT: Atraumatic, EOMI, OM moist Neck supple Lungs: CTA, non labored Heart: RRR Cardiovascular: S1, S2 Abdomen: Normal bowel sounds, Soft, No tenderness Extremities: +2 Bilateral leg edema Skin: No rash Neuro: Normal speech, Sensation intact Psych/Mental Status: Mental status NL, Mood NL DIAGNOSIS/ASSESSMENT Assessment & Plan ESRD- Switched to HD from PD in mar 2020 , currently on MWF schedule under Dr. Rosa's care Seen on dialysis , tolerating well, continue as ordered, Oziel Jimenez On Saturday UF below his OP dry weight to 67 Kg (at OP unit dry weight 74.5) . R-eval after HD today, may need to adjust his dry weight as OP. He has some RRF Ac Resp failure - Cxr : Diffuse interstitial infiltrate and cardiomegaly, on O2 2 lts by NC , PUI (CoVid negative in mar 2020 ) , acute on chronic systolic CHF. No complaints today Cardiomyopathy; Echo 03/20 with LVEF 40-45% CAD s/p CABG Hypertension AFIB H/o CVA Anemia - drop compared to 03/2020 , RONNY per protocol Hx of Recurrent peritonitis when he was on PD s/p catheter removal in Mar 2020 DM II COMMENT/RELEVANT DATA Meds Current Medications Medications (Trade) Dose Ordered Sig/Randy Start Time Stop Time Status Last Admin Dose Admin Acetaminophen (Tylenol) 650 mg PRN Q6HRS PRN 07/18/20 10:30 07/20/20 04:39 650 MG Al Hydroxide/Mg Hydroxide (Mylanta Plus Xs) 30 ml PRN Q3HRS PRN 07/18/20 10:30 Albumin Human 200 ml @ 200 mls/hr 1X PRN PRN 07/20/20 08:00 07/20/20 13:59 Alteplase, Recombinant (Cathflo For Central Catheter Clearance) 1 mg 1X ONCE 07/18/20 16:30 07/18/20 16:31 DC Amlodipine Besylate (Norvasc) 5 mg DAILY 07/19/20 09:00 07/19/20 08:54 5 MG Aspirin (Ecotrin) 81 mg DAILYWBKFT 07/19/20 08:00 07/19/20 08:54 81 MG Atorvastatin Calcium (Lipitor) 80 mg QHS 07/18/20 21:00 07/19/20 20:55 80 MG Bisacodyl (Dulcolax Supp) 10 mg PRN DAILY PRN 07/18/20 10:30 Calcium Carbonate/ Glycine (Tums) 500 mg PRN Q3HRS PRN 07/18/20 10:30 Carvedilol (Coreg) 12.5 mg BIDWMEALS 07/18/20 20:00 07/19/20 10:37 DC 07/19/20 08:54 12.5 MG Cephalexin HCl (Keflex) 500 mg Q12H 07/18/20 21:00 07/19/20 20:54 500 MG Clopidogrel Bisulfate (Plavix) 75 mg DAILY 07/19/20 09:00 07/19/20 08:55 75 MG Info (PHARMACY MONITORING -- do not chart) 1 each PRN DAILY PRN 07/20/20 08:30 07/20/20 08:33 DC Levothyroxine Sodium (Synthroid) 100 mcg DAILY07 07/19/20 07:00 07/20/20 06:28 100 MCG Lorazepam (Ativan) 1 mg PRN Q6HRS PRN 07/18/20 16:45 07/19/20 23:03 1 MG Magnesium Hydroxide (Milk Of Magnesia) 2,400 mg PRN Q12HR PRN 07/18/20 10:30 Metoprolol Succinate (Toprol Xl) 50 mg DAILY 07/19/20 09:00 07/19/20 17:18 50 MG Metoprolol Tartrate (Lopressor Vial) 2.5 mg 1X ONCE 07/18/20 19:15 07/18/20 19:21 DC 07/18/20 19:40 2.5 MG Ondansetron HCl (Zofran) 4 mg PRN Q6HRS PRN 07/18/20 10:30 Sodium Chloride 1,000 ml @ 400 mls/hr Q2H30M PRN 07/20/20 08:00 07/20/20 19:59 Vitamin D (Vitamin D3) 1,000 unit BID 07/18/20 21:00 07/19/20 20:55 1,000 UNIT Lab Laboratory Tests Test 07/20/20 06:25 Sodium Level 141 mmol/L (136-145) Potassium Level 4.1 mmol/L (3.5-5.1) Chloride Level 101 mmol/L (98-107) Carbon Dioxide Level 28 mmol/L (21-32) Anion Gap 12 (6-14) Blood Urea Nitrogen 90 mg/dL (8-26) Creatinine 7.8 mg/dL (0.7-1.3) Estimated GFR (Cockcroft-Gault) 6.8 Glucose Level 178 mg/dL (70-99) Calcium Level 8.7 mg/dL (8.5-10.1) Results All relevant outside records, renal labs, imaging studies, telemetry/EKG's were reviewed. Justicifation of Admission Dx: Justifications for Admission: Justification of Admission Dx: Yes CHF: Sev. Electrolyte Abnormal Chronic Renal Failure: Electrolyte Abnormality TISHA CHRISTINA MD Jul 20, 2020 10:29
--- NOTE | 2020-07-20 10:50 | NUR ---
SS following up with discharge planning. SS reviewed pt chart and discussed with pt RN. Pt is currently on room air. Pt has oxygen at HS. Pt has home CPAP. COVID19 negative. Discharge orders received for home healthcare. SS met with pt in dialysis to discuss discharge planning and home healthcare services. Pt declined home healthcare services stating that he lives with a nurse and that she takes care of him and takes him to and from dialysis. Pt denied PT/OT needs. Physician and pt's RN notified. SS phoned and faxed clinical to [facility], ; fax [phone]. SS left voice message for pt's spouse. SS will continue to follow for discharge planning.
[2020-07-20] MEDS ORDERED: METO50TA4 PO (12:23)
[2020-07-20] MEDS ORDERED: ASPI-886 PO (12:23)
--- NOTE | 2020-07-20 12:25 | PDOC3 ---
Discharge Summary Visit Information Date of Admission: Jul 18, 2020 Date of Discharge: Jul 20, 2020 Final Diagnosis 1. Acute respiratory failure with acute on chronic systolic CHF. 2. Ischemic cardiomyopathy; Echo 03/20 with LVEF 40-45% 3. CAD s/p CABG .Follows with Dr. Kim, [facility] 4. Mild troponin elevation; initial 0.1. Most probably type II, demand ischemia. CP free. 5. Hypertension; controlled 6. ESRD on HD 7. AFIB. Previously on Eliquis, but discontinued - he declined warfarin or restarting 8. Diabetes, II 9. Hyperlipidemia; statin 10. H/o CVA Problems Medical Problems: (1) CHF exacerbation Status: Acute (2) ESRD (end stage renal disease) on dialysis Status: Acute Brief Hospital Course Allergies Allergies Coded Allergies Type Severity Reaction Last Updated Verified doxycycline Allergy Intermediate Itching 03/16/20 Yes Vital Signs Vital Signs Date Time Temp Pulse Resp B/P (MAP) Pulse Ox O2 Delivery O2 Flow Rate FiO2 07/20/20 08:00 Nasal Cannula 2.0 07/20/20 07:00 97.6 90 19 103/66 (78) 99 97.6 Lab Results Laboratory Tests Test 07/18/20 13:00 07/18/20 16:10 07/19/20 06:41 07/20/20 06:25 SARS-CoV-2 Antigen (Rapid) Negative (NEGATIVE) Troponin I Quantitative 0.082 ng/mL (0.000-0.055) Triglycerides Level 85 mg/dL (0-150) Cholesterol Level 121 mg/dL (0-200) LDL Cholesterol, Calculated 70 mg/dL (0-100) VLDL Cholesterol, Calculated 17 mg/dL (0-40) Non-HDL Cholesterol Calculated 87 mg/dL (0-129) HDL Cholesterol 34 mg/dL (40-60) Cholesterol/HDL Ratio 3.6 Thyroid Stimulating Hormone (TSH) 0.108 uIU/mL (0.358-3.74) Sodium Level 141 mmol/L (136-145) Potassium Level 4.1 mmol/L (3.5-5.1) Chloride Level 101 mmol/L (98-107) Carbon Dioxide Level 28 mmol/L (21-32) Anion Gap 12 (6-14) Blood Urea Nitrogen 90 mg/dL (8-26) Creatinine 7.8 mg/dL (0.7-1.3) Estimated GFR (Cockcroft-Gault) 6.8 Glucose Level 178 mg/dL (70-99) Calcium Level 8.7 mg/dL (8.5-10.1) Laboratory Tests Test 07/20/20 06:25 Sodium Level 141 mmol/L (136-145) Potassium Level 4.1 mmol/L (3.5-5.1) Chloride Level 101 mmol/L (98-107) Carbon Dioxide Level 28 mmol/L (21-32) Anion Gap 12 (6-14) Blood Urea Nitrogen 90 mg/dL (8-26) Creatinine 7.8 mg/dL (0.7-1.3) Estimated GFR (Cockcroft-Gault) 6.8 Glucose Level 178 mg/dL (70-99) Calcium Level 8.7 mg/dL (8.5-10.1) Brief Hospital Course Mr. Yu is a 75 old admit for fluid overload, CHF, on HD, takne to HD here, some tachy, irreg, irreg, afib RVR, acute diastolic CHF, Discontinue coreg. Toprol for rate control [id number] correlating with 10.8% risk of stroke, which was thoroughly discussed with patient. Would recommend OAC with wafarrin given increased risk for stroke. Patient would like to think about it. Secondary prevention Awaiting records from primary truck technician, Dr. Kim Consider further ischemic evaluation if none recently Assessment Assessment was PUI on admit, COVID was neg Discharge Information Condition at Discharge: Improved Follow Up: Weeks Disposition/Orders: D/C to Home Scheduled Allopurinol (Allopurinol) 300 Mg Tablet, 150 MG PO HS for gout, (Reported) Entered as Reported by: Huan Smyth on 07/19/20857 Last Taken: 150 on Unknown Date & Time Last Action: New Order on 07/19/20857 by Huan Smyth Amlodipine Besylate (Amlodipine Besylate) 5 Mg Tablet, 1 TAB PO DAILY for hypertension, (Reported) Entered as Reported by: TRENA AARON on 03/05/20 1016 Last Action: Continued on 07/18/201917 by PRISCILLA GROVES MD Atorvastatin Calcium (Lipitor) 80 Mg Tablet, 80 MG PO DAILY, (Reported) Entered as Reported by: RINA ERNESTO on 10/18/13 1513 Last Action: Converted on 07/18/201917 by PRISCILLA GROVES MD Carvedilol (Carvedilol) 12.5 Mg Tablet, 1 TAB PO BID for heart, (Reported) Entered as Reported by: TRENA AARON on 03/05/20 1016 Last Action: Continued on 07/18/201917 by PRISCILLA GROVES MD Cephalexin (Keflex) 750 Mg Capsule, 500 MG PO TID for , (Reported) Entered as Reported by: Huan Smyth on 07/18/20 1244 Last Taken: 500 on Unknown Date & Time Last Action: Converted on 07/18/201917 by PRISCILLA GROVES MD Cholecalciferol (Vitamin D3) (Vitamin D3) 1,000 Unit Tablet, 1 TAB PO BID, #30 Ref 5 (Reported) Entered as Reported by: EMMA FRIAS on 09/09/15 1110 Last Action: Continued on 07/18/201917 by PRISCILLA GROVES MD Clopidogrel Bisulfate (Plavix) 75 Mg Tablet, 1 TAB PO DAILY, #90 Ref 1 (Reported) Entered as Reported by: EMMA FRIAS on 09/09/15 1104 Last Action: Continued on 07/18/201917 by PRISCILLA GROVES MD Famotidine (Pepcid) 20 Mg Tablet, 20 MG PO HS for GERD for 30 Days, #30 Prescribed by: NATHAN SIMON MD on 03/12/20 0907 Last Action: HELD on 07/18/201916 by PRISCILLA GROVES MD Irbesartan (Irbesartan) 75 Mg Tablet, 1 TAB PO DAILY for ., (Reported) Entered as Reported by: TRENA AARON on 03/05/20 1016 Last Action: Reviewed on 07/18/20 0846 by SHIRA TORRES RN Levothyroxine Sodium (Levothyroxine Sodium) 100 Mcg Tablet, 1 TAB PO DAILY07 for Hypothyroidism for 90 Days, #90 (Reported) Entered as Reported by: PRISCILLA GROVES MD on 03/05/20 0925 Last Action: Continued on 07/18/201917 by PRISCILLA GROVES MD Patient Instructions Patient Instructions discused with patient he declined home health, his is a retired [employer], he declined coumadin at this time for CVA prevention Justicifation of Admission Dx: Justifications for Admission: Justification of Admission Dx: Yes CHF: Sev. Electrolyte Abnormal Chronic Renal Failure: Electrolyte Abnormality YESSY JOY MD Jul 20, 2020 12:25
[2020-07-20] MEDS: ASPIRIN ENTERIC COATED 81 MG TABLET.DR. PO SCH (12:44)
[2020-07-20] MEDS: CHOLECALCIFEROL (VITAMIN D3) 1,000 UNIT TABLET PO SCH (12:44)
[2020-07-20] MEDS: CLOPIDOGREL BISULFATE 75 MG TABLET PO SCH (12:44)
[2020-07-20] MEDS: METOPROLOL SUCC 24HR ER 50 MG TAB.ER.24H. PO SCH (12:45)
[2020-07-20] MEDS: CEPHALEXIN 250 MG CAPSULE. PO SCH (12:45)
[2020-07-20 14:44] VITALS: BP 113/60
--- NOTE | 2020-07-20 16:07 | NUR ---
SS following up with discharge planning. Script for oxygen received. SS phoned and faxed script and clinical to [facility], ; fax [phone]. Oxygen tank provided to pt for home.
--- NOTE | 2020-07-20 16:40 | NUR ---
Discharge Note: NEREIDA MONAHAN [facility] Discharge instructions and discharge home medications reviewed with Patient and a copy given. All questions have been answered and understanding verbalized. The following instructions and handouts were given: medication list, discharge instructions, CHF info, oxygen use info, a fib info. Discontinued lines and drains: Peripheral IV intact. Patient discharged to Home or Self Care with Spouse via Wheelchair at [facility].
[2020-11-11] MEDS ORDERED: FURO40TA4 PO (20:55)
[2020-11-11] MEDS ORDERED: DILT120C99 PO (20:55)
== END 2020-07-20 16:40 | disposition home or self-care (01) | DRG 291 ==
LOC: ER 08:15 → 2 NORTH 10:17 → 2 SOUTH 12:45
PROVIDERS: ADMIT Family Medicine; ATTEND Family Medicine
PROC: 5A1D70Z Performance of Urinary Filtration, Intermittent, Less than 6 Hours Per Day (ICD-10-PCS; principal; 2020-07-18)
PROC: 5A1D70Z Performance of Urinary Filtration, Intermittent, Less than 6 Hours Per Day (ICD-10-PCS; 2020-07-18)
DX: I13.2 Hypertensive heart and chronic kidney disease with heart failure and with stage 5 chronic kidney disease, or end stage renal disease (principal); N18.6 End stage renal disease; J18.9 Pneumonia, unspecified organism; J96.01 Acute respiratory failure with hypoxia; I50.43 Acute on chronic combined systolic (congestive) and diastolic (congestive) heart failure; E46 Unspecified protein-calorie malnutrition; I24.8 Other forms of acute ischemic heart disease; E11.22 Type 2 diabetes mellitus with diabetic chronic kidney disease; E78.5 Hyperlipidemia, unspecified; I25.10 Atherosclerotic heart disease of native coronary artery without angina pectoris; I25.5 Ischemic cardiomyopathy; I48.0 Paroxysmal atrial fibrillation; Z96.659 Presence of unspecified artificial knee joint; K21.9 Gastro-esophageal reflux disease without esophagitis; D64.9 Anemia, unspecified; Z20.822 Contact with and (suspected) exposure to COVID-19; Z82.49 Family history of ischemic heart disease and other diseases of the circulatory system; Z83.3 Family history of diabetes mellitus; Z86.73 Personal history of transient ischemic attack (TIA), and cerebral infarction without residual deficits; Z87.891 Personal history of nicotine dependence; Z95.1 Presence of aortocoronary bypass graft; Z99.2 Dependence on renal dialysis; I25.2 Old myocardial infarction; Z88.1 Allergy status to other antibiotic agents
CPT/HCPCS: 36415; 71045; 80048; 80053; 80061; 83735; 83880; 84443; 84484; 85025; 86706; 87340; 87426; 93005; 94618; 99285; J3490; U0003; 97530-GP; G0378

== ENCOUNTER 2021-05-08 16:11 | Emergency (ER) | payer MEDICARE ==
[2021-01-31 11:14] VITALS: BP 134/65
[~2021-05-08 16:11] MED LIST changes: +ALLO300T PO; +APIX5TAB PO; +ASPI-886 PO; +CEPH750C9 PO; +DILT120C99 PO; +FURO40TA4 PO; +METO50TA4 PO
== END 2021-05-08 19:15 | disposition left against medical advice (07) ==
LOC: ER 16:11
DX: Z91.81 History of falling (principal); Z53.21 Procedure and treatment not carried out due to patient leaving prior to being seen by health care provider

== ENCOUNTER 2021-08-12 08:50 | Emergency (ER) | payer MEDICARE ==
[~2021-08-12] VITALS: Ht 165.1 cm; Wt 60.2 kg
[~2021-08-12 08:50] MED LIST changes: +CALC200T3 PO; +IRBE300T23 PO
[2021-08-12] MEDS ORDERED: traMADol 50 MG TABLET PO ONE (09:15)
--- NOTE | 2021-08-12 09:31 | PHYS DOC ---
Past Medical History Past Medical History: A-Fib, Anemia, CAD, GERD, High Cholesterol, Heart D isease, Hypothyroid, NM, Renal Failure, Other Additional Past Medical Histor: BLOOD THINNERS Past Surgical History: Coronary Bypass Surgery, Other Additional Past Surgical Histo: CABG X 4, FISTULA RIGHT UPPER ARM Smoking Status: Former Smoker Alcohol Use: None Drug Use: None General Adult EDM: Chief Complaint: TOE PROBLEM HPI: HPI: Patient is a 76 year old male with past medical history of CAD, ESRD who presents with left great toe pain. Patient reports he first noticed the pain approximately 2 weeks ago, but the last 2 days has been more severe. Patient does have an appointment with podiatry scheduled for , 5 days from now. He states the pain has gotten so severe, that he cannot wait until that appointment time. Patient reports associated redness, but denies swelling, injury or other trauma. The pain radiates from the end of his great toe across the ball of his foot. Patient has been unable to ambulate on the foot secondary to pain. Patient denies fever, chills, open wounds or discharge. Patient states he feels slightly weak. He has been compliant with dialysis. Review of Systems: Review of Systems: Constitutional: See HPI Eyes: Denies change in visual acuity, visual field deficits or discharge HENT: Denies ear pain, nasal congestion or sore throat Respiratory: Denies cough or shortness of breath Cardiovascular: Denies chest pain, palpitations or edema GI: Denies abdominal pain, nausea, vomiting, bloody stools or diarrhea : Denies dysuria or hematuria Musculoskeletal: See HPI Integument: Denies rash or other skin lesion Neurologic: Denies headache, focal weakness or sensory changes Heart Score: C/O Chest Pain: No Current Medications: Current Medications Medications (Trade) Dose Ordered Sig/Randy Start Time Stop Time Status Last Admin Dose Admin Tramadol HCl (Ultram) 50 mg 1X ONCE 08/12/21 09:15 08/12/21 09:16 UNV Allergies: Allergies: Allergies Coded Allergies Type Severity Reaction Last Updated Verified doxycycline Allergy Intermediate Itching 03/16/20 Yes Physical Exam: PE: Constitutional: Thin, no acute distress, non-toxic appearance. HENT: Normocephalic, atraumatic, bilateral external ears normal, nose normal. Eyes: EOMI, conjunctiva normal, no discharge. Neck: Normal range of motion, no stridor. Skin: Warm, dry, no erythema, no rash. Extremities: Left great toe exquisitely tender to touch and passive movement, toe is slightly erythematous without swelling, there is no open wound/rash/maceration appreciated, there is a dark 2 mm round lesion noted to the center of the ball of the foot without surrounding erythema/induration or underlying fluctuance. Stasis dermatitis rash noted to bilateral lower extremities. Extremities otherwise no tenderness, no cyanosis, no clubbing, ROM intact, no edema. Neurologic: Alert and oriented x4, no focal deficits noted. Current Patient Data: Labs: Laboratory Tests Test 08/12/21 09:48 08/12/21 11:14 Sodium Level 142 mmol/L (136-145) Potassium Level 4.6 mmol/L (3.5-5.1) Chloride Level 98 mmol/L (98-107) Carbon Dioxide Level 31 mmol/L (21-32) Anion Gap 13 (6-14) Blood Urea Nitrogen 72 mg/dL (8-26) Creatinine 4.3 mg/dL (0.7-1.3) Estimated GFR (Cockcroft-Gault) 13.5 BUN/Creatinine Ratio 17 (6-20) Glucose Level 113 mg/dL (70-99) Calcium Level 9.7 mg/dL (8.5-10.1) Magnesium Level 1.9 mg/dL (1.8-2.4) Total Bilirubin 0.4 mg/dL (0.2-1.0) Aspartate Amino Transf (AST/SGOT) 25 U/L (15-37) Alanine Aminotransferase (ALT/SGPT) 19 U/L (16-63) Alkaline Phosphatase 85 U/L (46-116) Total Protein 8.1 g/dL (6.4-8.2) Albumin 3.0 g/dL (3.4-5.0) Albumin/Globulin Ratio 0.6 (1.0-1.7) White Blood Count 8.7 x10^3/uL (4.0-11.0) Red Blood Count 4.07 x10^6/uL (4.30-5.70) Hemoglobin 11.7 g/dL (13.0-17.5) Hematocrit 37.1 % (39.0-53.0) Mean Corpuscular Volume 91 fL (79-100) Mean Corpuscular Hemoglobin 29 pg (25-35) Mean Corpuscular Hemoglobin Concent 32 g/dL (31-37) Red Cell Distribution Width 19.0 % (11.5-14.5) Platelet Count 283 x10^3/uL (140-400) Neutrophils (%) (Auto) 68 % (31-73) Lymphocytes (%) (Auto) 15 % (24-48) Monocytes (%) (Auto) 14 % (0-9) Eosinophils (%) (Auto) 1 % (0-3) Basophils (%) (Auto) 1 % (0-3) Neutrophils # (Auto) 5.9 x10^3/uL (1.8-7.7) Lymphocytes # (Auto) 1.3 x10^3/uL (1.0-4.8) Monocytes # (Auto) 1.2 x10^3/uL (0.0-1.1) Eosinophils # (Auto) 0.1 x10^3/uL (0.0-0.7) Basophils # (Auto) 0.1 x10^3/uL (0.0-0.2) Vital Signs: Vital Signs Date Time Temp Pulse Resp B/P (MAP) Pulse Ox O2 Delivery O2 Flow Rate FiO2 08/12/21 11:50 53 19 130/67 (88) 100 Room Air 08/12/21 11:46 19 100 Room Air 08/12/21 10:05 19 95 Room Air 08/12/21 09:35 19 96 Room Air 08/12/21 08:53 97.8 67 20 120/57 (78) 94 Room Air 97.8 Radiology/Procedures: Radiology/Procedures: PROCEDURE: FOOT LEFT 3V XR FOOT_LEFT 3 VIEWS Clinical indications: Reason: pain great toe, lesion mid foot / Spl. Instructions: / History: Findings: No acute fracture or dislocation or osteolytic process is evident. Small plantar spur of the calcaneus is seen. Small posterior spur of the calcaneus is seen at the attachment of Achilles tendon. 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 No periosteal reaction is evident. IMPRESSION: No acute osseous abnormality is evident. Electronically signed by: Sav Rivera MD (08/12/2021 9:41 AM) [id number] Course & Med Decision Making: Course & Med Decision Making Pertinent Labs and Imaging studies reviewed. (See chart for details) Patient is a 76-year-old male who presents with left great toe pain that began 2 weeks ago. It is worsened over the past 2 days. Joint does not appear to have any evidence of infection, trauma, swelling. Work-up today will include labs, plain films. Patient does have history of gout and end-stage renal disease. Septic joint highly unlikely at this point. Patient treated with p.o. steroids and pain medication. He is advised to take MiraLAX daily while taking narcotic medication. Patient is advised to keep his appointment with podiatry next week. Return precautions were provided. Patient understands and is agreeable to discharge plan. Jim Disclaimer: Jim Disclaimer: This electronic medical record was generated, in whole or in part, using a voice recognition dictation system. Departure Departure Impression: Primary Impression: Gouty arthritis of left great toe Disposition: HOME / SELF CARE / HOMELESS Condition: IMPROVED Referrals: TRACEY PANTOJA MD (PCP) THELMA WEBER DPM Patient Instructions: Arthritis, Degenerative-Brief, Gout, [id number] Additional Instructions: EMERGENCY DEPARTMENT GENERAL DISCHARGE INSTRUCTIONS Thank you for coming to [facility] Emergency Department (ED) today and trusting us with you care. We trust that you had a positive experience in our Emergency Department. If you wish to speak to the department management, you may call the director at . YOUR FOLLOW UP INSTRUCTIONS ARE FOLLOWS: 1. Follow up with your primary care doctor. If you do not have a primary doctor, please ask for a resource list of physicians or clinics that may be able to assist you with follow up care. 2. The emergency provider has interpreted your imaging studies, if any were ordered. The radiology mechanical service specialist also reviewed them. If there is a change in the findings, you will be notified in 48 hours when at all possible. 3. If a lab test or culture has been done, your results will be reviewed and you will be notified if you need a change in treatment. 4. Follow instructions verbalized to you and refer to the printouts if needed. ADDITIONAL INSTRUCTIONS AND INFORMATION: 1. Your care today has been supervised by a physician who is specially trained in emergency care. Many problems require more than one evaluation for a compl ete diagnosis and treatment. We recommend that you schedule your follow up appointment as recommended to ensure complete treatment of you illness or injury. If you are unable to obtain follow up care and continue to have a problem, or if your condition worsens, we recommend that you return to the ED. 2. We are not able to safely determine your condition over the phone nor are we able to give sound medical advice over the phone. For these safety reasons, if you call for medical advice we will ask you to come to the ED for further evaluation. 3. If you have any questions regarding these discharge instructions please call the ED at . SAFETY INFORMATION: In the interest of safety, wellness, and injury prevention; we encourage you to wear your seat belt, if you smoke; quite smoking, and we encourage family to use a protective helmet for bicycling and other sporting events that present an increased risk for head injury. IF YOUR SYMPTOMS WORSEN OR NEW SYMPTOMS DEVELOP, OR YOU HAVE CONCERNS ABOUT YOUR CONDITION; OR IF YOUR CONDITION WORSENS WHILE YOU ARE WAITING FOR YOUR FOLLOW UP APPOINTMENT; EITHER CONTACT YOUR PRIMARY CARE DOCTOR, THE PHYSICIAN WHOSE NAME AND NUMBER YOU WERE GIVEN, OR RETURN TO THE ED IMMEDIATELY. Scripts Polyethylene Glycol 3350 (MIRALAX) 119 Gm Powder 17 GM PO DAILY for constipation, #255 GM 0 Refills dissolve in water Prov: AMISHA FERRERA 08/12/21 Oxycodone Hcl/Acetaminophen (ENDOCET 5-325 TABLET) 1 Each Tablet 1 TAB PO PRN BID PRN for PAIN MDD 2 Tablet(s), #10 TAB 0 Refills Prov: AMISHA FERRERA 08/12/21 Prednisone (PREDNISONE) 50 Mg Tablet 1 TAB PO DAILY, #4 TAB Prov: AMISHA FERRERA 08/12/21 AMISHA FERRERA Aug 12, 2021 09:31
--- NOTE | 2021-08-12 09:44 | RAD ---
XR FOOT_LEFT 3 VIEWS Clinical indications: Reason: pain great toe, lesion mid foot / Spl. Instructions: / History: Findings: No acute fracture or dislocation or osteolytic process is evident. Small plantar spur of t he calcaneus is seen. Small posterior spur of the calcaneus is seen at the attachment of Achilles ten don. 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 No pe riosteal reaction is evident. IMPRESSION: No acute osseous abnormality is evident. Electronically signed by: Sav Rivera MD (08/12/2021 9:41 AM) [id number]
[2021-08-12 10:08] LABS: CALCIUM 9.7 mg/dL (8.5-10.1); CREATININE 4.3 mg/dL (0.7-1.3); GFR 13.5; POTASSIUM 4.6 mmol/L (3.5-5.1)
[2021-08-12 10:14] LABS: ALBUMIN/GLOBULIN RATIO 0.6 (1.0-1.7); MAGNESIUM 1.9 mg/dL (1.8-2.4); TOTAL BILIRUBIN 0.4 mg/dL (0.2-1.0); TOTAL PROTEIN 8.1 g/dL (6.4-8.2)
[2021-08-12] MEDS ORDERED: PRED50TA PO (10:49)
[2021-08-12] MEDS ORDERED: predniSONE 10 MG TABLET PO ONE (11:00)
[2021-08-12 11:27] LABS: BASO # 0.1 x10^3/uL (0.0-0.2); BASO % 1 % (0-3); EOS # 0.1 x10^3/uL (0.0-0.7); EOS % 1 % (0-3); HEMATOCRIT 37.1 % (39.0-53.0); HEMOGLOBIN 11.7 g/dL (13.0-17.5); LYMPH # 1.3 x10^3/uL (1.0-4.8); LYMPH % 15 % (24-48); MEAN CORPUSCULAR HEMOGLOBIN 29 pg (25-35); MEAN CORPUSCULAR HGB CONC 32 g/dL (31-37); MEAN CORPUSCULAR VOLUME 91 fL (79-100); MONO # 1.2 x10^3/uL (0.0-1.1); MONO % 14 % (0-9); NEUT # 5.9 x10^3/uL (1.8-7.7); NEUT % 68 % (31-73); PLATELET COUNT 283 x10^3/uL (140-400); RED BLOOD COUNT 4.07 x10^6/uL (4.30-5.70); WHITE BLOOD COUNT 8.7 x10^3/uL (4.0-11.0)
[2021-08-12] MEDS ORDERED: oxyCODONE IR 5 MG TABLET PO ONE (11:30)
[2021-08-12] MEDS ORDERED: POLY119P4 PO (11:34)
[2021-08-12] MEDS ORDERED: OXYC-314 PO (11:34)
[2021-08-12 11:50] VITALS: BP 130/67
== END 2021-08-12 11:52 | disposition home or self-care (01) ==
LOC: ER 08:50
DX: M10.9 Gout, unspecified (principal); I48.91 Unspecified atrial fibrillation; I25.10 Atherosclerotic heart disease of native coronary artery without angina pectoris; K21.9 Gastro-esophageal reflux disease without esophagitis; E78.00 Pure hypercholesterolemia, unspecified; E03.9 Hypothyroidism, unspecified; I25.2 Old myocardial infarction; N18.6 End stage renal disease; Z99.2 Dependence on renal dialysis; Z86.79 Personal history of other diseases of the circulatory system; Z87.891 Personal history of nicotine dependence; Z95.5 Presence of coronary angioplasty implant and graft; Z88.1 Allergy status to other antibiotic agents
CPT/HCPCS: 36415; 73630; 80053; 83735; 85025; 99284; J7512